=== PATIENT | male | born 1945 | race Caucasian/White ===

== ENCOUNTER → 2016-03-29 | Outpatient (CLI) | payer MEDICARE ==
[2016-03-29 10:36] LABS: Basophils % (A) 0 %; CH 34.7; CHCM 34.2; Eosinophils # (A) 0.2 k/uL (0-0.7); Eosinophils % (A) 2 %; HCT 39.3 % (39.0-53.0); Luc # (Auto) 0.27; Luc % (Auto) 3; Lymphocytes # (A) 2.3 k/uL (1.0-4.8); Lymphocytes % (A) 27 %; MCH 33.7 pg (25.0-35.0); Macrocytosis Slight; Mean Platelet Volume 6.8; Monocytes # (A) 0.6 k/uL (0-1.0); Monocytes % (A) 7 %; Neutrophils # (A) 5.2 k/uL (1.3-7.7); Neutrophils % (A) 61 %; RBC 3.85 m/uL (4.30-5.90); RDW 13.9 % (11.5-15.5); WBC 8.7 k/uL (3.8-10.6); WBC (Perox) 9.18
[2016-03-29 10:51] LABS: Bilirubin, Delta 0.2 mg/dL (0.0-0.2); Total Bilirubin 0.8 mg/dL (0.2-1.3)
[2016-03-30 13:36] LABS: Hepatits C Virus RNA, Quant <12 IU/mL (<12); LOG HCV IU/mL <1.08 (<1.08)
== END | disposition home or self-care (01) ==
LOC: LABWHC1 10:14
PROVIDERS: ATTEND Physician Assistant
DX: B18.2 Chronic viral hepatitis C (principal)
CPT/HCPCS: 36415; 80076; 85025; 87522

== ENCOUNTER → 2018-10-02 | Outpatient (CLI) | payer MEDICARE ==
--- NOTE | 2018-10-02 15:54 | XR ---
EXAMINATION TYPE: XR chest 2V DATE OF EXAM: 10/02/2018 COMPARISON: NONE TECHNIQUE: PA and lateral views submitted. HISTORY: Cough FINDINGS: Subsegmental changes at the left lung base. Interstitium is somewhat coarsened and there is degenerat nadine changes of the spine. No pleural effusion. No pneumothorax. Arthropathy of the right shoulder. IMPRESSION: 1. Left basilar atelectasis favored over early pneumonia correlate clinically. 2. Coarsened interstitium can be seen with bronchitis or interstitial pneumonitis correlate clinicall y.
== END | disposition home or self-care (01) ==
LOC: RADXRMAIN 15:27
PROVIDERS: ATTEND Internal Medicine
DX: R05 Cough (principal)
CPT/HCPCS: 71046

== ENCOUNTER → 2019-08-31 | Outpatient (CLI) | payer MEDICARE ==
--- NOTE | 2019-08-31 18:04 | CT ---
EXAMINATION TYPE: CT cervical spine wo con DATE OF EXAM: 08/31/2019 COMPARISON: None HISTORY: neck pain with no injury CT DLP: 478.9 mGycm Automated exposure control for dose reduction was used. TECHNIQUE: CT scan of the cervical spine is obtained without contrast, axial images are obtained, sa gittal and coronal reformatted images are also reviewed. FINDINGS: Cervical spine is visualized in its entirety from C1 through upper thoracic levels. There i s straightening of the cervical lordosis. No evidence of acute fracture or dislocation. Prevertebral soft tissue appears within normal limits. The C1-C2 articulation is maintained, with degenerative c hanges anteriorly. There is C4-5, C5-6, and C6-7 disc space narrowing, osteophytosis, and endplate cy stic changes. Multilevel facet arthropathy. There is multilevel bilateral varying degrees of neural f oramina narrowing, with severe right narrowing at C3-4. There is mild canal stenosis at C5-6. IMPRESSION: Multilevel degenerative changes of the cervical spine as above. Varying degrees of multil evel neural foramina narrowing, worst with severe narrowing at C3-4 on the right. Mild canal stenosis at C5-6.
--- NOTE | 2019-09-02 11:53 | CT ---
EXAMINATION TYPE: CT iac wo con DATE OF EXAM: 08/31/2019 COMPARISON: None HISTORY: hearing loss, vertigo CT DLP: 150mGycm Automated exposure control for dose reduction was used. FINDINGS: The external auditory canals are patent bilaterally. Mastoid air cells show no evidence of abnormal opacification bilaterally. The middle ear ossicles are symmetric and unremarkable. There is no evidence of suspicious surrounding soft tissue density to suggest cholesteatoma. The scutum is preserved bilaterally. The cochlea and the semicircular canals are symmetric and unremarkable. Vestibular aqueduct and inte rnal carotid canal appear unremarkable. Temporomandibular joints are maintained bilaterally. Chronic deformity of the nasal bone. Correlate for previous trauma. IMPRESSION: No significant abnormality seen to account for patient's symptoms.
== END | disposition home or self-care (01) ==
LOC: RADCTMAIN 14:41
PROVIDERS: ATTEND Otolaryngology
DX: M48.02 Spinal stenosis, cervical region (principal); M47.812 Spondylosis without myelopathy or radiculopathy, cervical region
CPT/HCPCS: 36415; 70480; 72125; 82565; 84520

== ENCOUNTER → 2019-09-21 | Outpatient (CLI) | payer MEDICARE ==
--- NOTE | 2019-09-21 12:45 | US ---
EXAMINATION TYPE: US scrotum with doppler. TECHNIQUE: Grayscale and color Doppler Duplex imaging performed of the scrotum. DATE OF EXAM: 09/21/2019 COMPARISON: NONE CLINICAL HISTORY: 73-year-old male N50.89 Right testicle swelling. FINDINGS: EXAM MEASUREMENTS: TESTICLES: Right Testicle: 3.4 x 1.7 x 2.7 cm Left Testicle: 3.8 x 2.4 x 3.0 cm EPIDIDYMIS HEAD: Left Epididymis: 1.1 cm Right epididymis: Could not be visualized Doppler performed to assess for testicular vascularity; good bilateral color flow and waveforms are s een. There is no evidence of testicular torsion. Presence of hydroceles: Large hydrocele Right= 8.9 x 6.3 x 7.3 cm Presence of varicoceles: No IMPRESSION: 1. Large right-sided hydrocele measuring up to 9 cm. 2. No sonographic evidence for testicular torsion or epididymoorchitis.
== END | disposition home or self-care (01) ==
LOC: RADUSWWP 10:48
PROVIDERS: ATTEND Surgery
DX: N43.3 Hydrocele, unspecified (principal)
CPT/HCPCS: 76870; 93975

== ENCOUNTER 2019-11-23 09:39 | Emergency (ER) | payer MEDICARE ==
[2019-11-23 09:50] VITALS: BP 135/77; PULSE 117; RESP 16; TEMP 98.9
--- NOTE | 2019-11-23 10:11 | ED ---
Extremity Problem HPI - General Chief complaint: Extremity Problem,Nontraumatic Stated complaint: POSS BLOOD CLOT Time Seen by Provider: 11/23/19 09:50 Source: patient, RN notes reviewed Mode of arrival: ambulatory Limitations: no limitations - History of Present Illness Initial comments: This a 74-year-old male presents emergency Department from urology office with chief complaint right leg swelling. Patient states it surgery 2 weeks ago in which their concern he may have a DVT of his right leg. Patient denies any associated pain no chest pain or shortness of breath. Patient states that he's had some redness in which she thinks is improving. He's had some swelling in the past states is may be slightly worse. Patient denies any history DVT or PE. He has no shortness of breath. Patient denies abdominal pain he states he did have a follow-up with urology today stating he healed well scrotal surgery. Patient denies being diabetic denies any claudication type pain. - Related Data Previous Rx's Medication Instructions Recorded Cephalexin [Keflex] 500 mg PO Q6HR #40 cap 11/23/19 Allergies Allergy/AdvReac Type Severity Reaction Status Date / Time No Known Allergies Allergy Verified 11/23/19 09:47 Review of Systems ROS Statement: Those systems with pertinent positive or pertinent negative responses have been documented in the HPI. ROS Other: All systems not noted in ROS Statement are negative. Past Medical History Past Medical History: No Reported History History of Any Multi-Drug Resistant Organisms: None Reported Past Surgical History: Orthopedic Surgery Additional Past Surgical History / Comment(s): bilateral knee sx, right testicle sx 2019 Past Psychological History: No Psychological Hx Reported Smoking Status: Light tobacco smoker Past Alcohol Use History: None Reported Past Drug Use History: Marijuana General Exam Limitations: no limitations General appearance: alert, in no apparent distress Head exam: Present: atraumatic, normocephalic, normal inspection Eye exam: Present: normal appearance, PERRL, EOMI. Absent: scleral icterus, conjunctival injection, periorbital swelling ENT exam: Present: normal exam, normal oropharynx, mucous membranes moist Neck exam: Present: normal inspection, full ROM. Absent: tenderness, meningismus, lymphadenopathy Respiratory exam: Present: normal lung sounds bilaterally. Absent: respiratory distress, wheezes, rales, rhonchi, stridor Cardiovascular Exam: Present: regular rate (Heart rate 92 on exam), normal rhythm, normal heart sounds. Absent: systolic murmur, diastolic murmur, rubs, gallop, clicks Extremities exam: Present: other (Mild swelling to the right leg, there is mild erythema lower extremity, pulses are palpable equal bilaterally shows full range of motion) Neurological exam: Present: alert, oriented X3 Skin exam: Present: warm, dry, intact, normal color. Absent: rash Course Vital Signs 11/23/19 09:47 Temperature 98.9 F Pulse Rate 117 H Respiratory 16 Rate Blood Pressure 135/77 O2 Sat by Pulse 100 Oximetry Medical Decision Making - Medical Decision Making 74-year-old male presented for right leg swelling, to rule out DVT all child is negative for acute DVT. Patient has mild cellulitis. Patient is afebrile vitals are stable. Patient be discharged on oral antibiotics with close follow- up return parameters discussed she is advised to elevate, wear compression stockings. Disposition Clinical Impression: Right leg swelling, Cellulitis of right leg Disposition: HOME SELF-CARE Condition: Stable Instructions (If sedation given, give patient instructions): Leg Edema (ED), Cellulitis (ED) Additional Instructions: Please return to the Emergency Department if symptoms worsen or any other concerns. Prescriptions: Cephalexin [Keflex] 500 mg PO Q6HR #40 cap Is patient prescribed a controlled substance at d/c from ED?: No Referrals: Maynor Delgadillo MD [Primary Care Provider] - 1-2 days Time of Disposition: 10:55
--- NOTE | 2019-11-23 10:41 | US ---
EXAMINATION TYPE: US venous doppler duplex LE RT DATE OF EXAM: 11/23/2019 10:04 AM COMPARISON: NONE CLINICAL HISTORY: pain. right lower leg redness and swelling. SIDE PERFORMED: Right TECHNIQUE: The lower extremity deep venous system is examined utilizing real time linear array sonog nancy with graded compression, doppler sonography and color-flow sonography. VESSELS IMAGED: External Iliac Vein (EIV) Common Femoral Vein Deep Femoral Vein Greater Saphenous Vein * Femoral Vein Popliteal Vein Small Saphenous Vein * Proximal Calf Veins (* superficial vessels) Right Leg: Negative for DVT IMPRESSION: Grayscale, color doppler, spectral doppler imaging performed of the deep veins of the lo wer extremities. There is normal flow, compressibility, vascular waveforms.
== END 2019-11-23 11:08 | disposition home or self-care (01) ==
LOC: EC 09:39
DX: L03.115 Cellulitis of right lower limb (principal); F17.200 Nicotine dependence, unspecified, uncomplicated
CPT/HCPCS: 99283

== ENCOUNTER 2020-03-08 11:38 | Inpatient (IN) | payer MEDICARE ==
[2020-03-08] MEDS ORDERED: PANTOPRAZOLE 40 MG/10 ML VIAL IVP STA (12:27)
[2020-03-08 13:04] LABS: Basophils % (A) 0 %; Eosinophils # (A) 0.1 k/uL (0-0.7); Eosinophils % (A) 1 %; HCT 34.3 % (39.0-53.0); HGB 11.3 gm/dL (13.0-17.5); Lymphocytes # (A) 0.7 k/uL (1.0-4.8); Lymphocytes % (A) 11 %; MCH 32.4 pg (25.0-35.0); MCHC 32.9 g/dL (31.0-37.0); MCV 98.3 fL (80.0-100.0); Mean Platelet Volume 7.4; Monocytes # (A) 0.6 k/uL (0-1.0); Monocytes % (A) 9 %; Neutrophils % (A) 77 %; Platelet Count 194 k/uL (150-450); RBC 3.49 m/uL (4.30-5.90); WBC 6.5 k/uL (3.8-10.6)
--- NOTE | 2020-03-08 13:14 | ED ---
Abdominal Pain HPI - General Source: patient, family Mode of arrival: wheelchair Limitations: no limitations <Christy Kunz - Last Filed: 03/08/20 14:23> <Omar Mccoy - Last Filed: 03/08/20 15:38> - General Chief Complaint: Abdominal Pain Stated Complaint: abd pain, unable to urinate Time Seen by Provider: 03/08/20 12:10 - History of Present Illness Initial Comments: Patient is a 74-year-old male, with history of hypertension, hepatitis C, is presenting to the emergency Department with complaints of lower abdominal pain and unable to urinate for the past 24 hours. Patient states he has been having difficulty with his abdomen for the last couple months, having occasional cramping and some intermittent nausea. Patient has had laboratory done at his PCPs office in the last week, no acute abnormalities that they're aware of. He denies any fever or chills, no vomiting. Patient states he has been dealing with some constipation on and off for the last week. He did have a few small bowel movements a few days ago and then this morning. He denies history of abdominal obstruction, he does admit to hernia repair no other abdominal surgeries. Denies any chest pain or shortness of breath. He has no further complaints at this time. Upon arrival to the ER, his vital signs are stable. (Christy Kunz) - Related Data Home Medications Medication Instructions Recorded Confirmed ALPRAZolam [Xanax] 0.25 mg PO HS PRN 03/08/20 03/08/20 Levothyroxine Sodium [Synthroid] 125 mcg PO DAILY 03/08/20 03/08/20 Lisinopril-Hctz 20-12.5 mg 1 tab PO DAILY 03/08/20 03/08/20 [Zestoretic 20-12.5] Methadone HCl [Methadone Intensol] 146 mg PO DAILY 03/08/20 03/08/20 Simvastatin [Zocor] 20 mg PO Q48H 03/08/20 03/08/20 Allergies Allergy/AdvReac Type Severity Reaction Status Date / Time No Known Allergies Allergy Verified 03/08/20 13:22 Review of Systems ROS Other: All systems not noted in ROS Statement are negative. <Christy Kunz - Last Filed: 03/08/20 14:23> ROS Other: All systems not noted in ROS Statement are negative. <Omar Mccoy - Last Filed: 03/08/20 15:38> ROS Statement: Those systems with pertinent positive or pertinent negative responses have been documented in the HPI. Past Medical History Past Medical History: Hyperlipidemia, Hypertension, Thyroid Disorder Additional Past Medical History / Comment(s): HEPATITIS C from past drug abuse History of Any Multi-Drug Resistant Organisms: None Reported Past Surgical History: Hernia Repair, Orthopedic Surgery Additional Past Surgical History / Comment(s): bilateral knee sx, right testicle sx 2019 Past Psychological History: No Psychological Hx Reported Smoking Status: Current some day smoker, Light tobacco smoker Past Alcohol Use History: None Reported Past Drug Use History: Marijuana <Christy Kunz - Last Filed: 03/08/20 14:23> General Exam Limitations: no limitations <Christy Kunz - Last Filed: 03/08/20 14:23> - General Exam Comments Initial Comments: GENERAL: Patient is well-developed and well-nourished. Patient is nontoxic and in mild acute distress. HEAD: Atraumatic, normocephalic. EYES: Pupils equal round and reactive to light, extraocular movements intact, sclera anicteric, conjunctiva are normal. Eyelids were unremarkable. ENT: TMs normal, nares patent, oropharynx clear without exudates. Moist mucous membranes. NECK: Normal range of motion, supple without lymphadenopathy or JVD. LUNGS: Unlabored respirations. Breath sounds clear to auscultation bilaterally and equal. No wheezes rales or rhonchi. HEART: Regular rate and rhythm without murmurs, rubs or gallops. ABDOMEN: Abdomen slightly distended, generalized tenderness, no specific area pain, it is increased in the lower abdomen though. Soft, hypoactive bowel sounds. No guarding, no rebound. No masses appreciated. : Deferred MUSCULOSKELETAL: Normal extremities with adequate strength and normal range of motion, no pitting or edema. No clubbing or cyanosis. NEUROLOGICAL: Patient is alert and oriented x 3. Motor and sensory are also intact. Cranial nerves II through XII grossly intact. Symmetrical smile. Normal speech, normal gait. PSYCH: Normal mood, normal affect. SKIN: Warm, Dry, normal turgor, no rashes or lesions noted. (Christy Kunz) Course <Omar Mccoy - Last Filed: 03/08/20 15:38> Vital Signs 03/08/20 03/08/20 03/08/20 11:54 13:49 15:20 Temperature 98.6 F 97.9 F Pulse Rate 96 89 99 Respiratory 18 18 18 Rate Blood Pressure 163/94 152/91 157/83 O2 Sat by Pulse 99 98 100 Oximetry - Reevaluation(s) Reevaluation #1: 03/08/20 14:31 EKG: Normal sinus rhythm, rate of 99, MT interval 200, QRS duration 100, QTC 456 (Omar Mccoy) Reevaluation #2: 03/08/20 14:30 Did discuss case with nephrology, Dr. Knott, will evaluate the patient. And Dr. Thomas who is able to evaluate the patient in the emergency department 03/08/20 15:37 (Omar Mccoy) Medical Decision Making - Lab Data Result diagrams: 03/08/20 12:49 03/08/20 12:49 <Christy Kunz - Last Filed: 03/08/20 14:23> - Lab Data Result diagrams: 03/08/20 12:49 03/08/20 12:49 <Omar Mccoy - Last Filed: 03/08/20 15:38> - Medical Decision Making Patient is a 74-year-old male history hypertension, presenting for abdominal tenderness as well as urinary retention for the last 24 hours. No fevers, vital signs are stable upon arrival. Patient does look uncomfortable and in mild distress. We did do a bladder scan, this only revealed about 60 mL's. We did she have Barajas catheter, patient is not draining any urine. (Christy Kunz) - Lab Data Lab Results 03/08/20 03/08/20 03/08/20 Range/Units 12:49 12:49 12:49 WBC 6.5 (3.8-10.6) k/uL RBC 3.49 L (4.30-5.90) m/uL Hgb 11.3 L (13.0-17.5) gm/dL Hct 34.3 L (39.0-53.0) % MCV 98.3 (80.0-100.0) fL MCH 32.4 (25.0-35.0) pg MCHC 32.9 (31.0-37.0) g/dL RDW 15.0 (11.5-15.5) % Plt Count 194 (150-450) k/uL MPV 7.4 Neutrophils % 77 % Lymphocytes % 11 % Monocytes % 9 % Eosinophils % 1 % Basophils % 0 % Neutrophils # 5.0 (1.3-7.7) k/uL Lymphocytes # 0.7 L (1.0-4.8) k/uL Monocytes # 0.6 (0-1.0) k/uL Eosinophils # 0.1 (0-0.7) k/uL Basophils # 0.0 (0-0.2) k/uL PT 10.6 (9.0-12.0) sec INR 1.0 (<1.2) APTT 23.8 (22.0-30.0) sec Sodium 138 (137-145) mmol/L Potassium 5.9 H (3.5-5.1) mmol/L Chloride 102 (98-107) mmol/L Carbon Dioxide 20 L (22-30) mmol/L Anion Gap 16 mmol/L BUN 98 H (9-20) mg/dL Creatinine 9.83 H* (0.66-1.25) mg/dL Est GFR (CKD-EPI)AfAm 5 (>60 ml/min/1.73 sqM) Est GFR (CKD-EPI)NonAf 5 (>60 ml/min/1.73 sqM) Glucose 127 H (74-99) mg/dL Plasma Lactic Acid Ari (0.7-2.0) mmol/L Calcium 9.7 (8.4-10.2) mg/dL Total Bilirubin 1.0 (0.2-1.3) mg/dL AST 102 H (17-59) U/L ALT 85 H (4-49) U/L Alkaline Phosphatase 876 H (38-126) U/L Total Protein 8.1 (6.3-8.2) g/dL Albumin 3.9 (3.5-5.0) g/dL Amylase 187 H (30-110) U/L Lipase 465 H (23-300) U/L 03/08/20 Range/Units 12:49 WBC (3.8-10.6) k/uL RBC (4.30-5.90) m/uL Hgb (13.0-17.5) gm/dL Hct (39.0-53.0) % MCV (80.0-100.0) fL MCH (25.0-35.0) pg MCHC (31.0-37.0) g/dL RDW (11.5-15.5) % Plt Count (150-450) k/uL MPV Neutrophils % % Lymphocytes % % Monocytes % % Eosinophils % % Basophils % % Neutrophils # (1.3-7.7) k/uL Lymphocytes # (1.0-4.8) k/uL Monocytes # (0-1.0) k/uL Eosinophils # (0-0.7) k/uL Basophils # (0-0.2) k/uL PT (9.0-12.0) sec INR (<1.2) APTT (22.0-30.0) sec Sodium (137-145) mmol/L Potassium (3.5-5.1) mmol/L Chloride (98-107) mmol/L Carbon Dioxide (22-30) mmol/L Anion Gap mmol/L BUN (9-20) mg/dL Creatinine (0.66-1.25) mg/dL Est GFR (CKD-EPI)AfAm (>60 ml/min/1.73 sqM) Est GFR (CKD-EPI)NonAf (>60 ml/min/1.73 sqM) Glucose (74-99) mg/dL Plasma Lactic Acid Ari 1.8 (0.7-2.0) mmol/L Calcium (8.4-10.2) mg/dL Total Bilirubin (0.2-1.3) mg/dL AST (17-59) U/L ALT (4-49) U/L Alkaline Phosphatase (38-126) U/L Total Protein (6.3-8.2) g/dL Albumin (3.5-5.0) g/dL Amylase (30-110) U/L Lipase (23-300) U/L Disposition Decision Date: 03/08/20 Decision Time: 14:24 <Christy Kunz - Last Filed: 03/08/20 14:23> <Omar Mccoy - Last Filed: 03/08/20 15:38> Clinical Impression: Acute renal failure, Metastatic renal cell carcinoma Disposition: ADMITTED IP TO THIS HOSP Condition: Stable
[2020-03-08 13:18] LABS: Albumin 3.9 g/dL (3.5-5.0); Calcium 9.7 mg/dL (8.4-10.2); Potassium 5.9 mmol/L (3.5-5.1); Total Protein 8.1 g/dL (6.3-8.2)
[2020-03-08] MEDS ORDERED: SODIUM CHLORIDE 0.9% 1,000 ML IV ONE (13:27)
[2020-03-08 13:42] LABS: Partial Thromboplastin Time 23.8 sec (22.0-30.0); Prothrombin Time 10.6 sec (9.0-12.0)
[2020-03-08] MEDS: SODIUM CHLORIDE 0.9% 1,000 ML IV SCH ×2 (13:46→21:00)
--- NOTE | 2020-03-08 14:15 | CT ---
EXAMINATION TYPE: CT abdomen pelvis wo con DATE OF EXAM: 03/08/2020 COMPARISON: None HISTORY: generalized pain, inability to urinate CT DLP: 720.6 mGycm Automated exposure control for dose reduction was used. TECHNIQUE: Helical acquisition of images from the lung bases through the pelvis. FINDINGS: Lack of intravenous contrast could compromise sensitivity. There are coronary artery calcif ications. LUNG BASES: No significant abnormality is appreciated. AORTA: No significant abnormality is appreciataed. LIVER/GB: Some scattered mildly dilated biliary ducts are suspected, gallbladder is within normal barber its. PANCREAS: No significant abnormality is seen. SPLEEN: No significant abnormality is seen. ADRENALS: No significant abnormality is seen. KIDNEYS: Right kidney is not recognizable, there is a soft tissue mass present at the level of the ri ght kidney measuring approximately 9.3 cm in cephalad to caudal dimension by 9 cm in transverse dimen nithin by 6.3 cm in AP dimension, soft tissue extends to the level the inferior vena cava which is not seen at the level of the mass with certainty, abnormal soft tissue extends along the retroperitoneal region peripherally to the level of the right iliac vessels. There is some thickening enteritis fasci a, abnormal thickening of the lateral conal fascia on the right. Small bowel loops, duodenum, close p roximity to the retroperitoneal mass, possibly involved by the mass. The left kidney shows probable h ydronephrosis, low dense focus at the midpole may represent a cortical cyst, there is mild left-sided hydroureter to the level of the distal aspect, no definite stone. Along the level of the iliac vasculature on the right there is some increased soft tissue density. Th e right iliac vein is not recognizable near the confluence of the iliac veins, right common iliac art keenan and vein. REPRODUCTIVE ORGANS: Prostate calcifications are suspected. URINARY BLADDER: Catheterized. BOWEL: No significant abnormality is seen. FREE AIR: No Free Air is visible. ASCITES: None visible. PELVIC ADENOPATHY: None visualized. RETROPERITONEAL ADENOPATHY: There are retroperitoneal nodes present in the periaortic location on th e left. OSSEOUS STRUCTURES: Sclerotic density is present within the pelvis including the left pubic ramus in feriorly on the left, the right and left ilium bone, sacrum, multiple lumbar vertebral bodies, lytic lucency present within the left ilium. IMPRESSION: FINDINGS SUGGEST METASTATIC RENAL CELL CARCINOMA. 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 SUGGESTION OF URETERAL OBSTRUCTION DISTALLY OR POSSIBLY URE TER STRICTURE DISTALLY ON THE LEFT.
[2020-03-08] MEDS ORDERED: NALOXONE 0.4 MG/ML 1 ML VIAL IV PRN (14:17)
[2020-03-08] MEDS ORDERED: SODIUM POLYSTYRENE SULFONATE 15 GM/60 ML BOTTLE PO ONE (14:27)
--- NOTE | 2020-03-08 14:33 | P.HPIM ---
History of Present Illness H&P Date: 03/08/20 Miguel Mancuso, is a 74-year-old male patient of Dr. Delgadillo who presented to [facility] emergency room with a chief complaint of abdominal pain, patient also stated that he was not able to urinate for the past 24 hours, patient states that his symptoms started about 1 month ago but has been worse in the last few days he was evaluated in the emergency room, his vital exam on presentation revealed a temperature of 98.6 pulse 96 respiration 18 blood pressure 163/94 pulse ox 99% on room air, his white blood count was 6.5 hemoglobin 11.3 platelet count 194 sodium 138 potassium 5.9 BUN elevated at 98 creatinine 9.83 glucose level was 127 ALT and AST were elevated at 85 and 1 or 2 alkaline phosphatase was 876 amylase and lipase were elevated at 187 and 465. Barajas catheter was inserted in the emergency room and there was no urine in the bladder, computed tomography scan of the abdomen and pelvis was ordered results are still pending patient will be admitted to medical floor nephrology and urology consultation will be requested, a dose of Kayexalate was ordered. Results of computed tomography scan of the abdomen now available and findings suggest metastatic renal cell carcinoma with possible obstruction and evidence of deep venous thrombosis involving the right iliac vein and finding in the liver suggestive of dilation of the biliary duct. At this time patient will be admitted to medical floor he will be started on IV heparin nephrology, urology, gastroenterology, and oncology consultation will be requested will follow closely. Past Medical History Past Medical History: Hyperlipidemia, Hypertension, Thyroid Disorder Additional Past Medical History / Comment(s): HEPATITIS C from past drug abuse History of Any Multi-Drug Resistant Organisms: None Reported Past Surgical History: Hernia Repair, Orthopedic Surgery Additional Past Surgical History / Comment(s): bilateral knee sx, right testicle sx 2019 Past Psychological History: No Psychological Hx Reported Smoking Status: Current some day smoker, Light tobacco smoker Past Alcohol Use History: None Reported Past Drug Use History: Marijuana Medications and Allergies Home Medications Medication Instructions Recorded Confirmed Type ALPRAZolam [Xanax] 0.25 mg PO HS PRN 03/08/20 03/08/20 History Levothyroxine Sodium [Synthroid] 125 mcg PO DAILY 03/08/20 03/08/20 History Lisinopril-Hctz 20-12.5 mg 1 tab PO DAILY 03/08/20 03/08/20 History [Zestoretic 20-12.5] Methadone HCl [Methadone Intensol] 146 mg PO DAILY 03/08/20 03/08/20 History Simvastatin [Zocor] 20 mg PO Q48H 03/08/20 03/08/20 History Allergies Allergy/AdvReac Type Severity Reaction Status Date / Time No Known Allergies Allergy Verified 03/08/20 13:22 Physical Exam Vitals: Vital Signs Temp Pulse Resp BP Pulse Ox 03/08/20 13:49 89 18 152/91 98 03/08/20 11:54 98.6 F 96 18 163/94 99 Intake and Output 03/07/20 03/08/20 03/08/20 22:59 06:59 14:59 Other: Weight 86.183 kg In general patient is alert and oriented 3 in no apparent distress HEENT head normocephalic and atraumatic Neck is supple no JVD no goiter no lymphadenopathy Chest exam reveals crackles in both lung bases no wheezing Cardiac exam reveals regular heart sounds S1 and S2 no gallops no murmurs Abdomen is soft with mild diffuse tenderness in the abdomen no organomegaly with normal bowel sounds Extremity exam reveal mild edema on the right worse than on the left, with mild erythema in the right pretibial area, no cyanosis or clubbing Neurological examination reveals, no gross focal neurological deficits Results CBC & Chem 7: 03/08/20 12:49 03/08/20 12:49 Labs: Abnormal Lab Results - Last 24 Hours (Table) 03/08/20 03/08/20 Range/Units 12:49 12:49 RBC 3.49 L (4.30-5.90) m/uL Hgb 11.3 L (13.0-17.5) gm/dL Hct 34.3 L (39.0-53.0) % Lymphocytes # 0.7 L (1.0-4.8) k/uL Potassium 5.9 H (3.5-5.1) mmol/L Carbon Dioxide 20 L (22-30) mmol/L BUN 98 H (9-20) mg/dL Creatinine 9.83 H* (0.66-1.25) mg/dL Glucose 127 H (74-99) mg/dL AST 102 H (17-59) U/L ALT 85 H (4-49) U/L Alkaline Phosphatase 876 H (38-126) U/L Amylase 187 H (30-110) U/L Lipase 465 H (23-300) U/L Assessment and Plan Plan: 1. Abdominal pain, computed tomography scan of the abdomen and pelvis was done in the emergency room findings suggest metastatic renal cell carcinoma with obstruction, also evidence of deep venous thrombosis involving the right iliac vein and evidence of biliary duct dilatation, at this point patient will be admitted to medical floor, he will be started on IV heparin urology consultation nephrology consultation gastroenterology consultation and oncology consultation were initiated 2. Poor urine output, possibly related to obstruction with a component of prerenal azotemia, 3. Acute renal failure with elevated BUN and creatinine 4. Underlying history of hypertension 5. Underlying history of hepatitis C 6. Underlying history of hyperlipidemia 7. Underlying history of hypothyroidism 8. Underlying history of chronic pain maintained on methadone At this time will admit patient to medical floor started on IV heparin, Consult gastroenterology in relation to biliary duct dilated Tatian Consult nephrology for acute renal failure Consults urology for urinary obstruction And consult hematology oncology Prognosis guarded will follow closely
[2020-03-08] MEDS ORDERED: CALCIUM GLUCONATE 1 GM in SODIUM CHLORIDE 0.9% 100 ML IVPB ONE (14:45)
--- NOTE | 2020-03-08 15:31 | P.GSCN ---
History of Present Illness Consult date: 03/08/20 History of present illness: This is a 74-year-old gentleman whom I've been asked to see for left hydronephrosis, and urea, right renal mass, possible metastatic renal cancer. The patient who is in reasonably good health states that he is not having urine for the last 36 hours. He has been having back pain bilaterally for the last month. Not really have the sensation of fullness but because he had voided he came to the hospital. Prior to this he voided without difficulty. The been no blood in the urine. He was seen in the ER and found to have a creatinine of 9.8-year-old of 89. His computed tomography scan of the abdomen identifying a large left renal retroperitoneal/renal mass. There also is left-sided hydronephrosis and a bladder that appeared to be empty. A Barajas catheters placed and there is no urine in the bladder. For this reason we're asked see the patient. He is being admitted to . Review of Systems - Constitutional Reports anorexia, Reports weight loss - Gastrointestinal Reports abdominal pain - Musculoskeletal Reports low back pain Past Medical History Past Medical History: Hyperlipidemia, Hypertension, Thyroid Disorder Additional Past Medical History / Comment(s): HEPATITIS C from past drug abuse History of Any Multi-Drug Resistant Organisms: None Reported Past Surgical History: Hernia Repair, Orthopedic Surgery Additional Past Surgical History / Comment(s): bilateral knee sx, right testicle sx 2019 Past Psychological History: No Psychological Hx Reported Smoking Status: Current some day smoker, Light tobacco smoker Past Alcohol Use History: None Reported Past Drug Use History: Marijuana Medications and Allergies Home Medications Medication Instructions Recorded Confirmed Type ALPRAZolam [Xanax] 0.25 mg PO HS PRN 03/08/20 03/08/20 History Levothyroxine Sodium [Synthroid] 125 mcg PO DAILY 03/08/20 03/08/20 History Lisinopril-Hctz 20-12.5 mg 1 tab PO DAILY 03/08/20 03/08/20 History [Zestoretic 20-12.5] Methadone HCl [Methadone Intensol] 146 mg PO DAILY 03/08/20 03/08/20 History Simvastatin [Zocor] 20 mg PO Q48H 03/08/20 03/08/20 History Allergies Allergy/AdvReac Type Severity Reaction Status Date / Time No Known Allergies Allergy Verified 03/08/20 13:22 Surgical - Exam Vital Signs Temp Pulse Resp BP Pulse Ox 98.6 F 96 18 163/94 99 03/08/20 11:54 03/08/20 11:54 03/08/20 11:54 03/08/20 11:54 03/08/20 11:54 - General Mild distress well developed, well nourished - Eyes PERRL - ENT no hearing loss - Neck no masses - Respiratory normal expansion, normal respiratory effort - Cardiovascular Rhythm: regular - Abdomen Abdomen: soft, non tender - Genitourinary Indwelling catheter with normal penis and testicles - Neurologic normal coordination, normal sensation - Musculoskeletal normal posture - Psychiatric oriented to time, oriented to person, oriented to place, speech is normal, memory intact Results - Labs 03/08/20 12:49 03/08/20 12:49 Abnormal Lab Results - Last 24 Hours (Table) 03/08/20 03/08/20 Range/Units 12:49 12:49 RBC 3.49 L (4.30-5.90) m/uL Hgb 11.3 L (13.0-17.5) gm/dL Hct 34.3 L (39.0-53.0) % Lymphocytes # 0.7 L (1.0-4.8) k/uL Potassium 5.9 H (3.5-5.1) mmol/L Carbon Dioxide 20 L (22-30) mmol/L BUN 98 H (9-20) mg/dL Creatinine 9.83 H* (0.66-1.25) mg/dL Glucose 127 H (74-99) mg/dL AST 102 H (17-59) U/L ALT 85 H (4-49) U/L Alkaline Phosphatase 876 H (38-126) U/L Amylase 187 H (30-110) U/L Lipase 465 H (23-300) U/L Diabetes panel 03/08/20 Range/Units 12:49 Sodium 138 (137-145) mmol/L Potassium 5.9 H (3.5-5.1) mmol/L Chloride 102 (98-107) mmol/L Carbon Dioxide 20 L (22-30) mmol/L BUN 98 H (9-20) mg/dL Creatinine 9.83 H* (0.66-1.25) mg/dL Glucose 127 H (74-99) mg/dL Calcium 9.7 (8.4-10.2) mg/dL AST 102 H (17-59) U/L ALT 85 H (4-49) U/L Alkaline Phosphatase 876 H (38-126) U/L Total Protein 8.1 (6.3-8.2) g/dL Albumin 3.9 (3.5-5.0) g/dL Calcium panel 03/08/20 Range/Units 12:49 Calcium 9.7 (8.4-10.2) mg/dL Albumin 3.9 (3.5-5.0) g/dL Pituitary panel 03/08/20 Range/Units 12:49 Sodium 138 (137-145) mmol/L Potassium 5.9 H (3.5-5.1) mmol/L Chloride 102 (98-107) mmol/L Carbon Dioxide 20 L (22-30) mmol/L BUN 98 H (9-20) mg/dL Creatinine 9.83 H* (0.66-1.25) mg/dL Glucose 127 H (74-99) mg/dL Calcium 9.7 (8.4-10.2) mg/dL Adrenal panel 03/08/20 Range/Units 12:49 Sodium 138 (137-145) mmol/L Potassium 5.9 H (3.5-5.1) mmol/L Chloride 102 (98-107) mmol/L Carbon Dioxide 20 L (22-30) mmol/L BUN 98 H (9-20) mg/dL Creatinine 9.83 H* (0.66-1.25) mg/dL Glucose 127 H (74-99) mg/dL Calcium 9.7 (8.4-10.2) mg/dL Total Bilirubin 1.0 (0.2-1.3) mg/dL AST 102 H (17-59) U/L ALT 85 H (4-49) U/L Alkaline Phosphatase 876 H (38-126) U/L Total Protein 8.1 (6.3-8.2) g/dL Albumin 3.9 (3.5-5.0) g/dL - Imaging CT scan - abdomen: report reviewed, image reviewed CT scan - pelvis: report reviewed, image reviewed Assessment and Plan Assessment: Impression: Acute renal failure. Left Sided hydronephrosis. Right renal mass. Possible renal cell carcinoma possible metastatic renal cell carcinoma. Recommendations: I will urgently do cystoscopy, left retrograde pyelogram and stent placement if possible to establish a drainage to relieve the renal failure. If we are unable to do that then would consider a percutaneous nephrostomy tube. I will also assess the bladder and the ureter to see if there is cause for the obstruction of the left ureter. This is cancer it could be due to metastatic taylor disease or perhaps metastases to the bladder. This will be done this afternoon. This has been discussed with the patient and his .
[2020-03-08] MEDS ORDERED: IOPAMIDOL-370 50ML BTL IRRIGATION ONE (15:40)
[2020-03-08] MEDS ORDERED: fentaNYL (PF) 50 MCG/ML 2 ML AMP ONE (15:58)
[2020-03-08] MEDS ORDERED: PROPOFOL 10 MG/ML 20 ML VIAL IV ONE (15:58)
[2020-03-08] MEDS ORDERED: LACTATED RINGERS 1,000 ML IV ONE (16:05)
--- NOTE | 2020-03-08 17:09 | P.OP ---
Date of Procedure: 03/08/20 Preoperative Diagnosis: Renal mass, left hydronephrosis, renal failure creatinine 10 Postoperative Diagnosis: Same, normal cystoscopy, failed retrograde pyelogram, ureteroscopy left Anesthesia: GETA Surgeon: Carlos Alberto Thomas Pathology: none sent Condition: stable Disposition: PACU Indications for Procedure: The patient is 74. He presented with anuria 36 hours. Computed tomography scan showed a right renal mass worrisome for carcinoma of the kidney, metastatic it also showed left hydronephrosis of indeterminate etiology. His creatinine is 10. He comes for cystoscopy retrograde pyelogram and possible stent placement in the left side Description of Procedure: The patient is brought to the operating suite. He is given a general endotracheal anesthesia. He's placed lithotomy position with sterile prep and drape. Cystoscopy Foroblique lens and 21-Yemeni sheath identifies normal urethra. The prostate shows some obstruction. Upon entering the bladder there is some trabeculation. No tumor stone or inflammation is noted. The right ureteral orifice is normal place the left ureteral orifice is medially placed in difficult to access. The intubate the left ureteral orifice with the 8 cone- tipped catheter. A retrograde pyelogram was attempted but no contrast goes proximally. An pass a semirigid ureteroscope into the orifice and cannot see the opening. I passed into the intramural tunnel and there is no definable mucosa. I attempted pass a wire multiple times and I fail. Attempt the flexible cystoscope to angle of the wire into the ureter better this also fails. After 45 minutes of attempt a terminate the procedure the bladder strain the patient's awake and returned recovery room good condition Impression failed retrograde pyelogram ureteroscopy and attempted ureteroscopic placement. Plan I have contacted radiology for percutaneous nephrostomy.
[2020-03-08] MEDS ORDERED: fentaNYL (PF) 50 MCG/ML 2 ML AMP IVP ONE ×2 (17:30→17:45)
[2020-03-08] MEDS ORDERED: LABETALOL SYRINGE 5 MG/ML IVP ONE ×2 (17:33→17:38)
[2020-03-08] MEDS ORDERED: hydrALAZINE HCL 20 MG/ML 1 ML VIAL IVP ONE (17:53)
[2020-03-09] MEDS: SODIUM CHLORIDE 0.9% 1,000 ML IV SCH ×3 (03:50→19:34)
--- NOTE | 2020-03-09 07:35 | FL ---
Fluoroscopy HISTORY: Hydronephrosis 4 seconds fluoroscopy time supplied to the referring clinician. 1 intraoperative C-arm images docume nt the procedure. See dictated report from urology.
[2020-03-09] MEDS ORDERED: IV FLUID CONTINUATION 1,000 ML IV ONE (08:38)
[2020-03-09] MEDS: MIDAZOLAM 2 MG/2 ML VIAL IVP ONE ×2 (09:18→09:27)
[2020-03-09] MEDS ORDERED: fentaNYL (PF) 50 MCG/ML 2 ML AMP IVP ONE (09:18)
[2020-03-09] MEDS ORDERED: LIDOCAINE 1% INJ 10MG/ML (20 ML MDV) SQ ONE (09:20)
[2020-03-09] MEDS ORDERED: IOPAMIDOL-250 50ML BTL IV ONE (09:35)
[2020-03-09] MEDS ORDERED: NON FORMULARY DRUG (Methadone Hcl [Methadone Intensol] 10 MG/ML Oral.Conc) PO SCH (09:45)
--- NOTE | 2020-03-09 09:59 | US ---
Ultrasound guidance for percutaneous nephrostomy See dictated report produced nephrostomy same date
[2020-03-09 10:32] LABS: Basophils % (A) 0 %; Eosinophils % (A) 1 %; HGB 11.3 gm/dL (13.0-17.5); Lymphocytes # (A) 0.4 k/uL (1.0-4.8); Lymphocytes % (A) 7 %; MCH 31.9 pg (25.0-35.0); MCHC 32.2 g/dL (31.0-37.0); MCV 99.2 fL (80.0-100.0); Monocytes # (A) 0.4 k/uL (0-1.0); Monocytes % (A) 8 %; Neutrophils # (A) 4.5 k/uL (1.3-7.7); Neutrophils % (A) 84 %; Platelet Count 168 k/uL (150-450); RBC 3.53 m/uL (4.30-5.90); WBC 5.3 k/uL (3.8-10.6)
--- NOTE | 2020-03-09 10:38 | P.PN ---
Subjective Progress Note Date: 03/09/20 Miguel Mancuso, is a 74-year-old male patient of Dr. Delgadillo who presented to [facility] emergency room with a chief complaint of abdominal pain, patient also stated that he was not able to urinate for the past 24 hours, patient states that his symptoms started about 1 month ago but has been worse in the last few days he was evaluated in the emergency room, his vital exam on presentation revealed a temperature of 98.6 pulse 96 respiration 18 blood pressure 163/94 pulse ox 99% on room air, his white blood count was 6.5 hemoglobin 11.3 platelet count 194 sodium 138 potassium 5.9 BUN elevated at 98 creatinine 9.83 glucose level was 127 ALT and AST were elevated at 85 and 1 or 2 alkaline phosphatase was 876 amylase and lipase were elevated at 187 and 465. Barajas catheter was inserted in the emergency room and there was no urine in the bladder, computed tomography scan of the abdomen and pelvis was ordered results are still pending patient will be admitted to medical floor nephrology and urology consultation will be requested, a dose of Kayexalate was ordered. Results of computed tomography scan of the abdomen now available and findings suggest metastatic renal cell carcinoma with possible obstruction and evidence of deep venous thrombosis involving the right iliac vein and finding in the liver suggestive of dilation of the biliary duct. At this time patient will be admitted to medical floor he will be started on IV heparin nephrology, urology, gastroenterology, and oncology consultation will be requested will follow closely. On 03/09/2020 status post cystoscopy with percutaneous nephrostomy placement with Dr. Thomas. Patient is sleepy from procedure and currently resting comfortably in bed. Awaiting labs for this a.m. Awaiting input from nephrology, oncology and GI services. Vitals have remained stable. Patient denies chest pain or shortness breath. Patient denies nausea vomiting or diarrhea. Patient denies any urinary burning or frequency Objective - Vital Signs Vital signs: Vital Signs Temp 97.3 F L 03/09/20 05:02 Pulse 66 03/09/20 05:02 Resp 17 03/09/20 05:02 BP 120/62 03/09/20 05:02 Pulse Ox 94 L 03/09/20 05:02 Intake & Output 03/08/20 03/09/20 03/09/20 18:59 06:59 18:59 Intake Total 600 1200 70 Output Total 2 Balance 598 1200 70 Weight 86.183 kg 86.183 kg Intake: IV 600 70 Intake, IV Titration 1200 Amount Sodium Chloride 0.9% 1, 1200 000 ml @ 130 mls/hr IV . [id number] [facility] Rx#:[id number] Output: Estimated Blood Loss 2 - Exam In general patient is alert and oriented 3 in no apparent distress HEENT head normocephalic and atraumatic Neck is supple no JVD no goiter no lymphadenopathy Chest exam reveals crackles in both lung bases no wheezing Cardiac exam reveals regular heart sounds S1 and S2 no gallops no murmurs Abdomen is soft with mild diffuse tenderness in the abdomen no organomegaly with normal bowel sounds Extremity exam reveal mild edema on the right worse than on the left, with mild erythema in the right pretibial area, no cyanosis or clubbing Neurological examination reveals, no gross focal neurological deficits - Labs CBC & Chem 7: 03/09/20 10:16 03/08/20 12:49 Labs: Abnormal Lab Results - Last 24 Hours (Table) 03/08/20 03/08/20 03/09/20 Range/Units 12:49 12:49 10:16 RBC 3.49 L 3.53 L (4.30-5.90) m/uL Hgb 11.3 L 11.3 L (13.0-17.5) gm/dL Hct 34.3 L 35.0 L (39.0-53.0) % Lymphocytes # 0.7 L 0.4 L (1.0-4.8) k/uL Potassium 5.9 H (3.5-5.1) mmol/L Carbon Dioxide 20 L (22-30) mmol/L BUN 98 H (9-20) mg/dL Creatinine 9.83 H* (0.66-1.25) mg/dL Glucose 127 H (74-99) mg/dL AST 102 H (17-59) U/L ALT 85 H (4-49) U/L Alkaline Phosphatase 876 H (38-126) U/L Amylase 187 H (30-110) U/L Lipase 465 H (23-300) U/L Assessment and Plan Plan: 1. Abdominal pain, computed tomography scan of the abdomen and pelvis was done in the emergency room findings suggest metastatic renal cell carcinoma with obstruction, also evidence of deep venous thrombosis involving the right iliac vein and evidence of biliary duct dilatation, at this point patient will be admitted to medical floor, he will be started on IV heparin urology consultation nephrology consultation gastroenterology consultation and oncology consultation were initiated 2. Poor urine output, possibly related to obstruction with a component of prerenal azotemia, status post percutaneous nephrostomy tube placement with Dr. Thomas 03/09/2020 3. Acute renal failure with elevated BUN and creatinine 4. Underlying history of hypertension 5. Underlying history of hepatitis C 6. Underlying history of hyperlipidemia 7. Underlying history of hypothyroidism 8. Underlying history of chronic pain maintained on methadone At this time will admit patient to medical floor started on IV heparin, Consult gastroenterology in relation to biliary duct dilated [place] Consult nephrology for acute renal failure Consults urology for urinary obstruction And consult hematology oncology Prognosis guarded will follow closely
--- NOTE | 2020-03-09 10:45 | P.PN ---
Progress Note - Text Progress Note Date: 03/09/20 The patient underwent successful insertion of a left nephrostomy tube today. The nephrostomy tube is currently draining large amounts of clear urine. It is likely he will experience postobstructive diuresis. His IV is currently running at 130 mL/h. His renal function will continue to be monitored. He will also require further evaluation of his abnormal right kidney.
[2020-03-09 10:47] LABS: ALT 63 U/L (4-49); AST 81 U/L (17-59); African American GFR (CKD) 6 (>60 ml/min/1.73 sqM); Albumin 3.1 g/dL (3.5-5.0); Albumin/Globulin Ratio 0.9; Alkaline Phosphatase 678 U/L (38-126); Anion Gap 14 mmol/L; Blood Urea Nitrogen 96 mg/dL (9-20); Calcium 8.9 mg/dL (8.4-10.2); Carbon Dioxide 15 mmol/L (22-30); Chloride 102 mmol/L (98-107); Globulin 3.6 g/dL; Glucose 56 mg/dL (74-99); Non-African American GFR(CKD) 5 (>60 ml/min/1.73 sqM); Sodium 131 mmol/L (137-145); Total Bilirubin 1.6 mg/dL (0.2-1.3); Total Protein 6.7 g/dL (6.3-8.2)
[2020-03-09 10:59] LABS: Potassium 6.5 mmol/L (3.5-5.1)
[2020-03-09] MEDS ORDERED: SODIUM POLYSTYRENE SULFONATE 15 GM/60 ML BOTTLE PO STA (11:06)
[2020-03-09] MEDS: LEVOTHYROXINE 125 MCG TAB PO SCH (11:42)
--- NOTE | 2020-03-09 14:05 | P.NPCON ---
History of Present Illness - Reason for Consult acute renal failure - Chief Complaint Acute kidney injury - History of Present Illness Patient is a 74-year-old male, in consultation because of acute kidney injury and hyperkalemia He presented with history of hypertension, hepatitis C, is presenting to the emergency Department with complaints of lower abdominal pain and unable to urinate for the past 24 hours. Patient states he has been having difficulty with his abdomen for the last couple months, having occasional cramping and some intermittent nausea. He denies any fever or chills, no vomiting. Patient states he has been dealing with some constipation on and off for the last week. He did have a few small bowel movements a few days ago and then this morning. He denies history of abdominal obstruction, he does admit to hernia repair no other abdominal surgeries. Denies any chest pain or shortness of breath. He has no further complaints at this time. Upon arrival to the ER, his vital signs are stable. Further workup by computed tomography scan has shown right renal mass, possibly impinging on IVC and iliac wing, also with left hydronephrosis. An attempted retrograde was unsuccessful. He underwent nephrostomy tube placement percutaneously and has been successfully draining yellow urine. He does have some pain and feels tired and weak. Appetite but no nausea vomiting. His past history significant for hepatitis C treated with hormone he and has been negative since 2016. Supposedly had previous history of drug abuse. Past Medical History Past Medical History: Hyperlipidemia, Hypertension, Thyroid Disorder Additional Past Medical History / Comment(s): HEPATITIS C from past drug abuse History of Any Multi-Drug Resistant Organisms: None Reported Past Surgical History: Hernia Repair, Orthopedic Surgery Additional Past Surgical History / Comment(s): bilateral knee sx, right testicle sx 2019 Past Psychological History: No Psychological Hx Reported Smoking Status: Current some day smoker, Light tobacco smoker Past Alcohol Use History: None Reported Past Drug Use History: Marijuana Medications and Allergies Home Medications Medication Instructions Recorded Confirmed Type ALPRAZolam [Xanax] 0.25 mg PO HS PRN 03/08/20 03/08/20 History Levothyroxine Sodium [Synthroid] 125 mcg PO DAILY 03/08/20 03/08/20 History Lisinopril-Hctz 20-12.5 mg 1 tab PO DAILY 03/08/20 03/08/20 History [Zestoretic 20-12.5] Methadone HCl [Methadone Intensol] 146 mg PO DAILY 03/08/20 03/08/20 History Simvastatin [Zocor] 20 mg PO Q48H 03/08/20 03/08/20 History Allergies Allergy/AdvReac Type Severity Reaction Status Date / Time No Known Allergies Allergy Verified 03/08/20 13:22 Physical Exam Vitals: Vital Signs Temp Pulse Pulse Pulse Resp BP BP 03/09/20 12:11 98.7 F 67 16 157/74 03/09/20 10:23 56 L 18 171/78 03/09/20 10:08 61 18 165/91 03/09/20 05:02 97.3 F L 66 17 120/62 03/09/20 00:16 97.5 F L 72 18 126/62 03/08/20 22:25 69 135/76 03/08/20 21:25 66 128/66 03/08/20 20:55 66 131/75 03/08/20 20:25 63 150/82 03/08/20 20:11 61 136/64 03/08/20 19:55 63 151/78 03/08/20 19:40 64 143/88 03/08/20 19:24 97.8 F 62 15 166/80 03/08/20 19:20 18 03/08/20 18:16 63 14 03/08/20 18:00 60 14 03/08/20 17:45 59 L 14 03/08/20 17:38 66 16 03/08/20 17:27 80 16 03/08/20 17:15 80 14 03/08/20 17:02 98.0 F 69 16 03/08/20 15:20 97.9 F 99 18 157/83 BP BP Pulse Ox 03/09/20 12:11 97 03/09/20 10:23 97 03/09/20 10:08 97 03/09/20 05:02 94 L 03/09/20 00:16 95 03/08/20 22:25 97 03/08/20 21:25 98 03/08/20 20:55 99 03/08/20 20:25 100 03/08/20 20:11 99 03/08/20 19:55 100 03/08/20 19:40 99 03/08/20 19:24 100 03/08/20 19:20 03/08/20 18:16 156/72 97 03/08/20 18:00 154/76 95 03/08/20 17:45 174/93 95 03/08/20 17:38 176/94 94 L 03/08/20 17:27 188/97 96 03/08/20 17:15 174/84 96 03/08/20 17:02 149/70 98 03/08/20 15:20 100 Intake and Output 03/08/20 03/09/20 03/09/20 22:59 06:59 14:59 Intake Total 600 1200 70 Output Total 2 2350 Balance 598 1200 -2280 Intake: IV 600 70 Intake, IV Titration 1200 Amount Sodium Chloride 0.9% 1, 1200 000 ml @ 130 mls/hr IV . Q7H42M [facility] Rx#:[id number] Output: Drainage 2350 Left 2350 Estimated Blood Loss 2 Other: Weight 86.183 kg Awake alert oriented HEENT exam no JVP no lymph nodes neck is supple no facial asymmetry Lungs are clear to auscultation, with good air entry Heart sounds are unremarkable for any murmur rub gallop Abdomen soft and vague tenderness not very localized Extremity exam was no edema Neurologically awake alert oriented no asterixis Results - Lab Results Most recent lab results Calcium 8.9 mg/dL (8.4-10.2) 03/09/20 10:16 03/09/20 10:16 03/09/20 10:16 Assessment and Plan Assessment: Patient 1. Acute severe kidney injury secondary to combination of large mass occupying the right kidney likely no function, and left hydronephrosis from ureteral obstruction with the same mass encroaching in that area. 2 computed tomography scan shows involvement off possible IVC and iliac veins 3. Hyperkalemia secondary acute kidney injury 4. Status post percutaneous nephrostomy with drainage of urine 5. Gap and non-gap acidosis from acute kidney injury 6. Chronic kidney disease creatinine was 1.4 on 08/31/2019. 7. Involvement of liver with increased LFTs 8. Increased lipase possible pancreatitis 8. History of hepatitis C in the past,treated and cured Recommendation 1. Continue IV half saline to induce potassium loss. 2. Sodium bicarb 650 4 times a day 3. Further workup regarding mass 4. Monitor with labs urine output 24 this consultation and will continue to follow
[2020-03-09] MEDS ORDERED: METHADONE 5 MG TAB PO SCH (15:30)
[2020-03-09] MEDS: METHADONE 5 MG TAB PO SCH (16:03)
[2020-03-09] MEDS: METHADONE 10 MG TAB PO SCH (16:03)
[2020-03-09 16:42] LABS: African American GFR (CKD) 6 (>60 ml/min/1.73 sqM); Anion Gap 15 mmol/L; Blood Urea Nitrogen 93 mg/dL (9-20); Calcium 9.9 mg/dL (8.4-10.2); Carbon Dioxide 17 mmol/L (22-30); Chloride 105 mmol/L (98-107); Glucose 55 mg/dL (74-99); Non-African American GFR(CKD) 5 (>60 ml/min/1.73 sqM); Sodium 137 mmol/L (137-145)
[2020-03-09 16:51] LABS: Potassium 6.2 mmol/L (3.5-5.1)
[2020-03-09 16:51] LABS: Hepatitis B Surface AB- Quant 3.5 mIU/mL; Hepatitis B Surface Antibody Non-Reactive (Non-Reactive); Hepatitis B Surface Antigen Non-Reactive (Non-Reactive)
--- NOTE | 2020-03-09 17:03 | CT ---
EXAMINATION TYPE: CT chest wo con DATE OF EXAM: 03/09/2020 COMPARISON: None HISTORY: new ca dx, staging CT DLP: 344.2 mGycm Automated exposure control for dose reduction was used. Images obtained from the thoracic inlet to the diaphragm without contrast. There is mild bilateral pleural effusions. There is some abdominal ascites with fluid around the righ t lobe of the liver. Heart size is normal. There is no pericardial effusion. There is mild subsegment al atelectasis left posterior lung base. There is no evidence of a pulmonary mass. There is no medias tinal adenopathy. There are no hilar masses. There are some coronary artery calcification. Thoracic spine is intact. There is no compression fracture. There is 5 mm osteosclerotic focus in the superior aspect of the sternum. There is no evidence of a rib fracture. The shoulder joints appear i ntact. 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 IMPRESSION: Mild pleural effusions. Mild atelectasis left lung base. No discrete pulmonary mass. Atherosclerotic vascular disease. Single sclerotic focus in the sternum similar to the sclerotic multiple foci seen in the lumbar spine could relate to metastatic disease.
--- NOTE | 2020-03-09 17:43 | P.CONS ---
History of Present Illness - Reason for Consult Consult date: 03/09/20 Concern of metastatic Renal Cell Requesting physician: Christy Kunz - History of Present Illness Mr. Mancuso is a 74 year old male patient who presents with anuria and renal failure. Imaging performed reveal concerning picture of metastatic process, likely derived from kidney. There was concern of liver involvement. Urology is following and was unfortunetly unable to place internal stent for hydronephrosis, therefore percutatneous was placed by IR today 03/09. During work-up an iliac thrombosis was also noted. Apparently over the past 4 months he has had complaints of Right testicular swelling and underwent a procedure for this. Review of Systems All systems: negative Constitutional: Reports as per HPI Past Medical History Past Medical History: Hyperlipidemia, Hypertension, Thyroid Disorder Additional Past Medical History / Comment(s): HEPATITIS C from past drug abuse History of Any Multi-Drug Resistant Organisms: None Reported Past Surgical History: Hernia Repair, Orthopedic Surgery Additional Past Surgical History / Comment(s): bilateral knee sx, right testicle sx 2019 Past Psychological History: No Psychological Hx Reported Smoking Status: Current some day smoker, Light tobacco smoker Past Alcohol Use History: None Reported Past Drug Use History: Marijuana Medications and Allergies Home Medications Medication Instructions Recorded Confirmed Type ALPRAZolam [Xanax] 0.25 mg PO HS PRN 03/08/20 03/08/20 History Levothyroxine Sodium [Synthroid] 125 mcg PO DAILY 03/08/20 03/08/20 History Lisinopril-Hctz 20-12.5 mg 1 tab PO DAILY 03/08/20 03/08/20 History [Zestoretic 20-12.5] Methadone HCl [Methadone Intensol] 146 mg PO DAILY 03/08/20 03/08/20 History Simvastatin [Zocor] 20 mg PO Q48H 03/08/20 03/08/20 History Allergies Allergy/AdvReac Type Severity Reaction Status Date / Time No Known Allergies Allergy Verified 03/08/20 13:22 Physical Exam Vitals: Vital Signs Temp Pulse Pulse Resp BP BP BP 03/09/20 05:02 97.3 F L 66 17 120/62 03/09/20 00:16 97.5 F L 72 18 126/62 03/08/20 22:25 69 135/76 03/08/20 21:25 66 128/66 03/08/20 20:55 66 131/75 03/08/20 20:25 63 150/82 03/08/20 20:11 61 136/64 03/08/20 19:55 63 151/78 03/08/20 19:40 64 143/88 03/08/20 19:24 97.8 F 62 15 166/80 03/08/20 19:20 18 03/08/20 18:16 63 14 03/08/20 18:00 60 14 03/08/20 17:45 59 L 14 174/93 03/08/20 17:38 66 16 176/94 03/08/20 17:27 80 16 188/97 03/08/20 17:15 80 14 174/84 03/08/20 17:02 98.0 F 69 16 149/70 03/08/20 15:20 97.9 F 99 18 157/83 03/08/20 13:49 89 18 152/91 03/08/20 11:54 98.6 F 96 18 163/94 BP Pulse Ox 03/09/20 05:02 94 L 03/09/20 00:16 95 03/08/20 22:25 97 03/08/20 21:25 98 03/08/20 20:55 99 03/08/20 20:25 100 03/08/20 20:11 99 03/08/20 19:55 100 03/08/20 19:40 99 03/08/20 19:24 100 03/08/20 19:20 03/08/20 18:16 156/72 97 03/08/20 18:00 154/76 95 03/08/20 17:45 95 03/08/20 17:38 94 L 03/08/20 17:27 96 03/08/20 17:15 96 03/08/20 17:02 98 03/08/20 15:20 100 03/08/20 13:49 98 03/08/20 11:54 99 Intake and Output 03/08/20 03/09/20 03/09/20 22:59 06:59 14:59 Intake Total 600 1200 Output Total 2 Balance 598 1200 Intake: IV 600 Intake, IV Titration 1200 Amount Sodium Chloride 0.9% 1, 1200 000 ml @ 130 mls/hr IV . [facility]7H42[facility] Rx#:[id number] Output: Estimated Blood Loss 2 Other: Weight 86.183 kg - Constitutional General appearance: cooperative, no acute distress - EENT Eyes: EOMI, PERRLA ENT: hard of hearing, NA/AT - Neck Neck: normal ROM - Respiratory Respiratory: bilateral: CTA - Cardiovascular Rhythm: regular leg Peripheral Edema: bilateral: 1+ - Gastrointestinal General gastrointestinal: soft, tenderness - Neurologic non-focal - Musculoskeletal Musculoskeletal: generalized weakness, strength equal bilaterally - Psychiatric Psychiatric: A&O x's 3, appropriate affect Results CBC & Chem 7: 03/10/20 04:55 03/10/20 04:55 Labs: Abnormal Lab Results - Last 24 Hours (Table) 03/08/20 03/08/20 Range/Units 12:49 12:49 RBC 3.49 L (4.30-5.90) m/uL Hgb 11.3 L (13.0-17.5) gm/dL Hct 34.3 L (39.0-53.0) % Lymphocytes # 0.7 L (1.0-4.8) k/uL Potassium 5.9 H (3.5-5.1) mmol/L Carbon Dioxide 20 L (22-30) mmol/L BUN 98 H (9-20) mg/dL Creatinine 9.83 H* (0.66-1.25) mg/dL Glucose 127 H (74-99) mg/dL AST 102 H (17-59) U/L ALT 85 H (4-49) U/L Alkaline Phosphatase 876 H (38-126) U/L Amylase 187 H (30-110) U/L Lipase 465 H (23-300) U/L CT scan - abdomen: report reviewed CT scan - pelvis: report reviewed Assessment and Plan (1) Kidney mass Current Visit: Yes Status: Acute Code(s): N28.89 - OTHER SPECIFIED DISORDERS OF KIDNEY AND URETER SNOMED Code(s): 278401339 (2) Iliac DVT (deep venous thrombosis) Current Visit: Yes Status: Acute Code(s): I82.429 - ACUTE EMBOLISM AND THROMBOSIS OF UNSPECIFIED ILIAC VEIN SNOMED Code(s): 783627793 (3) Acute renal failure Current Visit: Yes Status: Acute Code(s): N17.9 - ACUTE KIDNEY FAILURE, UNSPECIFIED SNOMED Code(s): 16090472 Plan: Tissue Biopsy of Kidney mass will be needed for final diagnosis Full Staging likely PET as outpatient due to renal function Await tissue biopsy and stabilization for more recs Agree with Heparin drip in the interim. CT without contrast Venous doppler to assess DVT LE Bone Scan Biopsy needed Thank you for allowing us to participate in care of this patient
--- NOTE | 2020-03-09 18:44 | US ---
EXAMINATION TYPE: US venous doppler duplex LE BI DATE OF EXAM: 03/09/2020 6:39 PM COMPARISON: CT dated 03/08/2020 CLINICAL HISTORY: ? Iliac DVT. iliac vessels not seen on lower extremity venous doppler. Vessels are imaged from groin to knee. SIDE PERFORMED: Bilateral TECHNIQUE: The lower extremity deep venous system is examined utilizing real time linear array sonog nancy with graded compression, doppler sonography and color-flow sonography. VESSELS IMAGED: Common Femoral Vein Deep Femoral Vein Greater Saphenous Vein * Femoral Vein Popliteal Vein Small Saphenous Vein * Proximal Calf Veins (* superficial vessels) Right Leg: Negative for DVT Left Leg: Negative for DVT IMPRESSION: No evidence of deep vein thrombosis in the right leg.
--- NOTE | 2020-03-09 19:44 | P.CONS ---
History of Present Illness - Reason for Consult Consult date: 03/09/20 metastatic cancer Requesting physician: Isma Cohen - Chief Complaint Abdominal pain - History of Present Illness 74-year-old male with a medical history significant for hypertension, prior treatments for hepatitis C for which she reports care of who presented to the hospital with complaints of abdominal pain and difficulty urinating. Computed tomography scan performed in evaluation suggestive of metastatic renal cell carcinoma with possible obstruction and thrombosis. He subsequently underwent cystoscopy and failed retrograde pyelogram and has had a nephrostomy tube placed. The patient is being seen by the urology, nephrology and oncology services. There was some evidence of biliary dilation on computed tomography scan however liver enzymes are suggestive of an obstructive process with total bilirubin 1, alkaline phosphatase 873, AST 102 and ALT 80 with WBC 5.3, hemoglobin 11.3 and platelet count 160,000. Currently he is denying any signs or symptoms of GI bleeding. He is tolerating his diet. Review of Systems REVIEW OF SYSTEMS: CONSTITUTIONAL: Denies any fevers, chills, weight change or fatigue. CARDIOVASCULAR: Denies any chest pain, palpitations high or low blood pressures RESPIRATORY: Denies any shortness of breath, hemoptysis or cough. GENITOURINARY: No dysuria or hematuria, patient had been having difficulty urinating and is status post nephrostomy tube placement. MUSCULOSKELETAL: No weakness reported. SKIN: Denies any new rashes or lesions, jaundice or pallor. PSYCHIATRIC: Denies any depression or anxiety. NEUROLOGY: Denies headache, denies any new focal deficits. EARS/NOSE/THROAT: No recent hearing change, congestion, nasal discharge or sore throat. EYES: No pain in eyes, discharge or change in vision. GASTROINTESTINAL: As per HPI. Past Medical History Past Medical History: Hyperlipidemia, Hypertension, Thyroid Disorder Additional Past Medical History / Comment(s): HEPATITIS C from past drug abuse History of Any Multi-Drug Resistant Organisms: None Reported Past Surgical History: Hernia Repair, Orthopedic Surgery Additional Past Surgical History / Comment(s): bilateral knee sx, right testicle sx 2019 Past Psychological History: No Psychological Hx Reported Smoking Status: Current some day smoker, Light tobacco smoker Past Alcohol Use History: None Reported Past Drug Use History: Marijuana Additional History: family history: Reviewed with the patient and noncontributory to current medical presentation. Medications and Allergies Home Medications Medication Instructions Recorded Confirmed Type ALPRAZolam [Xanax] 0.25 mg PO HS PRN 03/08/20 03/08/20 History Levothyroxine Sodium [Synthroid] 125 mcg PO DAILY 03/08/20 03/08/20 History Lisinopril-Hctz 20-12.5 mg 1 tab PO DAILY 03/08/20 03/08/20 History [Zestoretic 20-12.5] Methadone HCl [Methadone Intensol] 146 mg PO DAILY 03/08/20 03/08/20 History Simvastatin [Zocor] 20 mg PO Q48H 03/08/20 03/08/20 History Allergies Allergy/AdvReac Type Severity Reaction Status Date / Time No Known Allergies Allergy Verified 03/08/20 13:22 Physical Exam Vitals: Vital Signs Temp Pulse Pulse Pulse Resp BP BP 03/09/20 10:23 56 L 18 171/78 03/09/20 10:08 61 18 165/91 03/09/20 05:02 97.3 F L 66 17 120/62 03/09/20 00:16 97.5 F L 72 18 126/62 03/08/20 22:25 69 135/76 03/08/20 21:25 66 128/66 03/08/20 20:55 66 131/75 03/08/20 20:25 63 150/82 03/08/20 20:11 61 136/64 03/08/20 19:55 63 151/78 03/08/20 19:40 64 143/88 03/08/20 19:24 97.8 F 62 15 166/80 03/08/20 19:20 18 03/08/20 18:16 63 14 03/08/20 18:00 60 14 03/08/20 17:45 59 L 14 03/08/20 17:38 66 16 03/08/20 17:27 80 16 03/08/20 17:15 80 14 03/08/20 17:02 98.0 F 69 16 03/08/20 15:20 97.9 F 99 18 157/83 03/08/20 13:49 89 18 152/91 03/08/20 11:54 98.6 F 96 18 163/94 BP BP Pulse Ox 03/09/20 10:23 97 03/09/20 10:08 97 03/09/20 05:02 94 L 01/31/21 00:16 95 03/08/20 22:25 97 03/08/20 21:25 98 03/08/20 20:55 99 03/08/20 20:25 100 03/08/20 20:11 99 03/08/20 19:55 100 03/08/20 19:40 99 03/08/20 19:24 100 03/08/20 19:20 03/08/20 18:16 156/72 97 03/08/20 18:00 154/76 95 03/08/20 17:45 174/93 95 03/08/20 17:38 176/94 94 L 03/08/20 17:27 188/97 96 03/08/20 17:15 174/84 96 03/08/20 17:02 149/70 98 03/08/20 15:20 100 03/08/20 13:49 98 03/08/20 11:54 99 Intake and Output 03/08/20 03/09/20 03/09/20 22:59 06:59 14:59 Intake Total 600 1200 70 Output Total 2 Balance 598 1200 70 Intake: IV 600 70 Intake, IV Titration 1200 Amount Sodium Chloride 0.9% 1, 1200 000 ml @ 130 mls/hr IV . Q7H42M [facility] Rx#:[id number] Output: Estimated Blood Loss 2 Other: Weight 86.183 kg On physical examination, patient appears comfortable in no apparent distress. HEAD: Normocephalic, atraumatic. EYES: No scleral icterus. No conjunctival injection. MOUTH: No lesions, tongue midline. NECK: Trachea midline, no gross abnormalities. CHEST: Clear to auscultation with no wheezing or rhonchi appreciated. HEART: Regular rate and rhythm. ABDOMEN: Soft, mildly tender to palpation, nephrostomy tube in place. Bowel sounds are positive. No organomegaly. No guarding or rigidity. EXTREMITIES: No pedal edema. SKIN: No rashes, no jaundice. NEUROLOGIC: Alert and oriented x3. No focal deficits. Results CBC & Chem 7: 03/09/20 10:16 03/09/20 15:42 Labs: Abnormal Lab Results - Last 24 Hours (Table) 03/08/20 03/08/20 03/09/20 Range/Units 12:49 12:49 10:16 RBC 3.49 L 3.53 L (4.30-5.90) m/uL Hgb 11.3 L 11.3 L (13.0-17.5) gm/dL Hct 34.3 L 35.0 L (39.0-53.0) % Lymphocytes # 0.7 L 0.4 L (1.0-4.8) k/uL Potassium 5.9 H (3.5-5.1) mmol/L Carbon Dioxide 20 L (22-30) mmol/L BUN 98 H (9-20) mg/dL Creatinine 9.83 H* (0.66-1.25) mg/dL Glucose 127 H (74-99) mg/dL AST 102 H (17-59) U/L ALT 85 H (4-49) U/L Alkaline Phosphatase 876 H (38-126) U/L Amylase 187 H (30-110) U/L Lipase 465 H (23-300) U/L CT scan - abdomen: report reviewed Assessment and Plan (1) Dilation of biliary tract Narrative/Plan: 74-year-old male with multiple medical comorbidities including a reported prior history of hepatitis C status post treatment with antiviral therapy in 2016 who presented for abdominal pain and difficulty urinary day. Imaging significant for findings of suspected metastatic renal cell carcinoma. He is status post external nephrostomy tube placement. Currently being evaluated by the urology, nephrology and oncology services. Computed tomography scan also showed some dilation of the biliary radicals however liver enzymes do not suggest an obstructive process at this time with total bilirubin 1.0, alkaline phosphatase 873, AST 102 and ALT 80. Current Visit: Yes Status: Acute Code(s): K83.8 - OTHER SPECIFIED DISEASES OF BILIARY TRACT SNOMED Code(s): 898703584 (2) Kidney mass Current Visit: Yes Status: Acute Code(s): N28.89 - OTHER SPECIFIED DISORDERS OF KIDNEY AND URETER SNOMED Code(s): 056063306 Plan: supportive care Okay for diet as tolerated Continue to monitor CBC, BMP, LFTs Appreciate recommendations from urology, nephrology and oncology services No plan for endoscopic evaluation at this time Continue oncologic workup thank you allowing us to participate in the care of the patient
[2020-03-09] MEDS: ALPRAZolam 0.25 MG TAB PO PRN (20:50)
[2020-03-10] MEDS: SODIUM CHLORIDE 0.9% 1,000 ML IV SCH ×3 (02:25→21:03)
[2020-03-10 05:16] LABS: Basophils % (A) 0 %; Eosinophils % (A) 1 %; HCT 37.9 % (39.0-53.0); Lymphocytes % (A) 13 %; MCH 31.2 pg (25.0-35.0); MCHC 31.7 g/dL (31.0-37.0); MCV 98.4 fL (80.0-100.0); Macrocytosis Slight; Mean Platelet Volume 7.5; Monocytes # (A) 0.7 k/uL (0-1.0); Monocytes % (A) 10 %; Neutrophils # (A) 5.6 k/uL (1.3-7.7); Neutrophils % (A) 74 %; Platelet Count 279 k/uL (150-450); RBC 3.85 m/uL (4.30-5.90); RDW 15.7 % (11.5-15.5); WBC 7.6 k/uL (3.8-10.6)
[2020-03-10 05:39] LABS: ALT 56 U/L (4-49); AST 67 U/L (17-59); African American GFR (CKD) 8 (>60 ml/min/1.73 sqM); Albumin 3.3 g/dL (3.5-5.0); Albumin/Globulin Ratio 0.9; Alkaline Phosphatase 722 U/L (38-126); Anion Gap 12 mmol/L; Blood Urea Nitrogen 77 mg/dL (9-20); Calcium 9.6 mg/dL (8.4-10.2); Carbon Dioxide 19 mmol/L (22-30); Chloride 112 mmol/L (98-107); Globulin 3.8 g/dL; Non-African American GFR(CKD) 7 (>60 ml/min/1.73 sqM); Potassium 5.7 mmol/L (3.5-5.1); Sodium 143 mmol/L (137-145); Total Bilirubin 1.1 mg/dL (0.2-1.3); Total Protein 7.1 g/dL (6.3-8.2)
[2020-03-10] MEDS: LEVOTHYROXINE 125 MCG TAB PO SCH (05:44)
[2020-03-10 05:51] LABS: Glucose 49 mg/dL (74-99)
[2020-03-10 06:19] LABS: Glucose,Whole Blood 95 mg/dL (75-99)
[2020-03-10] MEDS: METHADONE 5 MG TAB PO SCH (08:22)
[2020-03-10] MEDS: METHADONE 10 MG TAB PO SCH (08:24)
--- NOTE | 2020-03-10 10:56 | P.PN ---
Subjective Patient is seen in follow-up for acute kidney injury. He had a left-sided nephrostomy tube placed this admission. Nephrostomy tube drainage documented as 7 L in the last 24 hours. Denies chest pain or shortness of breath. Oral intake is fair. Blood pressure stable. Creatinine trending down. Vital signs are stable. General: The patient appeared well nourished and normally developed. HEENT: Head exam is unremarkable. Neck is without jugular venous distension. LUNGS: Breath sounds decreased. HEART: Rate and Rhythm are regular. ABDOMEN: Soft, nontender. EXTREMITITES: No edema. Objective - Vital Signs Vital signs: Vital Signs Temp 98.1 F 03/10/20 04:35 Pulse 103 H 03/10/20 04:35 Resp 14 03/10/20 04:35 BP 122/77 03/10/20 04:35 Pulse Ox 95 03/10/20 04:35 Intake & Output 03/09/20 03/10/20 03/10/20 18:59 06:59 18:59 Intake Total 470 2100 Output Total 3550 3450 Balance -3080 -1350 Intake: IV 70 Intake, IV Titration 1500 Amount Sodium Chloride 0.9% 1, 1500 000 ml @ 130 mls/hr IV . Q7H42M [facility] Rx#:[id number] Oral 400 600 Output: Drainage 3550 3450 Left 3550 3450 Other: Voiding Method Ileal Conduit (Left) Ileal Conduit (Left) # Bowel Movements 1 - Labs CBC & Chem 7: 03/10/20 04:55 03/10/20 04:55 Labs: Abnormal Lab Results - Last 24 Hours (Table) 03/09/20 03/09/20 03/10/20 Range/Units 10:16 15:42 04:55 RBC 3.85 L (4.30-5.90) m/uL Hgb 12.0 L (13.0-17.5) gm/dL Hct 37.9 L (39.0-53.0) % RDW 15.7 H (11.5-15.5) % Sodium 131 L (137-145) mmol/L Potassium 6.5 H* 6.2 H* (3.5-5.1) mmol/L Chloride (98-107) mmol/L Carbon Dioxide 15 L 17 L (22-30) mmol/L BUN 96 H 93 H (9-20) mg/dL Creatinine 9.46 H* 8.81 H* (0.66-1.25) mg/dL Glucose 56 L 55 L (74-99) mg/dL Total Bilirubin 1.6 H (0.2-1.3) mg/dL AST 81 H (17-59) U/L ALT 63 H (4-49) U/L Alkaline Phosphatase 678 H (38-126) U/L Albumin 3.1 L (3.5-5.0) g/dL 03/10/20 Range/Units 04:55 RBC (4.30-5.90) m/uL Hgb (13.0-17.5) gm/dL Hct (39.0-53.0) % RDW (11.5-15.5) % Sodium (137-145) mmol/L Potassium 5.7 H (3.5-5.1) mmol/L Chloride 112 H (98-107) mmol/L Carbon Dioxide 19 L (22-30) mmol/L BUN 77 H (9-20) mg/dL Creatinine 6.77 H (0.66-1.25) mg/dL Glucose 49 L* (74-99) mg/dL Total Bilirubin (0.2-1.3) mg/dL AST 67 H (17-59) U/L ALT 56 H (4-49) U/L Alkaline Phosphatase 722 H (38-126) U/L Albumin 3.3 L (3.5-5.0) g/dL Assessment and Plan Plan: Assessment: 1. Acute kidney injury secondary to obstructive uropathy. Creatinine 9.83 on admission and is 6.77 today. 2. Left-sided hydronephrosis status post nephrostomy tube placement. 3. Hyperkalemia secondary to acute kidney injury, obstructive uropathy, metabolic acidosis as well as use of lisinopril. Improving. 4. Benign hypertension. Controlled. 5. Metabolic acidosis secondary to acute kidney injury and IV fluids. 6. Kidney mass. Oncology following. Plan: Decrease rate of normal saline to 100 mL an hour. Add oral bicarb. Encourage oral intake. Repeat potassium level this evening. Continue to monitor renal function and urine output.
[2020-03-10] MEDS ORDERED: HEPARIN SODIUM,PORCINE 5,000 UNIT/ML 1 ML VIAL IV PRN (11:05)
[2020-03-10 11:31] LABS: Basophils % (A) 0 %; Eosinophils # (A) 0.1 k/uL (0-0.7); Eosinophils % (A) 1 %; HCT 35.2 % (39.0-53.0); HGB 11.3 gm/dL (13.0-17.5); Lymphocytes # (A) 0.9 k/uL (1.0-4.8); Lymphocytes % (A) 12 %; MCH 31.6 pg (25.0-35.0); MCV 98.8 fL (80.0-100.0); Macrocytosis Slight; Mean Platelet Volume 7.6; Monocytes # (A) 0.8 k/uL (0-1.0); Monocytes % (A) 11 %; Neutrophils # (A) 5.5 k/uL (1.3-7.7); Neutrophils % (A) 73 %; Platelet Count 272 k/uL (150-450); RBC 3.57 m/uL (4.30-5.90); RDW 15.8 % (11.5-15.5); WBC 7.5 k/uL (3.8-10.6)
[2020-03-10 11:40] LABS: INR 1.1 (<1.2); Partial Thromboplastin Time 22.8 sec (22.0-30.0); Prothrombin Time 11.3 sec (9.0-12.0)
--- NOTE | 2020-03-10 11:58 | P.PN ---
Subjective Progress Note Date: 03/10/20 Principal diagnosis: large Kidney mass with appearance of metastatic process. Discussed with Primary team and IR today, planning on biopsy and Bone scan. Objective - Vital Signs Vital signs: Vital Signs Temp 98.1 F 03/10/20 04:35 Pulse 103 H 03/10/20 04:35 Resp 14 03/10/20 04:35 BP 122/77 03/10/20 04:35 Pulse Ox 95 03/10/20 04:35 Intake & Output 03/09/20 03/10/20 03/10/20 18:59 06:59 18:59 Intake Total 470 2100 Output Total 3550 3450 Balance -3080 -1350 Intake: IV 70 Intake, IV Titration 1500 Amount Sodium Chloride 0.9% 1, 1500 000 ml @ 130 mls/hr IV . Q7H42M [facility] Rx#:[id number] Oral 400 600 Output: Drainage 3550 3450 Left 3550 3450 Other: Voiding Method Ileal Conduit (Left) Ileal Conduit (Left) # Bowel Movements 1 - Exam Constitutional General appearance: cooperative, no acute distress - EENT Eyes: EOMI, PERRLA ENT: hard of hearing, NA/AT - Neck Neck: normal ROM - Respiratory Respiratory: bilateral: CTA - Cardiovascular Rhythm: regular leg Peripheral Edema: bilateral: 1+ RLE Chin down erythema, evidence of arterial and venous insuffiency, pulse palble 1+ RLE - Gastrointestinal General gastrointestinal: soft, tenderness - Neurologic non-focal - Musculoskeletal Musculoskeletal: generalized weakness, strength equal bilaterally - Psychiatric Psychiatric: A&O x's 3, appropriate affect - Labs CBC & Chem 7: 03/10/20 11:16 03/10/20 17:14 Labs: Abnormal Lab Results - Last 24 Hours (Table) 03/09/20 03/10/20 03/10/20 Range/Units 15:42 04:55 04:55 RBC 3.85 L (4.30-5.90) m/uL Hgb 12.0 L (13.0-17.5) gm/dL Hct 37.9 L (39.0-53.0) % RDW 15.7 H (11.5-15.5) % Potassium 6.2 H* 5.7 H (3.5-5.1) mmol/L Chloride 112 H (98-107) mmol/L Carbon Dioxide 17 L 19 L (22-30) mmol/L BUN 93 H 77 H (9-20) mg/dL Creatinine 8.81 H* 6.77 H (0.66-1.25) mg/dL Glucose 55 L 49 L* (74-99) mg/dL AST 67 H (17-59) U/L ALT 56 H (4-49) U/L Alkaline Phosphatase 722 H (38-126) U/L Albumin 3.3 L (3.5-5.0) g/dL Assessment and Plan (1) Kidney mass Current Visit: Yes Status: Acute Code(s): N28.89 - OTHER SPECIFIED DISORDERS OF KIDNEY AND URETER SNOMED Code(s): 734843656 (2) Iliac DVT (deep venous thrombosis) Current Visit: Yes Status: Acute Code(s): I82.429 - ACUTE EMBOLISM AND THROMBOSIS OF UNSPECIFIED ILIAC VEIN SNOMED Code(s): 856187812 (3) Acute renal failure Current Visit: Yes Status: Acute Code(s): N17.9 - ACUTE KIDNEY FAILURE, UN SPECIFIED SNOMED Code(s): 83358860 Plan: Assessment and Recommendations: Large Right Kidney Mass: - IR has been consulted for Biopsy confirmation of Mass - Picture is concerning for a metastatic Renal Cell cancer - Evidence of involvement in bones (sacrum, Lumbar spine on CT) - Possible liver mets - Once a pathology is resulted with definitive diagnosis further recommendations will follow - CT of Chest without Contrast negative for identifiable metastatic disease - Bone Scan Ordered to further evaluate extent of metastatic bone lesions Right Iliac DVT: - Heparin Drip to continue, except when held for biopsy - When able Pulmonary Perfusion Test to assess for PE - Venous Doppler Completed negative for DVT Acute kidney injury secondary to Obstructive Uropathy. Left-Sided Hydronephrosis: - Creatinine continues to improve status post left sided nephrostomy tube placement - Nephrology is Following Metabolic Acidosis HyperKalemia PLan: - Biopsy Kidney, then start IV Heparin - Bone scan for assessing baseline of bone mets
[2020-03-10] MEDS: SODIUM BICARBONATE TAB 650 MG TAB PO SCH ×3 (12:46→21:03)
--- NOTE | 2020-03-10 13:02 | IR ---
EXAMINATION TYPE: IR nephrostomy DATE OF EXAM: 03/10/2020 COMPARISON: CT dated 03/08/2020 HISTORY: Hydronephrosis on the left, ureteral obstruction, right renal mass PROCEDURE: Maximal barrier technique was utilized. The skin overlying the left kidney was localized using ultrasound and the overlying skin prepped and draped. Ultrasound was utilized with sterile navjot hnique. Lidocaine used for local anesthesia. Skin scott was made with a scalpel. Access was gained u nder ultrasound with a 21-gauge needle to the left kidney lower pole posterior calyx. Urine returned in the hub of the needle. A 0.018 inch wire was advanced. The access site was dilated and subseque ntly an 8.5 Japanese catheter was advanced over wire in the renal pelvis and fixed in place. Urine ret urned in the hub of the catheter. Catheter was fixed to the skin with 2-0 silk and a sterile dressin g was placed. The patient remained in stable condition without complication. The patient was discha rged to observation. 16 minutes of moderate sedation time, patient was monitored by an independent trained observer. 1.6 minutes fluoroscopy time. There are 36 intraoperative images obtained from the procedure IMPRESSION: STATUS POST 8.5 LITHUANIAN NEPHROSTOMY TUBE PLACEMENT WITH ULTRASOUND AND FLUOROSCOPIC APRIL OWENS. THIS PROCEDURE WAS PERFORMED BY THE UNDERSIGNED.
--- NOTE | 2020-03-10 14:57 | P.PN ---
Subjective Progress Note Date: 03/10/20 Principal diagnosis: Renal mass, dilated biliary ducts This 74-year-old male with a prior history of hepatitis C infection with prior treatment with [place] 2016. He presented to the hospital with complaints of abdominal pain and difficulty urinating. Computed tomography scan was suggestive of metastatic renal cell carcinoma with possible obstruction and thrombosis. There was also evidence of biliary dilation on computed tomography scan, however liver enzymes were not suggestive of an obstructive process. He underwent cystoscopy and failed retrograde pyelogram therefore had nephrostomy tube placed. Today he underwent renal biopsy. He states today he is feeling better, he has a decreased appetite but is eating all amounts. Hepatitis B nonreactive, bilirubin 1.1, alkaline phosphatase 722, AST 67, ALT 56. CT of chest completed yesterday showed mild pleural effusions, mild atelectasis of left lung base. No discrete pulmonary mass. Arthrosclerotic vascular disease. Single sclerotic focus in the sternum similar to the sclerotic multiple foci seen in the lumbar spine could relate to metastatic disease Objective - Vital Signs Vital signs: Vital Signs Temp 98.5 F 03/10/20 11:30 Pulse 100 03/10/20 14:08 Resp 18 03/10/20 13:25 BP 131/76 03/10/20 14:08 Pulse Ox 95 03/10/20 13:25 Intake & Output 03/09/20 03/10/20 03/10/20 18:59 06:59 18:59 Intake Total 470 2100 Output Total 3550 3450 800 Balance -3080 -1350 -800 Intake: IV 70 Intake, IV Titration 1500 Amount Sodium Chloride 0.9% 1, 1500 000 ml @ 100 mls/hr IV . Q10H [facility] Rx#:[id number] Oral 400 600 Output: Drainage 3550 3450 400 Left 3550 3450 400 Urine 400 Other: Voiding Method Ileal Conduit (Left) Ileal Conduit (Left) # Bowel Movements 1 - Exam General appearance: The patient is alert, oriented, in no acute distress. HET: Head is normocephalic and atraumatic. Conjunctiva pink. Sclera anicteric. Neck: Supple without lymphadenopathy. Abdomen: Soft, nontender, nondistended with bowel sounds. No guarding or rigidity. Extremities: Normal skin color and turgor. No pedal edema Neurological: No focal deficits. Alert and oriented 3. - Labs CBC & Chem 7: 02/01/21 11:16 03/10/20 04:55 Labs: Abnormal Lab Results - Last 24 Hours (Table) 03/09/20 03/10/20 03/10/20 Range/Units 15:42 04:55 04:55 RBC 3.85 L (4.30-5.90) m/uL Hgb 12.0 L (13.0-17.5) gm/dL Hct 37.9 L (39.0-53.0) % RDW 15.7 H (11.5-15.5) % Lymphocytes # (1.0-4.8) k/uL Potassium 6.2 H* 5.7 H (3.5-5.1) mmol/L Chloride 112 H (98-107) mmol/L Carbon Dioxide 17 L 19 L (22-30) mmol/L BUN 93 H 77 H (9-20) mg/dL Creatinine 8.81 H* 6.77 H (0.66-1.25) mg/dL Glucose 55 L 49 L* (74-99) mg/dL AST 67 H (17-59) U/L ALT 56 H (4-49) U/L Alkaline Phosphatase 722 H (38-126) U/L Albumin 3.3 L (3.5-5.0) g/dL 03/10/20 Range/Units 11:16 RBC 3.57 L (4.30-5.90) m/uL Hgb 11.3 L (13.0-17.5) gm/dL Hct 35.2 L (39.0-53.0) % RDW 15.8 H (11.5-15.5) % Lymphocytes # 0.9 L (1.0-4.8) k/uL Potassium (3.5-5.1) mmol/L Chloride (98-107) mmol/L Carbon Dioxide (22-30) mmol/L BUN (9-20) mg/dL Creatinine (0.66-1.25) mg/dL Glucose (74-99) mg/dL AST (17-59) U/L ALT (4-49) U/L Alkaline Phosphatase (38-126) U/L Albumin (3.5-5.0) g/dL Assessment and Plan (1) Dilation of biliary tract Narrative/Plan: 74-year-old male with multiple medical comorbidities including a reported prior history of hepatitis C status post treatment with antiviral therapy in 2016 who presented for abdominal pain and difficulty urinary day. Imaging significant for findings of suspected metastatic renal cell carcinoma. He is status post external nephrostomy tube placement. Currently being evaluated by the urology, nephrology and oncology services. Computed tomography scan also showed some dilation of the biliary radicals however liver enzymes do not suggest an obstructive process at this time with total bilirubin 1.0, alkaline phosphatase 873, AST 102 and ALT 80. Current Visit: Yes Status: Acute Code(s): K83.8 - OTHER SPECIFIED DISEASES OF BILIARY TRACT SNOMED Code(s): 012749772 (2) Kidney mass Current Visit: Yes Status: Acute Code(s): N28.89 - OTHER SPECIFIED DISORDERS OF KIDNEY AND URETER SNOMED Code(s): 943411076 Plan: supportive care Okay for diet as tolerated Continue to monitor CBC, BMP, LFTs Appreciate recommendations from urology, nephrology and oncology services No plan for endoscopic evaluation at this time Continue oncologic workup thank you allowing us to participate in the care of the patient, we will jus nue to follow Dr. Doreen Delarosa I agree with the dictator's note, documented as a scribe by Nori Melendez.
--- NOTE | 2020-03-10 15:45 | NM ---
EXAMINATION TYPE: NM bone scan whole body DATE OF EXAM: 03/10/2020 COMPARISON: Chest CT from yesterday. CT abdomen and pelvis from 2 days ago. HISTORY: Newly diagnosed cancer with osseous metastatic disease. Delayed whole-body scanning was performed following the injection of 22.8 mCi Tc 99m MDP. Images acq uired 3 hours post injection. FINDINGS: Focal increased radiotracer uptake in the mid lumbar vertebra likely corresponds to diffuse involveme nt in the L2 vertebra. Additional involvement in the L4 vertebra is identified with increased radiotr acer uptake. Somewhat super scan appearance with poor visualization of both kidneys. Increased radiot racer uptake right iliac bone near sacroiliac joint corresponds to large sclerotic lesion. There is i nvolvement of the right sacrum also corresponding to sclerotic lesion. Smaller sclerotic lesions thro ughout additional vertebra including the sternum show poor radiotracer uptake on bone scan but super scan appearance suspected. Faint increased uptake anterolateral left rib likely corresponds to osseou s lesion in rib coronal image 31. Increased uptake right humeral head corresponds to increased degene rative change right glenohumeral joint. Increased radiotracer uptake proximal left fibular diaphysis is nonspecific. There is additional radiotracer uptake in the iliac bones responding to sclerotic les ion central left inferior pelvic ramus. IMPRESSION: Confirmation of known osseous metastatic disease as detailed above.
--- NOTE | 2020-03-10 15:53 | CT ---
EXAMINATION TYPE: CT biopsy renal RT DATE OF EXAM: 03/10/2020 HISTORY: Renal mass on the right COMPARISON: CT dated 03/08/2020 Maximal barrier technique was utilized, hand hygiene obtained with soap and water. The skin overlyin g a suitable path to the right renal mass was localized using CT and the overlying skin was prepped a nd draped. Lidocaine used for local anesthesia. A skin scott made with a scalpel. Using CT guidance , access was gained to the lesion with a 18-gauge core needle through a 17-gauge guide. Core specime n submitted to cytology. 6 pass(es) performed in all. Following the procedure no immediate complica tions. The patient is discharged in stable condition. Hemostasis achieved. IMPRESSION: SUCCESSFUL CT GUIDED BIOPSY. PATHOLOGY PENDING. THIS PROCEDURE WAS PERFORMED BY THE UNDERSIGNED.
[2020-03-10] MEDS: HEPARIN SOD,PORK IN 0.45% NACL 25,000 UNIT in 0.45% NACL 1 250ML.BAG IV SCH (16:37)
--- NOTE | 2020-03-10 17:58 | P.PN ---
Subjective Progress Note Date: 03/10/20 Miguel Mancuso, is a 74-year-old male patient of Dr. Delgadillo who presented to [facility] emergency room with a chief complaint of abdominal pain, patient also stated that he was not able to urinate for the past 24 hours, patient states that his symptoms started about 1 month ago but has been worse in the last few days he was evaluated in the emergency room, his vital exam on presentation revealed a temperature of 98.6 pulse 96 respiration 18 blood pressure 163/94 pulse ox 99% on room air, his white blood count was 6.5 hemoglobin 11.3 platelet count 194 sodium 138 potassium 5.9 BUN elevated at 98 creatinine 9.83 glucose level was 127 ALT and AST were elevated at 85 and 1 or 2 alkaline phosphatase was 876 amylase and lipase were elevated at 187 and 465. [place] catheter was inserted in the emergency room and there was no urine in the bladder, computed tomography scan of the abdomen and pelvis was ordered results are still pending patient will be admitted to medical floor nephrology and urology consultation will be requested, a dose of Kayexalate was ordered. Results of computed tomography scan of the abdomen now available and findings suggest metastatic renal cell carcinoma with possible obstruction and evidence of deep venous thrombosis involving the right iliac vein and finding in the liver suggestive of dilation of the biliary duct. At this time patient will be admitted to medical floor he will be started on IV heparin nephrology, urology, gastroenterology, and oncology consultation will be requested will follow closely. On 03/09/2020 status post cystoscopy with percutaneous nephrostomy placement with Dr. Thomas. Patient is sleepy from procedure and currently resting comfortably in bed. Awaiting labs for this a.m. Awaiting input from nephrology, oncology and GI services. Vitals have remained stable. Patient denies chest pain or shortness breath. Patient denies nausea vomiting or diarrhea. Patient denies any urinary burning or frequency. On 03/10/2020 patient was seen and examined on the medical floor he is alert and oriented 3 in no apparent distress, at this time he denies any fever or chills no headache or dizziness no chest pain no shortness of breath no cough no nausea or vomiting no abdominal pain no diarrhea no blood in the stools no burning with urination no frequency or urgency and no hematuria. Patient is scheduled to have a kidney biopsy today. Objective - Vital Signs Vital signs: Vital Signs Temp 98.5 F 03/10/20 11:30 Pulse 94 03/10/20 16:44 Resp 18 03/10/20 13:25 BP 111/70 03/10/20 16:44 Pulse Ox 97 03/10/20 16:44 Intake & Output 03/09/20 03/10/20 03/10/20 18:59 06:59 18:59 Intake Total 470 2100 Output Total 3550 3450 1350 Balance -3080 -1350 -1350 Intake: IV 70 Intake, IV Titration 1500 Amount Sodium Chloride 0.9% 1, 1500 000 ml @ 100 mls/hr IV . Q10H [facility] Rx#:[id number] Oral 400 600 Output: Drainage 3550 3450 400 Left 3550 3450 400 Urine 950 Other: Voiding Method Ileal Conduit (Left) Ileal Conduit (Left) # Bowel Movements 1 - Exam In general patient is alert and oriented 3 in no apparent distress HEENT head normocephalic and atraumatic Neck is supple no JVD no goiter no lymphadenopathy Chest exam reveals crackles in both lung bases no wheezing Cardiac exam reveals regular heart sounds S1 and S2 no gallops no murmurs Abdomen is soft with mild diffuse tenderness in the abdomen no organomegaly with normal bowel sounds Extremity exam reveal mild edema on the right worse than on the left, with mild erythema in the right pretibial area, no cyanosis or clubbing Neurological examination reveals, no gross focal neurological deficits - Labs CBC & Chem 7: 03/10/20 11:16 03/10/20 17:14 Labs: Abnormal Lab Results - Last 24 Hours (Table) 03/10/20 03/10/20 03/10/20 Range/Units 04:55 04:55 11:16 RBC 3.85 L 3.57 L (4.30-5.90) m/uL Hgb 12.0 L 11.3 L (13.0-17.5) gm/dL Hct 37.9 L 35.2 L (39.0-53.0) % RDW 15.7 H 15.8 H (11.5-15.5) % Lymphocytes # 0.9 L (1.0-4.8) k/uL Potassium 5.7 H (3.5-5.1) mmol/L Chloride 112 H (98-107) mmol/L Carbon Dioxide 19 L (22-30) mmol/L BUN 77 H (9-20) mg/dL Creatinine 6.77 H (0.66-1.25) mg/dL Glucose 49 L* (74-99) mg/dL AST 67 H (17-59) U/L ALT 56 H (4-49) U/L Alkaline Phosphatase 722 H (38-126) U/L Albumin 3.3 L (3.5-5.0) g/dL Assessment and Plan Plan: 1. Abdominal pain, computed tomography scan of the abdomen and pelvis was done in the emergency room findings suggest metastatic renal cell carcinoma with obstruction, also evidence of deep venous thrombosis involving the right iliac vein and evidence of biliary duct dilatation, at this point patient will be admitted to medical floor, he will be started on IV heparin urology consultation nephrology consultation gastroenterology consultation and oncology consultation were initiated 2. Poor urine output, possibly related to obstruction with a component of prerenal azotemia, status post percutaneous nephrostomy tube placement with Dr. Thomas 03/09/2020 3. Acute renal failure with elevated BUN and creatinine 4. Underlying history of hypertension 5. Underlying history of hepatitis C 6. Underlying history of hyperlipidemia 7. Underlying history of hypothyroidism 8. Underlying history of chronic pain maintained on methadone At this time will admit patient to medical floor started on IV heparin, Consult gastroenterology in relation to biliary duct dilated [place] Consult nephrology for acute renal failure Consults urology for urinary obstruction And consult hematology oncology Prognosis guarded will follow closely
[2020-03-10 23:17] LABS: Appearance,Urine Clear (Clear); Bilirubin,Urine Negative (Negative); Blood,Urine Large (Negative); Color,Urine Yellow; Glucose,Urine (UA) Negative (Negative); Hyaline Casts,Urine 2 /lpf (0-2); Ketones,Urine Negative (Negative); Leukocyte Esterase,Urine Trace (Negative); Mucus,Urine Rare /hpf; Nitrite,Urine Negative (Negative); Protein,Urine Trace (Negative); RBC,Urine >182 /hpf (0-5); Specific Gravity,Urine 1.011 (1.001-1.035); Urobilinogen,Urine <2.0 mg/dL (<2.0); WBC,Urine 5 /hpf (0-5)
[2020-03-11] MEDS: HYDROcodone/APAP 7.5-325MG 1 EACH TAB PO PRN ×2 (02:01→20:15)
[2020-03-11] MEDS: LEVOTHYROXINE 125 MCG TAB PO SCH (06:12)
--- NOTE | 2020-03-11 08:43 | P.PN ---
Subjective Patient is seen in follow-up for acute kidney injury. He had a left-sided nephrostomy tube placed this admission. Nephrostomy tube drainage documented as 3 L in the last 24 hours. Denies chest pain or shortness of breath. Oral intake is fair. Blood pressure stable. Creatinine trending down. Labs from today pending. Maintained on IV fluids. Vital signs are stable. General: The patient appeared well nourished and normally developed. HEENT: Head exam is unremarkable. Neck is without jugular venous distension. LUNGS: Breath sounds decreased. HEART: Rate and Rhythm are regular. ABDOMEN: Soft, nontender. EXTREMITITES: No edema. Objective - Vital Signs Vital signs: Vital Signs Temp 97.4 F L 03/11/20 04:36 Pulse 89 03/11/20 04:36 Resp 18 03/11/20 04:36 BP 153/81 03/11/20 04:36 Pulse Ox 95 03/11/20 04:36 Intake & Output 03/10/20 03/11/20 03/11/20 18:59 06:59 18:59 Intake Total 1200 1880.5 Output Total 1350 1675 Balance -150 205.5 Intake: Intake, IV Titration 1200 1280.5 Amount Heparin Sod,Pork in 0.45% 80.5 NaCl 25,000 unit In 0.45 % NaCl 1 250ml.bag @ 11. 603 UNITS/KG/HR 10 mls/hr IV .Q24H [facility] Rx#: [id number] Sodium Chloride 0.9% 1, 1200 1200 000 ml @ 100 mls/hr IV . Q10H [facility] Rx#:[id number] Oral 600 Output: Drainage 400 1675 Left 400 1675 Urine 950 Other: Voiding Method Ileal Conduit (Left) Ileal Conduit (Left) - Labs CBC & Chem 7: 03/10/20 11:16 03/10/20 17:14 Labs: Abnormal Lab Results - Last 24 Hours (Table) 03/10/20 03/10/20 03/10/20 Range/Units 11:16 22:27 22:58 RBC 3.57 L (4.30-5.90) m/uL Hgb 11.3 L (13.0-17.5) gm/dL Hct 35.2 L (39.0-53.0) % RDW 15.8 H (11.5-15.5) % Lymphocytes # 0.9 L (1.0-4.8) k/uL APTT 49.0 H (22.0-30.0) sec Urine Protein Trace H (Negative) Urine Blood Large H (Negative) Ur Leukocyte Esterase Trace H (Negative) Urine RBC >182 H (0-5) /hpf Urine Mucus Rare H (None) /hpf Assessment and Plan Plan: Assessment: 1. Acute kidney injury secondary to obstructive uropathy. Creatinine 9.83 on admission and down to 6.77 as of yesterday. 2. Left-sided hydronephrosis status post nephrostomy tube placement. 3. Hyperkalemia secondary to acute kidney injury, obstructive uropathy, metabolic acidosis as well as use of lisinopril. Improving. 4. Benign hypertension. Controlled. 5. Metabolic acidosis secondary to acute kidney injury and IV fluids. M aintained on oral bicarbonate. 6. Kidney mass status post biopsy. Bone scan revealed osseous metastatic disease. Oncology following. Plan: Decrease normal saline to 75 mL an hour. Encourage oral intake. Continue to monitor renal function and urine output. Follow-up morning labs.
[2020-03-11 09:24] LABS: Basophils # (A) 0.03 X 10*3/uL (0.00-0.10); Basophils % (A) 0.4 %; Eosinophils # (A) 0.09 X 10*3/uL (0.04-0.35); Eosinophils % (A) 1.3 %; HGB 10.2 g/dL (13.0-17.0); Lymphocytes # (A) 1.11 X 10*3/uL (0.90-5.00); Lymphocytes % (A) 15.4 %; MCH 31.4 pg (27.0-32.0); MCHC 30.9 g/dL (32.0-37.0); MCV 101.5 fL (80.0-97.0); Mean Platelet Volume 9.8 fL (9.5-12.2); Monocytes # (A) 1.06 X 10*3/uL (0.20-1.00); Monocytes % (A) 14.7 %; Neutrophils # (A) 4.85 X 10*3/uL (1.80-7.70); Neutrophils % (A) 67.5 %; Platelet Count 209 X 10*3/uL (140-440); RBC 3.25 X 10*6/uL (4.40-5.60); RDW 16.4 % (11.5-14.5); WBC 7.19 X 10*3/uL (4.50-10.00)
[2020-03-11 09:54] LABS: African American GFR (CKD) 18.2 (60.0-200.0); Albumin 3.4 g/dL (3.80-4.90); Albumin/Globulin Ratio 1.26 (1.60-3.17); Anion Gap 6.1 mmol/L (4.00-12.00); BUN/Creat Ratio 15.56 Ratio (12.00-20.00); Calcium 9.2 mg/dL (8.7-10.3); Carbon Dioxide 24.9 mmol/L (21.6-31.8); Globulin 2.7 g/dL (1.6-3.3); Magnesium 1.9 mg/dL (1.5-2.4); Non-African American GFR(CKD) 15.7 (60.0-200.0); Potassium 4.6 mmol/L (3.5-5.5); Total Bilirubin 0.9 mg/dL (0.3-1.2); Total Protein 6.1 g/dL (6.2-8.2)
[2020-03-11] MEDS: SODIUM BICARBONATE TAB 650 MG TAB PO SCH ×3 (10:05→21:45)
[2020-03-11] MEDS: METHADONE 10 MG TAB PO SCH (10:06)
[2020-03-11] MEDS: METHADONE 5 MG TAB PO SCH (10:08)
[2020-03-11] MEDS ORDERED: polyethylene glycoL 3350 17 GM POWD.PACK PO SCH (10:15)
--- NOTE | 2020-03-11 10:19 | P.PN ---
Subjective Progress Note Date: 03/11/20 Principal diagnosis: Renal mass, dilated biliary ducts This 74-year-old male with a prior history of hepatitis C infection with prior treatment with [place] 2015. He presented to the hospital with complaints of abdominal pain and difficulty urinating. Computed tomography scan was suggestive of metastatic renal cell carcinoma with possible obstruction and thrombosis. There was also evidence of biliary dilation on computed tomography scan, however liver enzymes were not suggestive of an obstructive process. He underwent cystoscopy and failed retrograde pyelogram therefore had nephrostomy tube placed. Today he underwent renal biopsy. Hepatitis B nonreactive, bilirubin 0.9, alkaline phosphatase 709, AST 81, ALT 56. CT of chest showed mild pleural effusions, mild atelectasis of left lung base. No discrete pulmonary mass. Arthrosclerotic vascular disease. Single sclerotic focus in the sternum similar to the sclerotic multiple foci seen in the lumbar spine coul d relate to metastatic disease. He is seen and examined today sitting up in a bedside chair. He states he is feeling better today he had however is having some lower abdominal discomfort. Patient states he has not had a bowel movement in 4 days. He states he takes MiraLAX at home. Objective - Vital Signs Vital signs: Vital Signs Temp 97.7 F 03/11/20 08:45 Pulse 106 H 03/11/20 08:45 Resp 19 03/11/20 08:45 BP 168/68 03/11/20 08:45 Pulse Ox 99 03/11/20 08:45 Intake & Output 03/10/20 03/11/20 03/11/20 18:59 06:59 18:59 Intake Total 1200 1880.5 Output Total 1350 1675 Balance -150 205.5 Intake: Intake, IV Titration 1200 1280.5 Amount Heparin Sod,Pork in 0.45% 80.5 NaCl 25,000 unit In 0.45 % NaCl 1 250ml.bag @ 11. 603 UNITS/KG/HR 10 mls/hr IV .Q24H TAL Rx#: [id number] Sodium Chloride 0.9% 1, 1200 1200 000 ml @ 100 mls/hr IV . Q10H TAL Rx#:[id number] Oral 600 Output: Drainage 400 1675 Left 400 1675 Urine 950 Other: Voiding Method Ileal Conduit (Left) Ileal Conduit (Left) - Exam General appearance: The patient is alert, oriented, in no acute distress. HET: Head is normocephalic and atraumatic. Conjunctiva pink. Sclera anicteric. Neck: Supple without lymphadenopathy. Abdomen: Soft, nontender, nondistended with bowel sounds. No guarding or rigidity. Extremities: Normal skin color and turgor. No pedal edema Neurological: No focal deficits. Alert and oriented 3. - Labs CBC & Chem 7: 03/11/20 05:21 03/11/20 05:21 Labs: Abnormal Lab Results - Last 24 Hours (Table) 03/10/20 03/10/20 03/10/20 Range/Units 11:16 22:27 22:58 RBC 3.57 L (4.30-5.90) m/uL Hgb 11.3 L (13.0-17.5) gm/dL Hct 35.2 L (39.0-53.0) % MCV (80.0-97.0) fL MCHC (32.0-37.0) g/dL RDW 15.8 H (11.5-15.5) % Immature Gran # (0.00-0.04) X 10*3/uL Lymphocytes # 0.9 L (1.0-4.8) k/uL Monocytes # (0.20-1.00) X 10*3/uL APTT 49.0 H (22.0-30.0) sec Chloride (96-109) mmol/L BUN (9.0-27.0) mg/dL Creatinine (0.6-1.5) mg/dL Est GFR (CKD-EPI)AfAm (60.0-200.0) Est GFR (CKD-EPI)NonAf (60.0-200.0) Glucose (70-110) mg/dL AST (14-35) U/L ALT (10-49) U/L Alkaline Phosphatase (41-126) U/L Total Protein (6.2-8.2) g/dL Albumin (3.80-4.90) g/dL Albumin/Globulin Ratio (1.60-3.17) g/dL Urine Protein Trace H (Negative) Urine Blood Large H (Negative) Ur Leukocyte Esterase Trace H (Negative) Urine RBC >182 H (0-5) /hpf Urine Mucus Rare H (None) /hpf 03/11/20 03/11/20 Range/Units 05:21 05:21 RBC 3.25 L (4.30-5.90) m/uL Hgb 10.2 L (13.0-17.5) gm/dL Hct 33.0 L (39.0-53.0) % MCV 101.5 H (80.0-97.0) fL MCHC 30.9 L (32.0-37.0) g/dL RDW 16.4 H (11.5-15.5) % Immature Gran # 0.05 H (0.00-0.04) X 10*3/uL Lymphocytes # (1.0-4.8) k/uL Monocytes # 1.06 H (0.20-1.00) X 10*3/uL APTT (22.0-30.0) sec Chloride 113 H (96-109) mmol/L BUN 56.0 H (9.0-27.0) mg/dL Creatinine 3.6 H (0.6-1.5) mg/dL Est GFR (CKD-EPI)AfAm 18.2 L (60.0-200.0) Est GFR (CKD-EPI)NonAf 15.7 L (60.0-200.0) Glucose 121 H (70-110) mg/dL AST 81 H (14-35) U/L ALT 56 H (10-49) U/L Alkaline Phosphatase 709 H (41-126) U/L Total Protein 6.1 L (6.2-8.2) g/dL Albumin 3.40 L (3.80-4.90) g/dL Albumin/Globulin Ratio 1.26 L (1.60-3.17) g/dL Urine Protein (Negative) Urine Blood (Negative) Ur Leukocyte Esterase (Negative) Urine RBC (0-5) /hpf Urine Mucus (None) /hpf Assessment and Plan (1) Dilation of biliary tract Narrative/Plan: 74-year-old male with multiple medical comorbidities including a reported prior history of hepatitis C status post treatment with antiviral therapy in 2016 who presented for abdominal pain and difficulty urinary day. Imaging significant for findings of suspected metastatic renal cell carcinoma. He is status post external nephrostomy tube placement. Currently being evaluated by the urology, nephrology and oncology services. Computed tomography scan also showed some dilation of the biliary radicals however liver enzymes do not suggest an obstructive process at this time with total bilirubin 1.0, alkaline phosphatase 873, AST 102 and ALT 80. Repeat total bilirubin 0.9, alkaline phosphatase 709, AST 81, ALT 56. Bilirubin continues to trend down, LFTs stable. Current Visit: Yes Status: Acute Code(s): K83.8 - OTHER SPECIFIED DISEASES OF BILIARY TRACT SNOMED Code(s): 301126049 (2) Kidney mass Current Visit: Yes Status: Acute Code(s): N28.89 - OTHER SPECIFIED DISORDERS OF KIDNEY AND URETER SNOMED Code(s): 727956756 Plan: supportive care Okay for diet as tolerated MiraLAX daily, may increase to twice a day if no bowel movement Continue to monitor CBC, BMP, LFTs Appreciate recommendations from urology, nephrology and oncology services No plan for endoscopic evaluation at this time Continue oncologic workup thank you allowing us to participate in the care of the patient, we will continue to follow Dr. Doreen Delarosa I agree with the dictator's note, documented as a scribe by Nori Melendez.
[2020-03-11] MEDS: SODIUM CHLORIDE 0.9% 1,000 ML IV SCH ×2 (11:01→17:22)
[2020-03-11] MEDS: HEPARIN SOD,PORK IN 0.45% NACL 25,000 UNIT in 0.45% NACL 1 250ML.BAG IV SCH (12:59)
--- NOTE | 2020-03-11 13:37 | P.PN ---
Subjective Progress Note Date: 03/11/20 Miguel Mancuso, is a 74-year-old male patient of Dr. Delgadillo who presented to [facility] emergency room with a chief complaint of abdominal pain, patient also stated that he was not able to urinate for the past 24 hours, patient states that his symptoms started about 1 month ago but has been worse in the last few days he was evaluated in the emergency room, his vital exam on presentation revealed a temperature of 98.6 pulse 96 respiration 18 blood pressure 163/94 pulse ox 99% on room air, his white blood count was 6.5 hemoglobin 11.3 platelet count 194 sodium 138 potassium 5.9 BUN elevated at 98 creatinine 9.83 glucose level was 127 ALT and AST were elevated at 85 and 1 or 2 alkaline phosphatase was 876 amylase and lipase were elevated at 187 and 465. [place] catheter was inserted in the emergency room and there was no urine in the bladder, computed tomography scan of the abdomen and pelvis was ordered results are still pending patient will be admitted to medical floor nephrology and urology consultation will be requested, a dose of Kayexalate was ordered. Results of computed tomography scan of the abdomen now available and findings suggest metastatic renal cell carcinoma with possible obstruction and evidence of deep venous thrombosis involving the right iliac vein and finding in the liver suggestive of dilation of the biliary duct. At this time patient will be admitted to medical floor he will be started on IV heparin nephrology, urology, gastroenterology, and oncology consultation will be requested will follow closely. On 03/09/2020 status post cystoscopy with percutaneous nephrostomy placement with Dr. Thomas. Patient is sleepy from procedure and currently resting comfortably in bed. Awaiting labs for this a.m. Awaiting input from nephrology, oncology and GI services. Vitals have remained stable. Patient denies chest pain or shortness breath. Patient denies nausea vomiting or diarrhea. Patient denies any urinary burning or frequency. On 03/10/2020 patient was seen and examined on the medical floor he is alert and oriented 3 in no apparent distress, at this time he denies any fever or chills no headache or dizziness no chest pain no shortness of breath no cough no nausea or vomiting no abdominal pain no diarrhea no blood in the stools no burning with urination no frequency or urgency and no hematuria. Patient is scheduled to have a kidney biopsy today. On 03/11/2020 patient was seen and examined on the medical floor he is alert and oriented 3 in no apparent distress there is no fever or chills no headache or dizziness no chest pain no shortness of breath no cough no nausea or vomiting no abdominal pain no diarrhea no blood in the stools no burning with urination no frequency or urgency and no hematuria. Yesterday patient was started on IV heparin due to finding on computed tomography scan of the abdomen and pelvis that revealed evidence of deep venous thrombosis involving the right iliac vein, however last night patient was having hematuria and IV heparin was discontinued, at this time will place a consult for Dr. Chavarria vascular surgery to review patient case and computed tomography scan and assess if patient needs a [place] filter as he cannot tolerate anticoagulation due to hematuria. Objective - Vital Signs Vital signs: Vital Signs Temp 97.7 F 03/11/20 08:45 Pulse 106 H 03/11/20 08:45 Resp 19 03/11/20 08:45 BP 168/68 03/11/20 08:45 Pulse Ox 99 03/11/20 08:45 Intake & Output 03/10/20 03/11/20 03/11/20 18:59 06:59 18:59 Intake Total 1200 1880.5 Output Total 1350 1675 1025 Balance -150 205.5 -1025 Intake: Intake, IV Titration 1200 1280.5 Amount Heparin Sod,Pork in 0.45% 80.5 NaCl 25,000 unit In 0.45 % NaCl 1 250ml.bag @ 11. 603 UNITS/KG/HR 10 mls/hr IV .Q24H TAL Rx#: [id number] Sodium Chloride 0.9% 1, 1200 1200 000 ml @ 75 mls/hr IV . [id number] TAL Rx#:[id number] Oral 600 Output: Drainage 400 1675 1025 Left 400 1675 1025 Urine 950 Other: Voiding Method Ileal Conduit (Left) Ileal Conduit (Left) - Exam In general patient is alert and oriented 3 in no apparent distress HEENT head normocephalic and atraumatic Neck is supple no JVD no goiter no lymphadenopathy Chest exam reveals crackles in both lung bases no wheezing Cardiac exam reveals regular heart sounds S1 and S2 no gallops no murmurs Abdomen is soft with mild diffuse tenderness in the abdomen no organomegaly with normal bowel sounds Extremity exam reveal mild edema on the right worse than on the left, with mild erythema in the right pretibial area, no cyanosis or clubbing Neurological examination reveals, no gross focal neurological deficits - Labs CBC & Chem 7: 03/11/20 05:21 03/11/20 05:21 Labs: Abnormal Lab Results - Last 24 Hours (Table) 03/10/20 03/10/20 03/10/20 Range/Units 11:16 22:27 22:58 RBC 3.57 L (4.30-5.90) m/uL Hgb 11.3 L (13.0-17.5) gm/dL Hct 35.2 L (39.0-53.0) % MCV (80.0-97.0) fL MCHC (32.0-37.0) g/dL RDW 15.8 H (11.5-15.5) % Immature Gran # (0.00-0.04) X 10*3/uL Lymphocytes # 0.9 L (1.0-4.8) k/uL Monocytes # (0.20-1.00) X 10*3/uL APTT 49.0 H (22.0-30.0) sec Chloride (96-109) mmol/L BUN (9.0-27.0) mg/dL Creatinine (0.6-1.5) mg/dL Est GFR (CKD-EPI)AfAm (60.0-200.0) Est GFR (CKD-EPI)NonAf (60.0-200.0) Glucose (70-110) mg/dL AST (14-35) U/L ALT (10-49) U/L Alkaline Phosphatase (41-126) U/L Total Protein (6.2-8.2) g/dL Albumin (3.80-4.90) g/dL Albumin/Globulin Ratio (1.60-3.17) g/dL Urine Protein Trace H (Negative) Urine Blood Large H (Negative) Ur Leukocyte Esterase Trace H (Negative) Urine RBC >182 H (0-5) /hpf Urine Mucus Rare H (None) /hpf 03/11/20 03/11/20 Range/Units 05:21 05:21 RBC 3.25 L (4.30-5.90) m/uL Hgb 10.2 L (13.0-17.5) gm/dL Hct 33.0 L (39.0-53.0) % MCV 101.5 H (80.0-97.0) fL MCHC 30.9 L (32.0-37.0) g/dL RDW 16.4 H (11.5-15.5) % Immature Gran # 0.05 H (0.00-0.04) X 10*3/uL Lymphocytes # (1.0-4.8) k/uL Monocytes # 1.06 H (0.20-1.00) X 10*3/uL APTT (22.0-30.0) sec Chloride 113 H (96-109) mmol/L BUN 56.0 H (9.0-27.0) mg/dL Creatinine 3.6 H (0.6-1.5) mg/dL Est GFR (CKD-EPI)AfAm 18.2 L (60.0-200.0) Est GFR (CKD-EPI)NonAf 15.7 L (60.0-200.0) Glucose 121 H (70-110) mg/dL AST 81 H (14-35) U/L ALT 56 H (10-49) U/L Alkaline Phosphatase 709 H (41-126) U/L Total Protein 6.1 L (6.2-8.2) g/dL Albumin 3.40 L (3.80-4.90) g/dL Albumin/Globulin Ratio 1.26 L (1.60-3.17) g/dL Urine Protein (Negative) Urine Blood (Negative) Ur Leukocyte Esterase (Negative) Urine RBC (0-5) /hpf Urine Mucus (None) /hpf Assessment and Plan Plan: 1. Abdominal pain, computed tomography scan of the abdomen and pelvis was done in the emergency room findings suggest metastatic renal cell carcinoma with obstruction, also evidence of deep venous thrombosis involving the right iliac vein and evidence of biliary duct dilatation, at this point patient will be admitted to medical floor, he will be started on IV heparin urology consultation nephrology consultation gastroenterology consultation and oncology consultation were initiated 2. Poor urine output, possibly related to obstruction with a component of prerenal azotemia, status post percutaneous nephrostomy tube placement with Dr. Thomas 03/09/2020 3. Acute renal failure with elevated BUN and creatinine 4. Underlying history of hypertension 5. Underlying history of hepatitis C 6. Underlying history of hyperlipidemia 7. Underlying history of hypothyroidism 8. Underlying history of chronic pain maintained on methadone 9. Episode of hematuria resolved after discontinuing IV heparin 10. Deep venous thrombosis involving the right iliac vein on computed tomography scan of the abdomen and pelvis done on 03/08/2020, consultation for vascular surgery requested to assess if patient needs a [place] filter placement. At this time will admit patient to medical floor started on IV heparin, Consult gastroenterology in relation to biliary duct dilated [place] Consult nephrology for acute renal failure Consults urology for urinary obstruction And consult hematology oncology Prognosis guarded will follow closely
--- NOTE | 2020-03-11 15:41 | P.GSCN ---
History of Present Illness History of present illness: This is a 74-year-old gentleman, patient has been admitted with multiple medical problem including metastatic carcinoma of the kidney, post left nephrostomy tube, history of 4 hepatitis C, history of hypertension, patient had a [address] of the abdomen pelvis suggestive of a right iliac DVT patient also gives me a history of for swelling of the right lower extremity for long. Of time discuss this case with Dr. 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 Richards we may be considering doing an MRV of the vena cava provided his kidney functions are improving Patient was seen in his room neck supple trachea central Chest is clear crackles the lung bases Abdomen is protuberant nontender Femorals are 1+ bilateral patient has some Brown induration of the both lower extremity Discussed with patient about the vena cava filter placement patient wants to wait for a few more days because had a recently procedure done just we will discuss with Dr. Richards because of 4 vena cava flexion due to the mass follow with you thank you Past Medical History Past Medical History: Hyperlipidemia, Hypertension, Thyroid Disorder Additional Past Medical History / Comment(s): HEPATITIS C from past drug abuse History of Any Multi-Drug Resistant Organisms: None Reported Past Surgical History: Hernia Repair, Orthopedic Surgery Additional Past Surgical History / Comment(s): bilateral knee sx, right testicle sx 2019 Past Psychological History: No Psychological Hx Reported Smoking Status: Current some day smoker, Light tobacco smoker Past Alcohol Use History: None Reported Past Drug Use History: Marijuana Medications and Allergies Home Medications Medication Instructions Recorded Confirmed Type ALPRAZolam [Xanax] 0.25 mg PO HS PRN 03/08/20 03/08/20 History Levothyroxine Sodium [Synthroid] 125 mcg PO DAILY 03/08/20 03/08/20 History Lisinopril-Hctz 20-12.5 mg 1 tab PO DAILY 03/08/20 03/08/20 History [Zestoretic 20-12.5] Methadone HCl [Methadone Intensol] 146 mg PO DAILY 03/08/20 03/08/20 History Simvastatin [Zocor] 20 mg PO Q48H 03/08/20 03/08/20 History Allergies Allergy/AdvReac Type Severity Reaction Status Date / Time No Known Allergies Allergy Verified 03/08/20 13:22 Surgical - Exam Vital Signs Temp Pulse Resp BP Pulse Ox 98.6 F 96 18 163/94 99 03/08/20 11:54 03/08/20 11:54 03/08/20 11:54 03/08/20 11:54 03/08/20 11:54 Results - Labs 03/11/20 05:21 03/11/20 05:21 Abnormal Lab Results - Last 24 Hours (Table) 03/10/20 03/10/20 03/11/20 Range/Units 22:27 22:58 05:21 RBC (4.40-5.60) X 10*6/uL Hgb (13.0-17.0) g/dL Hct (39.6-50.0) % MCV (80.0-97.0) fL MCHC (32.0-37.0) g/dL RDW (11.5-14.5) % Immature Gran # (0.00-0.04) X 10*3/uL Monocytes # (0.20-1.00) X 10*3/uL APTT 49.0 H (22.0-30.0) sec Chloride 113 H (96-109) mmol/L BUN 56.0 H (9.0-27.0) mg/dL Creatinine 3.6 H (0.6-1.5) mg/dL Est GFR (CKD-EPI)AfAm 18.2 L (60.0-200.0) Est GFR (CKD-EPI)NonAf 15.7 L (60.0-200.0) Glucose 121 H (70-110) mg/dL AST 81 H (14-35) U/L ALT 56 H (10-49) U/L Alkaline Phosphatase 709 H (41-126) U/L Total Protein 6.1 L (6.2-8.2) g/dL Albumin 3.40 L (3.80-4.90) g/dL Albumin/Globulin Ratio 1.26 L (1.60-3.17) g/dL Urine Protein Trace H (Negative) Urine Blood Large H (Negative) Ur Leukocyte Esterase Trace H (Negative) Urine RBC >182 H (0-5) /hpf Urine Mucus Rare H (None) /hpf 03/11/20 Range/Units 05:21 RBC 3.25 L (4.40-5.60) X 10*6/uL Hgb 10.2 L (13.0-17.0) g/dL Hct 33.0 L (39.6-50.0) % MCV 101.5 H (80.0-97.0) fL MCHC 30.9 L (32.0-37.0) g/dL RDW 16.4 H (11.5-14.5) % Immature Gran # 0.05 H (0.00-0.04) X 10*3/uL Monocytes # 1.06 H (0.20-1.00) X 10*3/uL APTT (22.0-30.0) sec Chloride (96-109) mmol/L BUN (9.0-27.0) mg/dL Creatinine (0.6-1.5) mg/dL Est GFR (CKD-EPI)AfAm (60.0-200.0) Est GFR (CKD-EPI)NonAf (60.0-200.0) Glucose (70-110) mg/dL AST (14-35) U/L ALT (10-49) U/L Alkaline Phosphatase (41-126) U/L Total Protein (6.2-8.2) g/dL Albumin (3.80-4.90) g/dL Albumin/Globulin Ratio (1.60-3.17) g/dL Urine Protein (Negative) Urine Blood (Negative) Ur Leukocyte Esterase (Negative) Urine RBC (0-5) /hpf Urine Mucus (None) /hpf Diabetes panel 03/10/20 03/11/20 Range/Units 17:14 05:21 Sodium 144 (135-145) mmol/L Potassium 5.1 4.6 (3.5-5.1) mmol/L Chloride 113 H (96-109) mmol/L Carbon Dioxide 24.9 (21.6-31.8) mmol/L BUN 56.0 H (9.0-27.0) mg/dL Creatinine 3.6 H (0.6-1.5) mg/dL Glucose 121 H (70-110) mg/dL Calcium 9.2 (8.7-10.3) mg/dL AST 81 H (14-35) U/L ALT 56 H (10-49) U/L Alkaline Phosphatase 709 H (41-126) U/L Total Protein 6.1 L (6.2-8.2) g/dL Albumin 3.40 L (3.80-4.90) g/dL Calcium panel 03/11/20 Range/Units 05:21 Calcium 9.2 (8.7-10.3) mg/dL Albumin 3.40 L (3.80-4.90) g/dL Pituitary panel 03/10/20 03/11/20 Range/Units 17:14 05:21 Sodium 144 (135-145) mmol/L Potassium 5.1 4.6 (3.5-5.1) mmol/L Chloride 113 H (96-109) mmol/L Carbon Dioxide 24.9 (21.6-31.8) mmol/L BUN 56.0 H (9.0-27.0) mg/dL Creatinine 3.6 H (0.6-1.5) mg/dL Glucose 121 H (70-110) mg/dL Calcium 9.2 (8.7-10.3) mg/dL Adrenal panel 03/10/20 03/11/20 Range/Units 17:14 05:21 Sodium 144 (135-145) mmol/L Potassium 5.1 4.6 (3.5-5.1) mmol/L Chloride 113 H (96-109) mmol/L Carbon Dioxide 24.9 (21.6-31.8) mmol/L BUN 56.0 H (9.0-27.0) mg/dL Creatinine 3.6 H (0.6-1.5) mg/dL Glucose 121 H (70-110) mg/dL Calcium 9.2 (8.7-10.3) mg/dL Total Bilirubin 0.9 (0.3-1.2) mg/dL AST 81 H (14-35) U/L ALT 56 H (10-49) U/L Alkaline Phosphatase 709 H (41-126) U/L Total Protein 6.1 L (6.2-8.2) g/dL Albumin 3.40 L (3.80-4.90) g/dL
--- NOTE | 2020-03-11 16:29 | P.PN ---
Subjective Progress Note Date: 03/11/20 Principal diagnosis: large Kidney mass with appearance of metastatic process. Status Post Biopsy, tissue pending. He had some blood in nephrostomy tube therefore heparin has been on hold. PER ultrasound there is no way for them to visualize iliac vein to confirm thrombus. Objective - Vital Signs Vital signs: Vital Signs Temp 99.0 F 03/11/20 13:33 Pulse 110 H 03/11/20 13:33 Resp 17 03/11/20 13:33 BP 131/77 03/11/20 13:33 Pulse Ox 99 03/11/20 08:45 Intake & Output 03/10/20 03/11/20 03/11/20 18:59 06:59 18:59 Intake Total 1200 1880.5 Output Total 1350 1675 1725 Balance -150 205.5 -1725 Intake: Intake, IV Titration 1200 1280.5 Amount Heparin Sod,Pork in 0.45% 80.5 NaCl 25,000 unit In 0.45 % NaCl 1 250ml.bag @ 11. 603 UNITS/KG/HR 10 mls/hr IV .Q24H [facility] Rx#: [id number] Sodium Chloride 0.9% 1, 1200 1200 000 ml @ 75 mls/hr IV . [id number] [facility] Rx#:[id number] Oral 600 Output: Drainage 400 1675 1025 Left 400 1675 1025 Urine 950 700 Other: Voiding Method Ileal Conduit (Left) Ileal Conduit (Left) External Catheter - Exam Constitutional General appearance: cooperative, no acute distress - EENT Eyes: EOMI, PERRLA ENT: hard of hearing, NA/AT - Neck Neck: normal ROM - Respiratory Respiratory: bilateral: CTA - Cardiovascular Rhythm: regular leg Peripheral Edema: bilateral: 1+ RLE Chin down erythema, evidence of arterial and venous insuffiency, pulse palble 1+ RLE - Gastrointestinal General gastrointestinal: soft, tenderness - Neurologic non-focal - Musculoskeletal Musculoskeletal: generalized weakness, strength equal bilaterally - Psychiatric Psychiatric: A&O x's 3, appropriate affect - Labs CBC & Chem 7: 03/11/20 05:21 03/11/20 05:21 Labs: Abnormal Lab Results - Last 24 Hours (Table) 03/10/20 03/10/20 03/11/20 Range/Units 22:27 22:58 05:21 RBC (4.40-5.60) X 10*6/uL Hgb (13.0-17.0) g/dL Hct (39.6-50.0) % MCV (80.0-97.0) fL MCHC (32.0-37.0) g/dL RDW (11.5-14.5) % Immature Gran # (0.00-0.04) X 10*3/uL Monocytes # (0.20-1.00) X 10*3/uL APTT 49.0 H (22.0-30.0) sec Chloride 113 H (96-109) mmol/L BUN 56.0 H (9.0-27.0) mg/dL Creatinine 3.6 H (0.6-1.5) mg/dL Est GFR (CKD-EPI)AfAm 18.2 L (60.0-200.0) Est GFR (CKD-EPI)NonAf 15.7 L (60.0-200.0) Glucose 121 H (70-110) mg/dL AST 81 H (14-35) U/L ALT 56 H (10-49) U/L Alkaline Phosphatase 709 H (41-126) U/L Total Protein 6.1 L (6.2-8.2) g/dL Albumin 3.40 L (3.80-4.90) g/dL Albumin/Globulin Ratio 1.26 L (1.60-3.17) g/dL Urine Protein Trace H (Negative) Urine Blood Large H (Negative) Ur Leukocyte Esterase Trace H (Negative) Urine RBC >182 H (0-5) /hpf Urine Mucus Rare H (None) /hpf 03/11/20 Range/Units 05:21 RBC 3.25 L (4.40-5.60) X 10*6/uL Hgb 10.2 L (13.0-17.0) g/dL Hct 33.0 L (39.6-50.0) % MCV 101.5 H (80.0-97.0) fL MCHC 30.9 L (32.0-37.0) g/dL RDW 16.4 H (11.5-14.5) % Immature Gran # 0.05 H (0.00-0.04) X 10*3/uL Monocytes # 1.06 H (0.20-1.00) X 10*3/uL APTT (22.0-30.0) sec Chloride (96-109) mmol/L BUN (9.0-27.0) mg/dL Creatinine (0.6-1.5) mg/dL Est GFR (CKD-EPI)AfAm (60.0-200.0) Est GFR (CKD-EPI)NonAf (60.0-200.0) Glucose (70-110) mg/dL AST (14-35) U/L ALT (10-49) U/L Alkaline Phosphatase (41-126) U/L Total Protein (6.2-8.2) g/dL Albumin (3.80-4.90) g/dL Albumin/Globulin Ratio (1.60-3.17) g/dL Urine Protein (Negative) Urine Blood (Negative) Ur Leukocyte Esterase (Negative) Urine RBC (0-5) /hpf Urine Mucus (None) /hpf Assessment and Plan (1) Kidney mass Current Visit: Yes Status: Acute Code(s): N28.89 - OTHER SPECIFIED DISORDERS OF KIDNEY AND URETER SNOMED Code(s): 671626404 (2) Iliac DVT (deep venous thrombosis) Current Visit: Yes Status: Acute Code(s): I82.429 - ACUTE EMBOLISM AND THROMBOSIS OF UNSPECIFIED ILIAC VEIN SNOMED Code(s): 093795201 (3) Acute renal failure Current Visit: Yes Status: Acute Code(s): N17.9 - ACUTE KIDNEY FAILURE, UNSPECIFIED SNOMED Code(s): 88017419 Plan: Assessment and Recommendations: Large Right Kidney Mass: - IR has been consulted for Biopsy confirmation of Mass - Picture is concerning for a metastatic Renal Cell cancer - Evidence of involvement in bones (sacrum, Lumbar spine on CT) - Possible liver mets - Once a pathology is resulted with definitive diagnosis further recommendations will follow - CT of Chest without Contrast negative for identifiable metastatic disease - Bone Scan Ordered to further evaluate extent of metastatic bone lesions Right Iliac DVT: - Heparin Drip to continue, except when held for biopsy - When able Pulmonary Perfusion Test to assess for PE - Venous Doppler Completed negative for DVT Acute kidney injury secondary to Obstructive Uropathy. Left-Sided Hydronephrosis: - Creatinine continues to improve status post left sided nephrostomy tube placement - Nephrology is Following Metabolic Acidosis HyperKalemia PLan: Await Path - Hols Heparin due to bleeding in nephrotube Physician Attest: I have completed the full history and physical and agree with above dictation, dictated as a scribe
[2020-03-11] MEDS: polyethylene glycoL 3350 17 GM POWD.PACK PO SCH (20:18)
[2020-03-12] MEDS: LEVOTHYROXINE 125 MCG TAB PO SCH (05:44)
[2020-03-12 09:12] LABS: Basophils # (A) 0.04 X 10*3/uL (0.00-0.10); Basophils % (A) 0.4 %; Eosinophils # (A) 0.18 X 10*3/uL (0.04-0.35); Eosinophils % (A) 1.7 %; HCT 33.1 % (39.6-50.0); HGB 10.1 g/dL (13.0-17.0); Lymphocytes # (A) 1.56 X 10*3/uL (0.90-5.00); Lymphocytes % (A) 14.7 %; MCH 31.1 pg (27.0-32.0); MCHC 30.5 g/dL (32.0-37.0); MCV 101.8 fL (80.0-97.0); Mean Platelet Volume 9.8 fL (9.5-12.2); Monocytes # (A) 1.49 X 10*3/uL (0.20-1.00); Neutrophils # (A) 7.25 X 10*3/uL (1.80-7.70); Neutrophils % (A) 68.4 %; Platelet Count 225 X 10*3/uL (140-440); RBC 3.25 X 10*6/uL (4.40-5.60); RDW 16.2 % (11.5-14.5); WBC 10.61 X 10*3/uL (4.50-10.00)
--- NOTE | 2020-03-12 09:24 | P.PN ---
Subjective Patient is seen in follow-up for acute kidney injury. He had a left-sided nephrostomy tube placed this admission. Nephrostomy tube drainage over 3 L in the last 24 hours. Denies chest pain or shortness of breath. Oral intake is fair. Blood pressure stable. Creatinine trending down. Maintained on IV fluids. No changes overnight. Vital signs are stable. General: The patient appeared well nourished and normally developed. HEENT: Head exam is unremarkable. Neck is without jugular venous distension. LUNGS: Breath sounds decreased. HEART: Rate and Rhythm are regular. ABDOMEN: Soft, nontender. EXTREMITITES: No edema. Objective - Vital Signs Vital signs: Vital Signs Temp 98.2 F 03/12/20 04:59 Pulse 99 03/12/20 08:00 Resp 18 03/12/20 08:00 BP 161/84 03/12/20 04:59 Pulse Ox 96 03/12/20 04:59 Intake & Output 03/11/20 03/12/20 03/12/20 18:59 06:59 18:59 Intake Total 2400 Output Total 1725 1350 600 Balance -1725 1050 -600 Intake: Intake, IV Titration 900 Amount Sodium Chloride 0.9% 1, 900 000 ml @ 75 mls/hr IV . [id number] [facility] Rx#:[id number] Oral 1500 Output: Drainage 1025 1350 600 Left 1025 1350 600 Urine 700 Other: Voiding Method External Catheter Ileal Conduit (Left) Ileal Conduit (Left) - Labs CBC & Chem 7: 03/12/20 06:09 03/11/20 05:21 Labs: Abnormal Lab Results - Last 24 Hours (Table) 03/11/20 03/11/20 03/12/20 Range/Units 05:21 05:21 06:09 WBC 10.61 H (4.50-10.00) X 10*3/uL RBC 3.25 L 3.25 L (4.40-5.60) X 10*6/uL Hgb 10.2 L 10.1 L (13.0-17.0) g/dL Hct 33.0 L 33.1 L (39.6-50.0) % MCV 101.5 H 101.8 H (80.0-97.0) fL MCHC 30.9 L 30.5 L (32.0-37.0) g/dL RDW 16.4 H 16.2 H (11.5-14.5) % Immature Gran # 0.05 H 0.09 H (0.00-0.04) X 10*3/uL Monocytes # 1.06 H 1.49 H (0.20-1.00) X 10*3/uL Chloride 113 H (96-109) mmol/L BUN 56.0 H (9.0-27.0) mg/dL Creatinine 3.6 H (0.6-1.5) mg/dL Est GFR (CKD-EPI)AfAm 18.2 L (60.0-200.0) Est GFR (CKD-EPI)NonAf 15.7 L (60.0-200.0) Glucose 121 H (70-110) mg/dL AST 81 H (14-35) U/L ALT 56 H (10-49) U/L Alkaline Phosphatase 709 H (41-126) U/L Total Protein 6.1 L (6.2-8.2) g/dL Albumin 3.40 L (3.80-4.90) g/dL Albumin/Globulin Ratio 1.26 L (1.60-3.17) g/dL Assessment and Plan Plan: Assessment: 1. Acute kidney injury secondary to obstructive uropathy. Creatinine 9.83 on admission and down to 3.6 as of yesterday. 2. Left-sided hydronephrosis status post nephrostomy tube placement. 3. Hyperkalemia secondary to acute kidney injury, obstructive uropathy, metabolic acidosis as well as use of lisinopril. Resolved. 4. Benign hypertension. Stable. 5. Metabolic acidosis secondary to acute kidney injury and IV fluids. Maryellen ntained on oral bicarbonate. 6. Kidney mass with concern for metastatic renal cancer. Bone scan revealed osseous metastatic disease. Oncology following. Plan: Maintain normal saline at 75 mL an hour. Encourage oral intake. Continue to monitor renal function and urine output. Follow-up morning labs.
[2020-03-12 09:46] LABS: African American GFR (CKD) 22.7 (60.0-200.0); Albumin 3.7 g/dL (3.80-4.90); Albumin/Globulin Ratio 1.28 (1.60-3.17); Anion Gap 9.1 mmol/L (4.00-12.00); Calcium 9.3 mg/dL (8.7-10.3); Carbon Dioxide 23.9 mmol/L (21.6-31.8); Globulin 2.9 g/dL (1.6-3.3); Magnesium 1.7 mg/dL (1.5-2.4); Non-African American GFR(CKD) 19.6 (60.0-200.0); Potassium 4.4 mmol/L (3.5-5.5); Total Protein 6.6 g/dL (6.2-8.2)
[2020-03-12] MEDS: METHADONE 10 MG TAB PO SCH (09:51)
[2020-03-12] MEDS: SODIUM BICARBONATE TAB 650 MG TAB PO SCH ×3 (09:53→21:49)
[2020-03-12] MEDS: METHADONE 5 MG TAB PO SCH (09:54)
[2020-03-12] MEDS: polyethylene glycoL 3350 17 GM POWD.PACK PO SCH ×2 (09:55→21:49)
--- NOTE | 2020-03-12 10:12 | P.PN ---
Subjective Progress Note Date: 03/12/20 Principal diagnosis: Renal mass, dilated biliary ducts This 74-year-old male with a prior history of hepatitis C infection with prior treatment with [place] 2016. He presented to the hospital with complaints of abdominal pain and difficulty urinating. Computed tomography scan was suggestive of metastatic renal cell carcinoma with possible obstruction and thrombosis. There was also evidence of biliary dilation on computed tomography scan, however liver enzymes were not suggestive of an obstructive process. He underwent cystoscopy and failed retrograde pyelogram therefore had nephrostomy tube placed. he is status post renal biopsy, results are still pending. Patient was complaining of constipation over the last few days, MiraLAX was ordered. Patient states he had a bowel movement this morning, denies any blood in the stool. Otherwise he (denies abdominal pain, nausea, or vomiting. He is tolerating his diet. He continues to be followed by oncology. Objective - Vital Signs Vital signs: Vital Signs Temp 98.2 F 03/12/20 04:59 Pulse 99 03/12/20 08:00 Resp 18 03/12/20 08:00 BP 161/84 03/12/20 04:59 Pulse Ox 96 03/12/20 04:59 Intake & Output 03/11/20 03/12/20 03/12/20 18:59 06:59 18:59 Intake Total 2400 Output Total 1725 1350 600 Balance -1725 1050 -600 Intake: Intake, IV Titration 900 Amount Sodium Chloride 0.9% 1, 900 000 ml @ 75 mls/hr IV . [id number] [facility] Rx#:[id number] Oral 1500 Output: Drainage 1025 1350 600 Left 1025 1350 600 Urine 700 Other: Voiding Method External Catheter Ileal Conduit (Left) Ileal Conduit (Left) - Exam General appearance: The patient is alert, oriented, in no acute distress. HET: Head is normocephalic and atraumatic. Conjunctiva pink. Sclera anicteric. Neck: Supple without lymphadenopathy. Abdomen: Soft, nontender, nondistended with bowel sounds. No guarding or rigidity. Extremities: Normal skin color and turgor. No pedal edema Neurological: No focal deficits. Alert and oriented 3. - Labs CBC & Chem 7: 03/12/20 06:09 03/12/20 06:09 Labs: Abnormal Lab Results - Last 24 Hours (Table) 03/12/20 03/12/20 Range/Units 06:09 06:09 WBC 10.61 H (4.50-10.00) X 10*3/uL RBC 3.25 L (4.40-5.60) X 10*6/uL Hgb 10.1 L (13.0-17.0) g/dL Hct 33.1 L (39.6-50.0) % MCV 101.8 H (80.0-97.0) fL MCHC 30.5 L (32.0-37.0) g/dL RDW 16.2 H (11.5-14.5) % Immature Gran # 0.09 H (0.00-0.04) X 10*3/uL Monocytes # 1.49 H (0.20-1.00) X 10*3/uL Chloride 111 H (96-109) mmol/L BUN 45.0 H (9.0-27.0) mg/dL Creatinine 3.0 H (0.6-1.5) mg/dL Est GFR (CKD-EPI)AfAm 22.7 L (60.0-200.0) Est GFR (CKD-EPI)NonAf 19.6 L (60.0-200.0) AST 119 H (14-35) U/L ALT 67 H (10-49) U/L Alkaline Phosphatase 785 H (41-126) U/L Albumin 3.70 L (3.80-4.90) g/dL Albumin/Globulin Ratio 1.28 L (1.60-3.17) g/dL Assessment and Plan (1) Dilation of biliary tract Narrative/Plan: 74-year-old male with multiple medical comorbidities including a reported prior history of hepatitis C status post treatment with antiviral therapy in 2016 who presented for abdominal pain and difficulty urinary day. Imaging significant for findings of suspected metastatic renal cell carcinoma. He is status post external nephrostomy tube placement. Currently being evaluated by the urology, nephrology and oncology services. Computed tomography scan also showed some dilation of the biliary radicals however liver enzymes do not suggest an obstructive process at this time with total bilirubin 1.0, alkaline phosphatase 873, AST 102 and ALT 80. Repeat total bilirubin 0.9, alkaline phosphatase 709, AST 81, ALT 56. Bilirubin continues to trend down, LFTs stable. Current Visit: Yes Status: Acute Code(s): K83.8 - OTHER SPECIFIED DISEASES OF BILIARY TRACT SNOMED Code(s): 311825010 (2) Kidney mass Current Visit: Yes Status: Acute Code(s): N28.89 - OTHER SPECIFIED DISORDERS OF KIDNEY AND URETER SNOMED Code(s): 489771614 Plan: supportive care Okay for diet as tolerated MiraLAX daily, may increase to twice a day if no bowel movement Continue to monitor CBC, BMP, LFTs Appreciate recommendations from urology, nephrology and oncology services No plan for endoscopic evaluation at this time Continue oncologic workup thank you allowing us to participate in the care of the patient, we will be on stand by Dr. Doreen Delarosa I agree with the dictator's note, documented as a scribe by Nori Melendez.
--- NOTE | 2020-03-12 11:34 | P.PN ---
Subjective Progress Note Date: 03/12/20 Miguel Mancuso, is a 74-year-old male patient of Dr. Delgadillo who presented to [facility] emergency room with a chief complaint of abdominal pain, patient also stated that he was not able to urinate for the past 24 hours, patient states that his symptoms started about 1 month ago but has been worse in the last few days he was evaluated in the emergency room, his vital exam on presentation revealed a temperature of 98.6 pulse 96 respiration 18 blood pressure 163/94 pulse ox 99% on room air, his white blood count was 6.5 hemoglobin 11.3 platelet count 194 sodium 138 potassium 5.9 BUN elevated at 98 creatinine 9.83 glucose level was 127 ALT and AST were elevated at 85 and 1 or 2 alkaline phosphatase was 876 amylase and lipase were elevated at 187 and 465. [place] catheter was inserted in the emergency room and there was no urine in the bladder, computed tomography scan of the abdomen and pelvis was ordered results are still pending patient will be admitted to medical floor nephrology and urology consultation will be requested, a dose of Kayexalate was ordered. Results of computed tomography scan of the abdomen now available and findings suggest metastatic renal cell carcinoma with possible obstruction and evidence of deep venous thrombosis involving the right iliac vein and finding in the liver suggestive of dilation of the biliary duct. At this time patient will be admitted to medical floor he will be started on IV heparin nephrology, urology, gastroenterology, and oncology consultation will be requested will follow closely. On 03/09/2020 status post cystoscopy with percutaneous nephrostomy placement with Dr. Thomas. Patient is sleepy from procedure and currently resting comfortably in bed. Awaiting labs for this a.m. Awaiting input from nephrology, oncology and GI services. Vitals have remained stable. Patient denies chest pain or shortness breath. Patient denies nausea vomiting or diarrhea. Patient denies any urinary burning or frequency. On 03/10/2020 patient was seen and examined on the medical floor he is alert and oriented 3 in no apparent distress, at this time he denies any fever or chills no headache or dizziness no chest pain no shortness of breath no cough no nausea or vomiting no abdominal pain no diarrhea no blood in the stools no burning with urination no frequency or urgency and no hematuria. Patient is scheduled to have a kidney biopsy today. On 03/11/2020 patient was seen and examined on the medical floor he is alert and oriented 3 in no apparent distress there is no fever or chills no headache or dizziness no chest pain no shortness of breath no cough no nausea or vomiting no abdominal pain no diarrhea no blood in the stools no burning with urination no frequency or urgency and no hematuria. Yesterday patient was started on IV heparin due to finding on computed tomography scan of the abdomen and pelvis that revealed evidence of deep venous thrombosis involving the right iliac vein, however last night patient was having hematuria and IV heparin was discontinued, at this time will place a consult for Dr. Chavarria vascular surgery to review patient case and computed tomography scan and assess if patient needs a [place] filter as he cannot tolerate anticoagulation due to hematuria. On 03/12/2020 patient's alert and oriented 3. Hematuria has resolved. Patient was evaluated by Dr. Chavarria for possible IVC filter placement awaiting decision in regards to patient requiring placement per Dr. Chavarria. Kidney enzymes continuing to trend down . Patient denies any chest pain or shortness of breath. Patient denies nausea vomiting or diarrhea. Patient denies any urinary burning or frequency Objective - Vital Signs Vital signs: Vital Signs Temp 98.2 F 03/12/20 04:59 Pulse 99 03/12/20 08:00 Resp 18 03/12/20 08:00 BP 161/84 03/12/20 04:59 Pulse Ox 96 03/12/20 04:59 Intake & Output 03/11/20 03/12/20 03/12/20 18:59 06:59 18:59 Intake Total 2400 Output Total 1725 1350 600 Balance -1725 1050 -600 Intake: Intake, IV Titration 900 Amount Sodium Chloride 0.9% 1, 900 000 ml @ 75 mls/hr IV . [id number] [facility] Rx#:[id number] Oral 1500 Output: Drainage 1025 1350 600 Left 1025 1350 600 Urine 700 Other: Voiding Method External Catheter Ileal Conduit (Left) Ileal Conduit (Left) - Exam In general patient is alert and oriented 3 in no apparent distress HEENT head normocephalic and atraumatic Neck is supple no JVD no goiter no lymphadenopathy Chest exam reveals crackles in both lung bases no wheezing Cardiac exam reveals regular heart sounds S1 and S2 no gallops no murmurs Abdomen is soft with mild diffuse tenderness in the abdomen no organomegaly with normal bowel sounds Extremity exam reveal mild edema on the right worse than on the left, with mild erythema in the right pretibial area, no cyanosis or clubbing Neurological examination reveals, no gross focal neurological deficits - Labs CBC & Chem 7: 03/12/20 06:09 03/12/20 06:09 Labs: Abnormal Lab Results - Last 24 Hours (Table) 03/12/20 03/12/20 Range/Units 06:09 06:09 WBC 10.61 H (4.50-10.00) X 10*3/uL RBC 3.25 L (4.40-5.60) X 10*6/uL Hgb 10.1 L (13.0-17.0) g/dL Hct 33.1 L (39.6-50.0) % MCV 101.8 H (80.0-97.0) fL MCHC 30.5 L (32.0-37.0) g/dL RDW 16.2 H (11.5-14.5) % Immature Gran # 0.09 H (0.00-0.04) X 10*3/uL Monocytes # 1.49 H (0.20-1.00) X 10*3/uL Chloride 111 H (96-109) mmol/L BUN 45.0 H (9.0-27.0) mg/dL Creatinine 3.0 H (0.6-1.5) mg/dL Est GFR (CKD-EPI)AfAm 22.7 L (60.0-200.0) Est GFR (CKD-EPI)NonAf 19.6 L (60.0-200.0) AST 119 H (14-35) U/L ALT 67 H (10-49) U/L Alkaline Phosphatase 785 H (41-126) U/L Albumin 3.70 L (3.80-4.90) g/dL Albumin/Globulin Ratio 1.28 L (1.60-3.17) g/dL Assessment and Plan Plan: 1. Abdominal pain, computed tomography scan of the abdomen and pelvis was done in the emergency room findings suggest metastatic renal cell carcinoma with obstruction, also evidence of deep venous thrombosis involving the right iliac vein and evidence of biliary duct dilatation, at this point patient will be admitted to medical floor, he will be started on IV heparin urology consultation nephrology consultation gastroenterology consultation and oncology consultation were initiated 2. Poor urine output, possibly related to obstruction with a component of preren al azotemia, status post percutaneous nephrostomy tube placement with Dr. Thomas 03/09/2020 3. Acute renal failure with elevated BUN and creatinine 4. Underlying history of hypertension 5. Underlying history of hepatitis C 6. Underlying history of hyperlipidemia 7. Underlying history of hypothyroidism 8. Underlying history of chronic pain maintained on methadone 9. Episode of hematuria resolved after discontinuing IV heparin 10. Deep venous thrombosis involving the right iliac vein on computed tomography scan of the abdomen and pelvis done on 03/08/2020, consultation for vascular surgery requested to assess if patient needs a [place] filter placement. Consult gastroenterology in relation to biliary duct dilated [place] Consult nephrology for acute renal failure Consults urology for urinary obstruction And consult hematology oncology Prognosis guarded will follow closely
--- NOTE | 2020-03-12 13:15 | P.PN ---
Subjective Progress Note Date: 03/12/20 Principal diagnosis: large Kidney mass with appearance of metastatic process. Unable to completely confirm Iliac Thrombus, no active bleeding noted overnight or today. Re-challenge heparin without bolus for 24 hours today. Path is still pending. Long discussion with patient and with and family friend today. all questions answered best as possible Objective - Vital Signs Vital signs: Vital Signs Temp 98.2 F 03/12/20 04:59 Pulse 99 03/12/20 08:00 Resp 18 03/12/20 08:00 BP 161/84 03/12/20 04:59 Pulse Ox 96 03/12/20 04:59 Intake & Output 03/11/20 03/12/20 03/12/20 18:59 06:59 18:59 Intake Total 2400 Output Total 1725 1350 600 Balance -1725 1050 -600 Intake: Intake, IV Titration 900 Amount Sodium Chloride 0.9% 1, 900 000 ml @ 75 mls/hr IV . [id number] TAL Rx#:[id number] Oral 1500 Output: Drainage 1025 1350 600 Left 1025 1350 600 Urine 700 Other: Voiding Method External Catheter Ileal Conduit (Left) Ileal Conduit (Left) - Exam Constitutional General appearance: cooperative, no acute distress - EENT Eyes: EOMI, PERRLA ENT: hard of hearing, NA/AT - Neck Neck: normal ROM - Respiratory Respiratory: bilateral: CTA - Cardiovascular Rhythm: regular leg Peripheral Edema: bilateral: 1+ RLE Chin down erythema, evidence of arterial and venous insuffiency, pulse palble 1+ RLE - Gastrointestinal General gastrointestinal: soft, tenderness - Neurologic non-focal - Musculoskeletal Musculoskeletal: generalized weakness, strength equal bilaterally - Psychiatric Psychiatric: A&O x's 3, appropriate affect - Labs CBC & Chem 7: 03/12/20 06:09 03/12/20 06:09 Labs: Abnormal Lab Results - Last 24 Hours (Table) 03/12/20 03/12/20 Range/Units 06:09 06:09 WBC 10.61 H (4.50-10.00) X 10*3/uL RBC 3.25 L (4.40-5.60) X 10*6/uL Hgb 10.1 L (13.0-17.0) g/dL Hct 33.1 L (39.6-50.0) % MCV 101.8 H (80.0-97.0) fL MCHC 30.5 L (32.0-37.0) g/dL RDW 16.2 H (11.5-14.5) % Immature Gran # 0.09 H (0.00-0.04) X 10*3/uL Monocytes # 1.49 H (0.20-1.00) X 10*3/uL Chloride 111 H (96-109) mmol/L BUN 45.0 H (9.0-27.0) mg/dL Creatinine 3.0 H (0.6-1.5) mg/dL Est GFR (CKD-EPI)AfAm 22.7 L (60.0-200.0) Est GFR (CKD-EPI)NonAf 19.6 L (60.0-200.0) AST 119 H (14-35) U/L ALT 67 H (10-49) U/L Alkaline Phosphatase 785 H (41-126) U/L Albumin 3.70 L (3.80-4.90) g/dL Albumin/Globulin Ratio 1.28 L (1.60-3.17) g/dL Assessment and Plan (1) Kidney mass Current Visit: Yes Status: Acute Code(s): N28.89 - OTHER SPECIFIED DISORDERS OF KIDNEY AND URETER SNOMED Code(s): 245598473 (2) Iliac DVT (deep venous thrombosis) Current Visit: Yes Status: Acute Code(s): I82.429 - ACUTE EMBOLISM AND THROMBOSIS OF UNSPECIFIED ILIAC VEIN SNOMED Code(s): 919058639 (3) Acute renal failure Current Visit: Yes Status: Acute Code(s): N17.9 - ACUTE KIDNEY FAILURE, UNSPECIFIED SNOMED Code(s): 07897477 Plan: Assessment and Recommendations: Large Right Kidney Mass: - IR has been consulted for Biopsy confirmation of Mass - Picture is concerning for a metastatic Renal Cell cancer - Evidence of involvement in bones (sacrum, Lumbar spine on CT) - Possible liver mets - Once a pathology is resulted with definitive diagnosis further recommendations will follow - CT of Chest without Contrast negative for identifiable metastatic disease - Bone Scan Ordered to further evaluate extent of metastatic bone lesions Right Iliac DVT: Unknown tumor thrombus, versus chronic, versus acute - When able Pulmonary Perfusion Test to assess for PE - Venous Doppler Completed negative for DVT Heparin was held due to bleeding in nephrotube, he was evaluated by Dr. Chavarria for potential IVC filter. - Currently no active bleeding noted, still unable to visualize thrombus of iliac if actual thrombus, versus tumor thrombus, versus chronic. Ultra sound stated pelvic or lower extremity dopplers could not visualize, renal function remains too elevated to perform angiography, therefore discussed with primary team and will attempt re-challenging heparin drip (low intensity) without bolus and monitor 24 hours for any s/s bleeding. Acute kidney injury secondary to Obstructive Uropathy. Left-Sided Hydronephrosis: - Creatinine continues to improve status post left sided nephrostomy tube placement - Nephrology is Following Metabolic Acidosis HyperKalemia PLan: Await Path -Re-challenge Heparin without bolus. - Abdominal and Pelvic Ultrasound - Reassess liver closer and please attempt to visualize iliac as did not on LE - If bleeding with heparin re-challenge will need IVC if unable to confirm st atus of iliac thrombosis. - Discussed with Primary team, Patient and patients . Greater than 40 minutes spent with patient today
[2020-03-12 13:36] LABS: INR 1.1 (<1.2); Partial Thromboplastin Time 22.5 sec (22.0-30.0); Prothrombin Time 11.1 sec (9.0-12.0)
--- NOTE | 2020-03-12 13:57 | US ---
EXAMINATION TYPE: US pelvic limited DATE OF EXAM: 03/12/2020 COMPARISON: CT biopsy 03/10/[address] abdomen pelvis 03/08/2020 CLINICAL HISTORY: ILIAC THROMBUS. possible thrombus seen on CT Scanned right lower quadrant at area of iliac vessels and vein appears patent with no obvious signs o f thrombus. Unable to visualize iliac coming off of IVC IMPRESSION: 1. Visualized portions of the iliac veins are negative for deep venous thrombosis. 2. The common iliac veins are nondiagnostic due to bowel gas.
--- NOTE | 2020-03-12 14:20 | US ---
EXAMINATION TYPE: US abdomen limited DATE OF EXAM: 03/12/2020 COMPARISON: CT 03/08/2020, ultrasound 10/08/2015 CLINICAL HISTORY: closely examine liver and conf iliac VT. patient 4hrs NPO, very gassy, large habitu s EXAM MEASUREMENTS: Liver Length: 14.0 cm Gallbladder Wall: 0.2 cm CBD: 0.4 cm *bowel gas and habitus limits exam Pancreas: not seen due to bowel gas Liver: heterogeneous, limited views and a suspect there are some dilated biliary ducts as noted on C T Gallbladder: tortuous at neck, gallbladder is prominent Evidence for sonographic Rdz's sign: no CBD: wnl Right Kidney: Right kidney is replaced by abnormal soft tissue IMPRESSION: Exam is limited for evaluation, confluence of iliac veins are not visualized, better visu alization a be obtained with contrast-enhanced CT or MRI. No evident gallstone. Prominent gallbladder , suspect some prominence of some intrahepatic bile ducts as noted on CT. Right renal mass.
[2020-03-12] MEDS: HEPARIN SOD,PORK IN 0.45% NACL 25,000 UNIT in 0.45% NACL 1 250ML.BAG IV SCH (15:55)
[2020-03-12] MEDS: SODIUM CHLORIDE 0.9% 1,000 ML IV SCH ×2 (16:25→21:50)
[2020-03-12] MEDS: ALPRAZolam 0.25 MG TAB PO PRN (21:49)
[2020-03-13] MEDS: LEVOTHYROXINE 125 MCG TAB PO SCH (05:47)
[2020-03-13] MEDS: SODIUM CHLORIDE 0.9% 1,000 ML IV SCH (05:48)
[2020-03-13] MEDS: METHADONE 5 MG TAB PO SCH (09:04)
[2020-03-13] MEDS: METHADONE 10 MG TAB PO SCH (09:05)
[2020-03-13] MEDS: polyethylene glycoL 3350 17 GM POWD.PACK PO SCH ×2 (09:07→20:42)
[2020-03-13] MEDS: SODIUM BICARBONATE TAB 650 MG TAB PO SCH ×3 (09:21→20:42)
--- NOTE | 2020-03-13 09:53 | P.PN ---
Subjective Patient is seen in follow-up for acute kidney injury. He had a left-sided nephrostomy tube placed this admission. Nephrostomy tube drainage near 3.8 L in the last 24 hours. Denies chest pain or shortness of breath. Oral intake is fair. Blood pressure stable. Creatinine trending down. Maintained on IV fluids. No changes overnight. Vital signs are stable. General: The patient appeared well nourished and normally developed. HEENT: Head exam is unremarkable. Neck is without jugular venous distension. LUNGS: Breath sounds decreased. HEART: Rate and Rhythm are regular. ABDOMEN: Soft, nontender. EXTREMITITES: No edema. Objective - Vital Signs Vital signs: Vital Signs Temp 98.7 F 03/13/20 05:00 Pulse 60 03/13/20 05:00 Resp 18 03/13/20 05:00 BP 137/85 03/13/20 05:00 Pulse Ox 95 03/13/20 05:00 Intake & Output 03/12/20 03/13/20 03/13/20 18:59 06:59 18:59 Intake Total 0 1455.497 99.947 Output Total 2275 1550 Balance -2275 -94.503 99.947 Intake: Intake, IV Titration 0 975.497 99.947 Amount Heparin Sod,Pork in 0.45% 0 75.497 99.947 NaCl 25,000 unit In 0.45 % NaCl 1 250ml.bag @ 11. 603 UNITS/KG/HR 10 mls/hr IV .Q24H TAL Rx#: [id number] Sodium Chloride 0.9% 1, 900 000 ml @ 75 mls/hr IV . [id number] TAL Rx#:[id number] Oral 480 Output: Drainage 1275 1550 Left 1275 1550 Urine 1000 Other: Voiding Method Ileal Conduit (Left) - Labs CBC & Chem 7: 03/12/20 06:09 03/12/20 06:09 Labs: Abnormal Lab Results - Last 24 Hours (Table) 03/12/20 03/13/20 Range/Units 22:08 06:34 APTT 35.8 H 54.3 H (22.0-30.0) sec Assessment and Plan Plan: Assessment: 1. Acute kidney injury secondary to obstructive uropathy. Creatinine 9.83 on admission and down to 3.0 as of yesterday. 2. Left-sided hydronephrosis status post nephrostomy tube placement. 3. Hyperkalemia secondary to acute kidney injury, obstructive uropathy, metabolic acidosis as well as use of lisinopril. Resolved. 4. Benign hypertension. Stable. 5. Metabolic acidosis secondary to acute kidney injury and IV fluids. Maintained on oral bicarbonate. 6. Kidney mass with concern for metastatic renal cancer. Bone scan revealed osseous metastatic disease. Oncology following. 7. ?Iliac thrombus maintained on anticoagulation. Plan: Decrease rate of IV fluids. Encourage oral intake. Continue to monitor renal function and urine output. Follow-up morning labs.
[2020-03-13 12:00] LABS: Basophils # (A) 0.02 X 10*3/uL (0.00-0.10); Basophils % (A) 0.3 %; Eosinophils % (A) 3.3 %; HCT 27.5 % (39.6-50.0); HGB 8.3 g/dL (13.0-17.0); Lymphocytes # (A) 0.91 X 10*3/uL (0.90-5.00); Lymphocytes % (A) 14.9 %; MCH 31.3 pg (27.0-32.0); MCHC 30.2 g/dL (32.0-37.0); MCV 103.8 fL (80.0-97.0); Monocytes # (A) 0.82 X 10*3/uL (0.20-1.00); Monocytes % (A) 13.5 %; Neutrophils # (A) 4.08 X 10*3/uL (1.80-7.70); Platelet Count 141 X 10*3/uL (140-440); RBC 2.65 X 10*6/uL (4.40-5.60); RDW 16.3 % (11.5-14.5); WBC 6.09 X 10*3/uL (4.50-10.00)
[2020-03-13] MEDS: HEPARIN SOD,PORK IN 0.45% NACL 25,000 UNIT in 0.45% NACL 1 250ML.BAG IV SCH (12:11)
[2020-03-13 13:47] LABS: African American GFR (CKD) 29.7 (60.0-200.0); Albumin 3.2 g/dL (3.80-4.90); Albumin/Globulin Ratio 1.39 (1.60-3.17); Anion Gap 5.5 mmol/L (4.00-12.00); Calcium 8.7 mg/dL (8.7-10.3); Carbon Dioxide 25.5 mmol/L (21.6-31.8); Globulin 2.3 g/dL (1.6-3.3); Magnesium 1.4 mg/dL (1.5-2.4); Non-African American GFR(CKD) 25.6 (60.0-200.0); Potassium 4.9 mmol/L (3.5-5.5); Total Protein 5.5 g/dL (6.2-8.2)
--- NOTE | 2020-03-13 14:28 | P.PN ---
Subjective Progress Note Date: 03/13/20 Principal diagnosis: large Kidney mass with appearance of metastatic process. Spoke to RN this am informed me he had blood tinge in Nephrostomy bag, instructed to hold heparin and draw a stat cbc at that time. CBC from AM did not result till noon per nursing today, and there was in fact a 2 gram drop in hemoglobin from yesterday. Dr. Morrison discussed further abdominal and pelvic imaging with Dr. Hooks in Radiology and he was able to confirm the iliac appears to be consistent with tumor thrombus from external pressure, therefore RN notified and asked to discontinue heparin drip further. Heparin drip was therefore discontinued at 10:30 this am and not restarted as return of 6am hemoglobin (which was delayed) showed drop. We will draw a stat CBC and Stat PTT at this time, as well as iron studies. Objective - Vital Signs Vital signs: Vital Signs Temp 98.2 F 03/13/20 13:06 Pulse 84 03/13/20 13:06 Resp 17 03/13/20 13:06 BP 148/86 03/13/20 13:06 Pulse Ox 95 03/13/20 05:00 Intake & Output 03/12/20 03/13/20 03/13/20 18:59 06:59 18:59 Intake Total 0 2594.909 7315.927 Output Total 2275 1550 500 Balance -2275 -94.503 695.927 Intake: Intake, IV Titration 0 975.497 132.927 Amount Heparin Sod,Pork in 0.45% 0 75.497 132.927 NaCl 25,000 unit In 0.45 % NaCl 1 250ml.bag @ 11. 603 UNITS/KG/HR 10 mls/hr IV .Q24H TAL Rx#: [id number] Sodium Chloride 0.9% 1, 900 000 ml @ 50 mls/hr IV . Q20H TAL Rx#:[id number] Oral 480 1063 Output: Drainage 1275 1550 Left 1275 1550 Urine 1000 500 Other: Voiding Method Ileal Conduit (Left) Indwelling Catheter # Voids 1 - Exam Constitutional General appearance: cooperative, no acute distress - EENT Eyes: EOMI, PERRLA ENT: hard of hearing, NA/AT - Neck Neck: normal ROM - Respiratory Respiratory: bilateral: CTA - Cardiovascular Rhythm: regular leg Peripheral Edema: bilateral: 1+ RLE Chin down erythema, evidence of arterial and venous insuffiency, pulse palble 1+ RLE - Gastrointestinal General gastrointestinal: soft, tenderness - Neurologic non-focal - Musculoskeletal Musculoskeletal: generalized weakness, strength equal bilaterally - Psychiatric Psychiatric: A&O x's 3, appropriate affect - Labs CBC & Chem 7: 03/13/20 06:34 03/13/20 06:34 Labs: Abnormal Lab Results - Last 24 Hours (Table) 03/12/20 03/13/20 03/13/20 Range/Units 22:08 06:34 06:34 RBC 2.65 L (4.40-5.60) X 10*6/uL Hgb 8.3 L (13.0-17.0) g/dL Hct 27.5 L (39.6-50.0) % MCV 103.8 H (80.0-97.0) fL MCHC 30.2 L (32.0-37.0) g/dL RDW 16.3 H (11.5-14.5) % Immature Gran # 0.06 H (0.00-0.04) X 10*3/uL APTT 35.8 H (22.0-30.0) sec Chloride 113 H (96-109) mmol/L BUN 36.0 H (9.0-27.0) mg/dL Creatinine 2.4 H (0.6-1.5) mg/dL Est GFR (CKD-EPI)AfAm 29.7 L (60.0-200.0) Est GFR (CKD-EPI)NonAf 25.6 L (60.0-200.0) Magnesium 1.4 L (1.5-2.4) mg/dL AST 120 H (14-35) U/L ALT 72 H (10-49) U/L Alkaline Phosphatase 681 H (41-126) U/L Total Protein 5.5 L (6.2-8.2) g/dL Albumin 3.20 L (3.80-4.90) g/dL Albumin/Globulin Ratio 1.39 L (1.60-3.17) g/dL 03/13/20 Range/Units 06:34 RBC (4.40-5.60) X 10*6/uL Hgb (13.0-17.0) g/dL Hct (39.6-50.0) % MCV (80.0-97.0) fL MCHC (32.0-37.0) g/dL RDW (11.5-14.5) % Immature Gran # (0.00-0.04) X 10*3/uL APTT 54.3 H (22.0-30.0) sec Chloride (96-109) mmol/L BUN (9.0-27.0) mg/dL Creatinine (0.6-1.5) mg/dL Est GFR (CKD-EPI)AfAm (60.0-200.0) Est GFR (CKD-EPI)NonAf (60.0-200.0) Magnesium (1.5-2.4) mg/dL AST (14-35) U/L ALT (10-49) U/L Alkaline Phosphatase (41-126) U/L Total Protein (6.2-8.2) g/dL Albumin (3.80-4.90) g/dL Albumin/Globulin Ratio (1.60-3.17) g/dL Assessment and Plan (1) Kidney mass Current Visit: Yes Status: Acute Code(s): N28.89 - OTHER SPECIFIED DISORDERS OF KIDNEY AND URETER SNOMED Code(s): 925610946 (2) Iliac DVT (deep venous thrombosis) Current Visit: Yes Status: Acute Code(s): I82.429 - ACUTE EMBOLISM AND THROMBOSIS OF UNSPECIFIED ILIAC VEIN SNOMED Code(s): 702807422 (3) Acute renal failure Current Visit: Yes Status: Acute Code(s): N17.9 - ACUTE KIDNEY FAILURE, UNSPECIFIED SNOMED Code(s): 63752633 Plan: Assessment and Recommendations: Large Right Kidney Mass: - IR has been consulted for Biopsy confirmation of Mass - Picture is concerning for a metastatic Renal Cell cancer - Evidence of involvement in bones (sacrum, Lumbar spine on CT) - Possible liver mets - Once a pathology is resulted with definitive diagnosis further recommendations will follow - CT of Chest without Contrast negative for identifiable metastatic disease - Bone Scan reviewed and evidenced involvement of bone lesions bilaterally. Right Iliac DVT: [place] to be tumor related, not actual clot - Further evaluation with pelvic Ultrasound and discussion with radiologist reveals that this is most likely not actual clot but rather tumor thrombus and therefore heparin can be discontinued. Anemia: - Secondary to heparin drip and bleeding within nephrostomy tubes - Checking stat ptt, cbc, and iron studies. Acute kidney injury secondary to Obstructive Uropathy. Left-Sided Hydronephrosis: - Creatinine continues to improve status post left sided nephrostomy tube placement - Nephrology is Following Metabolic Acidosis HyperKalemia Physician Attestation: I have completed the full history and physical and agree with above dictation, dictated as a scribe.
[2020-03-13 15:07] LABS: Anisocytosis Slight; Basophils % (A) 0 %; Eosinophils # (A) 0.2 k/uL (0-0.7); Eosinophils % (A) 2 %; HCT 31.2 % (39.0-53.0); Hypochromasia Slight; Lymphocytes # (A) 0.7 k/uL (1.0-4.8); Lymphocytes % (A) 10 %; MCH 29.7 pg (25.0-35.0); MCHC 29.6 g/dL (31.0-37.0); MCV 100.7 fL (80.0-100.0); Macrocytosis Slight; Mean Platelet Volume 7.2; Monocytes # (A) 0.5 k/uL (0-1.0); Monocytes % (A) 7 %; Neutrophils # (A) 5.7 k/uL (1.3-7.7); Neutrophils % (A) 78 %; Platelet Count 199 k/uL (150-450); WBC 7.4 k/uL (3.8-10.6)
[2020-03-13 15:12] LABS: HGB 9.2 gm/dL (13.0-17.5)
[2020-03-13 15:27] LABS: INR 1.1 (<1.2); Partial Thromboplastin Time 23.3 sec (22.0-30.0); Prothrombin Time 11.3 sec (9.0-12.0)
--- NOTE | 2020-03-13 15:54 | P.PN ---
Subjective Progress Note Date: 03/13/20 Principal diagnosis: left hydronephrosis right renal mass No acute overnight event, tolerating diet, denies N/V. Creat trending down to 2.4, still awaiting pathology on the biopsy Objective - Vital Signs Vital signs: Vital Signs Temp 98.2 F 03/13/20 13:06 Pulse 84 03/13/20 13:06 Resp 17 03/13/20 13:06 BP 148/86 03/13/20 13:06 Pulse Ox 95 03/13/20 05:00 Intake & Output 03/12/20 03/13/20 03/13/20 18:59 06:59 18:59 Intake Total 0 5083.585 6751.927 Output Total 2275 1550 800 Balance -2275 -94.503 395.927 Intake: Intake, IV Titration 0 975.497 132.927 Amount Heparin Sod,Pork in 0.45% 0 75.497 132.927 NaCl 25,000 unit In 0.45 % NaCl 1 250ml.bag @ 11. 603 UNITS/KG/HR 10 mls/hr IV .Q24H TAL Rx#: [id number] Sodium Chloride 0.9% 1, 900 000 ml @ 50 mls/hr IV . Q20H TAL Rx#:[id number] Oral 480 1063 Output: Drainage 1275 1550 Left 1275 1550 Urine 1000 800 Other: Voiding Method Ileal Conduit (Left) Indwelling Catheter # Voids 1 - Constitutional General appearance: Present: no acute distress - Genitourinary Genitourinary Comment(s): Left nephrostomy tube draining clear yellow urine - Psychiatric Psychiatric: Present: A&O x's 3 - Labs CBC & Chem 7: 03/13/20 14:41 03/13/20 06:34 Labs: Abnormal Lab Results - Last 24 Hours (Table) 03/12/20 03/13/20 03/13/20 Range/Units 22:08 06:34 06:34 RBC 2.65 L (4.40-5.60) X 10*6/uL Hgb 8.3 L (13.0-17.0) g/dL Hct 27.5 L (39.6-50.0) % MCV 103.8 H (80.0-97.0) fL MCHC 30.2 L (32.0-37.0) g/dL RDW 16.3 H (11.5-14.5) % Immature Gran # 0.06 H (0.00-0.04) X 10*3/uL Lymphocytes # (1.0-4.8) k/uL APTT 35.8 H (22.0-30.0) sec Chloride 113 H (96-109) mmol/L BUN 36.0 H (9.0-27.0) mg/dL Creatinine 2.4 H (0.6-1.5) mg/dL Est GFR (CKD-EPI)AfAm 29.7 L (60.0-200.0) Est GFR (CKD-EPI)NonAf 25.6 L (60.0-200.0) Magnesium 1.4 L (1.5-2.4) mg/dL AST 120 H (14-35) U/L ALT 72 H (10-49) U/L Alkaline Phosphatase 681 H (41-126) U/L Total Protein 5.5 L (6.2-8.2) g/dL Albumin 3.20 L (3.80-4.90) g/dL Albumin/Globulin Ratio 1.39 L (1.60-3.17) g/dL 03/13/20 03/13/20 Range/Units 06:34 14:41 RBC 3.10 L (4.40-5.60) X 10*6/uL Hgb 9.2 L D (13.0-17.0) g/dL Hct 31.2 L (39.6-50.0) % MCV 100.7 H (80.0-97.0) fL MCHC 29.6 L (32.0-37.0) g/dL RDW 16.0 H (11.5-14.5) % Immature Gran # (0.00-0.04) X 10*3/uL Lymphocytes # 0.7 L (1.0-4.8) k/uL APTT 54.3 H (22.0-30.0) sec Chloride (96-109) mmol/L BUN (9.0-27.0) mg/dL Creatinine (0.6-1.5) mg/dL Est GFR (CKD-EPI)AfAm (60.0-200.0) Est GFR (CKD-EPI)NonAf (60.0-200.0) Magnesium (1.5-2.4) mg/dL AST (14-35) U/L ALT (10-49) U/L Alkaline Phosphatase (41-126) U/L Total Protein (6.2-8.2) g/dL Albumin (3.80-4.90) g/dL Albumin/Globulin Ratio (1.60-3.17) g/dL Assessment and Plan Assessment: 74 year-old male to the hospital left-sided hydronephrosis, and a right-sided renal mass. Underwent a renal biopsy by interventional radiology, he underwent attempted stent placement which was unsuccessful, and subsequently underwent left nephrostomy tube placement Plan: -still awaiting final pathology -Monitor output from PCN
--- NOTE | 2020-03-13 16:50 | P.PN ---
Subjective Progress Note Date: 03/13/20 Miguel Mancuso, is a 74-year-old male patient of Dr. Delgadillo who presented to [facility] emergency room with a chief complaint of abdominal pain, patient also stated that he was not able to urinate for the past 24 hours, patient states that his symptoms started about 1 month ago but has been worse in the last few days he was evaluated in the emergency room, his vital exam on presentation revealed a temperature of 98.6 pulse 96 respiration 18 blood pressure 163/94 pulse ox 99% on room air, his white blood count was 6.5 hemoglobin 11.3 platelet count 194 sodium 138 potassium 5.9 BUN elevated at 98 creatinine 9.83 glucose level was 127 ALT and AST were elevated at 85 and 1 or 2 alkaline phosphatase was 876 amylase and lipase were elevated at 187 and 465. [place] catheter was inserted in the emergency room and there was no urine in the bladder, computed tomography scan of the abdomen and pelvis was ordered results are still pending patient will be admitted to medical floor nephrology and urology consultation will be requested, a dose of Kayexalate was ordered. Results of computed tomography scan of the abdomen now available and findings suggest metastatic renal cell carcinoma with possible obstruction and evidence of deep venous thrombosis involving the right iliac vein and finding in the liver suggestive of dilation of the biliary duct. At this time patient will be admitted to medical floor he will be started on IV heparin nephrology, urology, gastroenterology, and oncology consultation will be requested will follow closely. On 03/09/2020 status post cystoscopy with percutaneous nephrostomy placement with Dr. Thomas. Patient is sleepy from procedure and currently resting comfortably in bed. Awaiting labs for this a.m. Awaiting input from nephrology, oncology and GI services. Vitals have remained stable. Patient denies chest pain or shortness breath. Patient denies nausea vomiting or diarrhea. Patient denies any urinary burning or frequency. On 03/10/2020 patient was seen and examined on the medical floor he is alert and oriented 3 in no apparent distress, at this time he denies any fever or chills no headache or dizziness no chest pain no shortness of breath no cough no nausea or vomiting no abdominal pain no diarrhea no blood in the stools no burning with urination no frequency or urgency and no hematuria. Patient is scheduled to have a kidney biopsy today. On 03/11/2020 patient was seen and examined on the medical floor he is alert and oriented 3 in no apparent distress there is no fever or chills no headache or dizziness no chest pain no shortness of breath no cough no nausea or vomiting no abdominal pain no diarrhea no blood in the stools no burning with urination no frequency or urgency and no hematuria. Yesterday patient was started on IV heparin due to finding on computed tomography scan of the abdomen and pelvis that revealed evidence of deep venous thrombosis involving the right iliac vein, however last night patient was having hematuria and IV heparin was discontinued, at this time will place a consult for Dr. Chavarria vascular surgery to review patient case and computed tomography scan and assess if patient needs a Shashi filter as he cannot tolerate anticoagulation due to hematuria. On 03/12/2020 patient's alert and oriented 3. Hematuria has resolved. Patient was evaluated by Dr. Chavarria for possible IVC filter placement awaiting decision in regards to patient requiring placement per Dr. Chavarria. Kidney enzymes continuing to trend down . Patient denies any chest pain or shortness of breath. Patient denies nausea vomiting or diarrhea. Patient denies any urinary burning or frequency On 03/13/2020 patient was seen and examined on the medical floor he is alert and oriented 3 in no distress, IV heparin was held and hematuria improved he is complaining of pain in the abdomen otherwise he denies any complaints at this time there is no fever or chills no headache or dizziness no chest pain no s hortness of breath no cough no nausea or vomiting no diarrhea no blood in the stool Objective - Vital Signs Vital signs: Vital Signs Temp 98.7 F 03/13/20 05:00 Pulse 60 03/13/20 05:00 Resp 18 03/13/20 05:00 BP 137/85 03/13/20 05:00 Pulse Ox 95 03/13/20 05:00 Intake & Output 03/12/20 03/13/20 03/13/20 18:59 06:59 18:59 Intake Total 0 1455.497 99.947 Output Total 2275 1550 Balance -2275 -94.503 99.947 Intake: Intake, IV Titration 0 975.497 99.947 Amount Heparin Sod,Pork in 0.45% 0 75.497 99.947 NaCl 25,000 unit In 0.45 % NaCl 1 250ml.bag @ 11. 603 UNITS/KG/HR 10 mls/hr IV .Q24H [facility] Rx#: [id number] Sodium Chloride 0.9% 1, 900 000 ml @ 75 mls/hr IV . [id number] [facility] Rx#:[id number] Oral 480 Output: Drainage 1275 1550 Left 1275 1550 Urine 1000 Other: Voiding Method Ileal Conduit (Left) - Exam In general patient is alert and oriented 3 in no apparent distress HEENT head normocephalic and atraumatic Neck is supple no JVD no goiter no lymphadenopathy Chest exam reveals crackles in both lung bases no wheezing Cardiac exam reveals regular heart sounds S1 and S2 no gallops no murmurs Abdomen is soft with mild diffuse tenderness in the abdomen no organomegaly with normal bowel sounds Extremity exam reveal mild edema on the right worse than on the left, with mild erythema in the right pretibial area, no cyanosis or clubbing Neurological examination reveals, no gross focal neurological deficits - Labs CBC & Chem 7: 03/13/20 14:41 03/13/20 06:34 Labs: Abnormal Lab Results - Last 24 Hours (Table) 03/12/20 03/12/20 03/13/20 Range/Units 06:09 22:08 06:34 APTT 35.8 H 54.3 H (22.0-30.0) sec Chloride 111 H (96-109) mmol/L BUN 45.0 H (9.0-27.0) mg/dL Creatinine 3.0 H (0.6-1.5) mg/dL Est GFR (CKD-EPI)AfAm 22.7 L (60.0-200.0) Est GFR (CKD-EPI)NonAf 19.6 L (60.0-200.0) AST 119 H (14-35) U/L ALT 67 H (10-49) U/L Alkaline Phosphatase 785 H (41-126) U/L Albumin 3.70 L (3.80-4.90) g/dL Albumin/Globulin Ratio 1.28 L (1.60-3.17) g/dL Assessment and Plan Plan: 1. Abdominal pain, computed tomography scan of the abdomen and pelvis was done in the emergency room findings suggest metastatic renal cell carcinoma with obstruction, also evidence of deep venous thrombosis involving the right iliac vein and evidence of biliary duct dilatation, at this point patient will be admitted to medical floor, he will be started on IV heparin urology consultation nephrology consultation gastroenterology consultation and oncology consultation were initiated 2. Poor urine output, possibly related to obstruction with a component of prerenal azotemia, status post percutaneous nephrostomy tube placement with Dr. Thomas 03/09/2020 3. Acute renal failure with elevated BUN and creatinine 4. Underlying history of hypertension 5. Underlying history of hepatitis C 6. Underlying history of hyperlipidemia 7. Underlying history of hypothyroidism 8. Underlying history of chronic pain maintained on methadone 9. Episode of hematuria resolved after discontinuing IV heparin 10. Deep venous thrombosis involving the right iliac vein on computed tomography scan of the abdomen and pelvis done on 03/08/2020, consultation for vascular surgery requested to assess if patient needs a Shashi filter placement. At this time we are awaiting decision from vascular surgery and hematology in that regard to management of deep venous thrombosis and whether patient needs a Shashi filter Consult gastroenterology in relation to biliary duct dilated [place] Consult nephrology for acute renal failure Consults urology for urinary obstruction And consult hematology oncology Prognosis guarded will follow closely
[2020-03-13] MEDS: MAGNESIUM SULFATE-D5W PMX 1 GM in DEXTROSE/WATER 1 100ML.BAG IVPB SCH ×2 (19:32→20:34)
[2020-03-13] MEDS: ALPRAZolam 0.25 MG TAB PO PRN (20:42)
[2020-03-13 22:52] LABS: % Iron Saturation 14.98 (15.00-50.00)
[2020-03-13 23:40] LABS: Ferritin 369.6 ng/mL (22.0-322.0)
[2020-03-14] MEDS: LEVOTHYROXINE 125 MCG TAB PO SCH (05:57)
[2020-03-14] MEDS: SODIUM CHLORIDE 0.9% 1,000 ML IV SCH (05:58)
[2020-03-14] MEDS: METHADONE 5 MG TAB PO SCH (08:42)
[2020-03-14] MEDS: METHADONE 10 MG TAB PO SCH (08:44)
[2020-03-14] MEDS: SODIUM BICARBONATE TAB 650 MG TAB PO SCH ×3 (08:45→20:42)
[2020-03-14] MEDS: polyethylene glycoL 3350 17 GM POWD.PACK PO SCH ×2 (08:48→20:42)
[2020-03-14 10:13] LABS: Basophils # (A) 0.02 X 10*3/uL (0.00-0.10); Basophils % (A) 0.3 %; Eosinophils # (A) 0.23 X 10*3/uL (0.04-0.35); Eosinophils % (A) 3.2 %; HCT 28.3 % (39.6-50.0); HGB 8.7 g/dL (13.0-17.0); Lymphocytes # (A) 1.28 X 10*3/uL (0.90-5.00); Lymphocytes % (A) 17.6 %; MCH 31.6 pg (27.0-32.0); MCHC 30.7 g/dL (32.0-37.0); MCV 102.9 fL (80.0-97.0); Mean Platelet Volume 9.8 fL (9.5-12.2); Monocytes # (A) 0.92 X 10*3/uL (0.20-1.00); Monocytes % (A) 12.6 %; Neutrophils # (A) 4.76 X 10*3/uL (1.80-7.70); Neutrophils % (A) 65.3 %; Platelet Count 168 X 10*3/uL (140-440); RBC 2.75 X 10*6/uL (4.40-5.60); RDW 16.4 % (11.5-14.5); WBC 7.28 X 10*3/uL (4.50-10.00)
[2020-03-14 10:56] LABS: Albumin 3.4 g/dL (3.80-4.90); Albumin/Globulin Ratio 1.48 (1.60-3.17); Anion Gap 7.4 mmol/L (4.00-12.00); BUN/Creat Ratio 14.5 Ratio (12.00-20.00); Calcium 8.9 mg/dL (8.7-10.3); Carbon Dioxide 25.6 mmol/L (21.6-31.8); Globulin 2.3 g/dL (1.6-3.3); Magnesium 1.8 mg/dL (1.5-2.4); Non-African American GFR(CKD) 31.9 (60.0-200.0); Potassium 4.8 mmol/L (3.5-5.5); Total Bilirubin 1.3 mg/dL (0.2-1.2); Total Protein 5.7 g/dL (6.2-8.2)
--- NOTE | 2020-03-14 11:44 | P.PN ---
Subjective Patient is seen in follow-up for acute kidney injury. He had a left-sided nephrostomy tube placed this admission. Nephrostomy tube drainage near 2.8 L in the last 24 hours. Denies chest pain or shortness of breath. Oral intake is fair. Blood pressure stable. Creatinine trending down. Maintained on IV fluids. No changes overnight. Vital signs are stable. General: The patient appeared well nourished and normally developed. HEENT: Head exam is unremarkable. Neck is without jugular venous distension. LUNGS: Breath sounds decreased. HEART: Rate and Rhythm are regular. ABDOMEN: Soft, nontender. EXTREMITITES: No edema. Objective - Vital Signs Vital signs: Vital Signs Temp 98.3 F 03/14/20 07:58 Pulse 70 03/14/20 10:59 Resp 17 03/14/20 10:59 BP 142/72 03/14/20 07:58 Pulse Ox 96 03/14/20 04:45 Intake & Output 03/13/20 03/14/20 03/14/20 18:59 06:59 18:59 Intake Total 1195.927 Output Total 1250 1550 Balance -54.073 -1550 Intake: Intake, IV Titration 132.927 Amount Heparin Sod,Pork in 0.45% 132.927 NaCl 25,000 unit In 0.45 % NaCl 1 250ml.bag @ 11. 603 UNITS/KG/HR 10 mls/hr IV .Q24H [facility] Rx#: [id number] Oral 1063 Output: Drainage 450 800 Left 450 800 Urine 800 750 Other: Voiding Method Indwelling Catheter Indwelling Catheter Toilet # Voids 1 # Bowel Movements 0 - Labs CBC & Chem 7: 03/14/20 07:26 03/14/20 07:26 Labs: Abnormal Lab Results - Last 24 Hours (Table) 03/13/20 03/13/20 03/13/20 Range/Units 06:34 06:34 14:41 RBC 2.65 L 3.10 L (4.40-5.60) X 10*6/uL Hgb 8.3 L 9.2 L D (13.0-17.0) g/dL Hct 27.5 L 31.2 L (39.6-50.0) % MCV 103.8 H 100.7 H (80.0-97.0) fL MCHC 30.2 L 29.6 L (32.0-37.0) g/dL RDW 16.3 H 16.0 H (11.5-14.5) % Immature Gran # 0.06 H (0.00-0.04) X 10*3/uL Lymphocytes # 0.7 L (1.0-4.8) k/uL Chloride 113 H (96-109) mmol/L BUN 36.0 H (9.0-27.0) mg/dL Creatinine 2.4 H (0.6-1.5) mg/dL Est GFR (CKD-EPI)AfAm 29.7 L (60.0-200.0) Est GFR (CKD-EPI)NonAf 25.6 L (60.0-200.0) Magnesium 1.4 L (1.5-2.4) mg/dL Iron (65-175) ug/dL TIBC (228-460) ug/dL % Saturation (15.00-50.00) Ferritin (22.0-322.0) ng/mL Total Bilirubin (0.2-1.2) mg/dL AST 120 H (14-35) U/L ALT 72 H (10-49) U/L Alkaline Phosphatase 681 H (41-126) U/L Total Protein 5.5 L (6.2-8.2) g/dL Albumin 3.20 L (3.80-4.90) g/dL Albumin/Globulin Ratio 1.39 L (1.60-3.17) g/dL 03/13/20 03/14/20 03/14/20 Range/Units 14:41 07:26 07:26 RBC 2.75 L (4.40-5.60) X 10*6/uL Hgb 8.7 L (13.0-17.0) g/dL Hct 28.3 L (39.6-50.0) % MCV 102.9 H (80.0-97.0) fL MCHC 30.7 L (32.0-37.0) g/dL RDW 16.4 H (11.5-14.5) % Immature Gran # 0.07 H (0.00-0.04) X 10*3/uL Lymphocytes # (1.0-4.8) k/uL Chloride (96-109) mmol/L BUN 29.0 H (9.0-27.0) mg/dL Creatinine 2.0 H (0.6-1.5) mg/dL Est GFR (CKD-EPI)AfAm 37.0 L (60.0-200.0) Est GFR (CKD-EPI)NonAf 31.9 L (60.0-200.0) Magnesium (1.5-2.4) mg/dL Iron 34 L (65-175) ug/dL TIBC 227 L (228-460) ug/dL % Saturation 14.98 L (15.00-50.00) Ferritin 369.6 H (22.0-322.0) ng/mL Total Bilirubin 1.3 H (0.2-1.2) mg/dL AST 106 H (14-35) U/L ALT 76 H (10-49) U/L Alkaline Phosphatase 695 H (41-126) U/L Total Protein 5.7 L (6.2-8.2) g/dL Albumin 3.40 L (3.80-4.90) g/dL Albumin/Globulin Ratio 1.48 L (1.60-3.17) g/dL Assessment and Plan Plan: Assessment: 1. Acute kidney injury secondary to obstructive uropathy. Creatinine 9.83 on admission and is down to 2.0 today. 2. Left-sided hydronephrosis status post nephrostomy tube placement. 3. Hyperkalemia secondary to acute kidney injury, obstructive uropathy, metabolic acidosis as well as use of lisinopril. Resolved. 4. Benign hypertension. Stable. 5. Metabolic acidosis secondary to acute kidney injury and IV fluids. Maintained on oral bicarbonate. 6. Kidney mass with concern for metastatic renal cancer. Bone scan revealed osseous metastatic disease. Oncology following. 7. ?Iliac thrombus. Heparin now discontinued. Plan: Hep-Lock IV fluids. Encourage oral intake. Continue to monitor renal function and urine output.
--- NOTE | 2020-03-14 13:21 | P.PN ---
Subjective Principal diagnosis: left hydronephrosis right renal mass No acute overnight event, tolerating diet, denies N/V. Creat trending down to 2.4, still awaiting pathology on the biopsy Objective - Vital Signs Vital signs: Vital Signs Temp 98.0 F 03/14/20 12:15 Pulse 106 H 03/14/20 12:15 Resp 17 03/14/20 12:15 BP 174/82 03/14/20 12:15 Pulse Ox 94 L 03/14/20 12:15 Intake & Output 03/13/20 03/14/20 03/14/20 18:59 06:59 18:59 Intake Total 1195.927 Output Total 1250 1550 Balance -54.073 -1550 Intake: Intake, IV Titration 132.927 Amount Heparin Sod,Pork in 0.45% 132.927 NaCl 25,000 unit In 0.45 % NaCl 1 250ml.bag @ 11. 603 UNITS/KG/HR 10 mls/hr IV .Q24H [facility] Rx#: [id number] Oral 1063 Output: Drainage 450 800 Left 450 800 Urine 800 750 Other: Voiding Method Indwelling Catheter Indwelling Catheter Toilet # Voids 1 # Bowel Movements 0 - Labs CBC & Chem 7: 03/14/20 07:26 03/14/20 07:26 Labs: Abnormal Lab Results - Last 24 Hours (Table) 03/13/20 03/13/20 03/13/20 Range/Units 06:34 14:41 14:41 RBC 3.10 L (4.30-5.90) m/uL Hgb 9.2 L D (13.0-17.5) gm/dL Hct 31.2 L (39.0-53.0) % MCV 100.7 H (80.0-100.0) fL MCHC 29.6 L (31.0-37.0) g/dL RDW 16.0 H (11.5-15.5) % Immature Gran # (0.00-0.04) X 10*3/uL Lymphocytes # 0.7 L (1.0-4.8) k/uL Chloride 113 H (96-109) mmol/L BUN 36.0 H (9.0-27.0) mg/dL Creatinine 2.4 H (0.6-1.5) mg/dL Est GFR (CKD-EPI)AfAm 29.7 L (60.0-200.0) Est GFR (CKD-EPI)NonAf 25.6 L (60.0-200.0) Magnesium 1.4 L (1.5-2.4) mg/dL Iron 34 L (65-175) ug/dL TIBC 227 L (228-460) ug/dL % Saturation 14.98 L (15.00-50.00) Ferritin 369.6 H (22.0-322.0) ng/mL Total Bilirubin (0.2-1.2) mg/dL AST 120 H (14-35) U/L ALT 72 H (10-49) U/L Alkaline Phosphatase 681 H (41-126) U/L Total Protein 5.5 L (6.2-8.2) g/dL Albumin 3.20 L (3.80-4.90) g/dL Albumin/Globulin Ratio 1.39 L (1.60-3.17) g/dL 03/14/20 03/14/20 Range/Units 07:26 07:26 RBC 2.75 L (4.30-5.90) m/uL Hgb 8.7 L (13.0-17.5) gm/dL Hct 28.3 L (39.0-53.0) % MCV 102.9 H (80.0-100.0) fL MCHC 30.7 L (31.0-37.0) g/dL RDW 16.4 H (11.5-15.5) % Immature Gran # 0.07 H (0.00-0.04) X 10*3/uL Lymphocytes # (1.0-4.8) k/uL Chloride (96-109) mmol/L BUN 29.0 H (9.0-27.0) mg/dL Creatinine 2.0 H (0.6-1.5) mg/dL Est GFR (CKD-EPI)AfAm 37.0 L (60.0-200.0) Est GFR (CKD-EPI)NonAf 31.9 L (60.0-200.0) Magnesium (1.5-2.4) mg/dL Iron (65-175) ug/dL TIBC (228-460) ug/dL % Saturation (15.00-50.00) Ferritin (22.0-322.0) ng/mL Total Bilirubin 1.3 H (0.2-1.2) mg/dL AST 106 H (14-35) U/L ALT 76 H (10-49) U/L Alkaline Phosphatase 695 H (41-126) U/L Total Protein 5.7 L (6.2-8.2) g/dL Albumin 3.40 L (3.80-4.90) g/dL Albumin/Globulin Ratio 1.48 L (1.60-3.17) g/dL Assessment and Plan Assessment: 74 year-old male to the hospital left-sided hydronephrosis, and a right-sided renal mass. Underwent a renal biopsy by interventional radiology, he underwent attempted stent placement which was unsuccessful, and subsequently underwent left nephrostomy tube placement Plan: -still awaiting final pathology -Monitor output from PCN -OR discharge from urology standpoint Follow-up as an outpatient in 2 weeks, can be discharged with the nephrostomy tube
--- NOTE | 2020-03-14 13:22 | P.PN ---
Subjective Progress Note Date: 03/14/20 Principal diagnosis: large Kidney mass with appearance of metastatic process. Discussed preliminary results with Dr. 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 Therefore treatment plan for this would be systemic chemotherapy with a goal of controlling disease and symptoms, this would not be for curative intent. I have also discussed with primary team. I have reviewed the pathology with the patient and , they understand intent of treatment. All their questions answered. Objective - Vital Signs Vital signs: Vital Signs Temp 98.0 F 03/14/20 12:15 Pulse 106 H 03/14/20 12:15 Resp 17 03/14/20 12:15 BP 174/82 03/14/20 12:15 Pulse Ox 94 L 03/14/20 12:15 Intake & Output 03/13/20 03/14/20 03/14/20 18:59 06:59 18:59 Intake Total 1195.927 Output Total 1250 1550 Balance -54.073 -1550 Intake: Intake, IV Titration 132.927 Amount Heparin Sod,Pork in 0.45% 132.927 NaCl 25,000 unit In 0.45 % NaCl 1 250ml.bag @ 11. 603 UNITS/KG/HR 10 mls/hr IV .Q24H [facility] Rx#: [id number] Oral 1063 Output: Drainage 450 800 Left 450 800 Urine 800 750 Other: Voiding Method Indwelling Catheter Indwelling Catheter Toilet # Voids 1 # Bowel Movements 0 - Exam Constitutional General appearance: cooperative, no acute distress - EENT Eyes: EOMI, PERRLA ENT: hard of hearing, NA/AT - Neck Neck: normal ROM - Respiratory Respiratory: bilateral: CTA - Cardiovascular Rhythm: regular leg Peripheral Edema: bilateral: 1+ RLE Chin down erythema, evidence of arterial and venous insuffiency, pulse palble 1+ RLE - Gastrointestinal General gastrointestinal: soft, tenderness - Neurologic non-focal - Musculoskeletal Musculoskeletal: generalized weakness, strength equal bilaterally - Psychiatric Psychiatric: A&O x's 3, appropriate affect - Labs CBC & Chem 7: 03/14/20 07:26 03/14/20 07:26 Labs: Abnormal Lab Results - Last 24 Hours (Table) 03/13/20 03/13/20 03/13/20 Range/Units 06:34 14:41 14:41 RBC 3.10 L (4.30-5.90) m/uL Hgb 9.2 L D (13.0-17.5) gm/dL Hct 31.2 L (39.0-53.0) % MCV 100.7 H (80.0-100.0) fL MCHC 29.6 L (31.0-37.0) g/dL RDW 16.0 H (11.5-15.5) % Immature Gran # (0.00-0.04) X 10*3/uL Lymphocytes # 0.7 L (1.0-4.8) k/uL Chloride 113 H (96-109) mmol/L BUN 36.0 H (9.0-27.0) mg/dL Creatinine 2.4 H (0.6-1.5) mg/dL Est GFR (CKD-EPI)AfAm 29.7 L (60.0-200.0) Est GFR (CKD-EPI)NonAf 25.6 L (60.0-200.0) Magnesium 1.4 L (1.5-2.4) mg/dL Iron 34 L (65-175) ug/dL TIBC 227 L (228-460) ug/dL % Saturation 14.98 L (15.00-50.00) Ferritin 369.6 H (22.0-322.0) ng/mL Total Bilirubin (0.2-1.2) mg/dL AST 120 H (14-35) U/L ALT 72 H (10-49) U/L Alkaline Phosphatase 681 H (41-126) U/L Total Protein 5.5 L (6.2-8.2) g/dL Albumin 3.20 L (3.80-4.90) g/dL Albumin/Globulin Ratio 1.39 L (1.60-3.17) g/dL 03/14/20 03/14/20 Range/Units 07:26 07:26 RBC 2.75 L (4.30-5.90) m/uL Hgb 8.7 L (13.0-17.5) gm/dL Hct 28.3 L (39.0-53.0) % MCV 102.9 H (80.0-100.0) fL MCHC 30.7 L (31.0-37.0) g/dL RDW 16.4 H (11.5-15.5) % Immature Gran # 0.07 H (0.00-0.04) X 10*3/uL Lymphocytes # (1.0-4.8) k/uL Chloride (96-109) mmol/L BUN 29.0 H (9.0-27.0) mg/dL Creatinine 2.0 H (0.6-1.5) mg/dL Est GFR (CKD-EPI)AfAm 37.0 L (60.0-200.0) Est GFR (CKD-EPI)NonAf 31.9 L (60.0-200.0) Magnesium (1.5-2.4) mg/dL Iron (65-175) ug/dL TIBC (228-460) ug/dL % Saturation (15.00-50.00) Ferritin (22.0-322.0) ng/mL Total Bilirubin 1.3 H (0.2-1.2) mg/dL AST 106 H (14-35) U/L ALT 76 H (10-49) U/L Alkaline Phosphatase 695 H (41-126) U/L Total Protein 5.7 L (6.2-8.2) g/dL Albumin 3.40 L (3.80-4.90) g/dL Albumin/Globulin Ratio 1.48 L (1.60-3.17) g/dL Assessment and Plan (1) Kidney mass Current Visit: Yes Status: Acute Code(s): N28.89 - OTHER SPECIFIED DISORDERS OF KIDNEY AND URETER SNOMED Code(s): 403048798 (2) Iliac DVT (deep venous thrombosis) Current Visit: Yes Status: Acute Code(s): I82.429 - ACUTE EMBOLISM AND THROMBOSIS OF UNSPECIFIED ILIAC VEIN SNOMED Code(s): 168015488 (3) Acute renal failure Current Visit: Yes Status: Acute Code(s): N17.9 - ACUTE KIDNEY FAILURE, UNSPECIFIED SNOMED Code(s): 26817699 Plan: Assessment and Recommendations: Large Right Kidney Mass: - IR has been consulted for Biopsy confirmation of Mass - Picture is concerning for a metastatic Renal Cell cancer - Evidence of involvement in bones (sacrum, Lumbar spine on CT) - Possible liver mets - Once a pathology is resulted with definitive diagnosis further recommendations will follow - CT of Chest without Contrast negative for identifiable metastatic disease - Bone Scan reviewed and evidenced involvement of bone lesions bilaterally. Preliminary shows consistent with urothelial carcioma - intent of pallaitive Right Iliac DVT: [place] to be tumor related, not actual clot - Further evaluation with pelvic Ultrasound and discussion with radiologist reveals that this is most likely not actual clot but rather tumor thrombus and therefore heparin can be discontinued. Anemia: - Secondary to heparin drip and bleeding within nephrostomy tubes - Checking stat ptt, cbc, and iron studies. Acute kidney injury secondary to Obstructive Uropathy. Left-Sided Hydronephrosis: - Creatinine continues to improve status post left sided nephrostomy tube placement - Nephrology is Following Metabolic Acidosis HyperKalemia Plan: - He will need to follow-up in office with Dr. Lund/Dr. Morrison within 7 days. - We have reviewed pathology with patient and , they understand intent of treatment is palliative and not curative. They understand likely treatment will consist of chemotherapy +/- immune therapy. - Pathology was discussed with pathologist and consistent with Urothelial metastatic cancer. Physician Attest: I have completed the full history and physical and developed the complete impression and plan, agree with above dictation, dictated as a scribe.
--- NOTE | 2020-03-14 13:36 | P.PN ---
Subjective Progress Note Date: 03/14/20 Miguel Mancuso, is a 74-year-old male patient of Dr. Delgadillo who presented to [facility] emergency room with a chief complaint of abdominal pain, patient also stated that he was not able to urinate for the past 24 hours, patient states that his symptoms started about 1 month ago but has been worse in the last few days he was evaluated in the emergency room, his vital exam on presentation revealed a temperature of 98.6 pulse 96 respiration 18 blood pressure 163/94 pulse ox 99% on room air, his white blood count was 6.5 hemoglobin 11.3 platelet count 194 sodium 138 potassium 5.9 BUN elevated at 98 creatinine 9.83 glucose level was 127 ALT and AST were elevated at 85 and 1 or 2 alkaline phosphatase was 876 amylase and lipase were elevated at 187 and 465. Barajas catheter was inserted in the emergency room and there was no urine in the bladder, computed tomography scan of the abdomen and pelvis was ordered results are still pending patient will be admitted to medical floor nephrology and urology consultation will be requested, a dose of Kayexalate was ordered. Results of computed tomography scan of the abdomen now available and findings suggest metastatic renal cell carcinoma with possible obstruction and evidence of deep venous thrombosis involving the right iliac vein and finding in the liver suggestive of dilation of the biliary duct. At this time patient will be admitted to medical floor he will be started on IV heparin nephrology, urology, gastroenterology, and oncology consultation will be requested will follow closely. On 03/09/2020 status post cystoscopy with percutaneous nephrostomy placement with Dr. Thomas. Patient is sleepy from procedure and currently resting comfortably in bed. Awaiting labs for this a.m. Awaiting input from nephrology, oncology and GI services. Vitals have remained stable. Patient denies chest pain or shortness breath. Patient denies nausea vomiting or diarrhea. Patient denies any urinary burning or frequency. On 03/10/2020 patient was seen and examined on the medical floor he is alert and oriented 3 in no apparent distress, at this time he denies any fever or chills no headache or dizziness no chest pain no shortness of breath no cough no nausea or vomiting no abdominal pain no diarrhea no blood in the stools no burning with urination no frequency or urgency and no hematuria. Patient is scheduled to have a kidney biopsy today. On 03/11/2020 patient was seen and examined on the medical floor he is alert and oriented 3 in no apparent distress there is no fever or chills no headache or dizziness no chest pain no shortness of breath no cough no nausea or vomiting no abdominal pain no diarrhea no blood in the stools no burning with urination no frequency or urgency and no hematuria. Yesterday patient was started on IV heparin due to finding on computed tomography scan of the abdomen and pelvis that revealed evidence of deep venous thrombosis involving the right iliac vein, however last night patient was having hematuria and IV heparin was discontinued, at this time will place a consult for Dr. Chavarria vascular surgery to review patient case and computed tomography scan and assess if patient needs a Shashi filter as he cannot tolerate anticoagulation due to hematuria. On 03/12/2020 patient's alert and oriented 3. Hematuria has resolved. Patient was evaluated by Dr. Chavarria for possible IVC filter placement awaiting decision in regards to patient requiring placement per Dr. Chavarria. Kidney enzymes continuing to trend down . Patient denies any chest pain or shortness of breath. Patient denies nausea vomiting or diarrhea. Patient denies any urinary burning or frequency On 03/13/2020 patient was seen and examined on the medical floor he is alert and oriented 3 in no distress, IV heparin was held and hematuria improved he is complaining of pain in the abdomen otherwise he denies any complaints at this time there is no fever or chills no headache or dizziness no chest pain no s hortness of breath no cough no nausea or vomiting no diarrhea no blood in the stool. On 03/14/2020 patient was seen and examined on the medical floor he is alert and oriented 3, there is no fever or chills no headache or dizziness no chest pain no shortness of breath no cough no nausea or vomiting no abdominal pain no diarrhea burning with urination no frequency or urgency and no hematuria patient is off heparin drip at this time. We are awaiting further recommendation from oncology, and vascular surgery possible discharge to home tomorrow. Objective - Vital Signs Vital signs: Vital Signs Temp 98.0 F 03/14/20 12:15 Pulse 106 H 03/14/20 12:15 Resp 17 03/14/20 12:15 BP 174/82 03/14/20 12:15 Pulse Ox 94 L 03/14/20 12:15 Intake & Output 03/13/20 03/14/20 03/14/20 18:59 06:59 18:59 Intake Total 1195.927 Output Total 1250 1550 Balance -54.073 -1550 Intake: Intake, IV Titration 132.927 Amount Heparin Sod,Pork in 0.45% 132.927 NaCl 25,000 unit In 0.45 % NaCl 1 250ml.bag @ 11. 603 UNITS/KG/HR 10 mls/hr IV .Q24H [facility] Rx#: [id number] Oral 1063 Output: Drainage 450 800 Left 450 800 Urine 800 750 Other: Voiding Method Indwelling Catheter Indwelling Catheter Toilet # Voids 1 # Bowel Movements 0 - Exam In general patient is alert and oriented 3 in no apparent distress HEENT head normocephalic and atraumatic Neck is supple no JVD no goiter no lymphadenopathy Chest exam reveals crackles in both lung bases no wheezing Cardiac exam reveals regular heart sounds S1 and S2 no gallops no murmurs Abdomen is soft with mild diffuse tenderness in the abdomen no organomegaly with normal bowel sounds Extremity exam reveal mild edema on the right worse than on the left, with mild erythema in the right pretibial area, no cyanosis or clubbing Neurological examination reveals, no gross focal neurological deficits - Labs CBC & Chem 7: 03/14/20 07:26 03/14/20 07:26 Labs: Abnormal Lab Results - Last 24 Hours (Table) 03/13/20 03/13/20 03/13/20 Range/Units 06:34 14:41 14:41 RBC 3.10 L (4.30-5.90) m/uL Hgb 9.2 L D (13.0-17.5) gm/dL Hct 31.2 L (39.0-53.0) % MCV 100.7 H (80.0-100.0) fL MCHC 29.6 L (31.0-37.0) g/dL RDW 16.0 H (11.5-15.5) % Immature Gran # (0.00-0.04) X 10*3/uL Lymphocytes # 0.7 L (1.0-4.8) k/uL Chloride 113 H (96-109) mmol/L BUN 36.0 H (9.0-27.0) mg/dL Creatinine 2.4 H (0.6-1.5) mg/dL Est GFR (CKD-EPI)AfAm 29.7 L (60.0-200.0) Est GFR (CKD-EPI)NonAf 25.6 L (60.0-200.0) Magnesium 1.4 L (1.5-2.4) mg/dL Iron 34 L (65-175) ug/dL TIBC 227 L (228-460) ug/dL % Saturation 14.98 L (15.00-50.00) Ferritin 369.6 H (22.0-322.0) ng/mL Total Bilirubin (0.2-1.2) mg/dL AST 120 H (14-35) U/L ALT 72 H (10-49) U/L Alkaline Phosphatase 681 H (41-126) U/L Total Protein 5.5 L (6.2-8.2) g/dL Albumin 3.20 L (3.80-4.90) g/dL Albumin/Globulin Ratio 1.39 L (1.60-3.17) g/dL 03/14/20 03/14/20 Range/Units 07:26 07:26 RBC 2.75 L (4.30-5.90) m/uL Hgb 8.7 L (13.0-17.5) gm/dL Hct 28.3 L (39.0-53.0) % MCV 102.9 H (80.0-100.0) fL MCHC 30.7 L (31.0-37.0) g/dL RDW 16.4 H (11.5-15.5) % Immature Gran # 0.07 H (0.00-0.04) X 10*3/uL Lymphocytes # (1.0-4.8) k/uL Chloride (96-109) mmol/L BUN 29.0 H (9.0-27.0) mg/dL Creatinine 2.0 H (0.6-1.5) mg/dL Est GFR (CKD-EPI)AfAm 37.0 L (60.0-200.0) Est GFR (CKD-EPI)NonAf 31.9 L (60.0-200.0) Magnesium (1.5-2.4) mg/dL Iron (65-175) ug/dL TIBC (228-460) ug/dL % Saturation (15.00-50.00) Ferritin (22.0-322.0) ng/mL Total Bilirubin 1.3 H (0.2-1.2) mg/dL AST 106 H (14-35) U/L ALT 76 H (10-49) U/L Alkaline Phosphatase 695 H (41-126) U/L Total Protein 5.7 L (6.2-8.2) g/dL Albumin 3.40 L (3.80-4.90) g/dL Albumin/Globulin Ratio 1.48 L (1.60-3.17) g/dL Assessment and Plan Plan: 1. Abdominal pain, computed tomography scan of the abdomen and pelvis was done in the emergency room findings suggest metastatic renal cell carcinoma with obstruction, also evidence of deep venous thrombosis involving the right iliac vein and evidence of biliary duct dilatation, at this point patient will be admitted to medical floor, he will be started on IV heparin urology consultation nephrology consultation gastroenterology consultation and oncology consultation were initiated 2. Poor urine output, possibly related to obstruction with a component of prerenal azotemia, status post percutaneous nephrostomy tube placement with Dr. Thomas 03/09/2020 3. Acute renal failure with elevated BUN and creatinine 4. Underlying history of hypertension 5. Underlying history of hepatitis C 6. Underlying history of hyperlipidemia 7. Underlying history of hypothyroidism 8. Underlying history of chronic pain maintained on methadone 9. Episode of hematuria resolved after discontinuing IV heparin 10. Deep venous thrombosis involving the right iliac vein on computed tomography scan of the abdomen and pelvis done on 03/08/2020, consultation for vascular surgery requested to assess if patient needs a Shashi filter placement. At this time we are awaiting decision from vascular surgery and hematology in that regard to management of deep venous thrombosis and whether patient needs a Oak filter Consult gastroenterology in relation to biliary duct dilated Tatian Consult nephrology for acute renal failure Consults urology for urinary obstruction And consult hematology oncology Prognosis guarded will follow closely
[2020-03-14 15:14] VITALS: BMI 30.7
[2020-03-14] MEDS: SODIUM FERRIC GLUCONAT-SUCROSE 125 MG in SODIUM CHLORIDE 0.9% 100 ML IVPB SCH (20:41)
[2020-03-14] MEDS: ALPRAZolam 0.25 MG TAB PO PRN (20:42)
[2020-03-15] MEDS: LEVOTHYROXINE 125 MCG TAB PO SCH (05:54)
[2020-03-15 05:58] VITALS: BP 167/76; PULSE 83; RESP 16; TEMP 98.2
[2020-03-15] MEDS: polyethylene glycoL 3350 17 GM POWD.PACK PO SCH (08:17)
[2020-03-15] MEDS: METHADONE 5 MG TAB PO SCH (08:17)
[2020-03-15] MEDS: METHADONE 10 MG TAB PO SCH (08:18)
[2020-03-15] MEDS: SODIUM BICARBONATE TAB 650 MG TAB PO SCH (08:19)
[2020-03-15] MEDS: SODIUM FERRIC GLUCONAT-SUCROSE 125 MG in SODIUM CHLORIDE 0.9% 100 ML IVPB SCH (09:02)
[2020-03-15] MEDS ORDERED: hydrALAZINE HCL 25 MG TAB PO SCH (11:45)
--- NOTE | 2020-03-15 14:30 | P.DS ---
Providers Date of admission: 03/08/20 14:18 Expected date of discharge: 03/15/20 Attending physician: Isma Cohen Consults: 03/08/20 14:19 Consult Physician Urgent Consulting Provider: Lenard Knott Consult Reason/Comments: Acute renal failure, renal cell carcinoma Do you want consulting provider notified?: Already Contacted 03/08/20 14:20 Consult Physician Urgent Consulting Provider: Carlos Alberto Thomas Consult Reason/Comments: Acute renal failure, renal cell carcinoma Do you want consulting provider notified?: Already Contacted 03/08/20 14:22 Consult Physician Urgent Consulting Provider: Ramses Morrison Consult Reason/Comments: Renal cell carcinoma with metastases Do you want consulting provider notified?: Yes 03/11/20 13:47 Consult Physician Routine Consulting Provider: Huber Chavarria Consult Reason/Comments: possible iliac vein DVT/did not tolerate Heparin drip Do you want consulting provider notified?: Yes Primary care physician: Maynor Delgadillo Hospital Course: Diagnoses on discharge: 1. Abdominal pain, computed tomography scan of the abdomen and pelvis was done in the emergency room findings suggest metastatic renal cell carcinoma with obstruction, also evidence of deep venous thrombosis involving the right iliac vein and evidence of biliary duct dilatation, at this point patient will be admitted to medical floor, he will be started on IV heparin urology consultation nephrology consultation gastroenterology consultation and oncology consultation were initiated 2. Poor urine output, possibly related to obstruction with a component of prerenal azotemia, status post percutaneous nephrostomy tube placement with Dr. Thomas 03/09/2020 3. Acute renal failure with elevated BUN and creatinine 4. Underlying history of hypertension 5. Underlying history of hepatitis C 6. Underlying history of hyperlipidemia 7. Underlying history of hypothyroidism 8. Underlying history of chronic pain maintained on methadone 9. Episode of hematuria resolved after discontinuing IV heparin 10. Deep venous thrombosis involving the right iliac vein on computed tomography scan of the abdomen and pelvis done on 03/08/2020, consultation for vascular surgery requested to assess if patient needs a Paris filter placement. At this time we are awaiting decision from vascular surgery and hematology in that regard to management of deep venous thrombosis and whether patient needs a Shashi filter. Patient was evaluated by vascular surgery, at this time a filter placement is not amenable due to the tumor site and size per Dr. Chavarria, we tried anticoagulation twice during this admission each time resulted in severe hematuria. At this point recommendation is to discharge patient to home without anticoagulation he will be followed by oncology and by vascular surgery for further assessment of thrombus. Hospital course: Miguel Mancuso, is a 74-year-old male patient of Dr. Delgadillo who presented to [facility] emergency room with a chief complaint of abdominal pain, patient also stated that he was not able to urinate for the past 24 hours, patient states that his symptoms started about 1 month ago but has been worse in the last few days he was evaluated in the emergency room, his vital exam on presentation revealed a temperature of 98.6 pulse 96 respiration 18 blood pressure 163/94 pulse ox 99% on room air, his white blood count was 6.5 hemoglobin 11.3 platelet count 194 sodium 138 potassium 5.9 BUN elevated at 98 creatinine 9.83 glucose level was 127 ALT and AST were elevated at 85 and 1 or 2 alkaline phosphatase was 876 amylase and lipase were elevated at 187 and 465. Barajas catheter was inserted in the emergency room and there was no urine in the bladder, computed tomography scan of the abdomen and pelvis was ordered results are still pending patient will be admitted to medical floor nephrology and urology consultation will be requested, a dose of Kayexalate was ordered. Results of computed tomography scan of the abdomen now available and findings suggest metastatic renal cell carcinoma with possible obstruction and evidence of deep venous thrombosis involving the right iliac vein and finding in the liver suggestive of dilation of the biliary duct. At this time patient will be admitted to medical floor he will be started on IV heparin nephrology, urology, gastroenterology, and oncology consultation will be requested will follow closely. On 03/09/2020 status post cystoscopy with percutaneous nephrostomy placement with Dr. Thomas. Patient is sleepy from procedure and currently resting comfortably in bed. Awaiting labs for this a.m. Awaiting input from nephrology, oncology and GI services. Vitals have remained stable. Patient denies chest pain or shortness breath. Patient denies nausea vomiting or diarrhea. Patient denies any urinary burning or frequency. On 03/10/2020 patient was seen and examined on the medical floor he is alert and oriented 3 in no apparent distress, at this time he denies any fever or chills no headache or dizziness no chest pain no shortness of breath no cough no nausea or vomiting no abdominal pain no diarrhea no blood in the stools no burning with urination no frequency or urgency and no hematuria. Patient is scheduled to have a kidney biopsy today. On 03/11/2020 patient was seen and examined on the medical floor he is alert and oriented 3 in no apparent distress there is no fever or chills no headache or dizziness no chest pain no shortness of breath no cough no nausea or vomiting no abdominal pain no diarrhea no blood in the stools no burning with urination no frequency or urgency and no hematuria. Yesterday patient was started on IV heparin due to finding on computed tomography scan of the abdomen and pelvis that revealed evidence of deep venous thrombosis involving the right iliac vein, however last night patient was having hematuria and IV heparin was discontinued, at this time will place a consult for Dr. Chavarria vascular surgery to review patient case and computed tomography scan and assess if patient needs a Paris filter as he cannot tolerate anticoagulation due to hematuria. On 03/12/2020 patient's alert and oriented 3. Hematuria has resolved. Patient was evaluated by Dr. Chavarria for possible IVC filter placement awaiting decision in regards to patient requiring placement per Dr. Chavarria. Kidney enzymes continuing to trend down . Patient denies any chest pain or shortness of breath. Patient denies nausea vomiting or diarrhea. Patient denies any urinary burning or frequency On 03/13/2020 patient was seen and examined on the medical floor he is alert and oriented 3 in no distress, IV heparin was held and hematuria improved he is complaining of pain in the abdomen otherwise he denies any complaints at this time there is no fever or chills no headache or dizziness no chest pain no shortness of breath no cough no nausea or vomiting no diarrhea no blood in the stool. On 03/14/2020 patient was seen and examined on the medical floor he is alert and oriented 3, there is no fever or chills no headache or dizziness no chest pain no shortness of breath no cough no nausea or vomiting no abdominal pain no diarrhea burning with urination no frequency or urgency and no hematuria patient is off heparin drip at this time. We are awaiting further recommendation from oncology, and vascular surgery possible discharge to home tomorrow. Patient Condition at Discharge: Stable Plan - Discharge Summary Discharge Rx Participant: No New Discharge Prescriptions: New hydrALAZINE HCL [Apresoline] 25 mg PO BID tab polyethylene glycoL 3350 [Miralax] 17 gm PO BID powd.pack HYDROcodone/APAP 7.5-325MG [Clarion 7.5-325] 1 each PO Q6H PRN tab PRN Reason: Pain Sodium Bicarbonate Tab 650 mg PO TID tab Continue Levothyroxine Sodium [Synthroid] 125 mcg PO DAILY ALPRAZolam [Xanax] 0.25 mg PO HS PRN PRN Reason: Anxiety Methadone HCl [Methadone Intensol] 146 mg PO DAILY Discontinued Simvastatin [Zocor] 20 mg PO Q48H Lisinopril-Hctz 20-12.5 mg [Zestoretic 20-12.5] 1 tab PO DAILY Discharge Medication List ALPRAZolam [Xanax] 0.25 mg PO HS PRN 03/08/20 [History] Levothyroxine Sodium [Synthroid] 125 mcg PO DAILY 03/08/20 [History] Methadone HCl [Methadone Intensol] 146 mg PO DAILY 03/08/20 [History] HYDROcodone/APAP 7.5-325MG [Clarion 7.5-325] 1 each PO Q6H PRN tab 03/15/20 [Rx] Sodium Bicarbonate Tab 650 mg PO TID tab 03/15/20 [Rx] hydrALAZINE HCL [Apresoline] 25 mg PO BID tab 03/15/20 [Rx] polyethylene glycoL 3350 [Miralax] 17 gm PO BID powd.pack 03/15/20 [Rx] Follow up Appointment(s)/Referral(s): Ramses Morrison MD [STAFF PHYSICIAN] - 1 Week Will Ricci MD [STAFF PHYSICIAN] - 04/02/20 10:00 am Kimi Landon MD [REFERRING] - 1 Week Maynor Delagdillo MD [Primary Care Provider] - 03/21/20 11:20 am Huber Chavarria MD [STAFF PHYSICIAN] - 1 Week Patient Instructions/Handouts: Renal Cancer (DC) Activity/Diet/Wound Care/Special Instructions: TuesdayMar 21 at 3pm: Appointment to evaluate and manage drainage tube with a dressing change. Come to the main entrance and staff will direct you further. diet as tolerated activity limited until seen by Please call on Tuesday to schedule appointments related to office being closed on Tuesday
== END 2020-03-15 15:02 | disposition home or self-care (01) | DRG 687 ==
LOC: EC 11:38 → 5NMEDONC 14:18
PROVIDERS: ADMIT Internal Medicine; ATTEND Internal Medicine
PROC: 0T9030Z Drainage of Right Kidney with Drainage Device, Percutaneous Approach (ICD-10-PCS; principal; 2020-03-10)
PROC: 0TB03ZX Excision of Right Kidney, Percutaneous Approach, Diagnostic (ICD-10-PCS; 2020-03-10)
DX: C64.1 Malignant neoplasm of right kidney, except renal pelvis (principal); E87.2 Acidosis; N17.9 Acute kidney failure, unspecified; N13.1 Hydronephrosis with ureteral stricture, not elsewhere classified; J98.11 Atelectasis; I82.421 Acute embolism and thrombosis of right iliac vein; C79.51 Secondary malignant neoplasm of bone; E03.9 Hypothyroidism, unspecified; R31.9 Hematuria, unspecified; E78.5 Hyperlipidemia, unspecified; E87.5 Hyperkalemia; F17.200 Nicotine dependence, unspecified, uncomplicated; N18.9 Chronic kidney disease, unspecified; Z20.822 Contact with and (suspected) exposure to COVID-19; K59.00 Constipation, unspecified; B19.20 Unspecified viral hepatitis C without hepatic coma; I12.9 Hypertensive chronic kidney disease with stage 1 through stage 4 chronic kidney disease, or unspecified chronic kidney disease; Z79.890 Hormone replacement therapy; Z79.891 Long term (current) use of opiate analgesic; Z86.718 Personal history of other venous thrombosis and embolism; Z98.890 Other specified postprocedural states
CPT/HCPCS: 36415; 50433; 51798; 71250; 74176; 74420; 76705; 76857; 76942; 77012; 78306; 80048; 80053; 81001; 82150; 82272; 82728; 83540; 83550; 83605; 83690; 83735; 84132; 85025; 85610; 85730; 86704; 86706; 87340; 87635; 88305; 88341; 88342; 93005; 93970; 94760; 96361; 96374; 96375; 99285

== ENCOUNTER 2020-03-21 14:39 | Day surgery (SDC) | payer MEDICARE ==
[2020-03-21 15:33] VITALS: BP 136/77; PULSE 100; RESP 16; TEMP 98.3
== END 2020-03-21 15:35 | disposition home or self-care (01) ==
LOC: RADPROMAIN 14:39
PROVIDERS: ATTEND Radiology Diagnostic Radiology
DX: Z48.01 Encounter for change or removal of surgical wound dressing (principal); Z48.03 Encounter for change or removal of drains; Z93.6 Other artificial openings of urinary tract status

== ENCOUNTER 2020-03-28 12:49 | Day surgery (SDC) | payer MEDICARE ==
[2020-03-28 13:59] VITALS: BP 146/76; PULSE 84; RESP 16; TEMP 98
== END 2020-03-28 14:00 | disposition home or self-care (01) ==
LOC: RADPROMAIN 12:49
PROVIDERS: ATTEND Radiology Diagnostic Radiology
DX: Z43.8 Encounter for attention to other artificial openings (principal)
CPT/HCPCS: 99213

== ENCOUNTER 2020-04-01 11:45 | Day surgery (SDC) | payer MEDICARE ==
[2020-04-01 12:29] LABS: Mean Platelet Volume 6.9; Platelet Count 297 k/uL (150-450)
[2020-04-01 12:50] LABS: INR 1.1 (<1.2); Prothrombin Time 11.6 sec (9.0-12.0)
[2020-04-01 13:45] VITALS: BP 135/75; PULSE 83; RESP 16; TEMP 98
== END 2020-04-01 14:01 | disposition home or self-care (01) ==
LOC: RADPROMAIN 11:45
PROVIDERS: ATTEND Internal Medicine Hematology & Oncology
DX: M76.21 Iliac crest spur, right hip (principal); Z53.20 Procedure and treatment not carried out because of patient's decision for unspecified reasons; Z79.899 Other long term (current) drug therapy; Z79.890 Hormone replacement therapy; Z79.891 Long term (current) use of opiate analgesic; Z98.890 Other specified postprocedural states; Z96.653 Presence of artificial knee joint, bilateral; Z86.19 Personal history of other infectious and parasitic diseases; C65.1 Malignant neoplasm of right renal pelvis; C79.51 Secondary malignant neoplasm of bone; Z87.891 Personal history of nicotine dependence
CPT/HCPCS: 85049; 85610; 36415; G0463; 99213

== ENCOUNTER 2020-04-08 15:41 | Day surgery (SDC) | payer MEDICARE ==
[2020-04-08 16:23] VITALS: BP 150/76; PULSE 78; RESP 16; TEMP 98.7
== END 2020-04-08 16:20 | disposition home or self-care (01) ==
LOC: RADPROMAIN 15:41
PROVIDERS: ATTEND Radiology Diagnostic Radiology
DX: Z43.6 Encounter for attention to other artificial openings of urinary tract (principal)
CPT/HCPCS: 99213

== ENCOUNTER → 2020-04-11 | Outpatient (CLI) | payer MEDICARE ==
--- NOTE | 2020-04-11 16:07 | US ---
EXAMINATION TYPE: US liver DATE OF EXAM: 04/11/2020 COMPARISON: CLINICAL HISTORY: R94.5 abnormal liver function R17 jaundice. Abnormal labs. Cancer treatment with r adiation. EXAM MEASUREMENTS: Liver Length: 14.3 cm Gallbladder Wall: 0.2 cm CBD: 0.4 cm Right Kidney: 10.3 x 7.4 x 7.7 cm Limited due to overlying bowel gas Pancreas: Head and tail obscured by overlying bowel gas. Echogenic in appearance. Dilated main mills creatic duct = 3.3 mm. Liver: Heterogenous appearance. Intrahepatic biliary dilatation. Gallbladder: wnl, tortuous neck Evidence for sonographic Rdz's sign: neg CBD: wnl in size, limited due to bowel gas Right Kidney: Unable to visualization normal renal tissue. Suboptimal visualization due to overlyin g bowel gas. Possible lesion = 9.1 x 7.3 x 6.5 cm IMPRESSION: 1. Complex cyst or hypoechoic mass within the right kidney. 2. Intrahepatic biliary dilatation.
== END ==
LOC: RADUSWWP 07:37
PROVIDERS: ATTEND Internal Medicine Hematology & Oncology
DX: N28.1 Cyst of kidney, acquired (principal)
CPT/HCPCS: 76705

== ENCOUNTER 2020-04-14 09:49 | Day surgery (SDC) | payer MEDICARE ==
[~2020-04-14 09:49] MED LIST: DEXAMETHASONE SOD PHOSPHATE 4 MG/ML 1 ML VIAL IV ONE; HYDROmorphone 0.5 MG/0.5 ML SYRINGE IVP PRN; LACTATED RINGERS 1,000 ML IV SCH; LIDOCAINE 1% (10MG/ML) FOR IV START INTRADERMA PRN; MIDAZOLAM 2 MG/2 ML VIAL IV PRN; ONDANSETRON 4 MG/2 ML VIAL IVP ONE
[2020-04-14 10:31] VITALS: TEMP 98.5
[2020-04-14 10:37] LABS: INR 1.1 (<1.2); Prothrombin Time 11.9 sec (9.0-12.0)
[2020-04-14 10:40] LABS: Mean Platelet Volume 7.9
[2020-04-14 10:50] LABS: Platelet Count 132 k/uL (150-450)
[2020-04-14] MEDS ORDERED: KETAMINE 10 MG/ML 20 ML VIAL ONE (11:44)
[2020-04-14] MEDS ORDERED: PROPOFOL 10 MG/ML 20 ML VIAL IV ONE (11:44)
[2020-04-14] MEDS ORDERED: MIDAZOLAM 2 MG/2 ML VIAL ONE (11:44)
[2020-04-14 14:05] VITALS: RESP 16
[2020-04-14 14:18] VITALS: BP 140/69; PULSE 88
--- NOTE | 2020-04-15 09:28 | CT ---
EXAMINATION TYPE: CT biopsy st back/flank [facility] DATE OF EXAM: 04/14/2020 COMPARISON: 03/08/2020 HISTORY: Right iliac bone lesion CT DLP: 112.21 mGycm The procedure is discussed with the patient, the risks, complications, benefits and alternatives, wer e discussed and any questions were answered. Informed consent was obtained. The patient is placed p rhonda on the CT table, prepped and draped in the usual sterile fashion. The department of anesthesia provided anesthesia. Utilizing a 11 gauge needle access into the requested right iliac bone lesion was achieved with [address]. Pathology pending. All elements of maximal barrier technique were utilized. The pat ient remained stable throughout the procedure with no immediate postprocedural complication. IMPRESSION: 1. Successful CT guided core biopsy right iliac bone lesion.
== END 2020-04-14 14:24 | disposition home or self-care (01) ==
LOC: RADPROMAIN 09:49
PROVIDERS: ATTEND Internal Medicine Hematology & Oncology
DX: C65.1 Malignant neoplasm of right renal pelvis (principal); C79.51 Secondary malignant neoplasm of bone; Z79.899 Other long term (current) drug therapy; Z79.890 Hormone replacement therapy
CPT/HCPCS: 21920; 85049; 85610; 88342; 88307; 88311; 88341; 36415; 77012; G0463; J2250; J2704; 99213

== ENCOUNTER 2020-04-22 15:28 | Day surgery (SDC) | payer MEDICARE ==
[2020-04-22 16:35] VITALS: BP 161/82; PULSE 88; RESP 16; TEMP 98.3
== END 2020-04-22 16:37 | disposition home or self-care (01) ==
LOC: RADPROMAIN 15:28
PROVIDERS: ATTEND Radiology Diagnostic Radiology
DX: Z48.03 Encounter for change or removal of drains (principal); Z48.01 Encounter for change or removal of surgical wound dressing; Z43.6 Encounter for attention to other artificial openings of urinary tract

== ENCOUNTER 2020-04-29 15:25 | Day surgery (SDC) | payer MEDICARE ==
[2020-04-29 16:04] VITALS: BP 155/67; PULSE 84; RESP 18; TEMP 98.4
== END 2020-04-29 15:30 | disposition home or self-care (01) ==
LOC: RADPROMAIN 15:25
PROVIDERS: ATTEND Radiology Diagnostic Radiology
DX: Z48.01 Encounter for change or removal of surgical wound dressing (principal); Z48.03 Encounter for change or removal of drains; Z43.6 Encounter for attention to other artificial openings of urinary tract
CPT/HCPCS: 99213

== ENCOUNTER → 2020-05-01 | Outpatient (CLI) | payer MEDICARE ==
--- NOTE | 2020-05-01 14:12 | US ---
EXAMINATION TYPE: US venous doppler duplex LE LT DATE OF EXAM: 05/01/2020 11:20 AM COMPARISON: NONE CLINICAL HISTORY: R22.42 swelling Left leg. left leg swelling, no h/o dvt, not on thinners SIDE PERFORMED: Left TECHNIQUE: The lower extremity deep venous system is examined utilizing real time linear array sonog nancy with graded compression, doppler sonography and color-flow sonography. VESSELS IMAGED: Common Femoral Vein Deep Femoral Vein Greater Saphenous Vein * Femoral Vein - unable to see dist femoral vein w/o color on due to deep vessels and soft tissue edema Popliteal Vein Small Saphenous Vein * Proximal Calf Veins (* superficial vessels) Left Leg: Negative for DVT IMPRESSION: No evidence for DVT.
== END | disposition home or self-care (01) ==
LOC: RADUSWWP 11:17
PROVIDERS: ATTEND Internal Medicine Hematology & Oncology
DX: R22.42 Localized swelling, mass and lump, left lower limb (principal)

== ENCOUNTER 2020-05-07 15:26 | Day surgery (SDC) | payer MEDICARE ==
[2020-05-07 16:06] VITALS: PULSE 92; RESP 16; TEMP 98.1
[2020-05-07 16:07] VITALS: BP 185/95
== END 2020-05-07 16:10 | disposition home or self-care (01) ==
LOC: RADPROMAIN 15:26
PROVIDERS: ATTEND Radiology Diagnostic Radiology
DX: Z48.01 Encounter for change or removal of surgical wound dressing (principal); Z48.03 Encounter for change or removal of drains; Z43.6 Encounter for attention to other artificial openings of urinary tract
CPT/HCPCS: 99213

== ENCOUNTER 2020-05-12 09:57 | Day surgery (SDC) | payer MEDICARE ==
[2020-05-08 08:58] VITALS: BMI 30.9
[~2020-05-12 09:57] MED LIST changes: -DEXAMETHASONE SOD PHOSPHATE 4 MG/ML 1 ML VIAL IV ONE; -HYDROmorphone 0.5 MG/0.5 ML SYRINGE IVP PRN; -LACTATED RINGERS 1,000 ML IV SCH; -LIDOCAINE 1% (10MG/ML) FOR IV START INTRADERMA PRN; -MIDAZOLAM 2 MG/2 ML VIAL IV PRN; -ONDANSETRON 4 MG/2 ML VIAL IVP ONE; +SODIUM CHLORIDE 0.9% 500 ML 500 ML IV SCH
[2020-05-12] MEDS ORDERED: ALPRAZolam 0.25 MG TAB ONE (10:16)
[2020-05-12] MEDS ORDERED: fentaNYL (PF) 50 MCG/ML 2 ML AMP IV ONE (10:50)
[2020-05-12] MEDS ORDERED: IOPAMIDOL-250 50ML BTL IV ONE (10:56)
[2020-05-12 11:21] LABS: Calcium 9.1 mg/dL (8.4-10.2); Potassium 3.2 mmol/L (3.5-5.1)
[2020-05-12 11:47] LABS: Anisocytosis Slight; Basophils % (A) 0 %; Eosinophils % (A) 0 %; HCT 27.8 % (39.0-53.0); HGB 9.7 gm/dL (13.0-17.5); Lymphocytes # (A) 0.5 k/uL (1.0-4.8); Lymphocytes % (A) 12 %; MCH 37.1 pg (25.0-35.0); MCHC 34.7 g/dL (31.0-37.0); Macrocytosis Marked; Mean Platelet Volume 8.1; Monocytes # (A) 0.6 k/uL (0-1.0); Monocytes % (A) 14 %; Neutrophils # (A) 3.1 k/uL (1.3-7.7); RDW 19.9 % (11.5-15.5); WBC 4.3 k/uL (3.8-10.6)
[2020-05-12 11:53] LABS: MCV 106.7 fL (80.0-100.0); Platelet Count 66 k/uL (150-450)
[2020-05-12 11:56] VITALS: RESP 16
[2020-05-12 11:57] VITALS: BP 173/76; PULSE 85
--- NOTE | 2020-05-12 12:14 | IR ---
EXAMINATION TYPE: IR nephrostomy tube change DATE OF EXAM: 05/12/2020 COMPARISON: 03/09/2020 HISTORY: Left nephrostomy tube exchange Procedure had been discussed with the patient , risks, benefits, alternatives, were discussed and an y questions were answered. Informed consent was obtained. The patient was in a semiprone position p repped and draped on the OR table in the usual sterile fashion. Pre-existing nephrostomy tube was cut and a guidewire was placed through the pre-existing catheter. There is exchanged over a guidewire fo r new 8.5 Swazi nephrostomy catheter. Injection of contrast demonstrated ideal placement of catheter . Approximately 2 minutes of fluoroscopy was provided. IMPRESSION: 1. Successful left nephrostomy tube exchange over guidewire under fluoroscopy.
== END 2020-05-12 12:08 | disposition home or self-care (01) ==
LOC: CATHCVL 09:57
PROVIDERS: ATTEND Radiology Diagnostic Radiology
DX: N13.30 Unspecified hydronephrosis (principal)
CPT/HCPCS: 50435; 80048; 85025; C1729; C1769 ×3; J0690; J3010; Q9966

== ENCOUNTER → 2020-05-19 | Day surgery (SDC) | payer MEDICARE ==
[2020-05-19 16:39] VITALS: BP 170/78; PULSE 74; RESP 16; TEMP 97.9
== END ==
LOC: RADPROMAIN 15:37
PROVIDERS: ATTEND Radiology Diagnostic Radiology
DX: Z48.01 Encounter for change or removal of surgical wound dressing (principal)
CPT/HCPCS: 99213

== ENCOUNTER 2020-05-26 14:33 | Day surgery (SDC) | payer MEDICARE ==
[2020-05-26 15:54] VITALS: BP 172/74; PULSE 78; RESP 16; TEMP 98.5
== END 2020-05-26 15:40 | disposition home or self-care (01) ==
LOC: RADPROMAIN 14:33
PROVIDERS: ATTEND Radiology Diagnostic Radiology
DX: Z43.6 Encounter for attention to other artificial openings of urinary tract (principal)
CPT/HCPCS: 99213

== ENCOUNTER 2020-06-02 15:30 | Day surgery (SDC) | payer MEDICARE ==
[2020-06-02 16:13] VITALS: BP 145/79; PULSE 100; RESP 18; TEMP 98.3
== END 2020-06-02 16:12 | disposition home or self-care (01) ==
LOC: RADPROMAIN 15:30
PROVIDERS: ATTEND Radiology Diagnostic Radiology
DX: Z43.6 Encounter for attention to other artificial openings of urinary tract (principal)
CPT/HCPCS: 99213

== ENCOUNTER 2020-06-04 11:00 | Inpatient (IN) | payer MEDICARE ==
[2020-06-04 12:13] LABS: Anisocytosis Slight; MCH 36.5 pg (25.0-35.0); MCHC 33.6 g/dL (31.0-37.0); MCV 108.8 fL (80.0-100.0); Macrocytosis Marked; Mean Platelet Volume 7.1; RBC 1.56 m/uL (4.30-5.90); RDW 19.2 % (11.5-15.5); WBC 1.6 k/uL (3.8-10.6)
[2020-06-04 12:17] LABS: Bilirubin, Delta 1.2 mg/dL (0.0-0.2); Bilirubin,Unconjugated 0.7 mg/dL (0.0-1.1); Calcium 9.3 mg/dL (8.4-10.2); Total Bilirubin 1.9 mg/dL (0.2-1.3); Total Protein 6.3 g/dL (6.3-8.2)
[2020-06-04 12:19] LABS: HGB 5.7 gm/dL (13.0-17.5)
[2020-06-04 12:28] LABS: Magnesium 1.5 mg/dL (1.6-2.3)
[2020-06-04 12:54] LABS: Lymphocytes # (M) 0.91 k/uL (1.0-4.8); Monocytes # (M) 0.06 k/uL (0-1.0); Neutrophils # (M) 0.62 k/uL (1.3-7.7); Neutrophils % (M) 39 %; Nucleated Red Blood Cells 0 /100 WBC (0-0); Total Cells Counted 100
[2020-06-04 12:55] LABS: Polychromasia Present
[2020-06-04 12:56] LABS: Platelet Count 4 k/uL (150-450)
[2020-06-04 13:37] LABS: INR 1.2 (<1.2); Partial Thromboplastin Time 23.8 sec (22.0-30.0); Prothrombin Time 12.1 sec (9.0-12.0)
[2020-06-04] MEDS ORDERED: NALOXONE 0.4 MG/ML 1 ML VIAL IV PRN (14:08)
--- NOTE | 2020-06-04 14:08 | ED ---
General Adult HPI - General Chief complaint: Recheck/Abnormal Lab/Rx Stated complaint: low platelet-sent by Hilda Time Seen by Provider: 06/04/20 11:15 Source: patient Mode of arrival: ambulatory Limitations: no limitations - History of Present Illness Initial comments: Patient is a 74-year-old male presents emergency department from the cancer center. He has a history of bladder cancer with metastases to the kidney and bone. Patient is currently on a 4 week cycle of chemotherapy. Last chemo was last week. Patient had a follow-up appointment in the office today with Jackie. Lab studies were performed and found that the patient had a hemoglobin of 5.2 and a platelet count of 5. Due to these low continuous and into the emergency department for transfusion. She reports to increased shortness of breath. He does have a nephrostomy tube on the left which she states had bloody urine yesterday. Patient denies previous history of transfusion. Mention is also made of the patient's poor coloration. He does have a history of jaundice for which she is seeing Dr. Damon. She denies any abdominal pain. No black or tarry stools. No other alleviating, precipitating or modifying factors - Related Data Home Medications Medication Instructions Recorded Confirmed ALPRAZolam [Xanax] 0.25 mg PO HS PRN 03/08/20 06/04/20 Levothyroxine Sodium [Synthroid] 125 mcg PO DAILY 03/08/20 06/04/20 Methadone HCl [Methadone Intensol] 146 mg PO DAILY 03/08/20 06/04/20 polyethylene glycoL 3350 [Miralax] 17 gm PO HS 04/17/20 06/04/20 Ondansetron [Zofran] 4 mg PO Q4H PRN 05/12/20 06/04/20 Potassium Chloride 10 meq PO DAILY 06/04/20 06/04/20 amLODIPine [Norvasc] 2.5 mg PO DAILY 06/04/20 06/04/20 Previous Rx's Medication Instructions Recorded Sodium Bicarbonate Tab 650 mg PO TID tab 03/15/20 hydrALAZINE HCL [Apresoline] 25 mg PO BID tab 03/15/20 Allergies Allergy/AdvReac Type Severity Reaction Status Date / Time No Known Allergies Allergy Verified 06/04/20 13:29 Review of Systems ROS Statement: Those systems with pertinent positive or pertinent negative responses have been documented in the HPI. ROS Other: All systems not noted in ROS Statement are negative. Past Medical History Past Medical History: Cancer, Hyperlipidemia, Hypertension, Renal Disease, Thyroid Disorder Additional Past Medical History / Comment(s): [place] treament for pain control, patient takes methadone. HEPATITIS C from past drug abuse, anuria, renal failure, renal CA, urothelial carcinoma, bone mets, Right iliac met lesion, Chemo therapy History of Any Multi-Drug Resistant Organisms: None Reported Past Surgical History: Hernia Repair, Orthopedic Surgery Additional Past Surgical History / Comment(s): bilateral knee replacement, right testicle sx 2020, colonoscopy, nephrostomy tube, Kidney mass biopsy Past Anesthesia/Blood Transfusion Reactions: No Reported Reaction Past Psychological History: Anxiety Smoking Status: Current some day smoker, Light tobacco smoker Past Alcohol Use History: None Reported Past Drug Use History: Marijuana, Prescription Drug Abuse - Past Family History Father History Unknown: Yes General Exam Limitations: no limitations General appearance: alert, in no apparent distress Head exam: Present: atraumatic, normocephalic, normal inspection Eye exam: Present: normal appearance, PERRL, EOMI. Absent: scleral icterus, conjunctival injection, periorbital swelling ENT exam: Present: normal exam, mucous membranes moist Neck exam: Present: normal inspection. Absent: tenderness, meningismus, lymphadenopathy Respiratory exam: Present: normal lung sounds bilaterally. Absent: respiratory distress, wheezes, rales, rhonchi, stridor Cardiovascular Exam: Present: regular rate, normal rhythm, normal heart sounds. Absent: systolic murmur, diastolic murmur, rubs, gallop, clicks GI/Abdominal exam: Present: soft, normal bowel sounds. Absent: distended, tenderness, guarding, rebound, rigid Extremities exam: Present: normal inspection, full ROM, normal capillary refill. Absent: tenderness, pedal edema, joint swelling, calf tenderness Back exam: Present: normal inspection Neurological exam: Present: alert, oriented X3, CN II-XII intact Psychiatric exam: Present: normal affect, normal mood Skin exam: Present: warm, dry, intact, pallor. Absent: rash Course Vital Signs 06/04/20 06/04/20 06/04/20 11:12 13:35 13:45 Temperature 98.2 F 98.5 F 97.8 F Pulse Rate 97 67 91 Respiratory 18 18 18 Rate Blood Pressure 143/75 154/71 148/72 O2 Sat by Pulse 98 97 98 Oximetry 06/04/20 06/04/20 06/04/20 14:15 15:36 16:05 Temperature 98.0 F 98.3 F 98.3 F Pulse Rate 78 86 72 Respiratory 18 18 18 Rate Blood Pressure 156/73 164/87 158/83 O2 Sat by Pulse 97 96 95 Oximetry 06/04/20 06/04/20 06/04/20 16:15 16:45 17:36 Temperature 98.3 F 98.1 F 98.3 F Pulse Rate 68 81 72 Respiratory 18 18 18 Rate Blood Pressure 157/86 156/83 148/83 O2 Sat by Pulse 97 97 97 Oximetry 06/04/20 06/04/20 06/04/20 17:48 17:58 18:28 Temperature 98.1 F 98.3 F 98.2 F Pulse Rate 81 78 77 Respiratory 18 18 17 Rate Blood Pressure 157/85 161/82 156/84 O2 Sat by Pulse 98 97 96 Oximetry EKG Findings - EKG Comments: EKG Findings:: EKG demonstrates normal sinus rhythm with a ventricular rate of 92. [place] interval 150. QRS 92. QTC of 576. Inverted T waves with ST depression in V2 through V6. No acute ST segment elevations Medical Decision Making - Medical Decision Making Upon arrival patient was placed in room 14. Laboratory studies are completed. He does have a hemoglobin of 5.7. Lactate is 3.7. Platelets are 4. The patient does require 2 units of blood and a pack of platelets to start. I did recommend hospital admission. Spoke with Dr. Cohen who agreed to admit the patient. We'll place his oncologist on consult. Patient agreed to this and is awaiting a bed on the floor - Lab Data Result diagrams: 06/07/20 04:54 06/07/20 04:54 Lab Results 06/04/20 06/04/20 06/04/20 Range/Units 11:46 11:46 11:55 WBC 1.6 L (3.8-10.6) k/uL RBC 1.56 L (4.30-5.90) m/uL Hgb 5.7 L* D (13.0-17.5) gm/dL Hct 17.0 L* (39.0-53.0) % MCV 108.8 H (80.0-100.0) fL MCH 36.5 H (25.0-35.0) pg MCHC 33.6 (31.0-37.0) g/dL RDW 19.2 H (11.5-15.5) % Plt Count 4 L* D (150-450) k/uL MPV 7.1 Neutrophils % (Manual) 39 % Lymphocytes % (Manual) 57 % Monocytes % (Manual) 4 % Neutrophils # (Manual) 0.62 L (1.3-7.7) k/uL Lymphocytes # (Manual) 0.91 L (1.0-4.8) k/uL Monocytes # (Manual) 0.06 (0-1.0) k/uL Nucleated RBCs 0 (0-0) /100 WBC Manual Slide Review Performed Polychromasia Present Anisocytosis Slight Macrocytosis Marked A PT (9.0-12.0) sec INR (<1.2) APTT (22.0-30.0) sec Sodium 135 L (137-145) mmol/L Potassium 4.0 (3.5-5.1) mmol/L Chloride 101 (98-107) mmol/L Carbon Dioxide 21 L (22-30) mmol/L Anion Gap 13 mmol/L BUN 47 H (9-20) mg/dL Creatinine 1.38 H (0.66-1.25) mg/dL Est GFR (CKD-EPI)AfAm 58 (>60 ml/min/1.73 sqM) Est GFR (CKD-EPI)NonAf 50 (>60 ml/min/1.73 sqM) Glucose 116 H (74-99) mg/dL Lactic Ac Sepsis Rflx Plasma Lactic Acid Ari (0.7-2.0) mmol/L Calcium 9.3 (8.4-10.2) mg/dL Magnesium 1.5 L (1.6-2.3) mg/dL Total Bilirubin 1.9 H (0.2-1.3) mg/dL Conjugated Bilirubin 0.0 (0.0-0.3) mg/dL Unconjugated Bilirubin 0.7 (0.0-1.1) mg/dL Delta Bilirubin 1.2 H (0.0-0.2) mg/dL AST 73 H (17-59) U/L ALT 32 (4-49) U/L Alkaline Phosphatase 389 H (38-126) U/L Total Protein 6.3 (6.3-8.2) g/dL Albumin 3.0 L (3.5-5.0) g/dL Blood Type A Positive Blood Type Confirm Blood Type Recheck No Previous Record Bld Type Recheck Status CABO Indicated Antibody Screen NEGATIVE Crossmatch See Detail Transfuse Platelets Spec Expiration Date 06/07/2020 - 235406/04/20 06/04/20 06/04/20 Range/Units 11:59 12:00 12:44 WBC (3.8-10.6) k/uL RBC (4.30-5.90) m/uL Hgb (13.0-17.5) gm/dL Hct (39.0-53.0) % MCV (80.0-100.0) fL MCH (25.0-35.0) pg MCHC (31.0-37.0) g/dL RDW (11.5-15.5) % Plt Count (150-450) k/uL MPV Neutrophils % (Manual) % Lymphocytes % (Manual) % Monocytes % (Manual) % Neutrophils # (Manual) (1.3-7.7) k/uL Lymphocytes # (Manual) (1.0-4.8) k/uL Monocytes # (Manual) (0-1.0) k/uL Nucleated RBCs (0-0) /100 WBC Manual Slide Review Polychromasia Anisocytosis Macrocytosis PT (9.0-12.0) sec INR (<1.2) APTT (22.0-30.0) sec Sodium (137-145) mmol/L Potassium (3.5-5.1) mmol/L Chloride (98-107) mmol/L Carbon Dioxide (22-30) mmol/L Anion Gap mmol/L BUN (9-20) mg/dL Creatinine (0.66-1.25) mg/dL Est GFR (CKD-EPI)AfAm (>60 ml/min/1.73 sqM) Est GFR (CKD-EPI)NonAf (>60 ml/min/1.73 sqM) Glucose (74-99) mg/dL Lactic Ac Sepsis Rflx Y Plasma Lactic Acid Ari 3.7 H* (0.7-2.0) mmol/L Calcium (8.4-10.2) mg/dL Magnesium (1.6-2.3) mg/dL Total Bilirubin (0.2-1.3) mg/dL Conjugated Bilirubin (0.0-0.3) mg/dL Unconjugated Bilirubin (0.0-1.1) mg/dL Delta Bilirubin (0.0-0.2) mg/dL AST (17-59) U/L ALT (4-49) U/L Alkaline Phosphatase (38-126) U/L Total Protein (6.3-8.2) g/dL Albumin (3.5-5.0) g/dL Blood Type Blood Type Confirm A Positive Blood Type Recheck Bld Type Recheck Status Antibody Screen Crossmatch Transfuse Platelets Spec Expiration Date 06/04/20 06/04/20 06/04/20 Range/Units 13:08 13:30 15:07 WBC (3.8-10.6) k/uL RBC (4.30-5.90) m/uL Hgb (13.0-17.5) gm/dL Hct (39.0-53.0) % MCV (80.0-100.0) fL MCH (25.0-35.0) pg MCHC (31.0-37.0) g/dL RDW (11.5-15.5) % Plt Count (150-450) k/uL MPV Neutrophils % (Manual) % Lymphocytes % (Manual) % Monocytes % (Manual) % Neutrophils # (Manual) (1.3-7.7) k/uL Lymphocytes # (Manual) (1.0-4.8) k/uL Monocytes # (Manual) (0-1.0) k/uL Nucleated RBCs (0-0) /100 WBC Manual Slide Review Polychromasia Anisocytosis Macrocytosis PT 12.1 H (9.0-12.0) sec INR 1.2 H (<1.2) APTT 23.8 (22.0-30.0) sec Sodium (137-145) mmol/L Potassium (3.5-5.1) mmol/L Chloride (98-107) mmol/L Carbon Dioxide (22-30) mmol/L Anion Gap mmol/L BUN (9-20) mg/dL Creatinine (0.66-1.25) mg/dL Est GFR (CKD-EPI)AfAm (>60 ml/min/1.73 sqM) Est GFR (CKD-EPI)NonAf (>60 ml/min/1.73 sqM) Glucose (74-99) mg/dL Lactic Ac Sepsis Rflx Plasma Lactic Acid Ari 1.6 (0.7-2.0) mmol/L Calcium (8.4-10.2) mg/dL Magnesium (1.6-2.3) mg/dL Total Bilirubin (0.2-1.3) mg/dL Conjugated Bilirubin (0.0-0.3) mg/dL Unconjugated Bilirubin (0.0-1.1) mg/dL Delta Bilirubin (0.0-0.2) mg/dL AST (17-59) U/L ALT (4-49) U/L Alkaline Phosphatase (38-126) U/L Total Protein (6.3-8.2) g/dL Albumin (3.5-5.0) g/dL Blood Type Blood Type Confirm Blood Type Recheck Bld Type Recheck Status Antibody Screen Crossmatch Transfuse Platelets 06/04/2020 Spec Expiration Date Critical Care Time Critical Care Time: Yes Critical Care Time: 32 minutes for transfusion of multiple blood products Disposition Clinical Impression: Metastatic renal cell carcinoma, Anemia, Thrombocytopenia Disposition: ADMITTED IP TO THIS [facility] Condition: Stable Is patient prescribed a controlled substance at d/c from ED?: No Decision to Admit Reason: Admit from EC Decision Date: 06/04/20 Decision Time: 14:08
[2020-06-05 00:04] LABS: Anisocytosis Moderate; MCH 33.2 pg (25.0-35.0); Macrocytosis Moderate; RBC 1.91 m/uL (4.30-5.90); RDW 20.8 % (11.5-15.5)
[2020-06-05 00:09] LABS: WBC 1.3 k/uL (3.8-10.6)
[2020-06-05 00:10] LABS: HCT 18.6 % (39.0-53.0); HGB 6.3 gm/dL (13.0-17.5); MCV 97.5 fL (80.0-100.0)
[2020-06-05 00:11] LABS: Platelet Count 24 k/uL (150-450)
[2020-06-05 00:16] LABS: African American GFR (CKD) 68 (>60 ml/min/1.73 sqM); Anion Gap 4 mmol/L; Blood Urea Nitrogen 45 mg/dL (9-20); Calcium 8.8 mg/dL (8.4-10.2); Carbon Dioxide 28 mmol/L (22-30); Chloride 104 mmol/L (98-107); Glucose 87 mg/dL (74-99); Non-African American GFR(CKD) 59 (>60 ml/min/1.73 sqM); Potassium 3.7 mmol/L (3.5-5.1); Sodium 136 mmol/L (137-145)
[2020-06-05 00:36] LABS: Lymphocytes # (M) 0.73 k/uL (1.0-4.8); Monocytes # (M) 0.16 k/uL (0-1.0); Neutrophils # (M) 0.42 k/uL (1.3-7.7); Neutrophils % (M) 32 %; Nucleated Red Blood Cells 0 /100 WBC (0-0); Total Cells Counted 100
[2020-06-05 00:38] LABS: Anisocytosis (M) Present
[2020-06-05] MEDS ORDERED: ONDANSETRON 4 MG TAB PO PRN (00:49)
[2020-06-05] MEDS: FILGRASTIM-SNDZ 480 MCG/0.8 ML SYRINGE SQ SCH ×2 (06:10→18:14)
[2020-06-05] MEDS: LEVOTHYROXINE 125 MCG TAB PO SCH (06:10)
[2020-06-05] MEDS: METHADONE 10 MG TAB PO SCH (09:27)
[2020-06-05] MEDS: SODIUM BICARBONATE TAB 650 MG TAB PO SCH ×3 (09:29→22:02)
[2020-06-05] MEDS: POTASSIUM CHLORIDE ER 10 MEQ TAB.ER.PRT PO SCH (09:29)
[2020-06-05] MEDS: hydrALAZINE HCL 25 MG TAB PO SCH ×2 (09:29→22:02)
[2020-06-05] MEDS: amLODIPine 2.5 MG TAB PO SCH (09:30)
--- NOTE | 2020-06-05 13:53 | P.CONS ---
History of Present Illness - Reason for Consult Consult date: 06/05/20 metastatic bladder ca Requesting physician: Catia Brumfield - Chief Complaint Weak - History of Present Illness Mr. Mancuso is a very pleasant male who originally presented to [facility] Emergency department with anuria and renal failure. Imaging performed reveal concerning picture of metastatic process. There was concern of liver and diffuse bone involvement. Urology is following and was unfortunetly unable to place internal stent for hydronephrosis, therefore percutatneous was placed by IR on . During work-up an iliac thrombosis was also noted. This will ill-defined and unclear on original imaging, therefore heparin dripo was initiated until further definitiation could be concluded. Unforntunetly shortly after heparin drip was started there was hematuria noted in his nephrostomy bag and heparin was stopped. He then went for further imaging with ultrasound and a discussion with Dr. Hooks from interventional radiaology concluded this was in fact tumor thrombosis and not actual deep vein, therefore heparin was stopped and IVC was not placed. Apparently over the past 4 months he has had complaints of Right testicular swelling and underwent a procedure for this by urology, but no other imaging or labs were performed at that time. CT imaging of Chest without contrast did not reveal any metastatic disease to lungs. Bone scan did re-demonstrate diffuse disease to bone. 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 Patient has been an on and off again smoker over his life. 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 We have reached out to them to discuss new diagnosis and plan, I have yet to connect with their team to confirm they will follow for his ongoing pain management. Although will provide them a copy of this to ensure they know he was in hospitalized and did receive medications that likely were against his pain contract, patient is aware that his disease is incurable and treatment goal is palliative. Patient seen and examined today, his pain is controlled, he does not have any active bleeding at this time. His is present as his support. 04/15/20: C/O fatigue and back pain, had Bone biopsy on 04/14/20, results pending, developed obstructive jaundice of ? etiology, will see Dr Doreen Delarosa later this week. Tolerated cycle # 1 of chemotherapy well without nausea/vomiting 05/01/20-patient here today status post evaluation by Dr. Damon for obstructive jaundice. This has resolved, MRI of the liver did not reveal any evidence of cholelithiasis or obstructive process, mets vs scarring from HepC ?. Results of patient's bone biopsy returned unfortunately, positive for urothelial carcinoma. Patient had cycle 1 day 1 of treatment, cycle 1 day 8 held for stat US of liver, gemzar held. He had cycle 2 day 1 with carbo only. Pt has no severe SE to report. He hand his have many questions and concerns today, 10 point ROS is neg. 05/29/20: C/O abdominal & back pain, C/O chemotherapy-induced nausea, noted to have progressive LFT. 06/04/20-Pt here today s/p cycle 3 day 1 & 8 of carbo/gemzar. He is visibly jaundiced, pale, unsteady, Hgb 5.7, he states he has had hematuria, plt 5,000, he has wet purpura, petechia, and easy bruising of the hands. Weak, dizzy, started about 2 days ago, progressive. Denies fever, chest pain, he is SOB on exertion but comfortable at rest. Sent to ER from visit with JOSS Voss for concern of pancytopenia and jaundice Review of Systems All systems: negative Constitutional: Reports as per HPI Past Medical History Past Medical History: Cancer, Hyperlipidemia, Hypertension, Renal Disease, Thyroid Disorder Additional Past Medical History / Comment(s): [place] treament for pain control, patient takes methadone. HEPATITIS C from past drug abuse, anuria, renal failure, renal CA, urothelial carcinoma, bone mets, Right iliac met lesion, Chemo therapy History of Any Multi-Drug Resistant Organisms: None Reported Past Surgical History: Hernia Repair, Orthopedic Surgery Additional Past Surgical History / Comment(s): bilateral knee replacement, right testicle sx 2019, colonoscopy, nephrostomy tube, Kidney mass biopsy Past Anesthesia/Blood Transfusion Reactions: No Reported Reaction Past Psychological History: Anxiety Additional Psychological History / Comment(s): related to health issues Smoking Status: Former smoker Past Alcohol Use History: None Reported Past Drug Use History: Marijuana, Prescription Drug Abuse Additional Drug Use History / Comment(s): 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 20's - Past Family History Father History Unknown: Yes Medications and Allergies Home Medications Medication Instructions Recorded Confirmed Type ALPRAZolam [Xanax] 0.25 mg PO HS PRN 03/08/20 06/04/20 History Levothyroxine Sodium [Synthroid] 125 mcg PO DAILY 03/08/20 06/04/20 History Methadone HCl [Methadone Intensol] 146 mg PO DAILY 03/08/20 06/04/20 History Sodium Bicarbonate Tab 650 mg PO TID tab 03/15/20 06/04/20 Rx hydrALAZINE HCL [Apresoline] 25 mg PO BID tab 03/15/20 06/04/20 Rx polyethylene glycoL 3350 [Miralax] 17 gm PO HS 04/17/20 06/04/20 History Ondansetron [Zofran] 4 mg PO Q4H PRN 05/12/20 06/04/20 History Potassium Chloride 10 meq PO DAILY 06/04/20 06/04/20 History amLODIPine [Norvasc] 2.5 mg PO DAILY 06/04/20 06/04/20 History Allergies Allergy/AdvReac Type Severity Reaction Status Date / Time No Known Allergies Allergy Verified 06/04/20 13:29 Physical Exam Vitals: Vital Signs Temp Pulse Pulse Resp BP BP Pulse Ox 06/05/20 07:24 98.1 F 81 15 146/70 96 06/05/20 02:00 97.6 F 81 16 144/67 96 06/04/20 21:38 97.8 F 81 16 162/74 96 06/04/20 20:00 97.9 F 95 14 159/70 95 06/04/20 18:28 98.2 F 77 17 156/84 96 06/04/20 17:58 98.3 F 78 18 161/82 97 06/04/20 17:48 98.1 F 81 18 157/85 98 06/04/20 17:36 98.3 F 72 18 148/83 97 06/04/20 16:45 98.1 F 81 18 156/83 97 06/04/20 16:15 98.3 F 68 18 157/86 97 06/04/20 16:05 98.3 F 72 18 158/83 95 06/04/20 15:36 98.3 F 86 18 164/87 96 06/04/20 14:15 98.0 F 78 18 156/73 97 06/04/20 13:45 97.8 F 91 18 148/72 98 06/04/20 13:35 98.5 F 67 18 154/71 97 06/04/20 11:12 98.2 F 97 18 143/75 98 Intake and Output 06/04/20 06/05/20 06/05/20 22:59 06:59 14:59 Intake Total 943 Output Total 900 Balance 43 Intake: Blood Product 943 Platelet Pheresis Pas 323 Psoralen Unit [id number] Rc As-1 Unit 310 [id number] Rc As-1 Unit 310 [id number] Output: Urine 900 Other: Voiding Method Ileal Conduit (Left) # Voids 1 # Bowel Movements 1 Weight 79.379 kg Constitutional General appearance: cooperative, no acute distress - EENT Eyes: EOMI, PERRLA ENT: hard of hearing, NA/AT - Neck Neck: normal ROM - Respiratory Respiratory: bilateral: CTA - Cardiovascular Rhythm: regular leg Peripheral Edema: bilateral: 1+ RLE Chin down erythema, evidence of arterial and venous insuffiency, pulse p alble 1+ RLE - Gastrointestinal General gastrointestinal: soft, tenderness - Neurologic non-focal - Musculoskeletal Musculoskeletal: generalized weakness, strength equal bilaterally - Psychiatric Psychiatric: A&O x's 3, appropriate affect Results CBC & Chem 7: 06/05/20 14:48 06/05/20 14:48 Labs: Abnormal Lab Results - Last 24 Hours (Table) 06/04/20 06/04/20 06/04/20 Range/Units 11:46 11:46 11:55 WBC 1.6 L (3.8-10.6) k/uL RBC 1.56 L (4.30-5.90) m/uL Hgb 5.7 L* D (13.0-17.5) gm/dL Hct 17.0 L* (39.0-53.0) % MCV 108.8 H (80.0-100.0) fL MCH 36.5 H (25.0-35.0) pg RDW 19.2 H (11.5-15.5) % Plt Count 4 L* D (150-450) k/uL Neutrophils # (Manual) 0.62 L (1.3-7.7) k/uL Lymphocytes # (Manual) 0.91 L (1.0-4.8) k/uL Macrocytosis Marked A PT (9.0-12.0) sec INR (<1.2) Sodium 135 L (137-145) mmol/L Carbon Dioxide 21 L (22-30) mmol/L BUN 47 H (9-20) mg/dL Creatinine 1.38 H (0.66-1.25) mg/dL Glucose 116 H (74-99) mg/dL Plasma Lactic Acid Ari (0.7-2.0) mmol/L Magnesium 1.5 L (1.6-2.3) mg/dL Total Bilirubin 1.9 H (0.2-1.3) mg/dL Delta Bilirubin 1.2 H (0.0-0.2) mg/dL AST 73 H (17-59) U/L Alkaline Phosphatase 389 H (38-126) U/L Albumin 3.0 L (3.5-5.0) g/dL Crossmatch See Detail 06/04/20 06/04/20 06/04/20 Range/Units 12:00 13:08 23:39 WBC (3.8-10.6) k/uL RBC (4.30-5.90) m/uL Hgb (13.0-17.5) gm/dL Hct (39.0-53.0) % MCV (80.0-100.0) fL MCH (25.0-35.0) pg RDW (11.5-15.5) % Plt Count (150-450) k/uL Neutrophils # (Manual) (1.3-7.7) k/uL Lymphocytes # (Manual) (1.0-4.8) k/uL Macrocytosis PT 12.1 H (9.0-12.0) sec INR 1.2 H (<1.2) Sodium 136 L (137-145) mmol/L Carbon Dioxide (22-30) mmol/L BUN 45 H (9-20) mg/dL Creatinine (0.66-1.25) mg/dL Glucose (74-99) mg/dL Plasma Lactic Acid Ari 3.7 H* (0.7-2.0) mmol/L Magnesium (1.6-2.3) mg/dL Total Bilirubin (0.2-1.3) mg/dL Delta Bilirubin (0.0-0.2) mg/dL AST (17-59) U/L Alkaline Phosphatase (38-126) U/L Albumin (3.5-5.0) g/dL Crossmatch 06/04/20 Range/Units 23:39 WBC 1.3 L* (3.8-10.6) k/uL RBC 1.91 L (4.30-5.90) m/uL Hgb 6.3 L* (13.0-17.5) gm/dL Hct 18.6 L* (39.0-53.0) % MCV (80.0-100.0) fL MCH (25.0-35.0) pg RDW 20.8 H (11.5-15.5) % Plt Count 24 L D (150-450) k/uL Neutrophils # (Manual) 0.42 L* (1.3-7.7) k/uL Lymphocytes # (Manual) 0.73 L (1.0-4.8) k/uL Macrocytosis PT (9.0-12.0) sec INR (<1.2) Sodium (137-145) mmol/L Carbon Dioxide (22-30) mmol/L BUN (9-20) mg/dL Creatinine (0.66-1.25) mg/dL Glucose (74-99) mg/dL Plasma Lactic Acid Ari (0.7-2.0) mmol/L Magnesium (1.6-2.3) mg/dL Total Bilirubin (0.2-1.3) mg/dL Delta Bilirubin (0.0-0.2) mg/dL AST (17-59) U/L Alkaline Phosphatase (38-126) U/L Albumin (3.5-5.0) g/dL Crossmatch Assessment and Plan (1) Pancytopenia Current Visit: Yes Status: Acute Code(s): D61.818 - OTHER PANCYTOPENIA SNOMED Code(s): 429961212 (2) Metastatic renal cell carcinoma Current Visit: Yes Status: Acute Code(s): C64.9 - MALIGNANT NEOPLASM OF UNSP KIDNEY, EXCEPT RENAL PELVIS SNOMED Code(s): 076686908 (3) Acute renal failure Current Visit: No Status: Acute Code(s): N17.9 - ACUTE KIDNEY FAILURE, UNSPECIFIED SNOMED Code(s): 28918183 (4) Iliac DVT (deep venous thrombosis) Current Visit: No Status: Acute Code(s): I82.429 - ACUTE EMBOLISM AND THROMBOSIS OF UNSPECIFIED ILIAC VEIN SNOMED Code(s): 155088547 Plan: Assessment and Recommendations: Pancytopenia: - Friedman Cultures - Hold Anticoagulation, no NSAIDS or ASA, platelets less than 50K - Repeat labs now and every am - Neupogen ordered and daily Metastatic Bladder Cancer Hypokalemia: Physician Attest: I have completed full history and phyical and agree with above dictation, dictated as a ascribe.
--- NOTE | 2020-06-05 14:19 | XR ---
EXAMINATION TYPE: XR chest 2V DATE OF EXAM: 06/05/2020 COMPARISON: Chest x-ray 10/02/2018 HISTORY: Infection workup, metastatic disease TECHNIQUE: Frontal and lateral views of the chest are obtained. FINDINGS: Minimal patchy basilar density is noted on the left. There is no evident pneumothorax or p leural effusion. Mediastinal silhouette is within normal limits. Rotated. IMPRESSION: May be some minimal basilar atelectasis or scarring, correlate to exclude pneumonia
[2020-06-05 14:51] VITALS: BMI 30.9
[2020-06-05 15:20] LABS: Anisocytosis Slight; MCH 34.8 pg (25.0-35.0); MCHC 36.1 g/dL (31.0-37.0); MCV 96.3 fL (80.0-100.0); Macrocytosis Slight; RBC 1.93 m/uL (4.30-5.90); RDW 19.7 % (11.5-15.5); WBC 2.7 k/uL (3.8-10.6)
[2020-06-05 15:23] LABS: ALT 30 U/L (4-49); AST 72 U/L (17-59); African American GFR (CKD) 75 (>60 ml/min/1.73 sqM); Albumin 2.6 g/dL (3.5-5.0); Albumin/Globulin Ratio 0.9; Alkaline Phosphatase 338 U/L (38-126); Anion Gap 5 mmol/L; Blood Urea Nitrogen 45 mg/dL (9-20); Calcium 9.2 mg/dL (8.4-10.2); Carbon Dioxide 27 mmol/L (22-30); Chloride 104 mmol/L (98-107); Globulin 2.9 g/dL; Glucose 95 mg/dL (74-99); Magnesium 1.6 mg/dL (1.6-2.3); Non-African American GFR(CKD) 65 (>60 ml/min/1.73 sqM); Potassium 3.8 mmol/L (3.5-5.1); Sodium 136 mmol/L (137-145); Total Bilirubin 2.1 mg/dL (0.2-1.3); Total Protein 5.5 g/dL (6.3-8.2)
[2020-06-05 15:24] LABS: HCT 18.6 % (39.0-53.0); HGB 6.7 gm/dL (13.0-17.5); Platelet Count 33 k/uL (150-450)
[2020-06-05 15:36] LABS: INR 1.1 (<1.2); Partial Thromboplastin Time 23.2 sec (22.0-30.0); Prothrombin Time 11.9 sec (9.0-12.0)
[2020-06-05 15:52] LABS: Band Neutrophils % 7 %; Lymphocytes # (M) 0.65 k/uL (1.0-4.8); Monocytes # (M) 0.16 k/uL (0-1.0); Neutrophils % (M) 63 %; Nucleated Red Blood Cells 0 /100 WBC (0-0); Total Cells Counted 100
[2020-06-05 15:53] LABS: Poikilocytosis (M) Present
--- NOTE | 2020-06-05 17:18 | P.HPIM ---
History of Present Illness H&P Date: 06/05/20 Miguel Mancuso, he is a 74-year-old male, who presented to [facility] emergency room with evidence of dehydration and very low urine output, he was evaluated in the emergency room vital examination on presentation revealed a temperature of 98.2 pulse 97 respiration 18 blood pressure 143/75 pulse ox 97% on room air, laboratory data revealed a white blood count of 1.3 hemoglobin 6.3 platelet count 24,000 sodium 136 potassium 3.7 chloride 104 CO2 28 BUN 45 creatinine 1.2 COVID-19 PCR was negative. Patient has a known history of metastatic renal cell carcinoma and history of iliac deep venous thrombosis. He was admitted to medical floor and oncology consultation was requested. Past Medical History Past Medical History: Cancer, Hyperlipidemia, Hypertension, Renal Disease, Thyroid Disorder Additional Past Medical History / Comment(s): Tracy treament for pain control, patient takes methadone. HEPATITIS C from past drug abuse, anuria, renal failure, renal CA, urothelial carcinoma, bone mets, Right iliac met lesion, Chemo therapy History of Any Multi-Drug Resistant Organisms: None Reported Past Surgical History: Hernia Repair, Orthopedic Surgery Additional Past Surgical History / Comment(s): bilateral knee replacement, right testicle sx 2020, colonoscopy, nephrostomy tube, Kidney mass biopsy Past Anesthesia/Blood Transfusion Reactions: No Reported Reaction Past Psychological History: Anxiety Additional Psychological History / Comment(s): related to health issues Smoking Status: Former smoker Past Alcohol Use History: None Reported Past Drug Use History: Marijuana, Prescription Drug Abuse Additional Drug Use History / Comment(s): 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 - Past Family History Father History Unknown: Yes Medications and Allergies Home Medications Medication Instructions Recorded Confirmed Type ALPRAZolam [Xanax] 0.25 mg PO HS PRN 03/08/20 06/04/20 History Levothyroxine Sodium [Synthroid] 125 mcg PO DAILY 03/08/20 06/04/20 History Methadone HCl [Methadone Intensol] 146 mg PO DAILY 03/08/20 06/04/20 History Sodium Bicarbonate Tab 650 mg PO TID tab 03/15/20 06/04/20 Rx hydrALAZINE HCL [Apresoline] 25 mg PO BID tab 03/15/20 06/04/20 Rx polyethylene glycoL 3350 [Miralax] 17 gm PO HS 04/17/20 06/04/20 History Ondansetron [Zofran] 4 mg PO Q4H PRN 05/12/20 06/04/20 History Potassium Chloride 10 meq PO DAILY 06/04/20 06/04/20 History amLODIPine [Norvasc] 2.5 mg PO DAILY 06/04/20 06/04/20 History Allergies Allergy/AdvReac Type Severity Reaction Status Date / Time No Known Allergies Allergy Verified 06/04/20 13:29 Physical Exam Vitals: Vital Signs Temp Pulse Pulse Resp BP BP Pulse Ox 06/05/20 07:24 98.1 F 81 15 146/70 96 06/05/20 02:00 97.6 F 81 16 144/67 96 06/04/20 21:38 97.8 F 81 16 162/74 96 06/04/20 20:00 97.9 F 95 14 159/70 95 06/04/20 18:28 98.2 F 77 17 156/84 96 06/04/20 17:58 98.3 F 78 18 161/82 97 06/04/20 17:48 98.1 F 81 18 157/85 98 06/04/20 17:36 98.3 F 72 18 148/83 97 06/04/20 16:45 98.1 F 81 18 156/83 97 06/04/20 16:15 98.3 F 68 18 157/86 97 06/04/20 16:05 98.3 F 72 18 158/83 95 06/04/20 15:36 98.3 F 86 18 164/87 96 06/04/20 14:15 98.0 F 78 18 156/73 97 06/04/20 13:45 97.8 F 91 18 148/72 98 06/04/20 13:35 98.5 F 67 18 154/71 97 06/04/20 11:12 98.2 F 97 18 143/75 98 Intake and Output 06/04/20 06/05/20 06/05/20 22:59 06:59 14:59 Intake Total 943 Output Total 900 Balance 43 Intake: Blood Product 943 Platelet Pheresis Pas 323 Psoralen Unit [id number] Rc As-1 Unit 310 [id number] Rc As-1 Unit 310 [id number] Output: Urine 900 Other: Voiding Method Ileal Conduit (Left) # Voids 1 # Bowel Movements 1 Weight 79.379 kg In general patient is alert and oriented 3 in no apparent distress HEENT head normocephalic and atraumatic Neck is supple no JVD no goiter no lymphadenopathy Chest exam reveals a few scattered crackles no wheezing Cardiac exam reveals irregular heart sounds no gallops no murmurs Abdomen is soft nontender no organomegaly with normal bowel sounds Extremity exam reveals 2 edema no cyanosis or clubbing Neurological examination reveals no gross focal deficit Results CBC & Chem 7: 06/05/20 14:48 06/05/20 14:48 Labs: Abnormal Lab Results - Last 24 Hours (Table) 06/04/20 06/04/20 06/04/20 Range/Units 11:46 11:46 11:55 WBC 1.6 L (3.8-10.6) k/uL RBC 1.56 L (4.30-5.90) m/uL Hgb 5.7 L* D (13.0-17.5) gm/dL Hct 17.0 L* (39.0-53.0) % MCV 108.8 H (80.0-100.0) fL MCH 36.5 H (25.0-35.0) pg RDW 19.2 H (11.5-15.5) % Plt Count 4 L* D (150-450) k/uL Neutrophils # (Manual) 0.62 L (1.3-7.7) k/uL Lymphocytes # (Manual) 0.91 L (1.0-4.8) k/uL Macrocytosis Marked A PT (9.0-12.0) sec INR (<1.2) Sodium 135 L (137-145) mmol/L Carbon Dioxide 21 L (22-30) mmol/L BUN 47 H (9-20) mg/dL Creatinine 1.38 H (0.66-1.25) mg/dL Glucose 116 H (74-99) mg/dL Plasma Lactic Acid Ari (0.7-2.0) mmol/L Magnesium 1.5 L (1.6-2.3) mg/dL Total Bilirubin 1.9 H (0.2-1.3) mg/dL Delta Bilirubin 1.2 H (0.0-0.2) mg/dL AST 73 H (17-59) U/L Alkaline Phosphatase 389 H (38-126) U/L Albumin 3.0 L (3.5-5.0) g/dL Crossmatch See Detail 06/04/20 06/04/20 06/04/20 Range/Units 12:00 13:08 23:39 WBC (3.8-10.6) k/uL RBC (4.30-5.90) m/uL Hgb (13.0-17.5) gm/dL Hct (39.0-53.0) % MCV (80.0-100.0) fL MCH (25.0-35.0) pg RDW (11.5-15.5) % Plt Count (150-450) k/uL Neutrophils # (Manual) (1.3-7.7) k/uL Lymphocytes # (Manual) (1.0-4.8) k/uL Macrocytosis PT 12.1 H (9.0-12.0) sec INR 1.2 H (<1.2) Sodium 136 L (137-145) mmol/L Carbon Dioxide (22-30) mmol/L BUN 45 H (9-20) mg/dL Creatinine (0.66-1.25) mg/dL Glucose (74-99) mg/dL Plasma Lactic Acid Ari 3.7 H* (0.7-2.0) mmol/L Magnesium (1.6-2.3) mg/dL Total Bilirubin (0.2-1.3) mg/dL Delta Bilirubin (0.0-0.2) mg/dL AST (17-59) U/L Alkaline Phosphatase (38-126) U/L Albumin (3.5-5.0) g/dL Crossmatch 06/04/20 Range/Units 23:39 WBC 1.3 L* (3.8-10.6) k/uL RBC 1.91 L (4.30-5.90) m/uL Hgb 6.3 L* (13.0-17.5) gm/dL Hct 18.6 L* (39.0-53.0) % MCV (80.0-100.0) fL MCH (25.0-35.0) pg RDW 20.8 H (11.5-15.5) % Plt Count 24 L D (150-450) k/uL Neutrophils # (Manual) 0.42 L* (1.3-7.7) k/uL Lymphocytes # (Manual) 0.73 L (1.0-4.8) k/uL Macrocytosis PT (9.0-12.0) sec INR (<1.2) Sodium (137-145) mmol/L Carbon Dioxide (22-30) mmol/L BUN (9-20) mg/dL Creatinine (0.66-1.25) mg/dL Glucose (74-99) mg/dL Plasma Lactic Acid Ari (0.7-2.0) mmol/L Magnesium (1.6-2.3) mg/dL Total Bilirubin (0.2-1.3) mg/dL Delta Bilirubin (0.0-0.2) mg/dL AST (17-59) U/L Alkaline Phosphatase (38-126) U/L Albumin (3.5-5.0) g/dL Crossmatch Thrombosis Risk Factor Assmnt - Choose All That Apply Each Factor Represents 1 point: Obesity (BMI >25), Swollen legs (current) Other Risk Factors: Yes Each Risk Factor Represents 2 Points: Age 61-74 years, Malignancy Thrombosis Risk Factor Assessment Total Risk Factor Score: 6 Thrombosis Risk Factor Assessment Level: High Risk Assessment and Plan Plan: 1. Pancytopenia, red blood cell transfusion and platelet transfusion were ordered by hematology 2. History of metastatic renal cell carcinoma followed by oncology 3. Elevated bilirubin and liver enzymes 4. History of deep venous thrombosis (iliac vein) 5. Underlying history of hypothyroidism 6. Underlying history of hypertension 7. Underlying history of chronic pain syndrome maintained on methadone Home medication reviewed and reordered Consultation for oncology initiated Will check renal function closely Will consult infectious disease
[2020-06-05 20:02] LABS: Appearance,Urine Clear (Clear); Bilirubin,Urine Negative (Negative); Blood,Urine Moderate (Negative); Color,Urine Yellow; Glucose,Urine (UA) Negative (Negative); Ketones,Urine Negative (Negative); Leukocyte Esterase,Urine Small (Negative); Nitrite,Urine Negative (Negative); Protein,Urine Negative (Negative); RBC,Urine 12 /hpf (0-5); Specific Gravity,Urine 1.013 (1.001-1.035); Urobilinogen,Urine <2.0 mg/dL (<2.0); WBC,Urine 6 /hpf (0-5)
[2020-06-05] MEDS: polyethylene glycoL 3350 17 GM POWD.PACK PO SCH (22:02)
[2020-06-06] MEDS: LEVOTHYROXINE 125 MCG TAB PO SCH (05:46)
[2020-06-06 06:32] LABS: Anisocytosis Slight; MCH 34.5 pg (25.0-35.0); MCHC 35.5 g/dL (31.0-37.0); MCV 97.3 fL (80.0-100.0); Macrocytosis Slight; RBC 1.78 m/uL (4.30-5.90); RDW 19.6 % (11.5-15.5); WBC 3.3 k/uL (3.8-10.6)
[2020-06-06 06:49] LABS: HCT 17.4 % (39.0-53.0); HGB 6.2 gm/dL (13.0-17.5); Platelet Count 25 k/uL (150-450)
[2020-06-06 06:50] LABS: INR 1.2 (<1.2); Prothrombin Time 12.4 sec (9.0-12.0)
[2020-06-06 06:53] LABS: Partial Thromboplastin Time 21.7 sec (22.0-30.0)
[2020-06-06 07:54] LABS: Band Neutrophils % 5 %; Lymphocytes # (M) 0.66 k/uL (1.0-4.8); Neutrophils % (M) 63 %; Nucleated Red Blood Cells 0 /100 WBC (0-0); Total Cells Counted 100
[2020-06-06] MEDS: METHADONE 10 MG TAB PO SCH (09:32)
[2020-06-06] MEDS: POTASSIUM CHLORIDE ER 10 MEQ TAB.ER.PRT PO SCH (09:35)
[2020-06-06] MEDS: amLODIPine 2.5 MG TAB PO SCH (09:35)
[2020-06-06] MEDS: hydrALAZINE HCL 25 MG TAB PO SCH ×2 (09:35→20:46)
[2020-06-06] MEDS: SODIUM BICARBONATE TAB 650 MG TAB PO SCH ×3 (09:35→20:46)
--- NOTE | 2020-06-06 09:56 | P.PN ---
Subjective Progress Note Date: 06/06/20 Miguel Macnuso, he is a 74-year-old male, who presented to [facility] emergency room with evidence of dehydration and very low urine output, he was evaluated in the emergency room vital examination on presentation revealed a temperature of 98.2 pulse 97 respiration 18 blood pressure 143/75 pulse ox 97% on room air, laboratory data revealed a white blood count of 1.3 hemoglobin 6.3 platelet count 24,000 sodium 136 potassium 3.7 chloride 104 CO2 28 BUN 45 creatinine 1.2 COVID-19 PCR was negative. Patient has a known history of metastatic renal cell carcinoma and history of iliac deep venous thrombosis. He was admitted to medical floor and oncology consultation was requested. On 06/06/2020 patient is alert and oriented 3. Patient received 2 units of PRBCs platelets 1. WBC to 3.3 hemoglobin still low at 6.2 and platelets 25. Oncology services are following. Infectious disease also consulted. Temp 98.0 heart rate 85 blood pressure 138/61 and pulse ox 97 on room air. At this time patient denies chest pain or shortness of breath. Patient denies nausea vomiting or diarrhea. Patient denies any urinary burning or frequency. Patient did state he has dark stool will order stool for occult blood Objective - Vital Signs Vital signs: Vital Signs Temp 98.0 F 06/06/20 07:36 Pulse 85 06/06/20 07:36 Resp 14 06/06/20 07:36 BP 138/61 06/06/20 07:36 Pulse Ox 97 06/06/20 07:36 Intake & Output 06/05/20 06/06/20 06/06/20 18:59 06:59 18:59 Intake Total 520 Output Total 1050 900 300 Balance -1050 -380 -300 Weight 79.379 kg Intake: Oral 520 Output: Drainage 1050 900 300 Left Back 1050 900 300 Other: # Bowel Movements 1 - Exam In general patient is alert and oriented 3 in no apparent distress HEENT head normocephalic and atraumatic Neck is supple no JVD no goiter no lymphadenopathy Chest exam reveals a few scattered crackles no wheezing Cardiac exam reveals irregular heart sounds no gallops no murmurs Abdomen is soft nontender no organomegaly with normal bowel sounds Extremity exam reveals 2 edema no cyanosis or clubbing Neurological examination reveals no gross focal deficit - Labs CBC & Chem 7: 06/06/20 06:06 06/05/20 14:48 Labs: Abnormal Lab Results - Last 24 Hours (Table) 06/05/20 06/05/20 06/05/20 Range/Units 14:48 14:48 17:45 WBC 2.7 L (3.8-10.6) k/uL RBC 1.93 L (4.30-5.90) m/uL Hgb 6.7 L* (13.0-17.5) gm/dL Hct 18.6 L* (39.0-53.0) % RDW 19.7 H (11.5-15.5) % Plt Count 33 L (150-450) k/uL Lymphocytes # (Manual) 0.65 L (1.0-4.8) k/uL PT (9.0-12.0) sec INR (<1.2) APTT (22.0-30.0) sec Sodium 136 L (137-145) mmol/L BUN 45 H (9-20) mg/dL Total Bilirubin 2.1 H (0.2-1.3) mg/dL AST 72 H (17-59) U/L Alkaline Phosphatase 338 H (38-126) U/L Total Protein 5.5 L (6.3-8.2) g/dL Albumin 2.6 L (3.5-5.0) g/dL Urine Blood Moderate H (Negative) Ur Leukocyte Esterase Small H (Negative) Urine RBC 12 H (0-5) /hpf Urine WBC 6 H (0-5) /hpf 06/06/20 06/06/20 Range/Units 06:06 06:06 WBC 3.3 L (3.8-10.6) k/uL RBC 1.78 L (4.30-5.90) m/uL Hgb 6.2 L* (13.0-17.5) gm/dL Hct 17.4 L* (39.0-53.0) % RDW 19.6 H (11.5-15.5) % Plt Count 25 L (150-450) k/uL Lymphocytes # (Manual) 0.66 L (1.0-4.8) k/uL PT 12.4 H (9.0-12.0) sec INR 1.2 H (<1.2) APTT 21.7 L (22.0-30.0) sec Sodium (137-145) mmol/L BUN (9-20) mg/dL Total Bilirubin (0.2-1.3) mg/dL AST (17-59) U/L Alkaline Phosphatase (38-126) U/L Total Protein (6.3-8.2) g/dL Albumin (3.5-5.0) g/dL Urine Blood (Negative) Ur Leukocyte Esterase (Negative) Urine RBC (0-5) /hpf Urine WBC (0-5) /hpf Assessment and Plan Plan: 1. Pancytopenia, red blood cell transfusion and platelet transfusion were ordered by hematology. Status post transfusion of 2 PRBCs and 1 unit of platelets 2. History of metastatic renal cell carcinoma followed by oncology 3. Elevated bilirubin and liver enzymes 4. History of deep venous thrombosis (iliac vein) 5. Underlying history of hypothyroidism 6. Underlying history of hypertension 7. Underlying history of chronic pain syndrome maintained on methadone Home medication reviewed and reordered Consultation for oncology initiated Will check renal function closely Will consult infectious disease Stool for occult blood ordered
--- NOTE | 2020-06-06 11:32 | P.PN ---
Subjective Progress Note Date: 06/06/20 Principal diagnosis: pancytopenia, metastatic cancer hemoglobin not responding transfusion, further work-up ordered including ct abd without contrast Objective - Vital Signs Vital signs: Vital Signs Temp 98.0 F 06/06/20 07:36 Pulse 80 06/06/20 08:00 Resp 16 06/06/20 08:00 BP 138/61 06/06/20 07:36 Pulse Ox 97 06/06/20 07:36 Intake & Output 06/05/20 06/06/20 06/06/20 18:59 06:59 18:59 Intake Total 520 Output Total 1050 900 300 Balance -1050 -380 -300 Weight 79.379 kg Intake: Oral 520 Output: Drainage 1050 900 300 Left Back 1050 900 300 Other: Voiding Method Ileal Conduit (Left) # Bowel Movements 1 - Exam Constitutional General appearance: cooperative, no acute distress - EENT Eyes: EOMI, PERRLA ENT: hard of hearing, NA/AT - Neck Neck: normal ROM - Respiratory Respiratory: bilateral: CTA - Cardiovascular Rhythm: regular leg Peripheral Edema: bilateral: 1+ RLE Chin down erythema, evidence of arterial and venous insuffiency, pulse p alble 1+ RLE - Gastrointestinal General gastrointestinal: soft, tenderness - Neurologic non-focal - Musculoskeletal Musculoskeletal: generalized weakness, strength equal bilaterally - Psychiatric Psychiatric: A&O x's 3, appropriate affect - Labs CBC & Chem 7: 06/06/20 06:06 06/06/20 06:06 Labs: Abnormal Lab Results - Last 24 Hours (Table) 06/05/20 06/05/20 06/05/20 Range/Units 14:48 14:48 17:45 WBC 2.7 L (3.8-10.6) k/uL RBC 1.93 L (4.30-5.90) m/uL Hgb 6.7 L* (13.0-17.5) gm/dL Hct 18.6 L* (39.0-53.0) % RDW 19.7 H (11.5-15.5) % Plt Count 33 L (150-450) k/uL Lymphocytes # (Manual) 0.65 L (1.0-4.8) k/uL PT (9.0-12.0) sec INR (<1.2) APTT (22.0-30.0) sec Sodium 136 L (137-145) mmol/L BUN 45 H (9-20) mg/dL Total Bilirubin 2.1 H (0.2-1.3) mg/dL AST 72 H (17-59) U/L Alkaline Phosphatase 338 H (38-126) U/L Total Protein 5.5 L (6.3-8.2) g/dL Albumin 2.6 L (3.5-5.0) g/dL Urine Blood Moderate H (Negative) Ur Leukocyte Esterase Small H (Negative) Urine RBC 12 H (0-5) /hpf Urine WBC 6 H (0-5) /hpf 06/06/20 06/06/20 Range/Units 06:06 06:06 WBC 3.3 L (3.8-10.6) k/uL RBC 1.78 L (4.30-5.90) m/uL Hgb 6.2 L* (13.0-17.5) gm/dL Hct 17.4 L* (39.0-53.0) % RDW 19.6 H (11.5-15.5) % Plt Count 25 L (150-450) k/uL Lymphocytes # (Manual) 0.66 L (1.0-4.8) k/uL PT 12.4 H (9.0-12.0) sec INR 1.2 H (<1.2) APTT 21.7 L (22.0-30.0) sec Sodium (137-145) mmol/L BUN (9-20) mg/dL Total Bilirubin (0.2-1.3) mg/dL AST (17-59) U/L Alkaline Phosphatase (38-126) U/L Total Protein (6.3-8.2) g/dL Albumin (3.5-5.0) g/dL Urine Blood (Negative) Ur Leukocyte Esterase (Negative) Urine RBC (0-5) /hpf Urine WBC (0-5) /hpf Assessment and Plan (1) Pancytopenia Current Visit: Yes Status: Acute Code(s): D61.818 - OTHER PANCYTOPENIA SNOMED Code(s): 235768945 (2) Metastatic renal cell carcinoma Current Visit: Yes Status: Acute Code(s): C64.9 - MALIGNANT NEOPLASM OF UNSP KIDNEY, EXCEPT RENAL PELVIS SNOMED Code(s): 539464142 (3) Acute renal failure Current Visit: No Status: Acute Code(s): N17.9 - ACUTE KIDNEY FAILURE, UNSPECIFIED SNOMED Code(s): 92621547 (4) Iliac DVT (deep venous thrombosis) Current Visit: No Status: Acute Code(s): I82.429 - ACUTE EMBOLISM AND THROMBOSIS OF UNSPECIFIED ILIAC VEIN SNOMED Code(s): 297372493 Plan: Assessment and Recommendations: Pancytopenia: - Friedman Cultures - Hold Anticoagulation, no NSAIDS or ASA, platelets less than 50K - Repeat labs now and every am - Neupogen ordered and daily Anemia: - Not improving after transfusion - Hemolysis work-up - CT abdomen without contrast (PO contrast only) ordered Metastatic Bladder Cancer Physician Attest: I have completed full history and physical developed above impression and plan, agree with dictation, dictated as a scribe
[2020-06-06] MEDS: IOPAMIDOL CONTRAST (ORAL USE) VIAL PO PRN ×2 (11:58→12:55)
--- NOTE | 2020-06-06 14:15 | CT ---
EXAMINATION TYPE: CT abdomen pelvis wo con DATE OF EXAM: 06/06/2020 COMPARISON: 03/09/2020 HISTORY: Metastatic cancer, assess for bleeding. Abdominal pain and cramping with dark stools. CT DLP: 817 mGycm Automated exposure control for dose reduction was used. TECHNIQUE: Helical acquisition of images was performed from the lung bases through the pelvis. FINDINGS: Small right pleural effusion. Gallbladder is prominent. Small amount of fluid seen adjacent to the do me of the liver. Left-sided nephrostomy tube is seen. There is marked abnormal appearance of the righ t kidney which appears to be enlargement of mixed density. Abnormal soft tissue in the retroperitoneu m could represent a component of adenopathy. Aorta demonstrates atherosclerotic changes. The bowel ga s pattern nonspecific with no obstruction. Bladder is nondistended. Subcutaneous edema suggest a degr ee of anasarca. Multilevel degenerative disc disease, facet arthropathy and foraminal encroachment. Suspect multileve l foraminal encroachment and canal stenosis. Small amount of free fluid within the right lower quadra nt. There is bowel wall thickening of small bowel loops in the left abdomen. Adrenal glands have a normal morphology. Spleen homogeneous. There are lucent and sclerotic lesion se en throughout the visualized osseous structures. Multilevel degenerative disc disease with grade 1 an terolisthesis L4 on L5. IMPRESSION: 1. Right kidney is unrecognizable but stable from prior exam. It is difficult to determine if this is a large right renal mass or adenopathy. Correlate with surgical history. Findings similar to the pre vious CT scan. Correlate for history of malignancy. 2. Left-sided nephrostomy tube with no hydronephrosis. 3. A bowel wall thickening involving several small bowel loops in the upper mid and left abdomen most noted on axial image 38 correlate for a enteritis. Mucosal lesion not excluded likely within the jej unum. 4. Small right pleural effusion with a small amount of fluid surrounding the liver. 5. Widespread bony metastases.
[2020-06-06 14:24] LABS: African American GFR (CKD) 85.6 (60.0-200.0); Albumin 2.8 g/dL (3.80-4.90); Albumin/Globulin Ratio 1.22 (1.60-3.17); Anion Gap 6.6 mmol/L (4.00-12.00); Carbon Dioxide 27.4 mmol/L (21.6-31.8); Globulin 2.3 g/dL (1.6-3.3); Magnesium 1.6 mg/dL (1.5-2.4); Non-African American GFR(CKD) 73.8 (60.0-200.0); Potassium 3.7 mmol/L (3.5-5.5); Total Protein 5.1 g/dL (6.2-8.2)
[2020-06-06] MEDS: FILGRASTIM-SNDZ 480 MCG/0.8 ML SYRINGE SQ SCH (17:15)
--- NOTE | 2020-06-06 18:06 | CONS ---
CONSULTATION DATE OF SERVICE: 06/06/2020 REASON FOR CONSULTATION: SIRS, question of infection. HISTORY OF PRESENT ILLNESS: The patient is a 74-year-old male with a past medical history significant for metastatic bladder cancer with metastases to the kidney and bone in this patient currently undergoing chemotherapy. The patient also has a history of left-sided nephrostomy tube placement. The patient apparently was evaluated at the [facility] for followup with the nurse practitioner on June 04. The patient was noted to have a low hemoglobin of 5.2 and a platelet count of 5, for which the patient was sent to the ER for further evaluation and admission. On presentation to the hospital, the patient was afebrile, and no fever has been recorded since admission to the hospital. The patient did have a white count of 1.6 that has subsequently come up to 3.3. Platelet count was 4 and is up to 25. The patient did have elevated BUN creatinine has been normal. Lactic acid was elevated at 3.7. Repeat is 1.6. Liver enzymes are mildly elevated. Urine shows moderate blood, mild leukocyte esterase with 6 WBCs. Craven and RSV influenza PCR has been negative. The patient did have a chest x-ray showing minimal basal atelectasis, scarring. He also had a CT of abdomen and pelvis completed this afternoon with evidence of a large renal mass or adenopathy, findings similar; left-sided nephrostomy with no hydronephrosis; bowel wall thickening involving small bowel loops with concern for enteritis and widespread bony metastases. Infectious Disease was consulted with concern for SIRS and possible infection and need for antibiotic therapy. The patient did mention he is feeling better after he received blood transfusion. REVIEW OF SYSTEMS: Positive points have been mentioned in the HPI. Rest of the systems are negative. PAST MEDICAL HISTORY: Hypertension, hyperlipidemia, hypothyroidism, metastatic bladder cancer with metastases to the kidney and bone. PAST SURGICAL HISTORY: Hernia repair, bilateral knee replacement, right testicular surgery, colonoscopy, nephrostomy tube placement and kidney biopsy. SOCIAL HISTORY: Current everyday smoker. Admits to marijuana use. No drinking. FAMILY HISTORY: No pertinent findings noted. ALLERGIES: NO KNOWN DRUG ALLERGIES. MEDICATIONS: The patient is currently on Xanax, Norvasc, Zarxio, hydralazine, Synthroid, dolophine, Narcan, Zofran, MiraLAX, K-Dur. PHYSICAL EXAMINATION: Blood pressure 132/61 with a pulse of 85, temperature 98. He is 97% on room air. General description is an elderly male up in bed in no distress. HEENT: Examination shows pallor. No scleral icterus. Oral mucous membrane is dry. NECK: Trachea is central. No thyromegaly. LUNGS: Unlabored breathing. Clear to auscultation. No wheeze or crackle. HEART: S1, S2. Regular rate and rhythm. ABDOMEN: Soft. No tenderness. No guarding or rigidity. EXTREMITIES: No edema feet. SKIN EXAMINATION: No rash or mass palpable. Neurologically the patient is awake, alert, oriented x3. Mood and affect normal. LABS: Hemoglobin is 6.2 with white count 3.3; no left shift. BUN of 42, creatinine 1.0. Electrolytes have been normal. Liver enzymes mildly elevated. Urine was not significantly positive. Craven PCR negative. Chest x-ray did not show any pneumonia. DIAGNOSTIC IMPRESSION AND PLAN: Patient admitted to hospital with decreased hemoglobin and platelet count, more likely due to chemotherapy, as the patient is currently undergoing chemotherapy for his metastatic bladder cancer. The patient does not have any fever and currently with no obvious localizing focus of infection. The patient's urine was not significantly positive. CT of abdomen and pelvis raised the possibility of enteritis. However, the patient currently does not have any diarrhea or vomiting. PLAN: 1. Patient will be monitored closely off antibiotic therapy, as there is no obvious focus of infection. 2. Check a CRP and procalcitonin level. 3. Gentle IV fluid and continue with the current supportive treatment per Oncology. Thank you for this consultation. Will follow this patient along with you. MMODL / IJN: [id number] /
[2020-06-06] MEDS: polyethylene glycoL 3350 17 GM POWD.PACK PO SCH (20:46)
[2020-06-06 20:48] LABS: Anisocytosis Moderate; HGB 7.1 gm/dL (13.0-17.5); MCH 34.4 pg (25.0-35.0); MCHC 35.9 g/dL (31.0-37.0); MCV 95.8 fL (80.0-100.0); Macrocytosis Slight; RBC 2.07 m/uL (4.30-5.90); RDW 20.1 % (11.5-15.5); WBC 4.1 k/uL (3.8-10.6)
[2020-06-06 20:49] LABS: HCT 19.8 % (39.0-53.0); Platelet Count 30 k/uL (150-450)
[2020-06-06 21:20] LABS: Band Neutrophils % 3 %; Lymphocytes # (M) 1.56 k/uL (1.0-4.8); Monocytes # (M) 0.57 k/uL (0-1.0); Neutrophils % (M) 45 %; Nucleated Red Blood Cells 0 /100 WBC (0-0); Total Cells Counted 100
[2020-06-06 21:21] LABS: Polychromasia Present
[2020-06-07 05:49] LABS: Anisocytosis Moderate; MCH 33.5 pg (25.0-35.0); MCHC 35.4 g/dL (31.0-37.0); MCV 94.5 fL (80.0-100.0); Macrocytosis Slight; Mean Platelet Volume 8.2; RBC 1.92 m/uL (4.30-5.90); RDW 20.2 % (11.5-15.5); WBC 3.1 k/uL (3.8-10.6)
[2020-06-07 05:54] LABS: HGB 6.4 gm/dL (13.0-17.5)
[2020-06-07 05:55] LABS: HCT 18.2 % (39.0-53.0); Platelet Count 24 k/uL (150-450)
[2020-06-07 05:57] LABS: INR 1.2 (<1.2); Partial Thromboplastin Time 22.9 sec (22.0-30.0); Prothrombin Time 12.6 sec (9.0-12.0)
[2020-06-07] MEDS: LEVOTHYROXINE 125 MCG TAB PO SCH (06:07)
[2020-06-07 06:19] LABS: Band Neutrophils % 14 %; Lymphocytes # (M) 0.71 k/uL (1.0-4.8); Neutrophils % (M) 34 %; Nucleated Red Blood Cells 0 /100 WBC (0-0); Total Cells Counted 100
[2020-06-07 06:20] LABS: Anisocytosis (M) Present
[2020-06-07] MEDS: hydrALAZINE HCL 25 MG TAB PO SCH ×2 (07:49→20:56)
[2020-06-07] MEDS: amLODIPine 2.5 MG TAB PO SCH (07:49)
[2020-06-07] MEDS: SODIUM BICARBONATE TAB 650 MG TAB PO SCH ×3 (07:49→20:56)
[2020-06-07] MEDS: METHADONE 10 MG TAB PO SCH (07:50)
[2020-06-07] MEDS: POTASSIUM CHLORIDE ER 10 MEQ TAB.ER.PRT PO SCH (07:51)
[2020-06-07 10:48] LABS: African American GFR (CKD) 68.6 (60.0-200.0); Albumin 2.7 g/dL (3.80-4.90); Albumin/Globulin Ratio 1.17 (1.60-3.17); Anion Gap 6.3 mmol/L (4.00-12.00); BUN/Creat Ratio 26.67 Ratio (12.00-20.00); Calcium 8.8 mg/dL (8.7-10.3); Carbon Dioxide 28.7 mmol/L (21.6-31.8); Globulin 2.3 g/dL (1.6-3.3); Magnesium 1.6 mg/dL (1.5-2.4); Non-African American GFR(CKD) 59.2 (60.0-200.0); Potassium 3.7 mmol/L (3.5-5.5); Total Bilirubin 2.1 mg/dL (0.2-1.2)
[2020-06-07 11:06] LABS: Glucose,Whole Blood 116 mg/dL (75-99)
--- NOTE | 2020-06-07 13:15 | P.PN ---
Subjective Progress Note Date: 06/07/20 The patient has a stable generalized weakness. He states that he feels that his stomach has been rumbling but denies any actual pain. Stool was brown. Urine has been clear in the nephrostomy bag. No other unusual bleeding or bruising noted Objective - Vital Signs Vital signs: Vital Signs Temp 98.6 F 06/07/20 12:35 Pulse 69 06/07/20 12:35 Resp 18 06/07/20 12:35 BP 128/69 06/07/20 12:35 Pulse Ox 97 06/07/20 12:35 Intake & Output 06/06/20 06/07/20 06/07/20 18:59 06:59 18:59 Intake Total 310 740 0 Output Total 300 1000 Balance 10 -260 0 Intake: Oral 740 Blood Product 310 0 Rc As-1 Unit 0 [id number] Rc As-1 Unit 310 [id number] Output: Drainage 300 1000 Left Back 300 1000 Other: Voiding Method Ileal Conduit (Left) Ileal Conduit (Left) Ileal Conduit (Left) # Bowel Movements 1 - Constitutional General appearance: Present: no acute distress - EENT Eyes: Present: EOMI ENT: Present: hearing grossly normal, normal oropharynx - Neck Thyroid: bilateral: normal size - Respiratory Respiratory: bilateral: CTA - Cardiovascular Rhythm: regular Heart sounds: normal: S1, S2 - Gastrointestinal Gastrointestinal Comment(s): Left nephrostomy tube shows clear urine General gastrointestinal: Present: normal bowel sounds, soft - Integumentary Integumentary Comment(s): Scattered extremity ecchymoses resolving. No fresh ecchymosis seen - Neurologic Neurologic: Present: CNII-XII intact - Musculoskeletal Musculoskeletal: Present: generalized weakness, strength equal bilaterally - Psychiatric Psychiatric: Present: A&O x's 3, appropriate affect - Labs CBC & Chem 7: 06/07/20 04:54 06/07/20 04:54 Labs: Abnormal Lab Results - Last 24 Hours (Table) 06/04/20 06/06/20 06/06/20 Range/Units 11:55 06:06 20:22 WBC (3.8-10.6) k/uL RBC 2.07 L (4.30-5.90) m/uL Hgb 7.1 L (13.0-17.5) gm/dL Hct 19.8 L* (39.0-53.0) % RDW 20.1 H (11.5-15.5) % Plt Count 30 L (150-450) k/uL Lymphocytes # (Manual) (1.0-4.8) k/uL PT (9.0-12.0) sec INR (<1.2) BUN 42.0 H (9.0-27.0) mg/dL Est GFR (CKD-EPI)NonAf (60.0-200.0) BUN/Creatinine Ratio 42.00 H (12.00-20.00) Ratio Glucose 60 L (70-110) mg/dL POC Glucose (mg/dL) (75-99) mg/dL Total Bilirubin 2.0 H (0.2-1.2) mg/dL AST 58 H (14-35) U/L Alkaline Phosphatase 363 H (41-126) U/L Total Protein 5.1 L (6.2-8.2) g/dL Albumin 2.80 L (3.80-4.90) g/dL Albumin/Globulin Ratio 1.22 L (1.60-3.17) g/dL Crossmatch See Detail 06/07/20 06/07/20 06/07/20 Range/Units 04:54 04:54 04:54 WBC 3.1 L (3.8-10.6) k/uL RBC 1.92 L (4.30-5.90) m/uL Hgb 6.4 L* (13.0-17.5) gm/dL Hct 18.2 L* (39.0-53.0) % RDW 20.2 H (11.5-15.5) % Plt Count 24 L (150-450) k/uL Lymphocytes # (Manual) 0.71 L (1.0-4.8) k/uL PT 12.6 H (9.0-12.0) sec INR 1.2 H (<1.2) BUN 32.0 H (9.0-27.0) mg/dL Est GFR (CKD-EPI)NonAf 59.2 L (60.0-200.0) BUN/Creatinine Ratio 26.67 H (12.00-20.00) Ratio Glucose 49 L* (70-110) mg/dL POC Glucose (mg/dL) (75-99) mg/dL Total Bilirubin 2.1 H (0.2-1.2) mg/dL AST 50 H (14-35) U/L Alkaline Phosphatase 357 H (41-126) U/L Total Protein 5.0 L (6.2-8.2) g/dL Albumin 2.70 L (3.80-4.90) g/dL Albumin/Globulin Ratio 1.17 L (1.60-3.17) g/dL Crossmatch 06/07/20 Range/Units 11:03 WBC (3.8-10.6) k/uL RBC (4.30-5.90) m/uL Hgb (13.0-17.5) gm/dL Hct (39.0-53.0) % RDW (11.5-15.5) % Plt Count (150-450) k/uL Lymphocytes # (Manual) (1.0-4.8) k/uL PT (9.0-12.0) sec INR (<1.2) BUN (9.0-27.0) mg/dL Est GFR (CKD-EPI)NonAf (60.0-200.0) BUN/Creatinine Ratio (12.00-20.00) Ratio Glucose (70-110) mg/dL POC Glucose (mg/dL) 116 H (75-99) mg/dL Total Bilirubin (0.2-1.2) mg/dL AST (14-35) U/L Alkaline Phosphatase (41-126) U/L Total Protein (6.2-8.2) g/dL Albumin (3.80-4.90) g/dL Albumin/Globulin Ratio (1.60-3.17) g/dL Crossmatch Microbiology - Last 24 Hours (Table) 06/05/20 15:02 Blood Culture - Preliminary Blood No Growth after 24 hours 06/05/20 14:48 Blood Culture - Preliminary Blood No Growth after 24 hours Assessment and Plan (1) Anemia Narrative/Plan: Hemoglobin has dropped again today to 6.4 versus 7.1. The patient has no obv ious bleeding in the stool or urine. Urine has actually been clear after essentially day [address] of the abdomen and pelvis did not show any retroperitoneal bleeding. - Transfuse 1 unit PRBCs. Continue to monitor and transfuse to keep hemoglobin greater than 7 - At this time the drop in hemoglobin appears to be due to persistently compromised bone marrow function, and breakdown of previously transfuse blood. Current Visit: Yes Status: Acute Code(s): D64.9 - ANEMIA, UNSPECIFIED SNOMED Code(s): 348895895 (2) Pancytopenia due to chemotherapy Narrative/Plan: W BC and platelets have improved since admission and are currently in a safe range. Platelet is stable in the 20-30,000 range. If the patient has any evidence of active bleeding, then we will try to transfuse to keep above 40,000. Continue filgrastim, till white count is stable above 4000 Current Visit: Yes Status: Acute Code(s): D61.810 - ANTINEOPLASTIC CHEMOTHERAPY INDUCED PANCYTOPENIA SNOMED Code(s): 0507887
--- NOTE | 2020-06-07 16:37 | PN ---
PROGRESS NOTE DATE OF SERVICE: 06/07/2020 REASON FOR FOLLOWUP: with a question of infection. INTERVAL HISTORY: Patient is currently afebrile. Patient is undergoing blood transfusion and hemoglobin was 6.4. The patient denies having any chest pain or shortness of breath or cough. Denies abdominal pain. No nausea, vomiting or diarrhea. PHYSICAL EXAMINATION: Blood pressure 131/67, pulse 65. Temperature 98.4. He is 98% on room air. General description: The patient is an elderly male lying in bed in no distress. Respiratory system: Unlabored breathing, clear to auscultation anteriorly. Heart S1, S2. Regular rate and rhythm. Abdomen soft, no tenderness. LABS: Hemoglobin 6.4, white count 3.1. BUN of 32, creatinine 1.2. DIAGNOSTIC IMPRESSION AND PLAN: Patient admitted to the hospital predominantly with decreased hemoglobin and platelet count likely secondary to underlying chemotherapy. The patient received for his metastatic bladder cancer. The patient has no fever and no localizing infection. CT of abdomen and pelvis shows some enteritis, however, did not have any GI symptoms of nausea, vomiting, abdominal pain. The patient will be continued to monitored closely off antibiotic therapy and continue supportive care. MMODL / IJN: [id number] /
[2020-06-07] MEDS: FILGRASTIM-SNDZ 480 MCG/0.8 ML SYRINGE SQ SCH (17:40)
[2020-06-07] MEDS: polyethylene glycoL 3350 17 GM POWD.PACK PO SCH (20:56)
[2020-06-07] MEDS: ALPRAZolam 0.25 MG TAB PO PRN (20:56)
[2020-06-08] MEDS: LEVOTHYROXINE 125 MCG TAB PO SCH (06:19)
[2020-06-08 06:31] LABS: Anisocytosis Slight; Basophils % (A) 1 %; Eosinophils % (A) 0 %; HCT 22.1 % (39.0-53.0); HGB 7.8 gm/dL (13.0-17.5); Lymphocytes # (A) 0.8 k/uL (1.0-4.8); Lymphocytes % (A) 13 %; MCH 33.4 pg (25.0-35.0); MCHC 35.5 g/dL (31.0-37.0); MCV 94.1 fL (80.0-100.0); Macrocytosis Slight; Mean Platelet Volume 8.9; Monocytes # (A) 0.8 k/uL (0-1.0); Monocytes % (A) 14 %; Neutrophils # (A) 3.5 k/uL (1.3-7.7); RBC 2.34 m/uL (4.30-5.90); RDW 19.5 % (11.5-15.5)
[2020-06-08 07:26] LABS: Platelet Count 39 k/uL (150-450)
[2020-06-08] MEDS: hydrALAZINE HCL 25 MG TAB PO SCH ×2 (08:09→20:36)
[2020-06-08] MEDS: amLODIPine 2.5 MG TAB PO SCH (08:09)
[2020-06-08] MEDS: METHADONE 10 MG TAB PO SCH (08:10)
[2020-06-08] MEDS: SODIUM BICARBONATE TAB 650 MG TAB PO SCH ×3 (08:12→20:37)
[2020-06-08] MEDS: POTASSIUM CHLORIDE ER 10 MEQ TAB.ER.PRT PO SCH (08:12)
[2020-06-08 08:49] LABS: Band Neutrophils % 5 %; Metamyelocytes # (M) 0.06 k/uL (0); Metamyelocytes % 1 %; Myelocytes # (M) 0.06 k/uL (0); Myelocytes % 1 %; Neutrophils % (M) 51 %; Nucleated Red Blood Cells 1 /100 WBC (0-0); Total Cells Counted 200
[2020-06-08 08:50] LABS: Monocytes # (M) 1.65 k/uL (0-1.0); WBC 5.7 k/uL (3.8-10.6)
[2020-06-08 09:50] LABS: African American GFR (CKD) 62.3 (60.0-200.0); Albumin 2.8 g/dL (3.80-4.90); Albumin/Globulin Ratio 1.04 (1.60-3.17); Anion Gap 5.5 mmol/L (4.00-12.00); BUN/Creat Ratio 19.23 Ratio (12.00-20.00); C Reactive Protein 2.4 mg/dL (0.0-0.8); Calcium 8.8 mg/dL (8.7-10.3); Carbon Dioxide 28.5 mmol/L (21.6-31.8); Globulin 2.7 g/dL (1.6-3.3); Non-African American GFR(CKD) 53.8 (60.0-200.0); Potassium 3.6 mmol/L (3.5-5.5); Total Bilirubin 2.2 mg/dL (0.3-1.2); Total Protein 5.5 g/dL (6.2-8.2)
--- NOTE | 2020-06-08 10:17 | P.PN ---
Subjective Progress Note Date: 06/07/20 Miguel Mancuso, he is a 74-year-old male, who presented to [facility] emergency room with evidence of dehydration and very low urine output, he was evaluated in the emergency room vital examination on presentation revealed a temperature of 98.2 pulse 97 respiration 18 blood pressure 143/75 pulse ox 97% on room air, laboratory data revealed a white blood count of 1.3 hemoglobin 6.3 platelet count 24,000 sodium 136 potassium 3.7 chloride 104 CO2 28 BUN 45 creatinine 1.2 COVID-19 PCR was negative. Patient has a known history of metastatic renal cell carcinoma and history of iliac deep venous thrombosis. He was admitted to medical floor and oncology consultation was requested. On 06/06/2020 patient is alert and oriented 3. Patient received 2 units of PRBCs platelets 1. WBC to 3.3 hemoglobin still low at 6.2 and platelets 25. Oncology services are following. Infectious disease also consulted. Temp 98.0 heart rate 85 blood pressure 138/61 and pulse ox 97 on room air. At this time patient denies chest pain or shortness of breath. Patient denies nausea vomiting or diarrhea. Patient denies any urinary burning or frequency. Patient did state he has dark stool will order stool for occult blood On 06/07/2020 patient was seen and examined on the medical floor he is alert and oriented 3 in no distress there is no fever or chills no headache or dizziness no chest pain no shortness of breath no cough no nausea or vomiting no abdominal pain no diarrhea no blood in the stools no burning with urination no frequency or urgency and no hematuria hemoglobin is down to 6.3 today and patient is not receiving 1 unit of red blood cell transfusion oncology are following Objective - Vital Signs Vital signs: Vital Signs Temp 98.6 F 06/07/20 12:35 Pulse 69 06/07/20 12:35 Resp 18 06/07/20 12:35 BP 128/69 06/07/20 12:35 Pulse Ox 97 06/07/20 12:35 Intake & Output 06/06/20 06/07/20 06/07/20 18:59 06:59 18:59 Intake Total 310 740 0 Output Total 300 1000 Balance 10 -260 0 Intake: Oral 740 Blood Product 310 0 Rc As-1 Unit 0 [id number] Rc As-1 Unit 310 [id number] Output: Drainage 300 1000 Left Back 300 1000 Other: Voiding Method Ileal Conduit (Left) Ileal Conduit (Left) Ileal Conduit (Left) # Bowel Movements 1 - Exam In general patient is alert and oriented 3 in no apparent distress HEENT head normocephalic and atraumatic Neck is supple no JVD no goiter no lymphadenopathy Chest exam reveals a few scattered crackles no wheezing Cardiac exam reveals irregular heart sounds no gallops no murmurs Abdomen is soft nontender no organomegaly with normal bowel sounds Extremity exam reveals 2 edema no cyanosis or clubbing Neurological examination reveals no gross focal deficit - Labs CBC & Chem 7: 06/08/20 05:45 06/08/20 05:45 Labs: Abnormal Lab Results - Last 24 Hours (Table) 06/04/20 06/06/20 06/06/20 Range/Units 11:55 06:06 20:22 WBC (3.8-10.6) k/uL RBC 2.07 L (4.30-5.90) m/uL Hgb 7.1 L (13.0-17.5) gm/dL Hct 19.8 L* (39.0-53.0) % RDW 20.1 H (11.5-15.5) % Plt Count 30 L (150-450) k/uL Lymphocytes # (Manual) (1.0-4.8) k/uL PT (9.0-12.0) sec INR (<1.2) BUN 42.0 H (9.0-27.0) mg/dL Est GFR (CKD-EPI)NonAf (60.0-200.0) BUN/Creatinine Ratio 42.00 H (12.00-20.00) Ratio Glucose 60 L (70-110) mg/dL POC Glucose (mg/dL) (75-99) mg/dL Total Bilirubin 2.0 H (0.2-1.2) mg/dL AST 58 H (14-35) U/L Alkaline Phosphatase 363 H (41-126) U/L Total Protein 5.1 L (6.2-8.2) g/dL Albumin 2.80 L (3.80-4.90) g/dL Albumin/Globulin Ratio 1.22 L (1.60-3.17) g/dL Crossmatch See Detail 06/07/20 06/07/20 06/07/20 Range/Units 04:54 04:54 04:54 WBC 3.1 L (3.8-10.6) k/uL RBC 1.92 L (4.30-5.90) m/uL Hgb 6.4 L* (13.0-17.5) gm/dL Hct 18.2 L* (39.0-53.0) % RDW 20.2 H (11.5-15.5) % Plt Count 24 L (150-450) k/uL Lymphocytes # (Manual) 0.71 L (1.0-4.8) k/uL PT 12.6 H (9.0-12.0) sec INR 1.2 H (<1.2) BUN 32.0 H (9.0-27.0) mg/dL Est GFR (CKD-EPI)NonAf 59.2 L (60.0-200.0) BUN/Creatinine Ratio 26.67 H (12.00-20.00) Ratio Glucose 49 L* (70-110) mg/dL POC Glucose (mg/dL) (75-99) mg/dL Total Bilirubin 2.1 H (0.2-1.2) mg/dL AST 50 H (14-35) U/L Alkaline Phosphatase 357 H (41-126) U/L Total Protein 5.0 L (6.2-8.2) g/dL Albumin 2.70 L (3.80-4.90) g/dL Albumin/Globulin Ratio 1.17 L (1.60-3.17) g/dL Crossmatch 06/07/20 Range/Units 11:03 WBC (3.8-10.6) k/uL RBC (4.30-5.90) m/uL Hgb (13.0-17.5) gm/dL Hct (39.0-53.0) % RDW (11.5-15.5) % Plt Count (150-450) k/uL Lymphocytes # (Manual) (1.0-4.8) k/uL PT (9.0-12.0) sec INR (<1.2) BUN (9.0-27.0) mg/dL Est GFR (CKD-EPI)NonAf (60.0-200.0) BUN/Creatinine Ratio (12.00-20.00) Ratio Glucose (70-110) mg/dL POC Glucose (mg/dL) 116 H (75-99) mg/dL Total Bilirubin (0.2-1.2) mg/dL AST (14-35) U/L Alkaline Phosphatase (41-126) U/L Total Protein (6.2-8.2) g/dL Albumin (3.80-4.90) g/dL Albumin/Globulin Ratio (1.60-3.17) g/dL Crossmatch Microbiology - Last 24 Hours (Table) 06/05/20 15:02 Blood Culture - Preliminary Blood No Growth after 24 hours 06/05/20 14:48 Blood Culture - Preliminary Blood No Growth after 24 hours Assessment and Plan Plan: 1. Pancytopenia, red blood cell transfusion and platelet transfusion were ordered by hematology. Status post transfusion of 2 PRBCs and 1 unit of platelets 2. History of metastatic renal cell carcinoma followed by oncology 3. Elevated bilirubin and liver enzymes 4. History of deep venous thrombosis (iliac vein) 5. Underlying history of hypothyroidism 6. Underlying history of hypertension 7. Underlying history of chronic pain syndrome maintained on methadone Home medication reviewed and reordered Consultation for oncology initiated Will check renal function closely Will consult infectious disease Stool for occult blood ordered
[2020-06-08] MEDS ORDERED: ACETAMINOPHEN TAB 325 MG TAB PO PRN (15:13)
[2020-06-08] MEDS: FILGRASTIM-SNDZ 480 MCG/0.8 ML SYRINGE SQ SCH (15:20)
--- NOTE | 2020-06-08 16:29 | P.PN ---
Subjective Progress Note Date: 06/08/20 Patient continues to have generalized weakness but no new complaints. He has not had any obvious bleeding. Urine has been clear. No shortness of breath over baseline or new pain. Objective - Vital Signs Vital signs: Vital Signs Temp 98.4 F 06/08/20 12:17 Pulse 88 06/08/20 12:17 Resp 20 06/08/20 08:00 BP 143/65 06/08/20 12:17 Pulse Ox 97 06/08/20 12:17 Intake & Output 06/07/20 06/08/20 06/08/20 18:59 06:59 18:59 Intake Total 310 420 Output Total 1100 Balance 310 -680 Intake: Oral 420 Blood Product 310 Rc As-1 Unit 310 [id number] Output: Drainage 300 Left Back 300 Urine 800 Other: Voiding Method Ileal Conduit (Left) Ileal Conduit (Left) Ileal Conduit (Left) - Constitutional General appearance: Present: no acute distress - EENT Eyes: Present: EOMI ENT: Present: hearing grossly normal, normal oropharynx - Respiratory Respiratory: bilateral: CTA - Cardiovascular Rhythm: regular Heart sounds: normal: S1, S2 - Gastrointestinal General gastrointestinal: Present: normal bowel sounds, soft - Integumentary Integumentary Comment(s): Scattered ecchymosis - Neurologic Neurologic: Present: CNII-XII intact - Musculoskeletal Musculoskeletal: Present: generalized weakness, strength equal bilaterally - Psychiatric Psychiatric: Present: A&O x's 3, appropriate affect - Labs CBC & Chem 7: 06/08/20 05:45 06/08/20 05:45 Labs: Abnormal Lab Results - Last 24 Hours (Table) 06/08/20 06/08/20 06/08/20 Range/Units 05:45 05:45 05:45 RBC 2.34 L (4.30-5.90) m/uL Hgb 7.8 L (13.0-17.5) gm/dL Hct 22.1 L (39.0-53.0) % RDW 19.5 H (11.5-15.5) % Plt Count 39 L D (150-450) k/uL Lymphocytes # 0.8 L (1.0-4.8) k/uL Lymphocytes # (Manual) 0.80 L (1.0-4.8) k/uL Monocytes # (Manual) 1.65 H (0-1.0) k/uL Metamyelocytes # (Man) 0.06 H (0) k/uL Myelocytes # (Manual) 0.06 H (0) k/uL Nucleated RBCs 1 H (0-0) /100 WBC Est GFR (CKD-EPI)NonAf 53.8 L (60.0-200.0) Glucose 66 L (70-110) mg/dL Total Bilirubin 2.2 H (0.3-1.2) mg/dL AST 55 H (14-35) U/L Alkaline Phosphatase 415 H (41-126) U/L C-Reactive Protein 2.4 H (0.0-0.8) mg/dL Total Protein 5.5 L (6.2-8.2) g/dL Albumin 2.80 L (3.80-4.90) g/dL Albumin/Globulin Ratio 1.04 L (1.60-3.17) g/dL Procalcitonin 0.30 H (0.02-0.09) ng/mL Microbiology - Last 24 Hours (Table) 06/05/20 15:02 Blood Culture - Preliminary Blood No Growth after 48 hours 06/05/20 14:48 Blood Culture - Preliminary Blood No Growth after 48 hours Assessment and Plan (1) Anemia Narrative/Plan: Hemoglobin is stable today for the first day posttransfusion yesterday. It was 7.8. No obvious bleeding. Continue to monitor. If hemoglobin remains stable, patient can likely be discharged tomorrow. Current Visit: Yes Status: Acute Code(s): D64.9 - ANEMIA, UNSPECIFIED SNOMED Code(s): 165867203 (2) Pancytopenia due to chemotherapy Narrative/Plan: Plan for anemia as above. WBC is now normal at 5.7. Discontinue filgrastim. Platelet counts are also stable in the safe range with no obvious bleeding. As noted, if counts remain stable, patient can be discharged in a.m. Current Visit: Yes Status: Acute Code(s): D61.810 - ANTINEOPLASTIC CHEMOTHERAPY INDUCED PANCYTOPENIA SNOMED Code(s): 1897844 (3) Urothelial carcinoma Narrative/Plan: The patient's chemotherapy will be on hold post discharge, till he follows up in the office with his primary oncologist. Current Visit: Yes Status: Acute Code(s): C68.9 - MALIGNANT NEOPLASM OF URINARY ORGAN, UNSPECIFIED SNOMED Code(s): 696494036
[2020-06-08] MEDS: polyethylene glycoL 3350 17 GM POWD.PACK PO SCH (20:36)
[2020-06-08] MEDS: ALPRAZolam 0.25 MG TAB PO PRN (22:44)
--- NOTE | 2020-06-09 05:19 | PN ---
PROGRESS NOTE DATE OF SERVICE: 06/08/2020 REASON FOR FOLLOW UP: SIRS and question of infection. INTERVAL HISTORY: The patient is currently afebrile. The patient is breathing comfortably. Patient denies having any chest pain, shortness of breath or cough. No nausea, vomiting. No abdominal pain. No diarrhea. PHYSICAL EXAMINATION: Blood pressure 137/46, pulse of 92, temperature 98.6. He is 93% on room air. General description: The patient is an elderly male lying in bed in no distress. Respiratory system: Unlabored breathing, clear to auscultation anteriorly. Heart S1, S2. Regular rate and rhythm. ABDOMEN: Soft, no tenderness. EXTREMITIES: No edema of the feet. LAB: His white count has normalized. Blood culture has been negative. DIAGNOSTIC IMPRESSION AND PLAN: Patient admitted to the hospital with low hemoglobin and platelet counts likely from underlying chemo with no localizing signs, symptoms of infection. Cultures have been negative. The patient did well off antibiotic therapy. Recommend no antibiotic on discharge. MMODL / IJN: [id number] /
[2020-06-09 05:48] LABS: Anisocytosis Slight; HCT 23.8 % (39.0-53.0); HGB 8.4 gm/dL (13.0-17.5); MCH 33.3 pg (25.0-35.0); MCHC 35.2 g/dL (31.0-37.0); MCV 94.6 fL (80.0-100.0); Macrocytosis Slight; Mean Platelet Volume 8.3; RBC 2.52 m/uL (4.30-5.90); RDW 19.4 % (11.5-15.5)
[2020-06-09 06:15] LABS: Band Neutrophils % 28 %; Metamyelocytes % 4 %; Myelocytes % 2 %; Neutrophils % (M) 25 %; Nucleated Red Blood Cells 2 /100 WBC (0-0); Total Cells Counted 200
[2020-06-09 06:16] LABS: Eosinophils # (M) 0.18 k/uL (0-0.7); Lymphocytes # (M) 2.91 k/uL (1.0-4.8); Metamyelocytes # (M) 0.73 k/uL (0); Monocytes # (M) 4.37 k/uL (0-1.0); Myelocytes # (M) 0.36 k/uL (0); Polychromasia Present; WBC 18.2 k/uL (3.8-10.6)
[2020-06-09 06:17] LABS: Platelet Count 84 k/uL (150-450)
[2020-06-09] MEDS: LEVOTHYROXINE 125 MCG TAB PO SCH (06:28)
[2020-06-09] MEDS: POTASSIUM CHLORIDE ER 10 MEQ TAB.ER.PRT PO SCH (09:18)
[2020-06-09] MEDS: METHADONE 10 MG TAB PO SCH (09:19)
[2020-06-09] MEDS: hydrALAZINE HCL 25 MG TAB PO SCH (09:19)
[2020-06-09] MEDS: amLODIPine 2.5 MG TAB PO SCH (09:23)
[2020-06-09] MEDS: SODIUM BICARBONATE TAB 650 MG TAB PO SCH (09:23)
[2020-06-09 09:25] LABS: African American GFR (CKD) 62.3 (60.0-200.0); Albumin 2.9 g/dL (3.80-4.90); Albumin/Globulin Ratio 1.04 (1.60-3.17); Anion Gap 8.4 mmol/L (4.00-12.00); BUN/Creat Ratio 16.15 Ratio (12.00-20.00); Calcium 8.6 mg/dL (8.7-10.3); Carbon Dioxide 26.6 mmol/L (21.6-31.8); Globulin 2.8 g/dL (1.6-3.3); Non-African American GFR(CKD) 53.8 (60.0-200.0); Potassium 3.6 mmol/L (3.5-5.5); Total Bilirubin 1.9 mg/dL (0.3-1.2); Total Protein 5.7 g/dL (6.2-8.2)
[2020-06-09 13:00] VITALS: BP 133/65; PULSE 89; RESP 17; TEMP 97.7
--- NOTE | 2020-06-09 13:32 | P.PN ---
Subjective Progress Note Date: 06/08/20 Miguel Mancuso, he is a 74-year-old male, who presented to [facility] emergency room with evidence of dehydration and very low urine output, he was evaluated in the emergency room vital examination on presentation revealed a temperature of 98.2 pulse 97 respiration 18 blood pressure 143/75 pulse ox 97% on room air, laboratory data revealed a white blood count of 1.3 hemoglobin 6.3 platelet count 24,000 sodium 136 potassium 3.7 chloride 104 CO2 28 BUN 45 creatinine 1.2 COVID-19 PCR was negative. Patient has a known history of metastatic renal cell carcinoma and history of iliac deep venous thrombosis. He was admitted to medical floor and oncology consultation was requested. On 06/06/2020 patient is alert and oriented 3. Patient received 2 units of PRBCs platelets 1. WBC to 3.3 hemoglobin still low at 6.2 and platelets 25. Oncology services are following. Infectious disease also consulted. Temp 98.0 heart rate 85 blood pressure 138/61 and pulse ox 97 on room air. At this time patient denies chest pain or shortness of breath. Patient denies nausea vomiting or diarrhea. Patient denies any urinary burning or frequency. Patient did state he has dark stool will order stool for occult blood On 06/07/2020 patient was seen and examined on the medical floor he is alert and oriented 3 in no distress there is no fever or chills no headache or dizziness no chest pain no shortness of breath no cough no nausea or vomiting no abdominal pain no diarrhea no blood in the stools no burning with urination no frequency or urgency and no hematuria hemoglobin is down to 6.3 today and patient is not receiving 1 unit of red blood cell transfusion oncology are following On 06/08/2020 patient was seen and examined on the medical floor he is alert and oriented 3 he denies any symptoms there is no fever or chills no headache or dizziness no chest pain no shortness of breath no cough no nausea or vomiting no abdominal pain no diarrhea no blood in the stools no burning with urination no frequency or urgency and no hematuria hemoglobin is up to 7.8 after receiving 1 unit of red blood cell transfusion yesterday, awaiting further recommendation by oncology. Objective - Vital Signs Vital signs: Vital Signs Temp 98.4 F 06/08/20 12:17 Pulse 88 05/02/21 12:17 Resp 20 06/08/20 08:00 BP 143/65 06/08/20 12:17 Pulse Ox 97 06/08/20 12:17 Intake & Output 06/07/20 06/08/20 06/08/20 18:59 06:59 18:59 Intake Total 310 420 Output Total 1100 Balance 310 -680 Intake: Oral 420 Blood Product 310 Rc As-1 Unit 310 [id number] Output: Drainage 300 Left Back 300 Urine 800 Other: Voiding Method Ileal Conduit (Left) Ileal Conduit (Left) Ileal Conduit (Left) - Exam In general patient is alert and oriented 3 in no apparent distress HEENT head normocephalic and atraumatic Neck is supple no JVD no goiter no lymphadenopathy Chest exam reveals a few scattered crackles no wheezing Cardiac exam reveals irregular heart sounds no gallops no murmurs Abdomen is soft nontender no organomegaly with normal bowel sounds Extremity exam reveals 2 edema no cyanosis or clubbing Neurological examination reveals no gross focal deficit - Labs CBC & Chem 7: 06/09/20 05:10 06/09/20 05:10 Labs: Abnormal Lab Results - Last 24 Hours (Table) 06/04/20 06/08/20 06/08/20 Range/Units 11:55 05:45 05:45 RBC (4.30-5.90) m/uL Hgb (13.0-17.5) gm/dL Hct (39.0-53.0) % RDW (11.5-15.5) % Plt Count (150-450) k/uL Lymphocytes # (1.0-4.8) k/uL Lymphocytes # (Manual) (1.0-4.8) k/uL Monocytes # (Manual) (0-1.0) k/uL Metamyelocytes # (Man) (0) k/uL Myelocytes # (Manual) (0) k/uL Nucleated RBCs (0-0) /100 WBC Est GFR (CKD-EPI)NonAf 53.8 L (60.0-200.0) Glucose 66 L (70-110) mg/dL Total Bilirubin 2.2 H (0.3-1.2) mg/dL AST 55 H (14-35) U/L Alkaline Phosphatase 415 H (41-126) U/L C-Reactive Protein 2.4 H (0.0-0.8) mg/dL Total Protein 5.5 L (6.2-8.2) g/dL Albumin 2.80 L (3.80-4.90) g/dL Albumin/Globulin Ratio 1.04 L (1.60-3.17) g/dL Procalcitonin 0.30 H (0.02-0.09) ng/mL Crossmatch See Detail 06/08/20 Range/Units 05:45 RBC 2.34 L (4.30-5.90) m/uL Hgb 7.8 L (13.0-17.5) gm/dL Hct 22.1 L (39.0-53.0) % RDW 19.5 H (11.5-15.5) % Plt Count 39 L D (150-450) k/uL Lymphocytes # 0.8 L (1.0-4.8) k/uL Lymphocytes # (Manual) 0.80 L (1.0-4.8) k/uL Monocytes # (Manual) 1.65 H (0-1.0) k/uL Metamyelocytes # (Man) 0.06 H (0) k/uL Myelocytes # (Manual) 0.06 H (0) k/uL Nucleated RBCs 1 H (0-0) /100 WBC Est GFR (CKD-EPI)NonAf (60.0-200.0) Glucose (70-110) mg/dL Total Bilirubin (0.3-1.2) mg/dL AST (14-35) U/L Alkaline Phosphatase (41-126) U/L C-Reactive Protein (0.0-0.8) mg/dL Total Protein (6.2-8.2) g/dL Albumin (3.80-4.90) g/dL Albumin/Globulin Ratio (1.60-3.17) g/dL Procalcitonin (0.02-0.09) ng/mL Crossmatch Microbiology - Last 24 Hours (Table) 06/05/20 15:02 Blood Culture - Preliminary Blood No Growth after 48 hours 06/05/20 14:48 Blood Culture - Preliminary Blood No Growth after 48 hours Assessment and Plan Plan: 1. Pancytopenia, red blood cell transfusion and platelet transfusion were ordered by hematology. Status post transfusion of 2 PRBCs and 1 unit of platelets 2. History of metastatic renal cell carcinoma followed by oncology 3. Elevated bilirubin and liver enzymes 4. History of deep venous thrombosis (iliac vein) 5. Underlying history of hypothyroidism 6. Underlying history of hypertension 7. Underlying history of chronic pain syndrome maintained on methadone Home medication reviewed and reordered Consultation for oncology initiated Will check renal function closely Will consult infectious disease Stool for occult blood ordered
--- NOTE | 2020-06-09 13:36 | P.DS ---
Providers Date of admission: 06/04/20 16:02 Expected date of discharge: 06/09/20 Attending physician: Isma Cohen Consults: 06/04/20 14:09 Consult Physician Urgent Consulting Provider: Balwinder Lund Consult Reason/Comments: bladder cancer with mets Do you want consulting provider notified?: Yes 06/05/20 17:18 Consult Physician Routine Consulting Provider: Sherrie Sheehan Consult Reason/Comments: possible sepsis Do you want consulting provider notified?: Yes Primary care physician: Isma [facility] Course: Diagnosis on discharge: 1. Pancytopenia, red blood cell transfusion and platelet transfusion were ordered by hematology. Status post transfusion of 2 PRBCs and 1 unit of platelets 2. History of metastatic renal cell carcinoma followed by oncology 3. Elevated bilirubin and liver enzymes 4. History of deep venous thrombosis (iliac vein) 5. Underlying history of hypothyroidism 6. Underlying history of hypertension 7. Underlying history of chronic pain syndrome maintained on methadone Hospital course: Miguel Mancuso, he is a 74-year-old male, who presented to [facility] emergency room with evidence of dehydration and very low urine output, he was evaluated in the emergency room vital examination on presentation revealed a temperature of 98.2 pulse 97 respiration 18 blood pressure 143/75 pulse ox 97% on room air, laboratory data revealed a white blood count of 1.3 hemoglobin 6.3 platelet count 24,000 sodium 136 potassium 3.7 chloride 104 CO2 28 BUN 45 creatinine 1.2 COVID-19 PCR was negative. Patient has a known history of metastatic renal cell carcinoma and history of iliac deep venous thrombosis. He was admitted to medical floor and oncology consultation was requested. On 06/06/2020 patient is alert and oriented 3. Patient received 2 units of PRBCs platelets 1. WBC to 3.3 hemoglobin still low at 6.2 and platelets 25. Oncology services are following. Infectious disease also consulted. Temp 98.0 heart rate 85 blood pressure 138/61 and pulse ox 97 on room air. At this time patient denies chest pain or shortness of breath. Patient denies nausea vomiting or diarrhea. Patient denies any urinary burning or frequency. Patient did state he has dark stool will order stool for occult blood On 06/07/2020 patient was seen and examined on the medical floor he is alert and oriented 3 in no distress there is no fever or chills no headache or dizziness no chest pain no shortness of breath no cough no nausea or vomiting no abdominal pain no diarrhea no blood in the stools no burning with urination no frequency or urgency and no hematuria hemoglobin is down to 6.3 today and patient is not receiving 1 unit of red blood cell transfusion oncology are following On 06/08/2020 patient was seen and examined on the medical floor he is alert and oriented 3 he denies any symptoms there is no fever or chills no headache or dizziness no chest pain no shortness of breath no cough no nausea or vomiting no abdominal pain no diarrhea no blood in the stools no burning with urination no frequency or urgency and no hematuria hemoglobin is up to 7.8 after receiving 1 unit of red blood cell transfusion yesterday, awaiting further recommendation by oncology. On 06/09/2020 patient was seen and examined on the medical floor he is alert and oriented 3 in no distress there is no fever or chills no headache or dizziness no chest pain no shortness of breath no cough no nausea or vomiting no abdominal pain no diarrhea no blood in the stools no burning with urination no frequency or urgency and no hematuria hemoglobin is up to 8.4 patient will be discharged home today, follow up with Dr Lund in the next few days Patient Condition at Discharge: Stable Plan - Discharge Summary Discharge Rx Participant: Yes New Discharge Prescriptions: Continue Levothyroxine Sodium [Synthroid] 125 mcg PO DAILY ALPRAZolam [Xanax] 0.25 mg PO HS PRN PRN Reason: Anxiety Methadone HCl [Methadone Intensol] 146 mg PO DAILY hydrALAZINE HCL [Apresoline] 25 mg PO BID tab Sodium Bicarbonate Tab 650 mg PO TID tab polyethylene glycoL 3350 [Miralax] 17 gm PO HS Ondansetron [Zofran] 4 mg PO Q4H PRN PRN Reason: Nausea Potassium Chloride 10 meq PO DAILY amLODIPine [Norvasc] 2.5 mg PO DAILY Discharge Medication List ALPRAZolam [Xanax] 0.25 mg PO HS PRN 03/08/20 [History] Levothyroxine Sodium [Synthroid] 125 mcg PO DAILY 03/08/20 [History] Methadone HCl [Methadone Intensol] 146 mg PO DAILY 03/08/20 [History] Sodium Bicarbonate Tab 650 mg PO TID tab 03/15/20 [Rx] hydrALAZINE HCL [Apresoline] 25 mg PO BID tab 03/15/20 [Rx] polyethylene glycoL 3350 [Miralax] 17 gm PO HS 04/17/20 [History] Ondansetron [Zofran] 4 mg PO Q4H PRN 05/12/20 [History] Potassium Chloride 10 meq PO DAILY 06/04/20 [History] amLODIPine [Norvasc] 2.5 mg PO DAILY 06/04/20 [History] Follow up Appointment(s)/Referral(s): Isma Cohen MD [Primary Care Provider] - 1-2 days
--- NOTE | 2020-06-09 18:12 | P.PN ---
Subjective Progress Note Date: 06/09/20 the patient denies any new complaints. Generalized weakness persists but he feels somewhat stronger. Bowel movements have been fairly regular. No obvious bleeding. No fresh bruising noted. Objective - Vital Signs Vital signs: Vital Signs Temp 97.7 F 06/09/20 13:00 Pulse 89 06/09/20 13:00 Resp 17 06/09/20 13:00 BP 133/65 06/09/20 13:00 Pulse Ox 95 06/09/20 13:00 Intake & Output 06/08/20 06/09/20 06/09/20 18:59 06:59 18:59 Intake Total 160 Output Total 150 450 700 Balance 10 -450 -700 Weight 79.379 kg Intake: Oral 160 Output: Drainage 150 200 Left Back 150 200 Urine 250 700 Other: Voiding Method Ileal Conduit (Left) Ileal Conduit (Left) Ileal Conduit (Left) # Voids 3 0 - Constitutional General appearance: Present: no acute distress - EENT Eyes: Present: EOMI ENT: Present: hearing grossly normal, normal oropharynx - Respiratory Respiratory: bilateral: CTA - Cardiovascular Rhythm: regular Heart sounds: normal: S1, S2 - Gastrointestinal General gastrointestinal: Present: normal bowel sounds, soft - Integumentary Integumentary Comment(s): added bruises on trunk and upper extremity, mostly states of resolution - Neurologic Neurologic: Present: CNII-XII intact - Musculoskeletal Musculoskeletal: Present: generalized weakness, strength equal bilaterally - Psychiatric Psychiatric: Present: A&O x's 3 - Labs CBC & Chem 7: 06/09/20 05:10 06/09/20 05:10 Labs: Abnormal Lab Results - Last 24 Hours (Table) 06/09/20 06/09/20 Range/Units 05:10 05:10 WBC 18.2 H (3.8-10.6) k/uL RBC 2.52 L (4.30-5.90) m/uL Hgb 8.4 L (13.0-17.5) gm/dL Hct 23.8 L (39.0-53.0) % RDW 19.4 H (11.5-15.5) % Plt Count 84 L D (150-450) k/uL Neutrophils # (Manual) 9.60 H (1.3-7.7) k/uL Monocytes # (Manual) 4.37 H (0-1.0) k/uL Metamyelocytes # (Man) 0.73 H (0) k/uL Myelocytes # (Manual) 0.36 H (0) k/uL Nucleated RBCs 2 H (0-0) /100 WBC Est GFR (CKD-EPI)NonAf 53.8 L (60.0-200.0) Calcium 8.6 L (8.7-10.3) mg/dL Total Bilirubin 1.9 H (0.3-1.2) mg/dL AST 69 H (14-35) U/L Alkaline Phosphatase 467 H (41-126) U/L Total Protein 5.7 L (6.2-8.2) g/dL Albumin 2.90 L (3.80-4.90) g/dL Albumin/Globulin Ratio 1.04 L (1.60-3.17) g/dL Microbiology - Last 24 Hours (Table) 06/05/20 14:48 Blood Culture - Preliminary Blood No Growth after 96 hours 06/05/20 15:02 Blood Culture - Preliminary Blood No Growth after 96 hours Assessment and Plan (1) Anemia Narrative/Plan: would estimate today without transfusion, over the past 24 hours. It was 8.4 today versus 7.8 yesterday. No obvious bleeding. Status: Acute Code(s): D64.9 - ANEMIA, UNSPECIFIED SNOMED Code(s): 601311011 (2) Pancytopenia due to chemotherapy Narrative/Plan: WBC is now 15.2. Filgrastim will be discontinued.. Count up to 84 from 39, giving further indication of bone marrow recovery. she does also symptomatically improved. Therefore from our standpoint he is okay for discharge, whenever okay by the admitting service Status: Acute Code(s): D61.810 - ANTINEOPLASTIC CHEMOTHERAPY INDUCED PANCYTOPENIA SNOMED Code(s): 3512760 (3) Urothelial carcinoma Narrative/Plan: she has had some increasing toxicity with his current regimen leading up to this admission. Therefore current regimen will be placed on hold, until the patient sees in the office for follow-up. Appointment will be arranged. Status: Acute Code(s): C68.9 - MALIGNANT NEOPLASM OF URINARY ORGAN, UNSPECIFIED SNOMED Code(s): 901068119
--- NOTE | 2020-06-10 05:41 | P.PN ---
Progress Note - Text Progress Note Date: 06/09/20 REASON FOR FOLLOW UP: SIRS and question of infection. INTERVAL HISTORY: The patient is afebrile. The patient is breathing comfortably. Patient denies chest pain, shortness of breath or cough. No nausea, vomiting. No abdominal pain. No diarrhea. PHYSICAL EXAMINATION: Blood pressure 130/56, pulse of 92, temperature 98.6. He is 93% on room air. General description: The patient is an elderly male lying in bed in no distress. Respiratory system: Unlabored breathing, clear to auscultation anteriorly. Heart S1, S2. Regular rate and rhythm. ABDOMEN: Soft, no tenderness. EXTREMITIES: No edema of the feet. LAB: His white count elevated. Blood culture has been negative. DIAGNOSTIC IMPRESSION AND PLAN: Patient admitted to the hospital with low hemoglobin and platelet counts likely from underlying chemo with no localizing signs, symptoms of infection. Cultures have been negative. The patient did well off antibiotic therapy. leukocytosis more likely drug effect Recommend no antibiotic on discharge.
== END 2020-06-09 16:00 | disposition home or self-care (01) | DRG 809 ==
LOC: EC 11:00 → 5NMEDONC 16:02
PROVIDERS: ADMIT Internal Medicine; ATTEND Internal Medicine
PROC: 30233N1 Transfusion of Nonautologous Red Blood Cells into Peripheral Vein, Percutaneous Approach (ICD-10-PCS; principal; 2020-06-04)
PROC: 30233R1 Transfusion of Nonautologous Platelets into Peripheral Vein, Percutaneous Approach (ICD-10-PCS; 2020-06-04)
DX: D61.810 Antineoplastic chemotherapy induced pancytopenia (principal); C64.9 Malignant neoplasm of unspecified kidney, except renal pelvis; N17.9 Acute kidney failure, unspecified; I82.429 Acute embolism and thrombosis of unspecified iliac vein; C79.51 Secondary malignant neoplasm of bone; R65.10 Systemic inflammatory response syndrome (SIRS) of non-infectious origin without acute organ dysfunction; C79.00 Secondary malignant neoplasm of unspecified kidney and renal pelvis; C67.9 Malignant neoplasm of bladder, unspecified; E78.5 Hyperlipidemia, unspecified; F17.200 Nicotine dependence, unspecified, uncomplicated; E86.0 Dehydration; Z20.822 Contact with and (suspected) exposure to COVID-19; Z79.890 Hormone replacement therapy; I10 Essential (primary) hypertension; G89.4 Chronic pain syndrome; F11.90 Opioid use, unspecified, uncomplicated; Z86.718 Personal history of other venous thrombosis and embolism; Z96.653 Presence of artificial knee joint, bilateral; Z85.51 Personal history of malignant neoplasm of bladder; B18.2 Chronic viral hepatitis C; E03.9 Hypothyroidism, unspecified
CPT/HCPCS: 36415; 71046; 74176; 80048; 80053; 81001; 82248; 83010; 83605; 83615; 83735; 84145; 85025; 85384; 85610; 85730; 86140; 86850; 86900; 86901; 86920; 87040; 87636; 93005; 99213; 99285

== ENCOUNTER 2020-06-16 09:58 | Day surgery (SDC) | payer MEDICARE ==
[2020-06-16 10:54] VITALS: BP 144/65; PULSE 90; RESP 18; TEMP 98.2
== END 2020-06-16 10:40 | disposition home or self-care (01) ==
LOC: RADPROMAIN 09:58
PROVIDERS: ATTEND Radiology Diagnostic Radiology
DX: Z43.6 Encounter for attention to other artificial openings of urinary tract (principal)
CPT/HCPCS: 99213

== ENCOUNTER 2020-06-23 15:24 | Day surgery (SDC) | payer MEDICARE ==
[2020-06-23 15:59] VITALS: BP 146/79; PULSE 88; RESP 16; TEMP 98.3
== END 2020-06-23 16:02 | disposition home or self-care (01) ==
LOC: RADPROMAIN 15:24
PROVIDERS: ATTEND Radiology Diagnostic Radiology
DX: Z43.6 Encounter for attention to other artificial openings of urinary tract (principal)
CPT/HCPCS: 99213

== ENCOUNTER 2020-06-30 12:21 | Day surgery (SDC) | payer MEDICARE ==
[2020-06-30 12:30] VITALS: BP 166/72; PULSE 89; RESP 18; TEMP 98.9
== END 2020-06-30 12:49 | disposition home or self-care (01) ==
LOC: RADPROMAIN 12:21
PROVIDERS: ATTEND Radiology Diagnostic Radiology
DX: Z43.8 Encounter for attention to other artificial openings (principal)
CPT/HCPCS: 99213

== ENCOUNTER 2020-07-08 15:31 | Day surgery (SDC) | payer MEDICARE ==
[2020-07-08 16:04] VITALS: BP 154/63; PULSE 88; RESP 14; TEMP 98.2
== END 2020-07-08 16:00 | disposition home or self-care (01) ==
LOC: RADPROMAIN 15:31
PROVIDERS: ATTEND Radiology Diagnostic Radiology
DX: Z43.8 Encounter for attention to other artificial openings (principal)
CPT/HCPCS: 99213

== ENCOUNTER 2020-07-14 09:40 | Day surgery (SDC) | payer MEDICARE ==
[2020-07-14 10:07] VITALS: BP 135/60; PULSE 86; RESP 16; TEMP 98.5
== END 2020-07-14 10:10 | disposition home or self-care (01) ==
LOC: RADPROMAIN 09:40
PROVIDERS: ATTEND Radiology Diagnostic Radiology
DX: Z43.8 Encounter for attention to other artificial openings (principal)
CPT/HCPCS: 99213

== ENCOUNTER 2020-07-23 14:38 | Day surgery (SDC) | payer MEDICARE ==
[2020-07-23 16:49] VITALS: BP 163/67; PULSE 78; RESP 16; TEMP 98.3
== END 2020-07-23 16:15 | disposition home or self-care (01) ==
LOC: RADPROMAIN 14:38
PROVIDERS: ATTEND Radiology Diagnostic Radiology
DX: Z43.6 Encounter for attention to other artificial openings of urinary tract (principal)
CPT/HCPCS: 99213

== ENCOUNTER 2020-07-28 15:02 | Day surgery (SDC) | payer MEDICARE ==
[2020-07-28 16:16] VITALS: BP 138/76; PULSE 68; RESP 18; TEMP 98.1
== END 2020-07-28 16:21 | disposition home or self-care (01) ==
LOC: RADPROMAIN 15:02
PROVIDERS: ATTEND Radiology Diagnostic Radiology
DX: Z43.6 Encounter for attention to other artificial openings of urinary tract (principal)

== ENCOUNTER 2020-08-06 08:31 | Day surgery (SDC) | payer MEDICARE ==
[2020-08-06 09:15] VITALS: BP 151/72; PULSE 86; RESP 16; TEMP 98.2
== END 2020-08-06 09:33 | disposition home or self-care (01) ==
LOC: RADPROMAIN 08:31
PROVIDERS: ATTEND Radiology Diagnostic Radiology
DX: Z43.6 Encounter for attention to other artificial openings of urinary tract (principal)
CPT/HCPCS: 99213

== ENCOUNTER 2020-08-14 07:49 | Day surgery (SDC) | payer MEDICARE ==
[2020-08-14 08:18] VITALS: BP 153/66; PULSE 83; RESP 16; TEMP 98.3
== END 2020-08-14 08:40 | disposition home or self-care (01) ==
LOC: RADPROMAIN 07:49
PROVIDERS: ATTEND Radiology Diagnostic Radiology
DX: Z43.9 Encounter for attention to unspecified artificial opening (principal)
CPT/HCPCS: 99213

== ENCOUNTER 2020-08-21 09:03 | Inpatient (IN) | payer MEDICARE ==
[2020-08-21] MEDS ORDERED: SODIUM CHLORIDE 0.9% 500 ML 500 ML IV STA (09:32)
--- NOTE | 2020-08-21 09:35 | ED ---
General Adult HPI - General Chief complaint: Recheck/Abnormal Lab/Rx Stated complaint: Abnormal labs Time Seen by Provider: 08/21/20 09:10 Source: patient, family, RN notes reviewed, old records reviewed Mode of arrival: wheelchair Limitations: no limitations - History of Present Illness Initial comments: 74-year-old male presenting with abnormal outpatient testing. Patient found to have an elevated bilirubin. He is currently being treated for renal cell carcinoma. His indicates that this is stage IV. He is currently on immunotherapy. He had a lab drawn yesterday which noted that the bilirubin and liver enzymes were elevated. He has remote history of hepatitis C status post treatment. He has followed with gastroenterology and has had an episode of jaundice in the past, several months ago. This was felt to be medication related. No reported fever. No abdominal pain. - Related Data Home Medications Medication Instructions Recorded Confirmed ALPRAZolam [Xanax] 0.25 mg PO HS 03/08/20 08/21/20 Levothyroxine Sodium [Synthroid] 125 mcg PO DAILY 03/08/20 08/21/20 Methadone HCl [Methadone Intensol] 146 mg PO DAILY 03/08/20 08/21/20 polyethylene glycoL 3350 [Miralax] 17 gm PO HS 04/17/20 08/21/20 Ondansetron [Zofran] 4 mg PO Q4H PRN 05/12/20 08/21/20 Potassium Chloride 10 meq PO DAILY 06/04/20 08/21/20 amLODIPine [Norvasc] 2.5 mg PO DAILY 06/04/20 08/21/20 Hydrocodone/Acetaminophen [[place] 1 tab PO Q6HR PRN 08/21/20 08/21/20 7.5-325] Pantoprazole [Protonix] 40 mg PO BID 08/21/20 08/21/20 SILVER sulfADIAZINE Cream 1 applic TOPICAL BID 08/21/20 08/21/20 [Silvadene 1% Cream] Torsemide [Demadex] 20 mg PO Q48H 08/21/20 08/21/20 Previous Rx's Medication Instructions Recorded Sodium Bicarbonate Tab 650 mg PO TID tab 03/15/20 hydrALAZINE HCL [Apresoline] 25 mg PO BID tab 03/15/20 Allergies Allergy/AdvReac Type Severity Reaction Status Date / Time No Known Allergies Allergy Verified 08/21/20 10:19 Review of Systems ROS Statement: Those systems with pertinent positive or pertinent negative responses have been documented in the HPI. ROS Other: All systems not noted in ROS Statement are negative. Past Medical History Past Medical History: Cancer, Hyperlipidemia, Hypertension, Renal Disease, Thyroid Disorder Additional Past Medical History / Comment(s): [place] treament for pain control, patient takes methadone. HEPATITIS C from past drug abuse, anuria, renal failure, renal CA, urothelial carcinoma, bone mets, Right iliac met lesion, Chemo therapy History of Any Multi-Drug Resistant Organisms: None Reported Past Surgical History: Hernia Repair, Orthopedic Surgery Additional Past Surgical History / Comment(s): bilateral knee replacement, right testicle sx 2020, colonoscopy, nephrostomy tube, Kidney mass biopsy Past Anesthesia/Blood Transfusion Reactions: No Reported Reaction Past Psychological History: Anxiety Smoking Status: Current some day smoker, Light tobacco smoker Past Alcohol Use History: None Reported Past Drug Use History: Marijuana, Prescription Drug Abuse - Past Family History Father History Unknown: Yes General Exam Limitations: no limitations General appearance: alert, in no apparent distress Head exam: Present: atraumatic, normocephalic Eye exam: Present: normal appearance, PERRL, scleral icterus ENT exam: Present: mucous membranes dry Respiratory exam: Present: normal lung sounds bilaterally. Absent: respiratory distress, wheezes Cardiovascular Exam: Present: regular rate, normal rhythm GI/Abdominal exam: Present: distended. Absent: tenderness, guarding, rebound Extremities exam: Present: normal capillary refill Neurological exam: Present: alert, oriented X3, CN II-XII intact. Absent: motor sensory deficit Skin exam: Present: warm, dry, other (Jaundice) Course Vital Signs 08/21/20 08/21/20 09:04 10:06 Temperature 97.5 F L Pulse Rate 86 75 Respiratory 18 16 Rate Blood Pressure 150/71 149/87 O2 Sat by Pulse 96 94 L Oximetry Medical Decision Making - Medical Decision Making 74-year-old male presenting for evaluation of jaundice and abnormal outpatient testing. He was scheduled to receive a CT abdomen and pelvis without contrast as an outpatient. This was ordered in the emergency department which did show an ill-defined mass at the hilum of the liver. This may be obstructing. He states that in May he had an MRI of the biliary system and this was unremarkable according to the patient. These results are not available in our system. He does have significant laboratory abnormalities including hyperbilirubinemia at 7.9. He has a lactic acid of 3.6 which is suspect is from dehydration rather than from sepsis. The patient is afebrile with stable blood pressure. Normal white blood cell count. Hemoglobin is stable and improved for this patient 10.4. He has normal platelets. His INR is 1.1 and his albumin is 3.5. Ultrasound has been ordered of the gallbladder and biliary system. Results are pending. Case discussed with Dr. Cohen who will admit. Both oncology and gastroenterology are placed on consult. - Lab Data Result diagrams: 08/21/20 09:34 08/21/20 09:34 Lab Results 08/21/20 08/21/20 08/21/20 Range/Units 09:34 09:34 09:34 WBC 6.0 (3.8-10.6) k/uL RBC 2.92 L (4.30-5.90) m/uL Hgb 10.4 L (13.0-17.5) gm/dL Hct 31.6 L (39.0-53.0) % MCV 108.2 H (80.0-100.0) fL MCH 35.5 H (25.0-35.0) pg MCHC 32.8 (31.0-37.0) g/dL RDW 15.6 H (11.5-15.5) % Plt Count 159 (150-450) k/uL MPV 7.7 Neutrophils % 80 % Lymphocytes % 8 % Monocytes % 8 % Eosinophils % 1 % Basophils % 1 % Neutrophils # 4.8 (1.3-7.7) k/uL Lymphocytes # 0.5 L (1.0-4.8) k/uL Monocytes # 0.5 (0-1.0) k/uL Eosinophils # 0.0 (0-0.7) k/uL Basophils # 0.1 (0-0.2) k/uL Manual Slide Review Performed Macrocytosis Marked A PT 11.8 (9.0-12.0) sec INR 1.1 (<1.2) APTT 24.2 (22.0-30.0) sec Sodium 139 (137-145) mmol/L Potassium 3.2 L (3.5-5.1) mmol/L Chloride 99 (98-107) mmol/L Carbon Dioxide 26 (22-30) mmol/L Anion Gap 14 mmol/L BUN 30 H (9-20) mg/dL Creatinine 2.01 H (0.66-1.25) mg/dL Est GFR (CKD-EPI)AfAm 37 (>60 ml/min/1.73 sqM) Est GFR (CKD-EPI)NonAf 32 (>60 ml/min/1.73 sqM) Glucose 124 H (74-99) mg/dL Plasma Lactic Acid Ari (0.7-2.0) mmol/L Calcium 9.4 (8.4-10.2) mg/dL Total Bilirubin 7.9 H (0.2-1.3) mg/dL AST 150 H (17-59) U/L ALT 49 (4-49) U/L Alkaline Phosphatase 786 H (38-126) U/L Total Protein 7.8 (6.3-8.2) g/dL Albumin 3.5 (3.5-5.0) g/dL Amylase 80 (30-110) U/L Lipase 185 (23-300) U/L Urine Color Urine Appearance (Clear) Urine pH (5.0-8.0) Ur Specific [place] (1.001-1.035) Urine Protein (Negative) Urine Glucose (UA) (Negative) Urine Ketones (Negative) Urine Blood (Negative) Urine Nitrite (Negative) Urine Bilirubin (Negative) Urine Urobilinogen (<2.0) mg/dL Ur Leukocyte Esterase (Negative) Urine RBC (0-5) /hpf Urine WBC (0-5) /hpf Amorphous Sediment (None) /hpf Urine Bacteria (None) /hpf 08/21/20 08/21/20 Range/Units 09:34 10:02 WBC (3.8-10.6) k/uL RBC (4.30-5.90) m/uL Hgb (13.0-17.5) gm/dL Hct (39.0-53.0) % MCV (80.0-100.0) fL MCH (25.0-35.0) pg MCHC (31.0-37.0) g/dL RDW (11.5-15.5) % Plt Count (150-450) k/uL MPV Neutrophils % % Lymphocytes % % Monocytes % % Eosinophils % % Basophils % % Neutrophils # (1.3-7.7) k/uL Lymphocytes # (1.0-4.8) k/uL Monocytes # (0-1.0) k/uL Eosinophils # (0-0.7) k/uL Basophils # (0-0.2) k/uL Manual Slide Review Macrocytosis PT (9.0-12.0) sec INR (<1.2) APTT (22.0-30.0) sec Sodium (137-145) mmol/L Potassium (3.5-5.1) mmol/L Chloride (98-107) mmol/L Carbon Dioxide (22-30) mmol/L Anion Gap mmol/L BUN (9-20) mg/dL Creatinine (0.66-1.25) mg/dL Est GFR (CKD-EPI)AfAm (>60 ml/min/1.73 sqM) Est GFR (CKD-EPI)NonAf (>60 ml/min/1.73 sqM) Glucose (74-99) mg/dL Plasma Lactic Acid Ari 3.6 H* (0.7-2.0) mmol/L Calcium (8.4-10.2) mg/dL Total Bilirubin (0.2-1.3) mg/dL AST (17-59) U/L ALT (4-49) U/L Alkaline Phosphatase (38-126) U/L Total Protein (6.3-8.2) g/dL Albumin (3.5-5.0) g/dL Amylase (30-110) U/L Lipase (23-300) U/L Urine Color Yellow Urine Appearance Cloudy (Clear) Urine pH 5.5 (5.0-8.0) Ur Specific [place] 1.010 (1.001-1.035) Urine Protein Trace H (Negative) Urine Glucose (UA) Negative (Negative) Urine Ketones Negative (Negative) Urine Blood Large H (Negative) Urine Nitrite Negative (Negative) Urine Bilirubin 1+ H (Negative) Urine Urobilinogen 2.0 (<2.0) mg/dL Ur Leukocyte Esterase Large H (Negative) Urine RBC 59 H (0-5) /hpf Urine WBC 63 H (0-5) /hpf Amorphous Sediment Rare H (None) /hpf Urine Bacteria Rare H (None) /hpf Disposition Clinical Impression: Hyperbilirubinemia, Liver mass Disposition: ADMITTED IP TO THIS [facility] Condition: Stable Is patient prescribed a controlled substance at d/c from ED?: No Referrals: Isma Cohen MD [Primary Care Provider] - 1-2 days Decision to Admit Reason: Admit from EC Decision Date: 08/21/20 Decision Time: 11:14
[2020-08-21 09:53] LABS: INR 1.1 (<1.2); Partial Thromboplastin Time 24.2 sec (22.0-30.0); Prothrombin Time 11.8 sec (9.0-12.0)
[2020-08-21 10:03] LABS: Albumin 3.5 g/dL (3.5-5.0); Calcium 9.4 mg/dL (8.4-10.2); Potassium 3.2 mmol/L (3.5-5.1); Total Bilirubin 7.9 mg/dL (0.2-1.3); Total Protein 7.8 g/dL (6.3-8.2)
[2020-08-21 10:11] LABS: Basophils # (A) 0.1 k/uL (0-0.2); Basophils % (A) 1 %; Eosinophils % (A) 1 %; HCT 31.6 % (39.0-53.0); HGB 10.4 gm/dL (13.0-17.5); Lymphocytes # (A) 0.5 k/uL (1.0-4.8); Lymphocytes % (A) 8 %; MCH 35.5 pg (25.0-35.0); MCHC 32.8 g/dL (31.0-37.0); MCV 108.2 fL (80.0-100.0); Macrocytosis Marked; Mean Platelet Volume 7.7; Monocytes # (A) 0.5 k/uL (0-1.0); Monocytes % (A) 8 %; Neutrophils # (A) 4.8 k/uL (1.3-7.7); Neutrophils % (A) 80 %; Platelet Count 159 k/uL (150-450); RBC 2.92 m/uL (4.30-5.90); RDW 15.6 % (11.5-15.5)
[2020-08-21 10:23] LABS: Amorphous Sediment,Urine Rare /hpf; Appearance,Urine Cloudy (Clear); Bacteria,Urine Rare /hpf; Bilirubin,Urine 1+ (Negative); Blood,Urine Large (Negative); Color,Urine Yellow; Glucose,Urine (UA) Negative (Negative); Ketones,Urine Negative (Negative); Leukocyte Esterase,Urine Large (Negative); Nitrite,Urine Negative (Negative); PH, Urine 5.5 (5.0-8.0); Protein,Urine Trace (Negative); RBC,Urine 59 /hpf (0-5); WBC,Urine 63 /hpf (0-5)
--- NOTE | 2020-08-21 10:38 | CT ---
EXAMINATION TYPE: CT abdomen pelvis wo con DATE OF EXAM: 08/21/2020 COMPARISON: 06/06/2020 INDICATION: Jaundice, history of renal cell carcinoma DLP: 591.4 mGycm, Automated exposure control for dose reduction was used. CONTRAST: 0 mL of Isovue 300. Study performed without Oral Contrast TECHNIQUE: Axial images were obtained from above the diaphragm to the pubic rami in the axial plane a t 5 mm thick sections. Reconstructed images are reviewed on the computer in the coronal plane. FINDINGS: Limited CT sections are obtained the lung bases. The lung bases are clear. CT ABDOMEN: Small amount of ascites is adjacent to the liver. Liver: There may be some biliary dilatation. There is ill-defined hypodensity in the region of the hi lum. This may measure up to 4.4 x 6 cm. Underlying mass is not excluded. MRI with contrast may provid e additional information. Spleen: Normal Pancreas: Normal Adrenal glands: The adrenal glands are normal. Gallbladder: Distended. No obvious filling defects are evident. Kidneys: Right kidney is heterogenous and enlarged. Some calcifications along the medial aspect. Find ings appear similar to the comparison. Left kidney contains a nephrostomy tube. No hydronephrosis is evident. Aorta: Vascular calcification is within the aorta. Inferior vena cava: Normal. Study is without intravenous contrast which limits evaluation. Thrombus c annot be diagnosed. If there is clinical concern for inferior vena cava or portal vein thrombosis, ul trasound could be performed. CT PELVIS: Diffuse soft tissue edema is evident. This appears greater in the pelvis. Loops of bowel within the abdomen and pelvis are normal. Fecal debris throughout the colon. This s tudy is performed without oral contrast. Appendix: Normal as visualized. Urinary bladder: Decompressed with limited evaluation. Genitourinary structures: Prostate appears small and contains calcification. Osseous structures: Multiple sclerotic metastases are within the sacrum and iliac wings, more so on t he right. Sclerotic metastases within the lumbar spine. IMPRESSIONS: 1. Right renal mass indistinct size but kidney is similar in appearance to the comparison study. 2. Left nephrostomy tube. 3. Mild ascites adjacent to the liver. 4. Ill-defined hypodensity at the hepatic hilum. Underlying mass is not excluded. If additional evalu ation is required, consider MRI with contrast. 5. Sclerotic metastases, especially through the pelvis and lumbar region.
[2020-08-21] MEDS: SODIUM CHLORIDE 0.9% 1,000 ML IV SCH ×2 (10:45→20:45)
[2020-08-21] MEDS ORDERED: NALOXONE 0.4 MG/ML 1 ML VIAL IV PRN (11:07)
--- NOTE | 2020-08-21 12:02 | US ---
EXAMINATION TYPE: US gallbladder DATE OF EXAM: 08/21/2020 COMPARISON: 08/21/2020 CT, prior ultrasound 04/11/2020 CLINICAL HISTORY: painless jaundice. h/o left renal cell carcinoma EXAM MEASUREMENTS: Liver Length: 14.0 cm Gallbladder Wall: 0.3 cm CBD: not seen Right Kidney: 9.1 x 6.2 x 5.9 cm bowel gas limits views Pancreas: not seen due to gas Liver: intercostal images appear heterogeneous Gallbladder: borderline wall thickness with fold noted Evidence for sonographic Rdz's sign: no CBD: unable to discern with surrounding bowel gas Right Kidney: 6.0cm complex mass seen, noted on previous CT IMPRESSION: Limited examination. Borderline gallbladder wall thickening. Unable to visualize common bile duct. 6.0 cm complex lesion of the right kidney is again seen.
--- NOTE | 2020-08-21 16:19 | P.CONS ---
History of Present Illness - Reason for Consult Consult date: 08/21/20 Painless jaundice Requesting physician: Isma Cohen - Chief Complaint Abnormal labs, elevated bilirubin - History of Present Illness 74-year-old male with a medical history significant for metastatic renal cell carcinoma, DVT, hypertension, history of drug abuse, and prior treatments for hepatitis C with [place] about 3-4 years ago who presented to the hospital for abnormal outpatient lab work. States he was told to come to the hospital because he had increased bilirubin. Patient states he has been treated for his renal carcinoma for the last 3-4 months, states he is taking an oral medication however he is not sure. It was reported in May of this year that he was on cycle 3 with carbo/gemzar. At that time he was also noted to be jaundiced. Presenting labs WBC 6, hemoglobin 10.4, hematocrit 31.6, platelet count 159,000, INR 1.1, total bilirubin 7.9, alkaline phosphatase 786, AST 150, ALT 49. The patient denies any abdominal pain, nausea, or vomiting. Denies any fevers or chills. States he has been jaundiced for some time. Had a CT of the abdomen and pelvis showing right renal mass indistinct size but kidney is smaller in appearance to the comparison study. Left nephrostomy tube. Mild ascites adjacent to the liver. Ill-defined hypodensity in the hepatic hilum. Underlying mass is not excluded. If additional evaluation is required consider MRI with contrast. Sclerotic metastasis, especially through the pelvis and lumbar region. Gallbladder ultrasound shows limited examination, borderline gallbladder wall thickening. Unable to visualize common bile duct. 6.0 cm complex lesion of the right kidney is again seen. Review of Systems REVIEW OF SYSTEMS: CARDIOPULMONARY: No chest pain or shortness of breath. Gastrointestinal: No abdominal pain.. No nausea or vomiting. No hematemesis, coffee-ground emesis. No rectal bleeding, or melena. GENITOURINARY: No dysuria or hematuria. History of renal carcinoma. Nephrostomy tube. MUSCULOSKELETAL: Reports normal range of motion., Joint pain. SKIN: No rashes. Jaundice. ENDOCRINE: No chills, fevers. Reported weight loss. No polydipsia or polyuria. PSYCHIATRIC: Unremarkable. NEUROLOGY: No change in mental status. Denies dizziness, headache. ENT: Vision unremarkable. CONSTITUTIONAL: No recent weight loss. No fever, chills, night sweats. Past Medical History Past Medical History: Cancer, Hyperlipidemia, Hypertension, Renal Disease, Thyroid Disorder Additional Past Medical History / Comment(s): [place] treament for pain control, patient takes methadone. HEPATITIS C from past drug abuse, anuria, renal failure, renal CA, urothelial carcinoma, bone mets, Right iliac met lesion, Chemo therapy History of Any Multi-Drug Resistant Organisms: None Reported Past Surgical History: Hernia Repair, Orthopedic Surgery Additional Past Surgical History / Comment(s): bilateral knee replacement, right testicle sx 2020, colonoscopy, nephrostomy tube, Kidney mass biopsy Past Anesthesia/Blood Transfusion Reactions: No Reported Reaction Past Psychological History: Anxiety Additional Psychological History / Comment(s): related to health issues Smoking Status: Former smoker Past Alcohol Use History: None Reported Past Drug Use History: Marijuana, Prescription Drug Abuse Additional Drug Use History / Comment(s): 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 - Past Family History Father History Unknown: Yes Medications and Allergies Home Medications Medication Instructions Recorded Confirmed Type ALPRAZolam [Xanax] 0.25 mg PO HS 03/08/20 08/21/20 History Levothyroxine Sodium [Synthroid] 125 mcg PO DAILY 03/08/20 08/21/20 History Methadone HCl [Methadone Intensol] 146 mg PO DAILY 03/08/20 08/21/20 History Sodium Bicarbonate Tab 650 mg PO TID tab 03/15/20 08/21/20 Rx hydrALAZINE HCL [Apresoline] 25 mg PO BID tab 03/15/20 08/21/20 Rx polyethylene glycoL 3350 [Miralax] 17 gm PO HS 04/17/20 08/21/20 History Ondansetron [Zofran] 4 mg PO Q4H PRN 05/12/20 08/21/20 History Potassium Chloride 10 meq PO DAILY 06/04/20 08/21/20 History amLODIPine [Norvasc] 2.5 mg PO DAILY 06/04/20 08/21/20 History Hydrocodone/Acetaminophen [[place] 1 tab PO Q6HR PRN 08/21/20 08/21/20 History 7.5-325] Pantoprazole [Protonix] 40 mg PO BID 08/21/20 08/21/20 History SILVER sulfADIAZINE Cream 1 applic TOPICAL BID 08/21/20 08/21/20 History [Silvadene 1% Cream] Torsemide [Demadex] 20 mg PO Q48H 08/21/20 08/21/20 History Allergies Allergy/AdvReac Type Severity Reaction Status Date / Time No Known Allergies Allergy Verified 08/21/20 10:19 Physical Exam Vitals: Vital Signs Temp Pulse Pulse Resp BP BP Pulse Ox 08/21/20 14:28 97.9 F 81 16 153/65 95 08/21/20 13:52 74 18 143/73 92 L 08/21/20 10:06 75 16 149/87 94 L 08/21/20 09:04 97.5 F L 86 18 150/71 96 Intake and Output 08/21/20 08/21/20 08/21/20 06:59 14:59 22:59 Other: Voiding Method External Catheter Weight 75.296 kg General appearance: The patient is alert, oriented, appears in no acute distress. HET: Head is normocephalic and atraumatic. Conjunctiva pink. Sclera icterus. Neck: Supple without lymphadenopathy. Trachea midline. Heart: S1 S2. Regular rate and rhythm. Lungs: Clear to auscultation. Abdomen: Soft, nontender, nondistended with bowel sounds. No guarding or rigidity. Skin: No rashes. Jaundice. Extremities: Normal skin color and turgor. No pedal edema. Neurological: No focal deficits. Alert and oriented 3.. Results CBC & Chem 7: 08/21/20 09:34 08/21/20 09:34 Labs: Abnormal Lab Results - Last 24 Hours (Table) 08/21/20 08/21/20 08/21/20 Range/Units 09:34 09:34 09:34 RBC 2.92 L (4.30-5.90) m/uL Hgb 10.4 L (13.0-17.5) gm/dL Hct 31.6 L (39.0-53.0) % MCV 108.2 H (80.0-100.0) fL MCH 35.5 H (25.0-35.0) pg RDW 15.6 H (11.5-15.5) % Lymphocytes # 0.5 L (1.0-4.8) k/uL Macrocytosis Marked A Potassium 3.2 L (3.5-5.1) mmol/L BUN 30 H (9-20) mg/dL Creatinine 2.01 H (0.66-1.25) mg/dL Glucose 124 H (74-99) mg/dL Plasma Lactic Acid Ari 3.6 H* (0.7-2.0) mmol/L Total Bilirubin 7.9 H (0.2-1.3) mg/dL AST 150 H (17-59) U/L Alkaline Phosphatase 786 H (38-126) U/L Urine Protein (Negative) Urine Blood (Negative) Urine Bilirubin (Negative) Ur Leukocyte Esterase (Negative) Urine RBC (0-5) /hpf Urine WBC (0-5) /hpf Amorphous Sediment (None) /hpf Urine Bacteria (None) /hpf 08/21/20 Range/Units 10:02 RBC (4.30-5.90) m/uL Hgb (13.0-17.5) gm/dL Hct (39.0-53.0) % MCV (80.0-100.0) fL MCH (25.0-35.0) pg RDW (11.5-15.5) % Lymphocytes # (1.0-4.8) k/uL Macrocytosis Potassium (3.5-5.1) mmol/L BUN (9-20) mg/dL Creatinine (0.66-1.25) mg/dL Glucose (74-99) mg/dL Plasma Lactic Acid Ari (0.7-2.0) mmol/L Total Bilirubin (0.2-1.3) mg/dL AST (17-59) U/L Alkaline Phosphatase (38-126) U/L Urine Protein Trace H (Negative) Urine Blood Large H (Negative) Urine Bilirubin 1+ H (Negative) Ur Leukocyte Esterase Large H (Negative) Urine RBC 59 H (0-5) /hpf Urine WBC 63 H (0-5) /hpf Amorphous Sediment Rare H (None) /hpf Urine Bacteria Rare H (None) /hpf Microbiology - Last 24 Hours (Table) 08/21/20 10:02 Urine Culture - Preliminary Urine,Voided Comments: CT of the abdomen and pelvis showing right renal mass indistinct size but kidney is smaller in appearance to the comparison study. Left nephrostomy tube. Mild ascites adjacent to the liver. Ill-defined hypodensity in the hepatic hilum. Underlying mass is not excluded. If additional evaluation is required consider MRI with contrast. Sclerotic metastasis, especially through the pelvis and lumbar region. Gallbladder ultrasound shows limited examination, borderline gallbladder wall thickening. Unable to visualize common bile duct. 6.0 cm complex lesion of the right kidney is again seen. Assessment and Plan (1) Hyperbilirubinemia Narrative/Plan: 74-year-old male with a recent diagnosis of renal carcinoma with metastasis who is currently under treatment with a past medical history of hepatitis C due to history of IV drug use treated with a [facility] 45 years ago presented to the emergency department for abnormal outpatient labs. The patient presented with an total bilirubin is 7.9, alkaline phosphatase 786, AST 150, ALT [address] of the abdomen showing an ill-defined hypodensity at the hepatic hilum. Underlying mass is not excluded. Consider MRI with contrast. Sclerotic epistasis, especially through the pelvis and lumbar region, right renal mass. Ultrasound of the gallbladder findings included limited examination, borderline gallbladder wall thickening, unable to visualize common bile duct, 6.0 cm complex lesion of the right kidney is again seen. The patient is denying any abdominal pain, nausea, or vomiting. States his PCP has been monitoring his bilirubin which has been increasing. He is currently under treatment for his r enal carcinoma with metastasis. States he has been receiving treatment for the last 3-4 months duration. Will obtain MRI/MRCP to rule out liver mass, biliary obstruction. Current Visit: Yes Status: Acute Code(s): E80.6 - OTHER DISORDERS OF BILIRUBIN METABOLISM SNOMED Code(s): 04738698 (2) Jaundice Current Visit: Yes Status: Acute Code(s): R17 - UNSPECIFIED JAUNDICE SNOMED Code(s): 95741936 (3) Metastatic renal cell carcinoma Narrative/Plan: Oncology following patient Current Visit: Yes Status: Acute Code(s): C64.9 - MALIGNANT NEOPLASM OF UNSP KIDNEY, EXCEPT RENAL PELVIS SNOMED Code(s): 056733491 Plan: 1. Clear liquid diet, nothing by mouth after midnight 2. MRI/MRCP ordered 3. Daily CMP 4. Avoid hepatotoxic medications 5. Continue symptomatic and supportive care Thank you for this consultation, we will continue to follow. Dr. Doreen Delarosa I agree with the dictator's note, documented as a scribe by Nori Melendez.
--- NOTE | 2020-08-22 00:54 | P.CONS ---
History of Present Illness - Reason for Consult Consult date: 08/21/20 Jaundice, weakness - History of Present Illness Mr. Mancuso is a 74 yr old WM, pt of Dr Caruso, with history as follows He originally presented to [facility] Emergency department with anuria and renal failure. Imaging performed reveal concerning picture of metastatic process. There was concern of liver and diffuse bone involvement. Urology is following and was unfortunetly unable to place internal stent for h ydronephrosis, therefore percutaneous was placed by IR on 03/09/2020. During work-up an iliac thrombosis was also noted. This was ill-defined and unclear on original imaging, therefore heparin drip was initiated under this could be further defined. Unfortunately, shortly after heparin drip was started there was hematuria noted in his nephrostomy bag and heparin was stopped. He then went for further imaging with ultrasound and a discussion with Dr. Hooks from interventional radiology concluded this was in fact tumor thrombosis and not actual deep vein, therefore heparin was stopped and IVC was not placed. Apparently over the past 4 months he has had complaints of Right testicular swelling and underwent a procedure for this by urology, but no other imaging or labs were performed at that time. CT imaging of Chest without contrast did not reveal any metastatic disease to lungs. Bone scan did re-demonstrate diffuse disease to bone. 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 Patient has been an on and off again smoker over his life. 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 04/15/20: C/O fatigue and back pain, had Bone biopsy on 04/14/20, results pending, developed obstructive jaundice of ? etiology, will see Dr Doreen Delarosa later this week. Tolerated cycle # 1 of chemotherapy well without nausea/vomiting 05/01/20-patient here today status post evaluation by Dr. Damon for obstructive jaundice. This has resolved, MRI of the liver did not reveal any evidence of cholelithiasis or obstructive process, mets vs scarring from HepC ?. Results of patient's bone biopsy returned unfortunately, positive for urothelial carcinoma. Patient had cycle 1 day 1 of treatment, cycle 1 day 8 held for stat US of liver, gemzar held. He had cycle 2 day 1 with carbo only. Pt has no severe SE to report. He hand his have many questions and concerns today, 10 point ROS is neg. 05/29/20: C/O abdominal & back pain, C/O chemotherapy-induced nausea, noted to have progressive LFT. 06/04/20-Pt here today s/p cycle 3 day 1 & 8 of carbo/gemzar. He is visibly jaundiced, pale, unsteady, Hgb 5.7, he states he has had hematuria, plt 5,000, he has wet purpura, petechia, and easy bruising of the hands. Weak, dizzy, started about 2 days ago, progressive. Denies fever, chest pain, he is SOB on exertion but comfortable at rest. He was sent to ER from visit with [facility] for concern of pancytopenia and jaundice in late 05/28. Bilirubin was in the 2 range. Infection workup was negative and the patient improved slowly in terms of labs and symptoms with growth factor support. The patient was started on immunotherapy with Tecentriq in early 07/28 and is status post 2 cycles. Regimen was changed because of intolerance to chemotherapy, and clinical progression. Labs outpt showed significant elevation of bilirubin. The patient was therefore sent into the hospital where confirmed bilirubin elevation at 7.9. CT of the abdomen and pelvis showed stable right renal mass ,and known left nephrostomy. Review of Systems Constitutional: Reports chronic pain, Reports fatigue, Reports weakness, Reports weight loss Eyes: denies blurred vision, denies pain Ears: deny: decreased hearing, ear discharge, earache, tinnitus Ears, nose, mouth and throat: Denies headache, Denies sore throat Cardiovascular: Reports decreased exercise tolerance Respiratory: Denies cough Gastrointestinal: Reports dyspepsia, Reports jaundice, Reports nausea Genitourinary: Reports as per HPI Musculoskeletal: Reports muscle weakness Integumentary: Denies pruritus, Denies rash Neurological: Reports weakness Psychiatric: Reports as per HPI Endocrine: Reports fatigue Hematologic/Lymphatic: Reports as per HPI Past Medical History Past Medical History: Cancer, Hyperlipidemia, Hypertension, Renal Disease, Thyroid Disorder Additional Past Medical History / Comment(s): [place] treament for pain control, patient takes methadone. HEPATITIS C from past drug abuse, anuria, renal failure, renal CA, urothelial carcinoma, bone mets, Right iliac met lesion, Chemo therapy History of Any Multi-Drug Resistant Organisms: None Reported Past Surgical History: Hernia Repair, Orthopedic Surgery Additional Past Surgical History / Comment(s): bilateral knee replacement, right testicle sx 2019, colonoscopy, nephrostomy tube, Kidney mass biopsy Past Anesthesia/Blood Transfusion Reactions: No Reported Reaction Past Psychological History: Anxiety Additional Psychological History / Comment(s): related to health issues Smoking Status: Former smoker Past Alcohol Use History: None Reported Past Drug Use History: Marijuana, Prescription Drug Abuse Additional Drug Use History / Comment(s): 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 - Past Family History Father History Unknown: Yes Medications and Allergies Home Medications Medication Instructions Recorded Confirmed Type ALPRAZolam [Xanax] 0.25 mg PO HS 03/08/20 08/21/20 History Levothyroxine Sodium [Synthroid] 125 mcg PO DAILY 03/08/20 08/21/20 History Methadone HCl [Methadone Intensol] 146 mg PO DAILY 03/08/20 08/21/20 History Sodium Bicarbonate Tab 650 mg PO TID tab 03/15/20 08/21/20 Rx hydrALAZINE HCL [Apresoline] 25 mg PO BID tab 03/15/20 08/21/20 Rx polyethylene glycoL 3350 [Miralax] 17 gm PO HS 04/17/20 08/21/20 History Ondansetron [Zofran] 4 mg PO Q4H PRN 05/12/20 08/21/20 History Potassium Chloride 10 meq PO DAILY 06/04/20 08/21/20 History amLODIPine [Norvasc] 2.5 mg PO DAILY 06/04/20 08/21/20 History Hydrocodone/Acetaminophen [[place] 1 tab PO Q6HR PRN 08/21/20 08/21/20 History 7.5-325] Pantoprazole [Protonix] 40 mg PO BID 08/21/20 08/21/20 History SILVER sulfADIAZINE Cream 1 applic TOPICAL BID 08/21/20 08/21/20 History [Silvadene 1% Cream] Torsemide [Demadex] 20 mg PO Q48H 08/21/20 08/21/20 History Allergies Allergy/AdvReac Type Severity Reaction Status Date / Time No Known Allergies Allergy Verified 08/21/20 10:19 Physical Exam Vitals: Vital Signs Temp Pulse Pulse Resp BP BP Pulse Ox 08/21/20 16:28 98.4 F 81 16 143/73 94 L 08/21/20 14:28 97.9 F 81 16 153/65 95 08/21/20 13:52 74 18 143/73 92 L 08/21/20 10:06 75 16 149/87 94 L 08/21/20 09:04 97.5 F L 86 18 150/71 96 Intake and Output 08/21/20 08/21/20 08/21/20 06:59 14:59 22:59 Intake Total 1080 Balance 1080 Intake: Intake, IV Titration 300 Amount Sodium Chloride 0.9% 1, 300 000 ml @ 75 mls/hr IV . [id number] TAL Rx#:[id number] Oral 780 Other: Voiding Method External Catheter # Voids 1 Weight 75.296 kg - Constitutional General appearance: no acute distress, thin - EENT Eyes: EOMI, scleral icterus - Neck Neck: no lymphadenopathy - Respiratory Respiratory: bilateral: CTA - Cardiovascular Rhythm: regular Heart sounds: normal: S1, S2 - Gastrointestinal General gastrointestinal: normal bowel sounds, soft - Integumentary Integumentary: jaundiced - Neurologic Neurologic: CNII-XII intact, focal deficits - Musculoskeletal Musculoskeletal: generalized weakness - Psychiatric Psychiatric: A&O x's 3, appropriate affect, intact judgment & insight Results CBC & Chem 7: 08/21/20 09:34 08/21/20 09:34 Labs: Abnormal Lab Results - Last 24 Hours (Table) 08/21/20 08/21/20 08/21/20 Range/Units 09:34 09:34 09:34 RBC 2.92 L (4.30-5.90) m/uL Hgb 10.4 L (13.0-17.5) gm/dL Hct 31.6 L (39.0-53.0) % MCV 108.2 H (80.0-100.0) fL MCH 35.5 H (25.0-35.0) pg RDW 15.6 H (11.5-15.5) % Lymphocytes # 0.5 L (1.0-4.8) k/uL Macrocytosis Marked A Potassium 3.2 L (3.5-5.1) mmol/L BUN 30 H (9-20) mg/dL Creatinine 2.01 H (0.66-1.25) mg/dL Glucose 124 H (74-99) mg/dL Plasma Lactic Acid Ari 3.6 H* (0.7-2.0) mmol/L Total Bilirubin 7.9 H (0.2-1.3) mg/dL AST 150 H (17-59) U/L Alkaline Phosphatase 786 H (38-126) U/L Urine Protein (Negative) Urine Blood (Negative) Urine Bilirubin (Negative) Ur Leukocyte Esterase (Negative) Urine RBC (0-5) /hpf Urine WBC (0-5) /hpf Amorphous Sediment (None) /hpf Urine Bacteria (None) /hpf 08/21/20 Range/Units 10:02 RBC (4.30-5.90) m/uL Hgb (13.0-17.5) gm/dL Hct (39.0-53.0) % MCV (80.0-100.0) fL MCH (25.0-35.0) pg RDW (11.5-15.5) % Lymphocytes # (1.0-4.8) k/uL Macrocytosis Potassium (3.5-5.1) mmol/L BUN (9-20) mg/dL Creatinine (0.66-1.25) mg/dL Glucose (74-99) mg/dL Plasma Lactic Acid Ari (0.7-2.0) mmol/L Total Bilirubin (0.2-1.3) mg/dL AST (17-59) U/L Alkaline Phosphatase (38-126) U/L Urine Protein Trace H (Negative) Urine Blood Large H (Negative) Urine Bilirubin 1+ H (Negative) Ur Leukocyte Esterase Large H (Negative) Urine RBC 59 H (0-5) /hpf Urine WBC 63 H (0-5) /hpf Amorphous Sediment Rare H (None) /hpf Urine Bacteria Rare H (None) /hpf Microbiology - Last 24 Hours (Table) 08/21/20 10:02 Urine Culture - Preliminary Urine,Voided CT scan - abdomen: report reviewed CT scan - pelvis: report reviewed US - abdomen: report reviewed Assessment and Plan (1) Hyperbilirubinemia Narrative/Plan: the patient was admitted for significant increase in bilirubin. Levels one week ago in the office for the 4-5 range, and In the 7-8 range at the time of admission. The patient previously had had episodes of hyperbilirubinemia while on his prior chemotherapy. However he has been off that regimen since late 05/28 The concern at this time is development of obstruction, versus progression of malignancy, versus treatment effect. CT scans at this time did not show any definite obstruction though there was possible soft tissue at the hepatic hilum. Patient has been seen by gastroenterology. Await MRI imaging for further evaluation Current Visit: Yes Status: Acute Code(s): E80.6 - OTHER DISORDERS OF BILIRUBIN METABOLISM SNOMED Code(s): 99714435 (2) Urothelial carcinoma Narrative/Plan: The patient has metastatic urothelial cancer NOT renal cell carcinoma. Diagnostic and therapeutic circumstances as described. He was started on a new regimen with immunotherapy about a month ago, because of inability to tolerate his prior chemotherapy regimen. Clinically there was progression. The patient has just started new regimen, which has not yet had time to show efficacy. Therefore if workup shows other causes for his presentation (ruling out treatment related effect), the plan would be to resume his regimen post discharge Current Visit: No Status: Acute Code(s): C68.9 - MALIGNANT NEOPLASM OF URIN MAYIT[place] ORGAN, UNSPECIFIED SNOMED Code(s): 294638027 (3) Anemia Narrative/Plan: due to anemia of cancer, and CKD. Hemoglobin is in his usual range, 10-11. Continue to monitor Current Visit: No Status: Acute Code(s): D64.9 - ANEMIA, UNSPECIFIED SNOMED Code(s): 906738873
[2020-08-22] MEDS ORDERED: TORSEMIDE 20 MG TAB PO SCH (09:00)
--- NOTE | 2020-08-22 09:57 | P.HPIM ---
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 Patient presented to the ER with complaints of painless jaundice. Patient has been following with [facility] for cancer treatment and was instructed to go to ER per oncology due to elevated bilirubin of 7.9. Additional medical history includes hyperlipidemia, hypertension, renal or thyroid disorder, hepatitis C, previous drug abuse currently on methadone and anxiety. Abdomen and pelvis CT was completed showing right renal mass in distal tibia sized to kidney is similar in appearance to the comparison study. Left nephrostomy tube. Mild ascites adjacent to the liver. sclerotic metastatic especially to the pelvic and lumbar region. Ultrasound of gallbladder completed showing borderline gallbladder wall thickening. 6.0 cm complex lesion of right kidney. Initial total bilirubin 7.9. AST 150 ALT 49 and alkaline phosphatase 786. Patient lactic acid initially elevated at 3. 6 repeat 1.4. At this time oncology and GI services have been consulted. MRI has been ordered. Patient denies chest pain or shortness of breath. Patient denies nausea vomiting or diarrhea. Patient denies any urinary burning or frequency Review of Systems Please refer to HPI otherwise unremarkable Past Medical History Past Medical History: Cancer, Hyperlipidemia, Hypertension, Renal Disease, Thyroid Disorder Additional Past Medical History / Comment(s): [place] treament for pain control, patient takes methadone. HEPATITIS C from past drug abuse, anuria, renal failure, renal CA, urothelial carcinoma, bone mets, Right iliac met lesion, Chemo therapy History of Any Multi-Drug Resistant Organisms: None Reported Past Surgical History: Hernia Repair, Orthopedic Surgery Additional Past Surgical History / Comment(s): bilateral knee replacement, right testicle sx 2019, colonoscopy, nephrostomy tube, Kidney mass biopsy Past Anesthesia/Blood Transfusion Reactions: No Reported Reaction Past Psychological History: Anxiety Additional Psychological History / Comment(s): related to health issues Smoking Status: Former smoker Past Alcohol Use History: None Reported Past Drug Use History: Marijuana, Prescription Drug Abuse Additional Drug Use History / Comment(s): 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 - Past Family History Father History Unknown: Yes Medications and Allergies Home Medications Medication Instructions Recorded Confirmed Type ALPRAZolam [Xanax] 0.25 mg PO HS 03/08/20 08/21/20 History Levothyroxine Sodium [Synthroid] 125 mcg PO DAILY 03/08/20 08/21/20 History Methadone HCl [Methadone Intensol] 146 mg PO DAILY 03/08/20 08/21/20 History Sodium Bicarbonate Tab 650 mg PO TID tab 03/15/20 08/21/20 Rx hydrALAZINE HCL [Apresoline] 25 mg PO BID tab 03/15/20 08/21/20 Rx polyethylene glycoL 3350 [Miralax] 17 gm PO HS 04/17/20 08/21/20 History Ondansetron [Zofran] 4 mg PO Q4H PRN 05/12/20 08/21/20 History Potassium Chloride 10 meq PO DAILY 06/04/20 08/21/20 History amLODIPine [Norvasc] 2.5 mg PO DAILY 06/04/20 08/21/20 History Hydrocodone/Acetaminophen [[place] 1 tab PO Q6HR PRN 08/21/20 08/21/20 History 7.5-325] Pantoprazole [Protonix] 40 mg PO BID 08/21/20 08/21/20 History SILVER sulfADIAZINE Cream 1 applic TOPICAL BID 08/21/20 08/21/20 History [Silvadene 1% Cream] Torsemide [Demadex] 20 mg PO Q48H 08/21/20 08/21/20 History Allergies Allergy/AdvReac Type Severity Reaction Status Date / Time No Known Allergies Allergy Verified 08/21/20 10:19 Physical Exam Vitals: Vital Signs Temp Pulse Pulse Resp BP BP Pulse Ox 08/22/20 08:00 64 18 08/22/20 05:35 98.1 F 64 18 134/53 95 08/21/20 20:00 98.3 F 65 18 146/64 95 08/21/20 16:28 98.4 F 81 16 143/73 94 L 08/21/20 14:28 97.9 F 81 16 153/65 95 08/21/20 13:52 74 18 143/73 92 L 08/21/20 10:06 75 16 149/87 94 L Intake and Output 08/21/20 08/22/20 08/22/20 22:59 06:59 14:59 Intake Total 1480 725 Output Total 300 300 Balance 1180 425 Intake: Intake, IV Titration 300 725 Amount Sodium Chloride 0.9% 1, 300 725 000 ml @ 75 mls/hr IV . [id number] [facility] Rx#:[id number] Oral 1180 Output: Urine 300 300 Other: Voiding Method External Catheter External Catheter # Voids 1 # Bowel Movements 1 1 Head normocephalic, jaundice Neck supple Lungs clear to auscultation bilaterally no wheezing or crackles Heart regular rate and rhythm S1-S2, no rub or gallop Abdomen is soft nontender nondistended positive bowel sounds no hepatosplenomegaly Extremities no edema Neuro alert and orientated to 3 Results CBC & Chem 7: 08/21/20 09:34 08/21/20 09:34 Labs: Abnormal Lab Results - Last 24 Hours (Table) 08/21/20 08/21/20 08/21/20 Range/Units 09:34 09:34 09:34 RBC 2.92 L (4.30-5.90) m/uL Hgb 10.4 L (13.0-17.5) gm/dL Hct 31.6 L (39.0-53.0) % MCV 108.2 H (80.0-100.0) fL MCH 35.5 H (25.0-35.0) pg RDW 15.6 H (11.5-15.5) % Lymphocytes # 0.5 L (1.0-4.8) k/uL Macrocytosis Marked A Potassium 3.2 L (3.5-5.1) mmol/L BUN 30 H (9-20) mg/dL Creatinine 2.01 H (0.66-1.25) mg/dL Glucose 124 H (74-99) mg/dL Plasma Lactic Acid Ari 3.6 H* (0.7-2.0) mmol/L Total Bilirubin 7.9 H (0.2-1.3) mg/dL AST 150 H (17-59) U/L Alkaline Phosphatase 786 H (38-126) U/L Urine Protein (Negative) Urine Blood (Negative) Urine Bilirubin (Negative) Ur Leukocyte Esterase (Negative) Urine RBC (0-5) /hpf Urine WBC (0-5) /hpf Amorphous Sediment (None) /hpf Urine Bacteria (None) /hpf 08/21/20 Range/Units 10:02 RBC (4.30-5.90) m/uL Hgb (13.0-17.5) gm/dL Hct (39.0-53.0) % MCV (80.0-100.0) fL MCH (25.0-35.0) pg RDW (11.5-15.5) % Lymphocytes # (1.0-4.8) k/uL Macrocytosis Potassium (3.5-5.1) mmol/L BUN (9-20) mg/dL Creatinine (0.66-1.25) mg/dL Glucose (74-99) mg/dL Plasma Lactic Acid Ari (0.7-2.0) mmol/L Total Bilirubin (0.2-1.3) mg/dL AST (17-59) U/L Alkaline Phosphatase (38-126) U/L Urine Protein Trace H (Negative) Urine Blood Large H (Negative) Urine Bilirubin 1+ H (Negative) Ur Leukocyte Esterase Large H (Negative) Urine RBC 59 H (0-5) /hpf Urine WBC 63 H (0-5) /hpf Amorphous Sediment Rare H (None) /hpf Urine Bacteria Rare H (None) /hpf Microbiology - Last 24 Hours (Table) 08/21/20 10:02 Urine Culture - Preliminary Urine,Voided Thrombosis Risk Factor Assmnt - Choose All That Apply Each Factor Represents 1 point: Medical pt on bed rest, Swollen legs (current) Each Risk Factor Represents 2 Points: Patient confined to bed, Malignancy Thrombosis Risk Factor Assessment Total Risk Factor Score: 6 Thrombosis Risk Factor Assessment Level: High Risk Assessment and Plan Assessment: 1. Hyperbilirubinanemia and Jaundice with concerns of metastatic disease 2. History of metastatic urothelial carcinoma. Patient has been following with oncology service is currently receiving chemotherapy. Urostomy tube in place 3. History of deep vein thrombosis iliac vein 4. History of hypothyroidism 5. History of essential hypertension 6. History of chronic pain syndrome maintained on methadone 7. urinary tract infection. Patient will be started on Rocephin urine culture ordered DVT prophylaxis Lovenox. GI prophylaxis Protonix. Oncology GI service is consulted MRI of the liver with and without contrast ordered Repeat labs ordered Urine culture ordered Patient started on IV Rocephin Time with Patient: Greater than 30 (Greater than 60% of the total time spent in counseling and coordination of care)
[2020-08-22 10:12] LABS: Basophils % (A) 0 %; Eosinophils # (A) 0.1 k/uL (0-0.7); Eosinophils % (A) 2 %; HCT 30.1 % (39.0-53.0); HGB 9.3 gm/dL (13.0-17.5); Lymphocytes # (A) 0.4 k/uL (1.0-4.8); Lymphocytes % (A) 11 %; MCH 33.9 pg (25.0-35.0); MCHC 31.1 g/dL (31.0-37.0); Macrocytosis Marked; Mean Platelet Volume 7.7; Monocytes # (A) 0.4 k/uL (0-1.0); Monocytes % (A) 9 %; Neutrophils # (A) 2.9 k/uL (1.3-7.7); Neutrophils % (A) 75 %; Platelet Count 116 k/uL (150-450); RBC 2.76 m/uL (4.30-5.90); RDW 15.6 % (11.5-15.5); WBC 3.9 k/uL (3.8-10.6)
[2020-08-22 10:14] LABS: ALT 41 U/L (4-49); AST 118 U/L (17-59); African American GFR (CKD) 53 (>60 ml/min/1.73 sqM); Albumin 2.8 g/dL (3.5-5.0); Albumin/Globulin Ratio 0.8; Alkaline Phosphatase 638 U/L (38-126); Anion Gap 6 mmol/L; Blood Urea Nitrogen 24 mg/dL (9-20); Carbon Dioxide 28 mmol/L (22-30); Chloride 105 mmol/L (98-107); Globulin 3.7 g/dL; Glucose 50 mg/dL (74-99); Non-African American GFR(CKD) 45 (>60 ml/min/1.73 sqM); Potassium 3.1 mmol/L (3.5-5.1); Sodium 139 mmol/L (137-145); Total Bilirubin 6.1 mg/dL (0.2-1.3); Total Protein 6.5 g/dL (6.3-8.2)
[2020-08-22] MEDS ORDERED: LORazepam 2 MG/ML INJ IV STA (10:38)
[2020-08-22] MEDS: METHADONE 10 MG TAB PO SCH (10:52)
[2020-08-22] MEDS: LEVOTHYROXINE 125 MCG TAB PO SCH (10:52)
[2020-08-22] MEDS: hydrALAZINE HCL 25 MG TAB PO SCH ×2 (10:52→21:19)
[2020-08-22] MEDS: amLODIPine 2.5 MG TAB PO SCH (10:52)
[2020-08-22] MEDS: SODIUM BICARBONATE TAB 650 MG TAB PO SCH ×3 (10:57→21:21)
[2020-08-22] MEDS: POTASSIUM CHLORIDE ER 10 MEQ TAB.ER.PRT PO SCH (10:58)
[2020-08-22] MEDS: PANTOPRAZOLE 40 MG TABLET PO SCH ×2 (10:58→17:53)
[2020-08-22 11:43] VITALS: BMI 29.4
[2020-08-22] MEDS: SODIUM CHLORIDE 0.9% 1,000 ML IV SCH (15:59)
[2020-08-22 19:56] LABS: Glucose,Whole Blood 38 mg/dL (75-99)
[2020-08-22] MEDS ORDERED: DEXTROSE 50% SYRINGE 50 ML IVP ONE (19:56)
[2020-08-22 20:18] LABS: Glucose,Whole Blood 84 mg/dL (75-99)
--- NOTE | 2020-08-22 20:22 | P.PN ---
Subjective Progress Note Date: 08/22/20 Awaiting MRI to be completed and read Objective - Vital Signs Vital signs: Vital Signs Temp 98.1 F 08/22/20 12:04 Pulse 61 08/22/20 12:04 Resp 17 08/22/20 12:04 BP 137/61 08/22/20 12:04 Pulse Ox 95 08/22/20 12:04 Intake & Output 08/22/20 08/22/20 08/23/20 06:59 18:59 06:59 Intake Total 1125 Output Total 600 650 Balance 525 -650 Weight 75.296 kg Intake: Intake, IV Titration 725 Amount Sodium Chloride 0.9% 1, 725 000 ml @ 75 mls/hr IV . [id number] [facility] Rx#:[id number] Oral 400 Output: Drainage 650 Left Lower Back 650 Urine 600 Other: Voiding Method External Catheter # Voids 1 # Bowel Movements 1 - Exam - Constitutional General appearance: no acute distress, thin - EENT Eyes: EOMI, scleral icterus - Neck Neck: no lymphadenopathy - Respiratory Respiratory: bilateral: CTA - Cardiovascular Rhythm: regular Heart sounds: normal: S1, S2 - Gastrointestinal General gastrointestinal: normal bowel sounds, soft - Integumentary Integumentary: jaundiced - Neurologic Neurologic: CNII-XII intact, focal deficits - Musculoskeletal Musculoskeletal: generalized weakness - Psychiatric Psychiatric: A&O x's 3, appropriate affect, intact judgment & insight - Labs CBC & Chem 7: 08/22/20 09:35 08/22/20 09:35 Labs: Abnormal Lab Results - Last 24 Hours (Table) 08/22/20 08/22/20 08/22/20 Range/Units 09:35 09:35 09:35 RBC 2.76 L (4.30-5.90) m/uL Hgb 9.3 L (13.0-17.5) gm/dL Hct 30.1 L (39.0-53.0) % MCV 109.0 H (80.0-100.0) fL RDW 15.6 H (11.5-15.5) % Plt Count 116 L (150-450) k/uL Lymphocytes # 0.4 L (1.0-4.8) k/uL Macrocytosis Marked A Potassium 3.1 L (3.5-5.1) mmol/L BUN 24 H (9-20) mg/dL Creatinine 1.50 H (0.66-1.25) mg/dL Glucose 50 L (74-99) mg/dL POC Glucose (mg/dL) (75-99) mg/dL Magnesium 1.5 L (1.6-2.3) mg/dL Total Bilirubin 6.1 H (0.2-1.3) mg/dL AST 118 H (17-59) U/L Alkaline Phosphatase 638 H (38-126) U/L Albumin 2.8 L (3.5-5.0) g/dL 08/22/20 Range/Units 19:55 RBC (4.30-5.90) m/uL Hgb (13.0-17.5) gm/dL Hct (39.0-53.0) % MCV (80.0-100.0) fL RDW (11.5-15.5) % Plt Count (150-450) k/uL Lymphocytes # (1.0-4.8) k/uL Macrocytosis Potassium (3.5-5.1) mmol/L BUN (9-20) mg/dL Creatinine (0.66-1.25) mg/dL Glucose (74-99) mg/dL POC Glucose (mg/dL) 38 L (75-99) mg/dL Magnesium (1.6-2.3) mg/dL Total Bilirubin (0.2-1.3) mg/dL AST (17-59) U/L Alkaline Phosphatase (38-126) U/L Albumin (3.5-5.0) g/dL Assessment and Plan Plan: Physician Attest: I have completed the full history and physical and agree with above dictation, dictated as a ascribe. CT scan - abdomen: report reviewed CT scan - pelvis: report reviewed US - abdomen: report reviewed Assessment and Plan (1) Hyperbilirubinemia Await MRI imaging for further evaluation Current Visit: Yes Status: Acute Code(s): E80.6 - OTHER DISORDERS OF BILIRUBIN METABOLISM SNOMED Code(s): 10970160 (2) Urothelial carcinoma Narrative/Plan: The patient has metastatic urothelial cancer NOT renal cell carcinoma. Diagnostic and therapeutic circumstances as described. He was started on a new regimen with immunotherapy about a month ago, because of inability to tolerate his prior chemotherapy regimen. Clinically there was progression. The patient has just started new regimen, which has not yet had time to show efficacy. Therefore if workup shows other causes for his presentation (ruling out treatment related effect), the plan would be to resume his regimen post discharge Current Visit: No Status: Acute Code(s): C68.9 - MALIGNANT NEOPLASM OF URINARY ORGAN, UNSPECIFIED SNOMED Code(s): 770358805 (3) Anemia Narrative/Plan: due to anemia of cancer, and CKD. Hemoglobin is in his usual range, 10-11. Continue to monitor Current Visit: No Status: Acute Code(s): D64.9 - ANEMIA, UNSPECIFIED SNOMED Code(s): 176755497
[2020-08-22] MEDS ORDERED: Potassium Replacement Protocol 1 EACH MISC MISCELLANE PRN (20:26)
[2020-08-22] MEDS ORDERED: Magnesium Replacement Protocol 1 EACH MISC MISCELLANE PRN (20:27)
[2020-08-22] MEDS: ALPRAZolam 0.25 MG TAB PO SCH (21:11)
[2020-08-22] MEDS: polyethylene glycoL 3350 17 GM POWD.PACK PO SCH (21:12)
[2020-08-22] MEDS: POTASSIUM CHLORIDE ER 20 MEQ TAB.ER PO SCH ×2 (21:19→23:18)
[2020-08-22 22:14] LABS: Glucose,Whole Blood 77 mg/dL (75-99)
[2020-08-22] MEDS: DEXTROSE 5%-0.45% NACL 1,000 ML IV SCH (23:17)
[2020-08-22] MEDS: MAGNESIUM SULFATE-D5W PMX 1 GM in DEXTROSE/WATER 1 100ML.BAG IVPB SCH (23:18)
[2020-08-23 00:04] LABS: Glucose,Whole Blood 98 mg/dL (75-99)
[2020-08-23] MEDS: MAGNESIUM SULFATE-D5W PMX 1 GM in DEXTROSE/WATER 1 100ML.BAG IVPB SCH (00:27)
[2020-08-23 02:01] LABS: Glucose,Whole Blood 101 mg/dL (75-99)
--- NOTE | 2020-08-23 03:33 | MR ---
EXAMINATION TYPE: MR liver wo/w con and mrcp DATE OF EXAM: 08/22/2020 COMPARISON: None HISTORY: Possible liver mass seen on CT The liver overall has heterogeneous signal pattern. The bile ducts are not dilated. Spleen is intact. There is no pancreatic mass. Pancreatic duct appears normal. Stomach is intact. The gallbladder appe ars normal. I do not see definite discrete enhancing mass in the liver. There is no adrenal mass. There is significant cortical thinning of the right kidney with hydronephro sis. There is a complex 7 cm Cyst in the lower pole of the right kidney with some septation and incre ased signal on T1. This does not enhance and probably is proteinaceous fluid. there is no evidence of ascites. I see no evidence of bowel obstruction. There is no sign of pleural effusion. There is normal enhancement of the portal venous system. No evidence of venous thrombosis. There are probably a few splenic varices. IMPRESSION: Heterogeneity throughout the liver. 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 There is likely portal venous hypertension. No definite enhancing mass. The appearance is nonspecific. I consider possibilities of cirrhosis or granulomatous disease or infiltrative tumor. There is abnormal right kidney with cortical thinning and complex cyst in the lower pole. This could relate to chronic granulomatous pyelonephritis.
[2020-08-23 03:50] LABS: Glucose,Whole Blood 96 mg/dL (75-99)
[2020-08-23 05:58] LABS: Glucose,Whole Blood 85 mg/dL (75-99)
[2020-08-23] MEDS: LEVOTHYROXINE 125 MCG TAB PO SCH (06:05)
[2020-08-23 06:40] LABS: Basophils % (A) 0 %; Eosinophils # (A) 0.1 k/uL (0-0.7); Eosinophils % (A) 2 %; HCT 28.9 % (39.0-53.0); HGB 9.7 gm/dL (13.0-17.5); Lymphocytes # (A) 0.6 k/uL (1.0-4.8); Lymphocytes % (A) 13 %; MCHC 33.4 g/dL (31.0-37.0); MCV 107.8 fL (80.0-100.0); Macrocytosis Marked; Mean Platelet Volume 7.6; Monocytes # (A) 0.5 k/uL (0-1.0); Monocytes % (A) 9 %; Neutrophils # (A) 3.7 k/uL (1.3-7.7); Neutrophils % (A) 73 %; Platelet Count 135 k/uL (150-450); RBC 2.68 m/uL (4.30-5.90); RDW 15.2 % (11.5-15.5)
[2020-08-23 06:47] LABS: ALT 41 U/L (4-49); AST 137 U/L (17-59); African American GFR (CKD) 64 (>60 ml/min/1.73 sqM); Albumin 2.7 g/dL (3.5-5.0); Albumin/Globulin Ratio 0.7; Alkaline Phosphatase 662 U/L (38-126); Anion Gap 5 mmol/L; Blood Urea Nitrogen 20 mg/dL (9-20); Calcium 8.9 mg/dL (8.4-10.2); Carbon Dioxide 28 mmol/L (22-30); Chloride 107 mmol/L (98-107); Globulin 3.7 g/dL; Glucose 86 mg/dL (74-99); Non-African American GFR(CKD) 55 (>60 ml/min/1.73 sqM); Potassium 3.2 mmol/L (3.5-5.1); Sodium 140 mmol/L (137-145); Total Bilirubin 6.1 mg/dL (0.2-1.3); Total Protein 6.4 g/dL (6.3-8.2)
[2020-08-23 07:50] LABS: Glucose,Whole Blood 84 mg/dL (75-99)
--- NOTE | 2020-08-23 09:17 | P.PN ---
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 Patient presented to the ER with complaints of painless jaundice. Patient has been following with [facility] for cancer treatment and was instructed to go to ER per oncology due to elevated bilirubin of 7.9. Additional medical history includes hyperlipidemia, hypertension, renal or thyroid disorder, hepatitis C, previous drug abuse currently on methadone and anxiety. Abdomen and pelvis CT was completed showing right renal mass in distal tibia sized to kidney is similar in appearance to the comparison study. Left nephrostomy tube. Mild ascites adjacent to the liver. sclerotic metastatic especially to the pelvic and lumbar region. Ultrasound of gallbladder completed showing borderline gallbladder wall thickening. 6.0 cm complex lesion of right kidney. Initial total bilirubin 7.9. AST 150 ALT 49 and alkaline phosphatase 786. Patient lactic acid initially elevated at 3. 6 repeat 1.4. At this time oncology and GI services have been consulted. MRI has been ordered. Patient denies chest pain or shortness of breath. Patient denies nausea vomiting or diarrhea. Patient denies any urinary burning or frequency On 08/23/2020 patient is alert and oriented 3. Patient did have MRI completed yesterday to be reviewed by oncology and GI services. Total bili 6.1 AST 137 ALT 41 and alkaline phosphatase 662. Patient did have episode of low blood sugar started on D5. Patient denies chest pain or shortness of breath. Patient denies nausea vomiting or diarrhea. Patient denies any urinary burning or frequency. Replace electrolytes per protocol Objective - Vital Signs Vital signs: Vital Signs Temp 98.6 F 08/23/20 05:23 Pulse 70 08/23/20 05:23 Resp 16 08/23/20 05:23 BP 154/67 08/23/20 05:23 Pulse Ox 93 L 08/23/20 05:23 Intake & Output 08/22/20 08/23/20 08/23/20 18:59 06:59 18:59 Intake Total 1000 Output Total 650 1000 Balance -650 0 Weight 75.296 kg Intake: Intake, IV Titration 1000 Amount Dextrose 5%-0.45% NaCl 1, 450 000 ml @ 75 mls/hr IV . [id number] [facility] Rx#:[id number] Magnesium Sulfate-D5w Pmx 200 1 gm In Dextrose/Water 1 100ml.bag @ 100 mls/hr IVPB Q1H [facility] Rx#: [id number] Sodium Chloride 0.9% 1, 300 000 ml @ 75 mls/hr IV . [id number] [facility] Rx#:[id number] cefTRIAXone 1 gm In 50 Sodium Chloride 0.9% 50 ml @ 100 mls/hr IVPB Q12HR [facility] Rx#:[id number] Output: Drainage 650 1000 Left Lower Back 650 1000 Other: Voiding Method External Catheter # Voids 1 - Exam Head normocephalic, jaundice Neck supple Lungs clear to auscultation bilaterally no wheezing or crackles Heart regular rate and rhythm S1-S2, no rub or gallop Abdomen is soft nontender nondistended positive bowel sounds no hepatosplenomegaly Extremities no edema Neuro alert and orientated to 3 - Labs CBC & Chem 7: 08/23/20 06:14 08/23/20 06:14 Labs: Abnormal Lab Results - Last 24 Hours (Table) 08/22/20 08/22/20 08/22/20 Range/Units 09:35 09:35 09:35 RBC 2.76 L (4.30-5.90) m/uL Hgb 9.3 L (13.0-17.5) gm/dL Hct 30.1 L (39.0-53.0) % MCV 109.0 H (80.0-100.0) fL MCH (25.0-35.0) pg RDW 15.6 H (11.5-15.5) % Plt Count 116 L (150-450) k/uL Lymphocytes # 0.4 L (1.0-4.8) k/uL Macrocytosis Marked A Potassium 3.1 L (3.5-5.1) mmol/L BUN 24 H (9-20) mg/dL Creatinine 1.50 H (0.66-1.25) mg/dL Glucose 50 L (74-99) mg/dL POC Glucose (mg/dL) (75-99) mg/dL Magnesium 1.5 L (1.6-2.3) mg/dL Total Bilirubin 6.1 H (0.2-1.3) mg/dL AST 118 H (17-59) U/L Alkaline Phosphatase 638 H (38-126) U/L Albumin 2.8 L (3.5-5.0) g/dL 08/22/20 08/23/20 08/23/20 Range/Units 19:55 02:00 06:14 RBC (4.30-5.90) m/uL Hgb (13.0-17.5) gm/dL Hct (39.0-53.0) % MCV (80.0-100.0) fL MCH (25.0-35.0) pg RDW (11.5-15.5) % Plt Count (150-450) k/uL Lymphocytes # (1.0-4.8) k/uL Macrocytosis Potassium 3.2 L (3.5-5.1) mmol/L BUN (9-20) mg/dL Creatinine 1.27 H (0.66-1.25) mg/dL Glucose (74-99) mg/dL POC Glucose (mg/dL) 38 L 101 H (75-99) mg/dL Magnesium (1.6-2.3) mg/dL Total Bilirubin 6.1 H (0.2-1.3) mg/dL AST 137 H (17-59) U/L Alkaline Phosphatase 662 H (38-126) U/L Albumin 2.7 L (3.5-5.0) g/dL 08/23/20 Range/Units 06:14 RBC 2.68 L (4.30-5.90) m/uL Hgb 9.7 L (13.0-17.5) gm/dL Hct 28.9 L (39.0-53.0) % MCV 107.8 H (80.0-100.0) fL MCH 36.0 H (25.0-35.0) pg RDW (11.5-15.5) % Plt Count 135 L (150-450) k/uL Lymphocytes # 0.6 L (1.0-4.8) k/uL Macrocytosis Marked A Potassium (3.5-5.1) mmol/L BUN (9-20) mg/dL Creatinine (0.66-1.25) mg/dL Glucose (74-99) mg/dL POC Glucose (mg/dL) (75-99) mg/dL Magnesium (1.6-2.3) mg/dL Total Bilirubin (0.2-1.3) mg/dL AST (17-59) U/L Alkaline Phosphatase (38-126) U/L Albumin (3.5-5.0) g/dL Assessment and Plan Assessment: 1. Hyperbilirubinanemia and Jaundice with concerns of metastatic disease 2. History of metastatic urothelial carcinoma. Patient has been following with oncology service is currently receiving chemotherapy. Urostomy tube in place 3. History of deep vein thrombosis iliac vein 4. History of hypothyroidism 5. History of essential hypertension 6. History of chronic pain syndrome maintained on methadone 7. urinary tract infection. Patient will be started on Rocephin urine culture ordered DVT prophylaxis Lovenox. GI prophylaxis Protonix. Oncology GI service is consulted MRI of the liver with and without contrast ordered Repeat labs ordered Urine culture ordered Patient started on IV Rocephin
[2020-08-23] MEDS: ENOXAPARIN 40 MG/0.4 ML SYRINGE SQ SCH (09:39)
[2020-08-23] MEDS: SODIUM BICARBONATE TAB 650 MG TAB PO SCH ×3 (09:39→21:20)
[2020-08-23] MEDS: POTASSIUM CHLORIDE ER 10 MEQ TAB.ER.PRT PO SCH (09:39)
[2020-08-23] MEDS: PANTOPRAZOLE 40 MG TABLET PO SCH ×2 (09:40→17:23)
[2020-08-23] MEDS: TORSEMIDE 20 MG TAB PO SCH (09:40)
[2020-08-23] MEDS: amLODIPine 2.5 MG TAB PO SCH (09:40)
[2020-08-23] MEDS: hydrALAZINE HCL 25 MG TAB PO SCH ×2 (09:40→21:20)
[2020-08-23] MEDS: METHADONE 10 MG TAB PO SCH (09:57)
--- NOTE | 2020-08-23 10:14 | P.PN ---
Subjective Progress Note Date: 08/22/20 Principal diagnosis: Hyperbilirubinemia, patient was jaundiced Attempted to see the patient today however she was undergoing MRI scan, will follow up tomorrow. Objective - Vital Signs Vital signs: Vital Signs Temp 98.1 F 08/22/20 12:04 Pulse 61 08/22/20 12:04 Resp 17 08/22/20 12:04 BP 137/61 08/22/20 12:04 Pulse Ox 95 08/22/20 12:04 Intake & Output 08/21/20 08/22/20 08/22/20 18:59 06:59 18:59 Intake Total 1080 1125 Output Total 600 400 Balance 1080 525 -400 Weight 75.296 kg 75.296 kg Intake: Intake, IV Titration 300 725 Amount Sodium Chloride 0.9% 1, 300 725 000 ml @ 75 mls/hr IV . [id number] [facility] Rx#:[id number] Oral 780 400 Output: Drainage 400 Left Lower Back 400 Urine 600 Other: Voiding Method External Catheter External Catheter # Voids 1 # Bowel Movements 1 - Labs CBC & Chem 7: 08/23/20 06:14 08/23/20 06:14 Labs: Abnormal Lab Results - Last 24 Hours (Table) 08/22/20 08/22/20 08/22/20 Range/Units 09:35 09:35 09:35 RBC 2.76 L (4.30-5.90) m/uL Hgb 9.3 L (13.0-17.5) gm/dL Hct 30.1 L (39.0-53.0) % MCV 109.0 H (80.0-100.0) fL RDW 15.6 H (11.5-15.5) % Plt Count 116 L (150-450) k/uL Lymphocytes # 0.4 L (1.0-4.8) k/uL Macrocytosis Marked A Potassium 3.1 L (3.5-5.1) mmol/L BUN 24 H (9-20) mg/dL Creatinine 1.50 H (0.66-1.25) mg/dL Glucose 50 L (74-99) mg/dL Magnesium 1.5 L (1.6-2.3) mg/dL Total Bilirubin 6.1 H (0.2-1.3) mg/dL AST 118 H (17-59) U/L Alkaline Phosphatase 638 H (38-126) U/L Albumin 2.8 L (3.5-5.0) g/dL Microbiology - Last 24 Hours (Table) 08/21/20 10:02 Urine Culture - Preliminary Urine,Voided Assessment and Plan (1) Hyperbilirubinemia Current Visit: Yes Status: Acute Code(s): E80.6 - OTHER DISORDERS OF BILIRUBIN METABOLISM SNOMED Code(s): 15021859 (2) Jaundice Current Visit: Yes Status: Acute Code(s): R17 - UNSPECIFIED JAUNDICE SNOMED Code(s): 76994159 (3) Metastatic renal cell carcinoma Current Visit: Yes Status: Acute Code(s): C64.9 - MALIGNANT NEOPLASM OF UNSP KIDNEY, EXCEPT RENAL PELVIS SNOMED Code(s): 728001272
[2020-08-23 10:16] LABS: Glucose,Whole Blood 136 mg/dL (75-99)
[2020-08-23] MEDS: POTASSIUM CHLORIDE ER 20 MEQ TAB.ER PO SCH ×2 (11:31→13:35)
[2020-08-23] MEDS: ONDANSETRON 4 MG TAB PO PRN (12:16)
[2020-08-23 12:18] LABS: Glucose,Whole Blood 130 mg/dL (75-99)
[2020-08-23] MEDS: DEXTROSE 5%-0.45% NACL 1,000 ML IV SCH (13:35)
[2020-08-23 16:15] LABS: Glucose,Whole Blood 139 mg/dL (75-99)
[2020-08-23 17:50] LABS: Glucose,Whole Blood 128 mg/dL (75-99)
[2020-08-23 20:12] LABS: Glucose,Whole Blood 138 mg/dL (75-99)
[2020-08-23] MEDS: ALPRAZolam 0.25 MG TAB PO SCH (21:20)
[2020-08-23] MEDS: polyethylene glycoL 3350 17 GM POWD.PACK PO SCH (21:20)
--- NOTE | 2020-08-23 21:21 | P.PN ---
Subjective Progress Note Date: 08/23/20 this clinically stable. He reports ongoing nausea which has been present intermittently now for several weeks. He denies significant abdominal pain at this time. No history of any fever/chills. Jaundice is stable Objective - Vital Signs Vital signs: Vital Signs Temp 99.4 F 08/23/20 20:39 Pulse 83 08/23/20 20:39 Resp 16 08/23/20 20:39 BP 146/67 08/23/20 20:39 Pulse Ox 90 L 08/23/20 20:39 Intake & Output 08/23/20 08/23/20 08/24/20 06:59 18:59 06:59 Intake Total 1000 950 Output Total 1000 700 Balance 0 250 Intake: Intake, IV Titration 1000 950 Amount Dextrose 5%-0.45% NaCl 1, 450 900 000 ml @ 75 mls/hr IV . [id number] TAL Rx#:[id number] Magnesium Sulfate-D5w Pmx 200 1 gm In Dextrose/Water 1 100ml.bag @ 100 mls/hr IVPB Q1H TAL Rx#: [id number] Sodium Chloride 0.9% 1, 300 000 ml @ 75 mls/hr IV . [id number] TAL Rx#:[id number] cefTRIAXone 1 gm In 50 50 Sodium Chloride 0.9% 50 ml @ 100 mls/hr IVPB Q12HR TAL Rx#:[id number] Output: Drainage 1000 Left Lower Back 1000 Urine 700 Other: Voiding Method External Catheter # Voids 1 - Constitutional General appearance: Present: no acute distress - EENT Eyes: Present: scleral icterus - Respiratory Respiratory: bilateral: CTA - Cardiovascular Rhythm: regular Heart sounds: normal: S1, S2 - Gastrointestinal General gastrointestinal: Present: normal bowel sounds, soft - Integumentary Integumentary: Present: jaundiced - Neurologic Neurologic: Present: CNII-XII intact - Musculoskeletal Musculoskeletal: Present: generalized weakness, strength equal bilaterally - Labs CBC & Chem 7: 08/23/20 06:14 08/23/20 19:26 Labs: Abnormal Lab Results - Last 24 Hours (Table) 08/23/20 08/23/20 08/23/20 Range/Units 02:00 06:14 06:14 RBC 2.68 L (4.30-5.90) m/uL Hgb 9.7 L (13.0-17.5) gm/dL Hct 28.9 L (39.0-53.0) % MCV 107.8 H (80.0-100.0) fL MCH 36.0 H (25.0-35.0) pg Plt Count 135 L (150-450) k/uL Lymphocytes # 0.6 L (1.0-4.8) k/uL Macrocytosis Marked A Potassium 3.2 L (3.5-5.1) mmol/L Creatinine 1.27 H (0.66-1.25) mg/dL POC Glucose (mg/dL) 101 H (75-99) mg/dL Total Bilirubin 6.1 H (0.2-1.3) mg/dL AST 137 H (17-59) U/L Alkaline Phosphatase 662 H (38-126) U/L Albumin 2.7 L (3.5-5.0) g/dL 08/23/20 08/23/20 08/23/20 Range/Units 10:14 12:17 16:14 RBC (4.30-5.90) m/uL Hgb (13.0-17.5) gm/dL Hct (39.0-53.0) % MCV (80.0-100.0) fL MCH (25.0-35.0) pg Plt Count (150-450) k/uL Lymphocytes # (1.0-4.8) k/uL Macrocytosis Potassium (3.5-5.1) mmol/L Creatinine (0.66-1.25) mg/dL POC Glucose (mg/dL) 136 H 130 H 139 H (75-99) mg/dL Total Bilirubin (0.2-1.3) mg/dL AST (17-59) U/L Alkaline Phosphatase (38-126) U/L Albumin (3.5-5.0) g/dL 08/23/20 08/23/20 Range/Units 17:49 20:10 RBC (4.30-5.90) m/uL Hgb (13.0-17.5) gm/dL Hct (39.0-53.0) % MCV (80.0-100.0) fL MCH (25.0-35.0) pg Plt Count (150-450) k/uL Lymphocytes # (1.0-4.8) k/uL Macrocytosis Potassium (3.5-5.1) mmol/L Creatinine (0.66-1.25) mg/dL POC Glucose (mg/dL) 128 H 138 H (75-99) mg/dL Total Bilirubin (0.2-1.3) mg/dL AST (17-59) U/L Alkaline Phosphatase (38-126) U/L Albumin (3.5-5.0) g/dL Microbiology - Last 24 Hours (Table) 08/21/20 10:02 Urine Culture - Final Urine,Voided Assessment and Plan (1) Hyperbilirubinemia Narrative/Plan: josephine results were discussed with him. Did not show any obvious obstruction. There appeared to be diffuse parenchymal abnormality. - He was advised that the appearance is concerning for liver metastasis, versus underlying chronic parenchymal liver disease. Elevation of liver enzymes has been an ongoing problem throughout his treatment.so far etiology has not been definite. His prior staging studies have not shown dense of metastatic liver involvement. - The above it would be reasonable to proceed with liver biopsy for further workup. We will attempt to arrange that next week with IR Current Visit: Yes Status: Acute Code(s): E80.6 - OTHER DISORDERS OF BILIRUBIN METABOLISM SNOMED Code(s): 13233004 (2) Urothelial carcinoma Narrative/Plan: pretreatment is on hold because of significant liver enzyme elevation. Additional plans workup as noted. - Patient had questions about his stent changed to an internal 1. He was advised to address this with urology. Current Visit: No Status: Acute Code(s): C68.9 - MALIGNANT NEOPLASM OF URINARY ORGAN, UNSPECIFIED SNOMED Code(s): 225445574 (3) Anemia Current Visit: No Status: Acute Code(s): D64.9 - ANEMIA, UNSPECIFIED SNOMED Code(s): 561624175
[2020-08-23 22:35] LABS: Glucose,Whole Blood 106 mg/dL (75-99)
[2020-08-24 00:13] LABS: Glucose,Whole Blood 112 mg/dL (75-99)
[2020-08-24 02:20] LABS: Glucose,Whole Blood 99 mg/dL (75-99)
[2020-08-24] MEDS: DEXTROSE 5%-0.45% NACL 1,000 ML IV SCH ×3 (02:34→21:05)
[2020-08-24 04:23] LABS: Glucose,Whole Blood 91 mg/dL (75-99)
[2020-08-24] MEDS: LEVOTHYROXINE 125 MCG TAB PO SCH (06:03)
[2020-08-24 06:06] LABS: Glucose,Whole Blood 87 mg/dL (75-99)
[2020-08-24 06:54] LABS: Basophils % (A) 0 %; Eosinophils # (A) 0.2 k/uL (0-0.7); Eosinophils % (A) 3 %; HCT 29.2 % (39.0-53.0); HGB 9.2 gm/dL (13.0-17.5); Lymphocytes # (A) 0.7 k/uL (1.0-4.8); Lymphocytes % (A) 12 %; MCH 34.6 pg (25.0-35.0); MCHC 31.3 g/dL (31.0-37.0); MCV 110.3 fL (80.0-100.0); Macrocytosis Marked; Mean Platelet Volume 7.2; Monocytes # (A) 0.7 k/uL (0-1.0); Monocytes % (A) 13 %; Neutrophils # (A) 3.8 k/uL (1.3-7.7); Neutrophils % (A) 69 %; Platelet Count 138 k/uL (150-450); RBC 2.65 m/uL (4.30-5.90); RDW 15.8 % (11.5-15.5); WBC 5.5 k/uL (3.8-10.6)
[2020-08-24 07:55] LABS: Glucose,Whole Blood 83 mg/dL (75-99)
[2020-08-24] MEDS: ENOXAPARIN 40 MG/0.4 ML SYRINGE SQ SCH (08:57)
[2020-08-24] MEDS: SODIUM BICARBONATE TAB 650 MG TAB PO SCH ×3 (08:58→20:55)
[2020-08-24] MEDS: PANTOPRAZOLE 40 MG TABLET PO SCH ×2 (08:58→18:03)
[2020-08-24] MEDS: POTASSIUM CHLORIDE ER 10 MEQ TAB.ER.PRT PO SCH (08:58)
[2020-08-24] MEDS: hydrALAZINE HCL 25 MG TAB PO SCH ×2 (08:58→20:55)
[2020-08-24] MEDS: amLODIPine 2.5 MG TAB PO SCH (08:59)
[2020-08-24] MEDS: METHADONE 10 MG TAB PO SCH (09:15)
--- NOTE | 2020-08-24 09:45 | P.PN ---
Subjective Progress Note Date: 08/23/20 Principal diagnosis: Hyperbilirubinemia, patient was jaundiced The patient is seen lying in bed today no acute complaints. He has tolerated full liquids was asking for diet to be advanced. He did have some nausea today with no vomiting. Objective - Vital Signs Vital signs: Vital Signs Temp 98.6 F 08/23/20 05:23 Pulse 70 08/23/20 05:23 Resp 16 08/23/20 05:23 BP 154/67 08/23/20 05:23 Pulse Ox 93 L 08/23/20 05:23 Intake & Output 08/22/20 08/23/20 08/23/20 18:59 06:59 18:59 Intake Total 1000 Output Total 650 1000 Balance -650 0 Weight 75.296 kg Intake: Intake, IV Titration 1000 Amount Dextrose 5%-0.45% NaCl 1, 450 000 ml @ 75 mls/hr IV . [id number] TAL Rx#:[id number] Magnesium Sulfate-D5w Pmx 200 1 gm In Dextrose/Water 1 100ml.bag @ 100 mls/hr IVPB Q1H TAL Rx#: [id number] Sodium Chloride 0.9% 1, 300 000 ml @ 75 mls/hr IV . [id number] TAL Rx#:[id number] cefTRIAXone 1 gm In 50 Sodium Chloride 0.9% 50 ml @ 100 mls/hr IVPB Q12HR TAL Rx#:[id number] Output: Drainage 650 1000 Left Lower Back 650 1000 Other: Voiding Method External Catheter # Voids 1 - Exam On physical examination, patient appears comfortable in no apparent distress. HEAD: Normocephalic, atraumatic. EYES: Scleral icterus. No conjunctival injection. MOUTH: No lesions, tongue midline. NECK: Trachea midline, no gross abnormalities. ABDOMEN: Soft, nontender to palpation. Bowel sounds are positive. No organomegaly. No guarding or rigidity. EXTREMITIES: No pedal edema. SKIN: No rashes, jaundice. NEUROLOGIC: Alert and oriented x3. No focal deficits. - Labs CBC & Chem 7: 08/24/20 05:50 08/23/20 19:26 Labs: Abnormal Lab Results - Last 24 Hours (Table) 08/22/20 08/22/20 08/22/20 Range/Units 09:35 09:35 19:55 RBC 2.76 L (4.30-5.90) m/uL Hgb 9.3 L (13.0-17.5) gm/dL Hct 30.1 L (39.0-53.0) % MCV 109.0 H (80.0-100.0) fL MCH (25.0-35.0) pg RDW 15.6 H (11.5-15.5) % Plt Count 116 L (150-450) k/uL Lymphocytes # 0.4 L (1.0-4.8) k/uL Macrocytosis Marked A Potassium (3.5-5.1) mmol/L Creatinine (0.66-1.25) mg/dL POC Glucose (mg/dL) 38 L (75-99) mg/dL Magnesium 1.5 L (1.6-2.3) mg/dL Total Bilirubin (0.2-1.3) mg/dL AST (17-59) U/L Alkaline Phosphatase (38-126) U/L Albumin (3.5-5.0) g/dL 08/23/20 08/23/20 08/23/20 Range/Units 02:00 06:14 06:14 RBC 2.68 L (4.30-5.90) m/uL Hgb 9.7 L (13.0-17.5) gm/dL Hct 28.9 L (39.0-53.0) % MCV 107.8 H (80.0-100.0) fL MCH 36.0 H (25.0-35.0) pg RDW (11.5-15.5) % Plt Count 135 L (150-450) k/uL Lymphocytes # 0.6 L (1.0-4.8) k/uL Macrocytosis Marked A Potassium 3.2 L (3.5-5.1) mmol/L Creatinine 1.27 H (0.66-1.25) mg/dL POC Glucose (mg/dL) 101 H (75-99) mg/dL Magnesium (1.6-2.3) mg/dL Total Bilirubin 6.1 H (0.2-1.3) mg/dL AST 137 H (17-59) U/L Alkaline Phosphatase 662 H (38-126) U/L Albumin 2.7 L (3.5-5.0) g/dL Microbiology - Last 24 Hours (Table) 08/21/20 10:02 Urine Culture - Final Urine,Voided Assessment and Plan (1) Hyperbilirubinemia Narrative/Plan: 74-year-old male with a recent diagnosis of renal carcinoma with metastasis who is currently under treatment with a past medical history of hepatitis C due to history of IV drug use treated with a Salazar 45 years ago presented to the emergency department for abnormal outpatient labs. The patient presented with an total bilirubin is 7.9, alkaline phosphatase 786, AST 150, ALT [address] of the abdomen showing an ill-defined hypodensity at the hepatic hilum. Underlying mass is not excluded. Consider MRI with contrast. Sclerotic epistasis, especially through the pelvis and lumbar region, right renal mass. Ultrasound of the gallbladder findings included limited examination, borderline gallbladder wall thickening, unable to visualize common bile duct, 6.0 cm comple x lesion of the right kidney is again seen. The patient is denying any abdominal pain, nausea, or vomiting. States his PCP has been monitoring his bilirubin which has been increasing. He is currently under treatment for his renal carcinoma with metastasis. States he has been receiving treatment for the last 3-4 months duration. MRI/MRCP significant for diffuse hepatic disease concerning for underlying cirrhosis versus metastatic disease. Current Visit: Yes Status: Acute Code(s): E80.6 - OTHER DISORDERS OF BILIR UBIN METABOLISM SNOMED Code(s): 09690840 (2) Jaundice Current Visit: Yes Status: Acute Code(s): R17 - UNSPECIFIED JAUNDICE SNOMED Code(s): 16265039 (3) Metastatic renal cell carcinoma Current Visit: Yes Status: Acute Code(s): C64.9 - MALIGNANT NEOPLASM OF UNSP KIDNEY, EXCEPT RENAL PELVIS SNOMED Code(s): 097674879 Plan: 1. Okay for diet as tolerated 2. MRI/MRCP significant for diffuse hepatocellular disease possibly related to metastases versus underlying cirrhosis 3. Daily CMP 4. Avoid hepatotoxic medications 5. Continue symptomatic and supportive care 6. Oncology service has reviewed the imaging and is planning IR guided biopsy of the liver Thank you for this consultation, we will continue to follow.
[2020-08-24 10:01] LABS: African American GFR (CKD) 62.3 (60.0-200.0); Albumin 2.6 g/dL (3.80-4.90); Albumin/Globulin Ratio 0.81 (1.60-3.17); Anion Gap 5.7 mmol/L (4.00-12.00); BUN/Creat Ratio 11.54 Ratio (12.00-20.00); Calcium 8.2 mg/dL (8.7-10.3); Carbon Dioxide 26.3 mmol/L (21.6-31.8); Globulin 3.2 g/dL (1.6-3.3); Non-African American GFR(CKD) 53.8 (60.0-200.0); Potassium 3.5 mmol/L (3.5-5.5); Total Bilirubin 5.7 mg/dL (0.2-1.2); Total Protein 5.8 g/dL (6.2-8.2)
[2020-08-24 10:13] LABS: Glucose,Whole Blood 126 mg/dL (75-99)
[2020-08-24] MEDS: POTASSIUM CHLORIDE ER 20 MEQ TAB.ER PO SCH ×2 (10:56→11:54)
[2020-08-24 11:56] LABS: Glucose,Whole Blood 116 mg/dL (75-99)
--- NOTE | 2020-08-24 12:06 | P.PN ---
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 Patient presented to the ER with complaints of painless jaundice. Patient has been following with [facility] for cancer treatment and was instructed to go to ER per oncology due to elevated bilirubin of 7.9. Additional medical history includes hyperlipidemia, hypertension, renal or thyroid disorder, hepatitis C, previous drug abuse currently on methadone and anxiety. Abdomen and pelvis CT was completed showing right renal mass in distal tibia sized to kidney is similar in appearance to the comparison study. Left nephrostomy tube. Mild ascites adjacent to the liver. sclerotic metastatic especially to the pelvic and lumbar region. Ultrasound of gallbladder completed showing borderline gallbladder wall thickening. 6.0 cm complex lesion of right kidney. Initial total bilirubin 7.9. AST 150 ALT 49 and alkaline phosphatase 786. Patient lactic acid initially elevated at 3. 6 repeat 1.4. At this time oncology and GI services have been consulted. MRI has been ordered. Patient denies chest pain or shortness of breath. Patient denies nausea vomiting or diarrhea. Patient denies any urinary burning or frequency On 08/23/2020 patient is alert and oriented 3. Patient did have MRI completed yesterday to be reviewed by oncology and GI services. Total bili 6.1 AST 137 ALT 41 and alkaline phosphatase 662. Patient did have episode of low blood sugar started on D5. Patient denies chest pain or shortness of breath. Patient denies nausea vomiting or diarrhea. Patient denies any urinary burning or frequency. Replace electrolytes per protocol 08/24/2020 patient was seen and examined on the medical floor he is alert and oriented 3 in no apparent distress, he had few episodes of hypoglycemia, patient is still maintained on IV fluid with D5 0.45, otherwise he denies any complaints there is no fever or chills no headache or dizziness no chest pain no shortness of breath no cough no nausea or vomiting he has mild abdominal pain unchanged, no diarrhea no burning with urination no frequency or urgency and no hematuria. There oncology in the note yesterday, plan is for liver biopsy early next week, no recommendation for discharge were made, will continue with current management, awaiting liver ultrasound tomorrow or Tuesday Objective - Vital Signs Vital signs: Vital Signs Temp 98.5 F 08/24/20 04:48 Pulse 78 08/24/20 04:48 Resp 14 08/24/20 04:48 BP 131/65 08/24/20 04:48 Pulse Ox 91 L 08/24/20 04:48 Intake & Output 08/23/20 08/24/20 08/24/20 18:59 06:59 18:59 Intake Total 950 1497 Output Total 700 400 Balance 250 1097 Intake: Intake, IV Titration 950 1000 Amount Dextrose 5%-0.45% NaCl 1, 900 900 000 ml @ 75 mls/hr IV . [id number] TAL Rx#:[id number] cefTRIAXone 1 gm In 50 100 Sodium Chloride 0.9% 50 ml @ 100 mls/hr IVPB Q12HR TAL Rx#:[id number] Oral 497 Output: Drainage 400 Left Lower Back 400 Urine 700 Other: Voiding Method External Catheter # Voids 1 - Exam Head normocephalic, jaundice Neck supple Lungs clear to auscultation bilaterally no wheezing or crackles Heart regular rate and rhythm S1-S2, no rub or gallop Abdomen is soft nontender nondistended positive bowel sounds no hepatosplenomegaly Extremities no edema Neuro alert and orientated to 3 - Labs CBC & Chem 7: 08/24/20 05:50 08/24/20 05:50 Labs: Abnormal Lab Results - Last 24 Hours (Table) 08/23/20 08/23/20 08/23/20 Range/Units 10:14 12:17 16:14 RBC (4.30-5.90) m/uL Hgb (13.0-17.5) gm/dL Hct (39.0-53.0) % MCV (80.0-100.0) fL RDW (11.5-15.5) % Plt Count (150-450) k/uL Lymphocytes # (1.0-4.8) k/uL Macrocytosis POC Glucose (mg/dL) 136 H 130 H 139 H (75-99) mg/dL 08/23/20 08/23/20 08/23/20 Range/Units 17:49 20:10 22:33 RBC (4.30-5.90) m/uL Hgb (13.0-17.5) gm/dL Hct (39.0-53.0) % MCV (80.0-100.0) fL RDW (11.5-15.5) % Plt Count (150-450) k/uL Lymphocytes # (1.0-4.8) k/uL Macrocytosis POC Glucose (mg/dL) 128 H 138 H 106 H (75-99) mg/dL 08/24/20 08/24/20 Range/Units 00:11 05:50 RBC 2.65 L (4.30-5.90) m/uL Hgb 9.2 L (13.0-17.5) gm/dL Hct 29.2 L (39.0-53.0) % MCV 110.3 H (80.0-100.0) fL RDW 15.8 H (11.5-15.5) % Plt Count 138 L (150-450) k/uL Lymphocytes # 0.7 L (1.0-4.8) k/uL Macrocytosis Marked A POC Glucose (mg/dL) 112 H (75-99) mg/dL Microbiology - Last 24 Hours (Table) 08/21/20 10:02 Urine Culture - Final Urine,Voided Assessment and Plan Assessment: 1. Hyperbilirubinanemia and Jaundice with concerns of metastatic disease 2. History of metastatic urothelial carcinoma. Patient has been following with oncology service is currently receiving chemotherapy. Urostomy tube in place 3. History of deep vein thrombosis iliac vein 4. History of hypothyroidism 5. History of essential hypertension 6. History of chronic pain syndrome maintained on methadone 7. urinary tract infection. Patient will be started on Rocephin urine culture ordered DVT prophylaxis Lovenox. GI prophylaxis Protonix. Oncology GI service is consulted MRI of the liver with and without contrast ordered Repeat labs ordered Urine culture ordered Patient started on IV Rocephin
[2020-08-24 17:21] LABS: Glucose,Whole Blood 109 mg/dL (75-99)
[2020-08-24 20:17] LABS: Glucose,Whole Blood 102 mg/dL (75-99)
[2020-08-24] MEDS: ALPRAZolam 0.25 MG TAB PO SCH (20:55)
[2020-08-24] MEDS: polyethylene glycoL 3350 17 GM POWD.PACK PO SCH (20:55)
[2020-08-25 01:59] LABS: Glucose,Whole Blood 88 mg/dL (75-99)
[2020-08-25] MEDS: LEVOTHYROXINE 125 MCG TAB PO SCH (04:28)
[2020-08-25 06:00] LABS: Basophils % (A) 0 %; Eosinophils # (A) 0.1 k/uL (0-0.7); Eosinophils % (A) 2 %; HGB 9.6 gm/dL (13.0-17.5); Lymphocytes # (A) 0.6 k/uL (1.0-4.8); Lymphocytes % (A) 9 %; MCH 35.5 pg (25.0-35.0); MCHC 33.2 g/dL (31.0-37.0); MCV 106.7 fL (80.0-100.0); Macrocytosis Moderate; Mean Platelet Volume 7.4; Monocytes # (A) 0.7 k/uL (0-1.0); Monocytes % (A) 13 %; Neutrophils # (A) 4.3 k/uL (1.3-7.7); Neutrophils % (A) 73 %; Platelet Count 120 k/uL (150-450); RBC 2.71 m/uL (4.30-5.90); RDW 15.3 % (11.5-15.5); WBC 5.9 k/uL (3.8-10.6)
[2020-08-25 07:04] LABS: Glucose,Whole Blood 83 mg/dL (75-99)
--- NOTE | 2020-08-25 07:10 | P.PN ---
Subjective Progress Note Date: 08/24/20 Principal diagnosis: Hyperbilirubinemia, patient was jaundiced The patient is seen sitting bedside. No acute complaints. Tolerating increased diarrhea. No further nausea. Objective - Vital Signs Vital signs: Vital Signs Temp 98.5 F 08/24/20 04:48 Pulse 78 08/24/20 04:48 Resp 14 08/24/20 04:48 BP 131/65 08/24/20 04:48 Pulse Ox 91 L 08/24/20 04:48 Intake & Output 08/23/20 08/24/20 08/24/20 18:59 06:59 18:59 Intake Total 950 1497 Output Total 700 400 Balance 250 1097 Intake: Intake, IV Titration 950 1000 Amount Dextrose 5%-0.45% NaCl 1, 900 900 000 ml @ 75 mls/hr IV . [id number] TAL Rx#:[id number] cefTRIAXone 1 gm In 50 100 Sodium Chloride 0.9% 50 ml @ 100 mls/hr IVPB Q12HR TAL Rx#:[id number] Oral 497 Output: Drainage 400 Left Lower Back 400 Urine 700 Other: Voiding Method External Catheter External Catheter # Voids 1 - Exam On physical examination, patient appears comfortable in no apparent distress. HEAD: Normocephalic, atraumatic. EYES: Scleral icterus. No conjunctival injection. MOUTH: No lesions, tongue midline. NECK: Trachea midline, no gross abnormalities. ABDOMEN: Soft, nontender to palpation. Bowel sounds are positive. No organomegaly. No guarding or rigidity. EXTREMITIES: No pedal edema. SKIN: No rashes, jaundice. NEUROLOGIC: Alert and oriented x3. No focal deficits. - Labs CBC & Chem 7: 08/25/20 05:06 08/24/20 15:56 Labs: Abnormal Lab Results - Last 24 Hours (Table) 08/23/20 08/23/20 08/23/20 Range/Units 10:14 12:17 16:14 RBC (4.30-5.90) m/uL Hgb (13.0-17.5) gm/dL Hct (39.0-53.0) % MCV (80.0-100.0) fL RDW (11.5-15.5) % Plt Count (150-450) k/uL Lymphocytes # (1.0-4.8) k/uL Macrocytosis Est GFR (CKD-EPI)NonAf (60.0-200.0) BUN/Creatinine Ratio (12.00-20.00) Ratio POC Glucose (mg/dL) 136 H 130 H 139 H (75-99) mg/dL Calcium (8.7-10.3) mg/dL Total Bilirubin (0.2-1.2) mg/dL AST (14-35) U/L ALT (10-49) U/L Alkaline Phosphatase (41-126) U/L Total Protein (6.2-8.2) g/dL Albumin (3.80-4.90) g/dL Albumin/Globulin Ratio (1.60-3.17) g/dL 08/23/20 08/23/20 08/23/20 Range/Units 17:49 20:10 22:33 RBC (4.30-5.90) m/uL Hgb (13.0-17.5) gm/dL Hct (39.0-53.0) % MCV (80.0-100.0) fL RDW (11.5-15.5) % Plt Count (150-450) k/uL Lymphocytes # (1.0-4.8) k/uL Macrocytosis Est GFR (CKD-EPI)NonAf (60.0-200.0) BUN/Creatinine Ratio (12.00-20.00) Ratio POC Glucose (mg/dL) 128 H 138 H 106 H (75-99) mg/dL Calcium (8.7-10.3) mg/dL Total Bilirubin (0.2-1.2) mg/dL AST (14-35) U/L ALT (10-49) U/L Alkaline Phosphatase (41-126) U/L Total Protein (6.2-8.2) g/dL Albumin (3.80-4.90) g/dL Albumin/Globulin Ratio (1.60-3.17) g/dL 08/24/20 08/24/20 08/24/20 Range/Units 00:11 05:50 05:50 RBC 2.65 L (4.30-5.90) m/uL Hgb 9.2 L (13.0-17.5) gm/dL Hct 29.2 L (39.0-53.0) % MCV 110.3 H (80.0-100.0) fL RDW 15.8 H (11.5-15.5) % Plt Count 138 L (150-450) k/uL Lymphocytes # 0.7 L (1.0-4.8) k/uL Macrocytosis Marked A Est GFR (CKD-EPI)NonAf 53.8 L (60.0-200.0) BUN/Creatinine Ratio 11.54 L (12.00-20.00) Ratio POC Glucose (mg/dL) 112 H (75-99) mg/dL Calcium 8.2 L (8.7-10.3) mg/dL Total Bilirubin 5.7 H (0.2-1.2) mg/dL AST 190 H (14-35) U/L ALT 59 H (10-49) U/L Alkaline Phosphatase 624 H (41-126) U/L Total Protein 5.8 L (6.2-8.2) g/dL Albumin 2.60 L (3.80-4.90) g/dL Albumin/Globulin Ratio 0.81 L (1.60-3.17) g/dL Microbiology - Last 24 Hours (Table) 08/21/20 10:02 Urine Culture - Final Urine,Voided Assessment and Plan (1) Hyperbilirubinemia Narrative/Plan: 74-year-old male with a recent diagnosis of renal carcinoma with metastasis who is currently under treatment with a past medical history of hepatitis C due to history of IV drug use treated with a Salazar 45 years ago presented to the emergency department for abnormal outpatient labs. The patient presented with an total bilirubin is 7.9, alkaline phosphatase 786, AST 150, ALT [address] of the abdomen showing an ill-defined hypodensity at the hepatic hilum. Underlying mass is not excluded. Consider MRI with contrast. Sclerotic epistasis, especially through the pelvis and lumbar region, right renal mass. Ultrasound of the gallbladder findings included limited examination, borderline gallbladder wall thickening, unable to visualize common bile duct, 6.0 cm complex lesion of the right kidney is again seen. The patient is denying any abdominal pain, nausea, or vomiting. States his PCP has been monitoring his bilirubin which has been increasing. He is currently under treatment for his renal carcinoma with metastasis. States he has been receiving treatment for the last 3-4 months duration. MRI/MRCP significant for diffuse hepatic disease concerning for underlying cirrhosis versus metastatic disease. Current Visit: Yes Status: Acute Code(s): E80.6 - OTHER DISORDERS OF BILIRUBIN METABOLISM SNOMED Code(s): 76778351 (2) Jaundice Current Visit: Yes Status: Acute Code(s): R17 - UNSPECIFIED JAUNDICE SNOMED Code(s): 24075406 (3) Metastatic renal cell carcinoma Current Visit: Yes Status: Acute Code(s): C64.9 - MALIGNANT NEOPLASM OF UNSP KIDNEY, EXCEPT RENAL PELVIS SNOMED Code(s): 849792959 Plan: 1. Okay for diet as tolerated 2. MRI/MRCP significant for diffuse hepatocellular disease possibly related to metastases versus underlying cirrhosis 3. Daily CMP 4. Avoid hepatotoxic medications 5. Continue symptomatic and supportive care 6. Oncology service has reviewed the imaging and is planning IR guided biopsy of the liver Thank you for this consultation, we will continue to follow.
[2020-08-25] MEDS: METHADONE 10 MG TAB PO SCH (08:06)
[2020-08-25] MEDS: SODIUM BICARBONATE TAB 650 MG TAB PO SCH ×3 (08:07→21:36)
[2020-08-25] MEDS: ENOXAPARIN 40 MG/0.4 ML SYRINGE SQ SCH (08:07)
[2020-08-25] MEDS: PANTOPRAZOLE 40 MG TABLET PO SCH ×2 (08:07→17:16)
[2020-08-25] MEDS: hydrALAZINE HCL 25 MG TAB PO SCH ×2 (08:08→21:36)
[2020-08-25] MEDS: POTASSIUM CHLORIDE ER 10 MEQ TAB.ER.PRT PO SCH (08:08)
[2020-08-25] MEDS: amLODIPine 2.5 MG TAB PO SCH (08:08)
[2020-08-25] MEDS: TORSEMIDE 20 MG TAB PO SCH (08:09)
[2020-08-25 10:54] LABS: Albumin 2.7 g/dL (3.80-4.90); Albumin/Globulin Ratio 0.79 (1.60-3.17); BUN/Creat Ratio 11.43 Ratio (12.00-20.00); Calcium 8.4 mg/dL (8.7-10.3); Globulin 3.4 g/dL (1.6-3.3); Non-African American GFR(CKD) 49.1 (60.0-200.0); Potassium 4.2 mmol/L (3.5-5.5); Total Bilirubin 6.9 mg/dL (0.2-1.2); Total Protein 6.1 g/dL (6.2-8.2)
[2020-08-25] MEDS: DEXTROSE 5%-0.45% NACL 1,000 ML IV SCH (10:57)
[2020-08-25 11:17] LABS: Glucose,Whole Blood 74 mg/dL (75-99)
[2020-08-25 12:20] LABS: INR 1.3 (<1.2); Prothrombin Time 13.3 sec (9.0-12.0)
--- NOTE | 2020-08-25 12:51 | P.PN ---
Subjective Progress Note Date: 08/25/20 Principal diagnosis: Jaundice and increased liver function Await biopsy of liver he is still tired and weak, jaundiced Objective - Vital Signs Vital signs: Vital Signs Temp 98.1 F 08/25/20 09:02 Pulse 85 08/25/20 05:00 Resp 16 08/25/20 05:00 BP 164/65 08/25/20 05:00 Pulse Ox 93 L 08/25/20 05:00 Intake & Output 08/24/20 08/25/20 08/25/20 18:59 06:59 18:59 Output Total 300 400 Balance -300 -400 Output: Urine 300 400 Other: Voiding Method External Catheter External Catheter External Catheter # Voids 1 - Exam - Constitutional General appearance: no acute distress, thin - EENT Eyes: EOMI, scleral icterus - Neck Neck: no lymphadenopathy - Respiratory Respiratory: bilateral: CTA - Cardiovascular Rhythm: regular Heart sounds: normal: S1, S2 - Gastrointestinal General gastrointestinal: normal bowel sounds, soft - Integumentary Integumentary: jaundiced - Neurologic Neurologic: CNII-XII intact, focal deficits - Musculoskeletal Musculoskeletal: generalized weakness - Psychiatric Psychiatric: A&O x's 3, appropriate affect, intact judgment & insight - Labs CBC & Chem 7: 08/25/20 05:06 08/25/20 05:06 Labs: Abnormal Lab Results - Last 24 Hours (Table) 08/24/20 08/24/20 08/24/20 Range/Units 11:55 17:20 20:15 RBC (4.30-5.90) m/uL Hgb (13.0-17.5) gm/dL Hct (39.0-53.0) % MCV (80.0-100.0) fL MCH (25.0-35.0) pg Plt Count (150-450) k/uL Lymphocytes # (1.0-4.8) k/uL Est GFR (CKD-EPI)AfAm (60.0-200.0) Est GFR (CKD-EPI)NonAf (60.0-200.0) BUN/Creatinine Ratio (12.00-20.00) Ratio POC Glucose (mg/dL) 116 H 109 H 102 H (75-99) mg/dL Calcium (8.7-10.3) mg/dL Total Bilirubin (0.2-1.2) mg/dL AST (14-35) U/L ALT (10-49) U/L Alkaline Phosphatase (41-126) U/L Total Protein (6.2-8.2) g/dL Albumin (3.80-4.90) g/dL Globulin (1.6-3.3) g/dL Albumin/Globulin Ratio (1.60-3.17) g/dL 08/25/20 08/25/20 08/25/20 Range/Units 05:06 05:06 11:16 RBC 2.71 L (4.30-5.90) m/uL Hgb 9.6 L (13.0-17.5) gm/dL Hct 29.0 L (39.0-53.0) % MCV 106.7 H (80.0-100.0) fL MCH 35.5 H (25.0-35.0) pg Plt Count 120 L (150-450) k/uL Lymphocytes # 0.6 L (1.0-4.8) k/uL Est GFR (CKD-EPI)AfAm 57.0 L (60.0-200.0) Est GFR (CKD-EPI)NonAf 49.1 L (60.0-200.0) BUN/Creatinine Ratio 11.43 L (12.00-20.00) Ratio POC Glucose (mg/dL) 74 L (75-99) mg/dL Calcium 8.4 L (8.7-10.3) mg/dL Total Bilirubin 6.9 H (0.2-1.2) mg/dL AST 254 H (14-35) U/L ALT 77 H (10-49) U/L Alkaline Phosphatase 687 H (41-126) U/L Total Protein 6.1 L (6.2-8.2) g/dL Albumin 2.70 L (3.80-4.90) g/dL Globulin 3.4 H (1.6-3.3) g/dL Albumin/Globulin Ratio 0.79 L (1.60-3.17) g/dL Assessment and Plan Plan: Physician Attest: I have completed the full history and physical and agree with above dictation, dictated as a ascribe. CT scan - abdomen: report reviewed CT scan - pelvis: report reviewed US - abdomen: report reviewed Assessment and Plan (1) Hyperbilirubinemia - Await Biopsy of the liver for further evaluation Current Visit: Yes Status: Acute Code(s): E80.6 - OTHER DISORDERS OF BILIRUBIN METABOLISM SNOMED Code(s): 19133136 (2) Urothelial carcinoma Metastatic Urothelial Cancer (Patient does not have renal cell) - Recent treatment with immunotherapy a month ago Current Visit: No Status: Acute Code(s): C68.9 - MALIGNANT NEOPLASM OF URINARY ORGAN, UNSPECIFIED SNOMED Code(s): 175713551 (3) Anemia MOnitor Daily Secondary to Malignancy and Treatment Current Visit: No Status: Acute Code(s): D64.9 - ANEMIA, UNSPECIFIED SNOMED Code(s): 919462195 Physician Attest: I have completed the full history and physical and agree with above dictation, dictated as a scribe
--- NOTE | 2020-08-25 15:29 | P.PN ---
Subjective Progress Note Date: 08/25/20 Principal diagnosis: Jaundice Patient was seen and examined sitting up at the bedside no reported acute changes through the night. He denies any abdominal pain, nausea, or vomiting. He is tolerating a regular diet. Liver enzymes are stable, with mild increase. Oncology has ordered a liver biopsy. Objective - Vital Signs Vital signs: Vital Signs Temp 98.1 F 08/25/20 09:02 Pulse 85 08/25/20 05:00 Resp 16 08/25/20 05:00 BP 164/65 08/25/20 05:00 Pulse Ox 93 L 08/25/20 05:00 Intake & Output 08/24/20 08/25/20 08/25/20 18:59 06:59 18:59 Output Total 300 400 Balance -300 -400 Output: Urine 300 400 Other: Voiding Method External Catheter External Catheter External Catheter # Voids 1 - Exam General appearance: The patient is alert, oriented, appears in no acute distress. HET: Head is normocephalic and atraumatic. Conjunctiva pink. Sclera icteric. Neck: Supple without lymphadenopathy. Abdomen: Soft, nontender, nondistended with bowel sounds. No guarding or rigidity. Extremities: Normal skin color and turgor. No pedal edema Skin: No rashes, on this. Neurological: No focal deficits. Alert and oriented 3. - Labs CBC & Chem 7: 08/25/20 05:06 08/25/20 05:06 Labs: Abnormal Lab Results - Last 24 Hours (Table) 08/24/20 08/24/20 08/24/20 Range/Units 05:50 10:12 11:55 RBC (4.30-5.90) m/uL Hgb (13.0-17.5) gm/dL Hct (39.0-53.0) % MCV (80.0-100.0) fL MCH (25.0-35.0) pg Plt Count (150-450) k/uL Lymphocytes # (1.0-4.8) k/uL Est GFR (CKD-EPI)NonAf 53.8 L (60.0-200.0) BUN/Creatinine Ratio 11.54 L (12.00-20.00) Ratio POC Glucose (mg/dL) 126 H 116 H (75-99) mg/dL Calcium 8.2 L (8.7-10.3) mg/dL Total Bilirubin 5.7 H (0.2-1.2) mg/dL AST 190 H (14-35) U/L ALT 59 H (10-49) U/L Alkaline Phosphatase 624 H (41-126) U/L Total Protein 5.8 L (6.2-8.2) g/dL Albumin 2.60 L (3.80-4.90) g/dL Albumin/Globulin Ratio 0.81 L (1.60-3.17) g/dL 08/24/20 08/24/20 08/25/20 Range/Units 17:20 20:15 05:06 RBC 2.71 L (4.30-5.90) m/uL Hgb 9.6 L (13.0-17.5) gm/dL Hct 29.0 L (39.0-53.0) % MCV 106.7 H (80.0-100.0) fL MCH 35.5 H (25.0-35.0) pg Plt Count 120 L (150-450) k/uL Lymphocytes # 0.6 L (1.0-4.8) k/uL Est GFR (CKD-EPI)NonAf (60.0-200.0) BUN/Creatinine Ratio (12.00-20.00) Ratio POC Glucose (mg/dL) 109 H 102 H (75-99) mg/dL Calcium (8.7-10.3) mg/dL Total Bilirubin (0.2-1.2) mg/dL AST (14-35) U/L ALT (10-49) U/L Alkaline Phosphatase (41-126) U/L Total Protein (6.2-8.2) g/dL Albumin (3.80-4.90) g/dL Albumin/Globulin Ratio (1.60-3.17) g/dL Assessment and Plan (1) Hyperbilirubinemia Narrative/Plan: 74-year-old male with a recent diagnosis of renal carcinoma with metastasis who is currently under treatment with a past medical history of hepatitis C due to history of IV drug use treated with a Salazar 45 years ago presented to the emergency department for abnormal outpatient labs. The patient presented with an total bilirubin is 7.9, alkaline phosphatase 786, AST 150, ALT [address] of the abdomen showing an ill-defined hypodensity at the hepatic hilum. Underlying mass is not excluded. Consider MRI with contrast. Sclerotic epistasis, especially through the pelvis and lumbar region, right renal mass. Ultrasound of the gallbladder findings included limited examination, borderline gallbladder wall thickening, unable to visualize common bile duct, 6.0 cm complex lesion of the right kidney is again seen. The patient is denying any abdominal pain, nausea, or vomiting. States his PCP has been monitoring his bilirubin which has been increasing. He is currently under treatment for his renal carcinoma with metastasis. States he has been receiving treatment for the last 3-4 months duration. Will obtain MRI/MRCP to rule out liver mass, biliary obstruction. Current Visit: Yes Status: Acute Code(s): E80.6 - OTHER DISORDERS OF BILIRUBIN METABOLISM SNOMED Code(s): 31540015 (2) Jaundice Current Visit: Yes Status: Acute Code(s): R17 - UNSPECIFIED JAUNDICE SNOMED Code(s): 77114602 (3) Metastatic renal cell carcinoma Narrative/Plan: Oncology following patient Current Visit: Yes Status: Acute Code(s): C64.9 - MALIGNANT NEOPLASM OF UNSP KIDNEY, EXCEPT RENAL PELVIS SNOMED Code(s): 306145259 Plan: 1. Iodine as tolerated 2. MRI/MRCP was significant diffuse hepatocellular disease possibly related to metastasis versus underlying cirrhosis 3. Daily CMP 4. Avoid hepatotoxic medications 5. Continue symptomatic and supportive care 6. Oncology service following closely, liver biopsy ordered Thank you for this consultation, we will continue to follow. Dr. Damon I agree with the dictator's note, documented as a scribe by Nori Melendez.
--- NOTE | 2020-08-25 16:33 | CDI ---
Documentation Clarification Form Date: 08/25/2020 04:28:00 PM From: Deedee Morales RN, CCDS Admit Date: 08/21/2020 11:07:00 AM Patient Name: Miguel Mancuso Visit Number: [id number] ATTENTION: The Clinical Documentation Specialists (CDI) and [facility] Coding Staff appreciate your assistance in clarifying documentation. Please respond to the clarification below the line at the bottom and electronically sign. The CDI & [facility] Coding staff will review the response and follow-up if needed. Please note: Queries are made part of the Legal Health Record. If you have any questions, please contact the author of this message via ITS. Dr. Isma Cohen Renal Failure is documented in the Ed note and 08/21 Consults. Additional clarification regarding the acuity of renal failure is requested. 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, Current UTI Clinical Indicators: 08/21 Oncology Consult: "He originally presented to [facility] Emergency department with anuria and renal failure." 06/09/2020 Patients baseline/prior BUN/CR/GFR: 21/1.3/53.8 08/21-08/25 Current BUN: 30/24/// Cr: 2.01/1.5/1.27/1.3/1.4 GFR: 32/45/55/53.8/49.1 Treatment: 08/21 500 CC IVF Bolus Apresoline 25mg PO BID Norvasc 2.5 mg Po QD Demadex Ordered- Patient refused all does Please clarify the acuity of renal failure, if known: [ ] Acute Renal Failure (specify cause if known) [ ] Chronic renal failure (specify stage if known) [ ] CKD Stage 1 (GFR > 90) [ ] CKD Stage 2 (GFR 60-89) [ ] CKD Stage 3 (GFR 30-59) [ ] CKD Stage 3a (GFR 45-59) [ ] CKD Stage 3b (GFR 30-44) [ ] CKD Stage 4 (GFR 15-29) [ ] Acute on Chronic Renal Failure (please stage chronic also) [ ] CKD Stage 1 (GFR > 90) [ ] CKD Stage 2 (GFR 60-89) [ ] CKD Stage 3 (GFR 30-59) [ ] CKD Stage 3a (GFR 45-59) [ ] CKD Stage 3b (GFR 30-44) [ ] CKD Stage 4 (GFR 15-29) [ ] Other, please specify [ ] Unable to determine (Template Last Revised: April 2020) Acute on Chronic renal failure stage III MTDD
[2020-08-25 17:02] LABS: Glucose,Whole Blood 82 mg/dL (75-99)
[2020-08-25] MEDS: ONDANSETRON 4 MG TAB PO PRN ×2 (17:19→21:36)
--- NOTE | 2020-08-25 17:27 | P.PN ---
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 Patient presented to the ER with complaints of painless jaundice. Patient has been following with [facility] for cancer treatment and was instructed to go to ER per oncology due to elevated bilirubin of 7.9. Additional medical history includes hyperlipidemia, hypertension, renal or thyroid disorder, hepatitis C, previous drug abuse currently on methadone and anxiety. Abdomen and pelvis CT was completed showing right renal mass in distal tibia sized to kidney is similar in appearance to the comparison study. Left nephrostomy tube. Mild ascites adjacent to the liver. sclerotic metastatic especially to the pelvic and lumbar region. Ultrasound of gallbladder completed showing borderline gallbladder wall thickening. 6.0 cm complex lesion of right kidney. Initial total bilirubin 7.9. AST 150 ALT 49 and alkaline phosphatase 786. Patient lactic acid initially elevated at 3. 6 repeat 1.4. At this time oncology and GI services have been consulted. MRI has been ordered. Patient denies chest pain or shortness of breath. Patient denies nausea vomiting or diarrhea. Patient denies any urinary burning or frequency On 08/23/2020 patient is alert and oriented 3. Patient did have MRI completed yesterday to be reviewed by oncology and GI services. Total bili 6.1 AST 137 ALT 41 and alkaline phosphatase 662. Patient did have episode of low blood sugar started on D5. Patient denies chest pain or shortness of breath. Patient denies nausea vomiting or diarrhea. Patient denies any urinary burning or frequency. Replace electrolytes per protocol 08/24/2020 patient was seen and examined on the medical floor he is alert and oriented 3 in no apparent distress, he had few episodes of hypoglycemia, patient is still maintained on IV fluid with D5 0.45, otherwise he denies any complaints there is no fever or chills no headache or dizziness no chest pain no shortness of breath no cough no nausea or vomiting he has mild abdominal pain unchanged, no diarrhea no burning with urination no frequency or urgency and no hematuria. There oncology in the note yesterday, plan is for liver biopsy early next week, no recommendation for discharge were made, will continue with current management, awaiting liver ultrasound tomorrow or Tuesday08/25/2020 patient is alert and oriented 3 in no apparent distress, he denies any complaints there is no fever or chills no headache or dizziness no chest pain no shortness of breath no cough no nausea or vomiting he has mild abdominal pain unchanged, no diarrhea no burning with urination no frequency or urgency and no hematuria. plan per Oncology for liver biopsy in am tomorrow Objective - Vital Signs Vital signs: Vital Signs Temp 98.1 F 08/25/20 09:02 Pulse 85 08/25/20 05:00 Resp 16 08/25/20 05:00 BP 164/65 08/25/20 05:00 Pulse Ox 93 L 08/25/20 05:00 Intake & Output 08/24/20 08/25/20 08/25/20 18:59 06:59 18:59 Output Total 300 400 Balance -300 -400 Output: Urine 300 400 Other: Voiding Method External Catheter External Catheter External Catheter # Voids 1 - Exam Head normocephalic, jaundice Neck supple Lungs clear to auscultation bilaterally no wheezing or crackles Heart regular rate and rhythm S1-S2, no rub or gallop Abdomen is soft nontender nondistended positive bowel sounds no hepatosplenomegaly Extremities no edema Neuro alert and orientated to 3 - Labs CBC & Chem 7: 08/25/20 05:06 08/25/20 05:06 Labs: Abnormal Lab Results - Last 24 Hours (Table) 08/24/20 08/24/20 08/24/20 Range/Units 10:12 11:55 17:20 RBC (4.30-5.90) m/uL Hgb (13.0-17.5) gm/dL Hct (39.0-53.0) % MCV (80.0-100.0) fL MCH (25.0-35.0) pg Plt Count (150-450) k/uL Lymphocytes # (1.0-4.8) k/uL POC Glucose (mg/dL) 126 H 116 H 109 H (75-99) mg/dL 08/24/20 08/25/20 Range/Units 20:15 05:06 RBC 2.71 L (4.30-5.90) m/uL Hgb 9.6 L (13.0-17.5) gm/dL Hct 29.0 L (39.0-53.0) % MCV 106.7 H (80.0-100.0) fL MCH 35.5 H (25.0-35.0) pg Plt Count 120 L (150-450) k/uL Lymphocytes # 0.6 L (1.0-4.8) k/uL POC Glucose (mg/dL) 102 H (75-99) mg/dL Assessment and Plan Assessment: 1. Hyperbilirubinanemia and Jaundice with concerns of metastatic disease 2. History of metastatic urothelial carcinoma. Patient has been following with oncology service is currently receiving chemotherapy. Urostomy tube in place 3. History of deep vein thrombosis iliac vein 4. History of hypothyroidism 5. History of essential hypertension 6. History of chronic pain syndrome maintained on methadone 7. urinary tract infection. Patient will be started on Rocephin urine culture ordered DVT prophylaxis Lovenox. GI prophylaxis Protonix. Oncology GI service is consulted MRI of the liver with and without contrast ordered Repeat labs ordered Urine culture ordered Patient started on IV Rocephin
[2020-08-25 20:08] LABS: Glucose,Whole Blood 96 mg/dL (75-99)
[2020-08-25] MEDS: polyethylene glycoL 3350 17 GM POWD.PACK PO SCH (21:36)
[2020-08-25] MEDS: ALPRAZolam 0.25 MG TAB PO SCH (21:36)
[2020-08-26 01:54] LABS: Glucose,Whole Blood 67 mg/dL (75-99)
[2020-08-26 02:14] LABS: Glucose,Whole Blood 74 mg/dL (75-99)
[2020-08-26] MEDS: LEVOTHYROXINE 125 MCG TAB PO SCH (05:56)
[2020-08-26 06:59] LABS: Glucose,Whole Blood 76 mg/dL (75-99)
[2020-08-26] MEDS: ENOXAPARIN 40 MG/0.4 ML SYRINGE SQ SCH (07:37)
[2020-08-26 08:27] LABS: Glucose,Whole Blood 77 mg/dL (75-99)
[2020-08-26] MEDS: hydrALAZINE HCL 25 MG TAB PO SCH ×2 (08:41→21:02)
[2020-08-26] MEDS: POTASSIUM CHLORIDE ER 10 MEQ TAB.ER.PRT PO SCH (08:41)
[2020-08-26] MEDS: SODIUM BICARBONATE TAB 650 MG TAB PO SCH ×3 (08:42→21:02)
[2020-08-26] MEDS: DEXTROSE 5%-0.45% NACL 1,000 ML IV SCH ×2 (08:42→17:01)
[2020-08-26] MEDS: amLODIPine 2.5 MG TAB PO SCH (08:42)
[2020-08-26] MEDS: PANTOPRAZOLE 40 MG TABLET PO SCH ×2 (08:42→17:01)
--- NOTE | 2020-08-26 09:05 | P.PN ---
Subjective Progress Note Date: 08/26/20 Principal diagnosis: Jaundice Patient seen and examined lying in bed. He is scheduled to go for biopsy of the liver today. Current labs are pending. He denies any abdominal pain, nausea, or vomiting. Objective - Vital Signs Vital signs: Vital Signs Temp 98.1 F 08/26/20 05:00 Pulse 72 08/26/20 05:00 Resp 16 08/26/20 05:00 BP 130/61 08/26/20 05:00 Pulse Ox 92 L 08/26/20 05:00 Intake & Output 08/25/20 08/26/20 08/26/20 18:59 06:59 18:59 Output Total 600 550 200 Balance -600 -550 -200 Weight 75.296 kg Output: Drainage 550 200 Left Lower Back 550 200 Urine 600 Other: Voiding Method External Catheter External Catheter # Voids 1 - Exam General appearance: The patient is alert, oriented, appears in no acute distress. HET: Head is normocephalic and atraumatic. Conjunctiva pink. Sclera icteric. Neck: Supple without lymphadenopathy. Abdomen: Soft, nontender, nondistended with bowel sounds. No guarding or rigidity. Extremities: Normal skin color and turgor. No pedal edema Skin: No rashes, Jaundice. Neurological: No focal deficits. Alert and oriented 3. - Labs CBC & Chem 7: 08/26/20 08:42 08/26/20 08:42 Labs: Abnormal Lab Results - Last 24 Hours (Table) 08/25/20 08/25/20 08/25/20 Range/Units 05:06 11:16 11:55 PT 13.3 H (9.0-12.0) sec INR 1.3 H (<1.2) Est GFR (CKD-EPI)AfAm 57.0 L (60.0-200.0) Est GFR (CKD-EPI)NonAf 49.1 L (60.0-200.0) BUN/Creatinine Ratio 11.43 L (12.00-20.00) Ratio POC Glucose (mg/dL) 74 L (75-99) mg/dL Calcium 8.4 L (8.7-10.3) mg/dL Total Bilirubin 6.9 H (0.2-1.2) mg/dL AST 254 H (14-35) U/L ALT 77 H (10-49) U/L Alkaline Phosphatase 687 H (41-126) U/L Total Protein 6.1 L (6.2-8.2) g/dL Albumin 2.70 L (3.80-4.90) g/dL Globulin 3.4 H (1.6-3.3) g/dL Albumin/Globulin Ratio 0.79 L (1.60-3.17) g/dL 08/26/20 08/26/20 Range/Units 01:51 02:12 PT (9.0-12.0) sec INR (<1.2) Est GFR (CKD-EPI)AfAm (60.0-200.0) Est GFR (CKD-EPI)NonAf (60.0-200.0) BUN/Creatinine Ratio (12.00-20.00) Ratio POC Glucose (mg/dL) 67 L 74 L (75-99) mg/dL Calcium (8.7-10.3) mg/dL Total Bilirubin (0.2-1.2) mg/dL AST (14-35) U/L ALT (10-49) U/L Alkaline Phosphatase (41-126) U/L Total Protein (6.2-8.2) g/dL Albumin (3.80-4.90) g/dL Globulin (1.6-3.3) g/dL Albumin/Globulin Ratio (1.60-3.17) g/dL Assessment and Plan (1) Hyperbilirubinemia Narrative/Plan: 74-year-old male with a recent diagnosis of renal carcinoma with metastasis who is currently under treatment with a past medical history of hepatitis C due to history of IV drug use treated with a Salazar 45 years ago presented to the emergency department for abnormal outpatient labs. The patient presented with an total bilirubin is 7.9, alkaline phosphatase 786, AST 150, ALT [address] of the abdomen showing an ill-defined hypodensity at the hepatic hilum. Underlying mass is not excluded. Consider MRI with contrast. Sclerotic epistasis, especially through the pelvis and lumbar region, right renal mass. Ultrasound of the gallbladder findings included limited examination, borderline gallbladder wall thickening, unable to visualize common bile duct, 6.0 cm complex lesion of the right kidney is again seen. The patient is denying any ab dominal pain, nausea, or vomiting. States his PCP has been monitoring his bilirubin which has been increasing. He is currently under treatment for his renal carcinoma with metastasis. States he has been receiving treatment for the last 3-4 months duration. Will obtain MRI/MRCP to rule out liver mass, biliary obstruction. Current Visit: Yes Status: Acute Code(s): E80.6 - OTHER DISORDERS OF BILIRUBIN METABOLISM SNOMED Code(s): 08637895 (2) Jaundice Current Visit: Yes Status: Acute Code(s): R17 - UNSPECIFIED JAUNDICE SNOMED Code(s): 03109537 (3) Metastatic renal cell carcinoma Narrative/Plan: Oncology following patient Current Visit: Yes Status: Acute Code(s): C64.9 - MALIGNANT NEOPLASM OF UNSP KIDNEY, EXCEPT RENAL PELVIS SNOMED Code(s): 948914763 Plan: 1. Iodine as tolerated 2. MRI/MRCP was significant diffuse hepatocellular disease possibly related to metastasis versus underlying cirrhosis 3. Daily CMP 4. Avoid hepatotoxic medications 5. Continue symptomatic and supportive care 6. Oncology service following closely, liver biopsy ordered 7. Patient may be discharged home from a gastroenterology standpoint once otherwise medically cleared Thank you for this consultation, we will continue to follow. Dr. Damon I agree with the dictator's note, documented as a scribe by Nori Melendez.
[2020-08-26 09:37] LABS: ALT 60 U/L (4-49); AST 166 U/L (17-59); African American GFR (CKD) 70 (>60 ml/min/1.73 sqM); Albumin 2.5 g/dL (3.5-5.0); Albumin/Globulin Ratio 0.7; Alkaline Phosphatase 596 U/L (38-126); Anion Gap 5 mmol/L; Blood Urea Nitrogen 16 mg/dL (9-20); Calcium 8.9 mg/dL (8.4-10.2); Carbon Dioxide 24 mmol/L (22-30); Chloride 107 mmol/L (98-107); Globulin 3.7 g/dL; Glucose 73 mg/dL (74-99); Non-African American GFR(CKD) 60 (>60 ml/min/1.73 sqM); Sodium 136 mmol/L (137-145); Total Bilirubin 6.4 mg/dL (0.2-1.3); Total Protein 6.2 g/dL (6.3-8.2)
[2020-08-26 10:05] LABS: HCT 29.5 % (39.0-53.0); HGB 9.5 gm/dL (13.0-17.5); Hypochromasia Slight; MCH 36.4 pg (25.0-35.0); MCHC 32.3 g/dL (31.0-37.0); Macrocytosis Marked; Platelet Count 107 k/uL (150-450); RBC 2.62 m/uL (4.30-5.90); RDW 15.2 % (11.5-15.5); WBC 4.9 k/uL (3.8-10.6)
[2020-08-26 10:06] LABS: MCV 112.6 fL (80.0-100.0)
[2020-08-26] MEDS ORDERED: HYDROmorphone 0.5 MG/0.5 ML SYRINGE IVP STA (10:42)
[2020-08-26] MEDS: METHADONE 10 MG TAB PO SCH (12:03)
[2020-08-26 12:35] LABS: Glucose,Whole Blood 101 mg/dL (75-99)
--- NOTE | 2020-08-26 12:58 | US ---
EXAMINATION TYPE: US biopsy liver DATE OF EXAM: 08/26/2020 HISTORY: Liver mass, renal cell carcinoma. FINDINGS: Maximal barrier technique was utilized. Hand hygiene achieved with soap and water and alco hol-based hand rub. The skin overlying a suitable path to the patient's mass in the right lobe liver was localized with ultrasound and the overlying skin prepped and draped. Ultrasound was utilized wit h sterile technique. Lidocaine was used for local anesthesia. A skin scott was made with a scalpel. An 18-gauge needle was advanced under direct ultrasound guidance and core specimen obtained of the m ass. Single pass was made. Specimen submitted in formalin to Pathology. Following the procedure, he mostasis achieved and the patient is discharged in stable condition without complication. IMPRESSION:STATUS POST ULTRASOUND GUIDED CORE BIOPSY OF right lobe liver MASS, PATHOLOGY IS PENDING. THIS PROCEDURE IS PERFORMED BY THE UNDERSIGNED.
[2020-08-26 17:01] LABS: Glucose,Whole Blood 96 mg/dL (75-99)
[2020-08-26] MEDS ORDERED: HYDROcodone/APAP 7.5-325MG 1 EACH TAB PO PRN (20:43)
[2020-08-26] MEDS: polyethylene glycoL 3350 17 GM POWD.PACK PO SCH (21:03)
[2020-08-26 21:38] LABS: Glucose,Whole Blood 74 mg/dL (75-99)
[2020-08-26] MEDS: ALPRAZolam 0.25 MG TAB PO SCH (22:43)
[2020-08-27 01:38] LABS: Glucose,Whole Blood 85 mg/dL (75-99)
[2020-08-27] MEDS: DEXTROSE 5%-0.45% NACL 1,000 ML IV SCH (05:09)
[2020-08-27 05:15] LABS: Basophils % (A) 1 %; Eosinophils # (A) 0.2 k/uL (0-0.7); Eosinophils % (A) 4 %; HCT 26.8 % (39.0-53.0); HGB 8.6 gm/dL (13.0-17.5); Hypochromasia Slight; Lymphocytes # (A) 0.5 k/uL (1.0-4.8); Lymphocytes % (A) 11 %; MCH 36.3 pg (25.0-35.0); MCHC 32.2 g/dL (31.0-37.0); MCV 112.6 fL (80.0-100.0); Mean Platelet Volume 8.1; Monocytes # (A) 0.5 k/uL (0-1.0); Monocytes % (A) 11 %; Neutrophils # (A) 3.1 k/uL (1.3-7.7); Neutrophils % (A) 71 %; Platelet Count 101 k/uL (150-450); RBC 2.38 m/uL (4.30-5.90); RDW 15.1 % (11.5-15.5); WBC 4.4 k/uL (3.8-10.6)
[2020-08-27] MEDS: LEVOTHYROXINE 125 MCG TAB PO SCH (05:58)
[2020-08-27 06:02] LABS: Macrocytosis Marked
[2020-08-27 07:11] LABS: Glucose,Whole Blood 80 mg/dL (75-99)
[2020-08-27] MEDS: SODIUM BICARBONATE TAB 650 MG TAB PO SCH (08:40)
[2020-08-27] MEDS: hydrALAZINE HCL 25 MG TAB PO SCH (08:40)
[2020-08-27] MEDS: TORSEMIDE 20 MG TAB PO SCH (08:41)
[2020-08-27] MEDS: PANTOPRAZOLE 40 MG TABLET PO SCH (08:41)
[2020-08-27] MEDS: amLODIPine 2.5 MG TAB PO SCH (08:41)
[2020-08-27] MEDS: POTASSIUM CHLORIDE ER 10 MEQ TAB.ER.PRT PO SCH (08:41)
[2020-08-27] MEDS: ENOXAPARIN 40 MG/0.4 ML SYRINGE SQ SCH (08:42)
[2020-08-27] MEDS: METHADONE 10 MG TAB PO SCH (08:43)
[2020-08-27] MEDS: MAGNESIUM SULFATE-D5W PMX 1 GM in DEXTROSE/WATER 1 100ML.BAG IVPB SCH ×2 (10:08→13:29)
[2020-08-27 11:12] LABS: Glucose,Whole Blood 121 mg/dL (75-99)
--- NOTE | 2020-08-27 11:24 | P.DS ---
Providers Date of admission: 08/21/20 11:07 Expected date of discharge: 08/27/20 Attending physician: Isma Cohen Consults: 08/21/20 11:10 Consult Physician Routine Consulting Provider: Selin Brennan Consult Reason/Comments: Metastatic disease Do you want consulting provider notified?: Yes Primary care physician: Isma [facility] Course: Discharge diagnosis 1. Hyperbilirubinanemia and Jaundice with concerns of metastatic disease 2. History of metastatic urothelial carcinoma. Patient has been following with oncology service is currently receiving chemotherapy. Urostomy tube in place 3. History of deep vein thrombosis iliac vein 4. History of hypothyroidism 5. History of essential hypertension 6. History of chronic pain syndrome maintained on methadone 7. urinary tract infection. 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 Patient presented to the ER with complaints of painless jaundice. Patient has been following with [facility] for cancer treatment and was instructed to go to ER per oncology due to elevated bilirubin of 7.9. Additional medical history includes hyperlipidemia, hypertension, renal or thyroid disorder, hepatitis C, previous drug abuse currently on methadone and anxiety. Abdomen and pelvis CT was completed showing right renal mass in distal tibia sized to kidney is similar in appearance to the comparison study. Left nephrostomy tube. Mild ascites adjacent to the liver. sclerotic metastatic especially to the pelvic and lumbar region. Ultrasound of gallbladder completed showing borderline gallbladder wall thickening. 6.0 cm complex lesion of right kidney. Initial total bilirubin 7.9. AST 150 ALT 49 and alkaline phosphatase 786. Patient lactic acid initially elevated at 3. 6 repeat 1.4. At this time oncology and GI services have been consulted. MRI has been ordered. Patient denies chest pain or shortness of breath. Patient denies nausea vomiting or diarrhea. Patient denies any urinary burning or frequency On 08/23/2020 patient is alert and oriented 3. Patient did have MRI completed yesterday to be reviewed by oncology and GI services. Total bili 6.1 AST 137 ALT 41 and alkaline phosphatase 662. Patient did have episode of low blood sugar started on D5. Patient denies chest pain or shortness of breath. Patient denies nausea vomiting or diarrhea. Patient denies any urinary burning or frequency. Replace electrolytes per protocol 08/24/2020 patient was seen and examined on the medical floor he is alert and oriented 3 in no apparent distress, he had few episodes of hypoglycemia, patient is still maintained on IV fluid with D5 0.45, otherwise he denies any complaints there is no fever or chills no headache or dizziness no chest pain no shortness of breath no cough no nausea or vomiting he has mild abdominal pain unchanged, no diarrhea no burning with urination no frequency or urgency and no hematuria. There oncology in the note yesterday, plan is for liver biopsy early next week, no recommendation for discharge were made, will continue with current management, awaiting liver ultrasound tomorrow or Tuesday08/25/2020 patient is alert and oriented 3 in no apparent distress, he denies any complaints there is no fever or chills no headache or dizziness no chest pain no shortness of breath no cough no nausea or vomiting he has mild abdominal pain unchanged, no diarrhea no burning with urination no frequency or urgency and no hematuria. plan per Oncology for liver biopsy in am tomorrow On 08/27/2020 patient alert and oriented 3. Patient exercises that he is eager to be discharged home. Per nursing staff patient has been cleared by oncology and GI services. Liver biopsy was completed on 08/26/2020 biopsy pending. Patient will be discharged home and follow-up with his oncology service and PCP. Patient also discharged on Ceftin for urinary tract infection Patient Condition at Discharge: Stable Plan - Discharge Summary Discharge Rx Participant: No New Discharge Prescriptions: New Cefuroxime Axetil [Ceftin] 500 mg PO BID 5 Days #10 tab Continue Levothyroxine Sodium [Synthroid] 125 mcg PO DAILY ALPRAZolam [Xanax] 0.25 mg PO HS Methadone HCl [Methadone Intensol] 146 mg PO DAILY hydrALAZINE HCL [Apresoline] 25 mg PO BID tab Sodium Bicarbonate Tab 650 mg PO TID tab polyethylene glycoL 3350 [Miralax] 17 gm PO HS Ondansetron [Zofran] 4 mg PO Q4H PRN PRN Reason: Nausea Potassium Chloride 10 meq PO DAILY Hydrocodone/Acetaminophen [[place] 7.5-325] 1 tab PO Q6HR PRN PRN Reason: Pain SILVER sulfADIAZINE Cream [Silvadene 1% Cream] 1 applic TOPICAL BID amLODIPine [Norvasc] 2.5 mg PO DAILY Torsemide [Demadex] 20 mg PO Q48H Pantoprazole [Protonix] 40 mg PO BID Discharge Medication List ALPRAZolam [Xanax] 0.25 mg PO HS 03/08/20 [History] Levothyroxine Sodium [Synthroid] 125 mcg PO DAILY 03/08/20 [History] Methadone HCl [Methadone Intensol] 146 mg PO DAILY 03/08/20 [History] Sodium Bicarbonate Tab 650 mg PO TID tab 03/15/20 [Rx] hydrALAZINE HCL [Apresoline] 25 mg PO BID tab 03/15/20 [Rx] polyethylene glycoL 3350 [Miralax] 17 gm PO HS 04/17/20 [History] Ondansetron [Zofran] 4 mg PO Q4H PRN 05/12/20 [History] Potassium Chloride 10 meq PO DAILY 06/04/20 [History] amLODIPine [Norvasc] 2.5 mg PO DAILY 06/04/20 [History] Hydrocodone/Acetaminophen [[place] 7.5-325] 1 tab PO Q6HR PRN 08/21/20 [History] Pantoprazole [Protonix] 40 mg PO BID 08/21/20 [History] SILVER sulfADIAZINE Cream [Silvadene 1% Cream] 1 applic TOPICAL BID 08/21/20 [History] Torsemide [Demadex] 20 mg PO Q48H 08/21/20 [History] Cefuroxime Axetil [Ceftin] 500 mg PO BID 5 Days #10 tab 08/27/20 [Rx] Follow up Appointment(s)/Referral(s): Isma Cohen MD [Primary Care Provider] - 1-2 days Manuel Damon MD [STAFF PHYSICIAN] - 1 Week Selin Brennan MD [STAFF PHYSICIAN] - 1 Week Activity/Diet/Wound Care/Special Instructions: Regular diet Activity as tolerated Discharge Disposition: HOME SELF-CARE
--- NOTE | 2020-08-27 11:39 | P.PN ---
Subjective Progress Note Date: 08/27/20 Principal diagnosis: Jaundice and increased liver function Objective - Vital Signs Vital signs: Vital Signs Temp 98.4 F 08/27/20 04:00 Pulse 63 08/27/20 04:00 Resp 16 08/27/20 04:00 BP 134/63 08/27/20 04:00 Pulse Ox 94 L 08/27/20 04:00 Intake & Output 08/26/20 08/27/20 08/27/20 18:59 06:59 18:59 Intake Total 2030 725 Output Total 895 400 Balance 1135 325 Intake: Intake, IV Titration 950 725 Amount Dextrose 5%-0.45% NaCl 1, 900 725 000 ml @ 75 mls/hr IV . [id number] [facility] Rx#:[id number] cefTRIAXone 1 gm In 50 Sodium Chloride 0.9% 50 ml @ 100 mls/hr IVPB Q12HR [facility] Rx#:[id number] Oral 1080 Output: Drainage 895 Left Lower Back 895 Urine 400 Other: Voiding Method External Catheter External Catheter - Exam - Constitutional General appearance: no acute distress, thin - EENT Eyes: EOMI, scleral icterus - Neck Neck: no lymphadenopathy - Respiratory Respiratory: bilateral: CTA - Cardiovascular Rhythm: regular Heart sounds: normal: S1, S2 - Gastrointestinal General gastrointestinal: normal bowel sounds, soft - Integumentary Integumentary: jaundiced - Neurologic Neurologic: CNII-XII intact, focal deficits - Musculoskeletal Musculoskeletal: generalized weakness - Psychiatric Psychiatric: A&O x's 3, appropriate affect, intact judgment & insight - Labs CBC & Chem 7: 08/27/20 04:28 08/26/20 08:42 Labs: Abnormal Lab Results - Last 24 Hours (Table) 08/26/20 08/26/20 08/27/20 Range/Units 12:30 21:37 04:28 RBC 2.38 L (4.30-5.90) m/uL Hgb 8.6 L (13.0-17.5) gm/dL Hct 26.8 L (39.0-53.0) % MCV 112.6 H (80.0-100.0) fL MCH 36.3 H (25.0-35.0) pg Plt Count 101 L (150-450) k/uL Lymphocytes # 0.5 L (1.0-4.8) k/uL Macrocytosis Marked A POC Glucose (mg/dL) 101 H 74 L (75-99) mg/dL 08/27/20 Range/Units 11:10 RBC (4.30-5.90) m/uL Hgb (13.0-17.5) gm/dL Hct (39.0-53.0) % MCV (80.0-100.0) fL MCH (25.0-35.0) pg Plt Count (150-450) k/uL Lymphocytes # (1.0-4.8) k/uL Macrocytosis POC Glucose (mg/dL) 121 H (75-99) mg/dL Assessment and Plan Plan: Physician Attest: I have completed the full history and physical and agree with above dictation, dictated as a ascribe. 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
[2020-08-27 12:29] VITALS: BP 135/67; PULSE 67; RESP 14; TEMP 98.6
[2020-08-27 13:07] LABS: African American GFR (CKD) 62.3 (60.0-200.0); Albumin 2.4 g/dL (3.80-4.90); Albumin/Globulin Ratio 0.73 (1.60-3.17); Anion Gap 5.1 mmol/L (4.00-12.00); BUN/Creat Ratio 12.31 Ratio (12.00-20.00); Calcium 8.3 mg/dL (8.7-10.3); Carbon Dioxide 25.9 mmol/L (21.6-31.8); Globulin 3.3 g/dL (1.6-3.3); Non-African American GFR(CKD) 53.8 (60.0-200.0); Potassium 4.5 mmol/L (3.5-5.5); Total Bilirubin 6.6 mg/dL (0.3-1.2); Total Protein 5.7 g/dL (6.2-8.2)
== END 2020-08-27 14:58 | disposition home or self-care (01) | DRG 436 ==
LOC: EC 09:03 → 5NMEDONC 11:07
PROVIDERS: ADMIT Internal Medicine; ATTEND Internal Medicine
PROC: 0FB13ZX Excision of Right Lobe Liver, Percutaneous Approach, Diagnostic (ICD-10-PCS; principal; 2020-08-26)
DX: C78.7 Secondary malignant neoplasm of liver and intrahepatic bile duct (principal); C79.51 Secondary malignant neoplasm of bone; C64.9 Malignant neoplasm of unspecified kidney, except renal pelvis; I74.5 Embolism and thrombosis of iliac artery; N39.0 Urinary tract infection, site not specified; R17 Unspecified jaundice; R18.8 Other ascites; N17.9 Acute kidney failure, unspecified; D63.0 Anemia in neoplastic disease; E03.9 Hypothyroidism, unspecified; F19.10 Other psychoactive substance abuse, uncomplicated; N18.30 Chronic kidney disease, stage 3 unspecified; I12.9 Hypertensive chronic kidney disease with stage 1 through stage 4 chronic kidney disease, or unspecified chronic kidney disease; F11.11 Opioid abuse, in remission; F12.10 Cannabis abuse, uncomplicated; D63.1 Anemia in chronic kidney disease; B19.20 Unspecified viral hepatitis C without hepatic coma; E78.5 Hyperlipidemia, unspecified; F17.210 Nicotine dependence, cigarettes, uncomplicated; F41.9 Anxiety disorder, unspecified; G89.4 Chronic pain syndrome; T45.1X5A Adverse effect of antineoplastic and immunosuppressive drugs, initial encounter; Z79.890 Hormone replacement therapy; Z79.899 Other long term (current) drug therapy; Z86.19 Personal history of other infectious and parasitic diseases; Z86.718 Personal history of other venous thrombosis and embolism; Z96.653 Presence of artificial knee joint, bilateral; Z96.0 Presence of urogenital implants; Z98.890 Other specified postprocedural states; Z74.01 Bed confinement status
CPT/HCPCS: 36415; 47000; 74176; 74183; 76705; 76942; 80053; 81001; 82150; 83605; 83690; 83735; 84132; 85025; 85027; 85610; 85730; 87086; 88307; 88341; 88342; 96360; 99213; 99285

== ENCOUNTER 2020-09-04 15:31 | Day surgery (SDC) | payer MEDICARE ==
[2020-09-04 16:07] VITALS: BP 140/62; PULSE 81; RESP 16; TEMP 98.9
== END 2020-09-04 16:10 | disposition home or self-care (01) ==
LOC: RADPROMAIN 15:31
PROVIDERS: ATTEND Radiology Diagnostic Radiology
DX: Z43.6 Encounter for attention to other artificial openings of urinary tract (principal)
CPT/HCPCS: 99213

== ENCOUNTER 2020-09-11 15:25 | Day surgery (SDC) | payer MEDICARE ==
[2020-09-11 16:05] VITALS: BP 140/64; PULSE 67; RESP 16; TEMP 97.9
== END 2020-09-11 16:10 | disposition home or self-care (01) ==
LOC: RADPROMAIN 15:25
PROVIDERS: ATTEND Radiology Diagnostic Radiology
DX: Z48.03 Encounter for change or removal of drains (principal)
CPT/HCPCS: 99213

== ENCOUNTER 2020-09-18 15:28 | Day surgery (SDC) | payer MEDICARE ==
[2020-09-18 15:41] VITALS: BP 142/63; PULSE 87; RESP 16; TEMP 98.1
== END 2020-09-18 15:55 | disposition home or self-care (01) ==
LOC: RADPROMAIN 15:28
PROVIDERS: ATTEND Radiology Diagnostic Radiology
DX: Z48.03 Encounter for change or removal of drains (principal)
CPT/HCPCS: 99213

== ENCOUNTER 2020-09-29 10:06 | Day surgery (SDC) | payer MEDICARE ==
[2020-09-29 10:49] VITALS: BP 145/78; PULSE 96; RESP 18; TEMP 97.7
== END 2020-09-29 11:05 | disposition home or self-care (01) ==
LOC: RADPROMAIN 10:06
PROVIDERS: ATTEND Radiology Diagnostic Radiology
DX: Z48.03 Encounter for change or removal of drains (principal)
CPT/HCPCS: 99213